=== PATIENT | male | born 1950 | race Caucasian/White ===

== ENCOUNTER → 2017-12-10 | Day surgery (SDC) | payer OTHER ==
[~2017-12-10] VITALS: Ht 172.7 cm; Wt 79.5 kg
[~2017-12-10] MED LIST: APIX1TAB3 PO; DILT-213 PO; DOXY1TAB6 PO; IBUP600T44 PO; METO25TA4 PO; MULT-506 PO; OXYC-57 PO; RANI150T85 PO
[2017-12-10 06:57] VITALS: BP 137/99; PULSE 73; TEMP 36.5; O2SAT 96; Ht 172.7 cm; Wt 79.5 kg
--- NOTE | 2017-12-10 07:16 | History & Physical Bridge Note ---
H&P Re-Evaluation Bridge Note: I have examined the patient, reviewed the History & Physical and in the interval since the performance of the History & Physical I have noted the following changes of clinical significance: No changes noted. Patient remains in atrial fibrillation on arrival today. He took his Eliquis this am and had not missed any doses recently. Informed consent obtained.
[2017-12-10 07:18] VITALS: BP 123/91; PULSE 80; O2SAT 98
[2017-12-10 07:20] VITALS: BP 123/91; PULSE 65; O2SAT 98
--- NOTE | 2017-12-10 07:31 | Cardioversion ---
Electricial Cardioversion Rpt Date of Service: 12/10/17 Electrical Cardioversion Rprt Procedure Date Dec 10, 2017. Pre-Procedure Diagnosis symptomatic atrial fibrillation Post-Procedure Diagnosis successful conversion to sinus rhythm Procedure(s) Performed [facility] Oleo Hasher And Renderer Ken Leyva DO Orthodontist(s) none Estimated Blood Loss none Preliminary Findings After informed consent was obtained and a time out was performed the patient was sedated with the assistance of Dr Peña of anesthesia receiving 60 mg of IV propofol. Patient then underwent synchronized direct current cardioversion, receiving 1 dose of 250 J of biphasic energy with successful conversion to sinus rhythm. Post procedure EKG reveals SR at 64 bpm, with LA enlargement pattern, otherwise normal. Recommendations Continue Eliquis. Will reassess need for ongoing metoprolol and diltiazem prior to discharge and update his medication list. 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
--- NOTE | 2017-12-10 08:18 | Discharge Instructions ---
Discharge Instructions Procedure Procedure Date: Dec 10, 2017. Reason for Visit: Atrial fibrillation, cardioversion Discharge Discharge Date: Dec 10, 2017. Discharge Diagnosis: Successful conversion to sinus rhythm Last Recorded Wt (Kilograms): 79.5 Anesthesia Post Anesthesia Instructions: If you have had General Anesthesia or IV Sedation: * Do not drive today. * Resume driving when surgeon permits. * Do not make important decisions or sign legal documents today. * Call surgeon for: 1. Temperature elevations greater than 101 degrees F. 2. Uncontrollable pain. 3. Excessive bleeding. 4. Persistent nausea and vomiting. 5. Medication intolerance (nausea, vomiting or rash). * For nausea and vomiting use only clear liquids such as: tea, soda, bouillon until nausea subsides, then gradually increase diet as tolerated. * If you have any concerns or questions, call your surgeon's office. If physician is unavailable and it is an emergency, call 911 or go to the nearest emergency room. Instructions Activity Recommendations: limitations as noted below Recommended Home Diet: resume previous diet Allergies: Coded Allergies: No Known Allergies (Unverified , 11/02/10) Provider Instructions ACTIVITY RECOMMENDATIONS: Resume activities as tolerated with no limitations unless specified. _x_ No lifting over _10_ pounds for 24 hours. _x_ Do not engage in vigorous exercise, sexual activity, or sports for 24 hours. _x_ Do not drive or operate any motorized equipment for 24 hours. _x_ You may return to work/school tomorrow. SPECIAL CARE: If you experience coughing up or vomiting of blood, contact _Dr Leyva __ Follow Up Follow-up with: Follow up with Dr Leyva as planned. [facility] Recommendations: Call your doctor if: * Temperature above 101 degrees * Pain not relieved by pain medicine ordered * There is increased drainage or redness from any incision * You have any unanswered questions or concerns. Your Doctors Instructions noted above were prepared by provider Ken Leyva. Patient Signature Section: Patient Instructions Signature Page Carlos Spears Patient (or Guardian) Signature/Date: I have read and understand the instructions given to me by my caregivers. Caregiver/RN/Doctor Signature/Date: The above-named patient and/or guardian has received patient instructions on this date. + Original Patient Signature Page (only) stays with chart. Please make copy for patient.
[2017-12-10 08:30] VITALS: BP 127/87; PULSE 67; O2SAT 98
--- NOTE | 2017-12-10 08:58 | Anesthesiology Progress Note ---
Anesthesia Post Op Note Date & Time Dec 10, 2017 at 08:58 Vital Signs Pain Intensity: 0 Vital Signs Past 12 Hours Date Time Temp Pulse Resp B/P (MAP) Pulse Ox O2 Delivery O2 Flow Rate FiO2 12/10/17 08:30 67 16 127/87 (100) 98 Room Air 12/10/17 08:15 66 16 118/80 (93) 98 Room Air 12/10/17 08:00 65 16 117/83 (94) 98 Room Air 12/10/17 07:45 65 16 125/93 (104) 98 Room Air 12/10/17 07:35 66 16 110/81 (91) 98 Room Air 12/10/17 07:25 69 16 110/71 (84) 97 Room Air 12/10/17 07:20 65 16 123/91 98 Nasal Cannula 4 12/10/17 07:18 80 16 123/91 98 Nasal Cannula 4 12/10/17 06:57 36.5 73 16 137/99 (112) 96 Room Air Notes Mental Status: alert / awake / arousable, participated in evaluation Pt Amnestic to Procedure: Yes Nausea / Vomiting: adequately controlled Pain: adequately controlled Airway Patency, RR, SpO2: stable & adequate BP & HR: stable & adequate Hydration State: stable & adequate Anesthetic Complications: no major complications apparent
== END ==
LOC: C.CATH 06:12
PROVIDERS: ATTEND Specialist
DX: I48.91 Unspecified atrial fibrillation (principal); Z87.891 Personal history of nicotine dependence; I48.1 Persistent atrial fibrillation; Z80.9 Family history of malignant neoplasm, unspecified; Z79.01 Long term (current) use of anticoagulants; Z79.82 Long term (current) use of aspirin

== ENCOUNTER 2017-12-19 15:16 | Inpatient (IN) | payer OTHER ==
[~2017-12-19] VITALS: Ht 175.3 cm; Wt 79.1 kg
[~2017-12-19 15:16] MED LIST changes: -IBUP600T44 PO; -METO25TA4 PO; -OXYC-57 PO; -RANI150T85 PO
[2017-12-19 16:38] VITALS: BP 139/89; PULSE 97; TEMP 36.6; O2SAT 95; Ht 175.3 cm; Wt 79.1 kg
[2017-12-19] MEDS ORDERED: MAGNESIUM HYDROXIDE SUSP 30 ML UDC PO PRN (17:00)
[2017-12-19] MEDS ORDERED: ALUMINUM/MAGNESIUM/SIMETH (MAALOX MAX) 30 ML UDC PO PRN (17:00)
[2017-12-19] MEDS ORDERED: POLYETHYLENE (MIRALAX) 17 GM PACK PO PRN (17:00)
[2017-12-19] MEDS ORDERED: NITROGLYCERIN 0.4 MG SL PER TAB CHARGE SL PRN (17:00)
[2017-12-19] MEDS ORDERED: ACETAMINOPHEN 325 MG TAB PO PRN (17:00)
[2017-12-19 17:20] LABS: HEMATOCRIT 42.3 % (42-52); HEMOGLOBIN 14.8 g/dL (14.0-18.0); MEAN CELL VOLUME 88.7 fL (80-100); MEAN PLATELET VOLUME 9.9 fL (7.4-10.4); PLATELET COUNT 209 K/uL (130-400); RED CELL DISTRIBUTION WIDTH CV 13.3 % (11.5-14.5); RED CELL DISTRIBUTION WIDTH SD 43.4 fL (36.4-46.3); WHITE BLOOD COUNT 8.38 K/uL (4.8-10.8)
[2017-12-19] MEDS ORDERED: METOPROLOL TARTRATE 1 MG/ML VIAL IV STA (17:31)
--- NOTE | 2017-12-19 17:31 | History and Physical ---
History & Physical Date & Time of Service: Dec 19, 2017 at 17:31 Chief Complaint: AFIB Primary Care Physician: Sage Lay M.D. History of Present Illness Source: patient This is a 67-year-old male with history of paroxysmal A. fib on Eliquis. underwent DC cardioversion on December 10, 2017 . Patient mentions he has been doing well, 2 days ago he felt flutter in his chest , as he was shoveling snow on his porch felt chest tightness/heaviness Symptom was resolved after taking rest Denies of any shortness of breath/dyspnea on exertion/orthopnea/dizzy spell or palpitation Patient was seen at Dr. Lay office on December 16, due to patient's symptoms of chest discomfort with exertion, [place] cardiac stress test was scheduled for today. At [facility]-cardiac stress test was canceled as patient was found to be in rapid A. fib RVR with heart rate of 120 Did not had any symptoms of chest pain shortness of breath or palpitation, dizziness spell given patient's recurrence of atrial fibrillation, failed cardioversion, patient is sent to [facility] as a direct admit-for sotalol loading dose Will need 3 days of admission for daily EKG monitoring, doing loading dose of sotalol Patient is continued with anticoagulation with close Past Medical/Surgical History Medical Problems: (1) Afib Social History Smoking Status: Never Smoker Housing status: lives alone Occupational Status: retired Immunizations History of Tetanus Vaccine?: Yes Tetanus Immunization Date: Nov 02, 2002 History of Pneumococcal: Yes History of Hepatitis B Vaccine: No Multi-Drug Resistant Organisms History of MDRO: No Allergies Coded Allergies: No Known Allergies (Unverified , 11/02/10) Home Medications Scheduled Apixaban (Eliquis), 5 MG PO BID Diltiazem Hcl Coated Beads (Diltiazem Hcl Er), 1 CAP PO DAILY Multivitamin (Multivitamin), 1 TAB PO DAILY Review of Systems Constitutional: No fever, No chills, No sweats, No weight loss, No weakness, No fatigue, No problem reported Eyes: No worsening of vision, No eye pain, No redness, No discharge, No diplopia, No problem reported ENT: No hearing loss, No unusual epistaxis, No nasal symptoms, No sore throat, No tinnitus, No dental problems, No trouble swallowing, No problem reported Cardiovascular: + palpitations, + problem reported (Episode of chest pain/ chest heaviness while shoveling snow) Abdomen: No pain, No nausea, No vomiting, No diarrhea, No constipation, No GI bleeding, No problem reported Musculoskeletal: No joint pain, No muscle pain, No swelling, No calf pain, No problem reported Genitourinary - Male: No hematuria, No dysuria, No urinary frequency, No urinary urgency, No urinary hesitancy, No urinary retention, No urinary incontinence, No penile discharge, No lesions, No impotence, No problem reported Neurologic: No memory loss, No paralysis, No weakness, No numbness/tingling, No vertigo, No balance problems, No problem reported Physical Exam Vital Signs Date Time Temp Pulse Resp B/P (MAP) Pulse Ox O2 Delivery O2 Flow Rate FiO2 12/19/17 16:38 36.6 97 19 139/89 95 Room Air General Appearance: no apparent distress Head: normocephalic, atraumatic Eyes: normal inspection, sclerae normal ENT: normal ENT inspection Neck: thyroid normal, no JVD, no carotid bruits, trachea midline Respiratory/Chest: lungs clear, normal breath sounds, no respiratory distress Cardiovascular: no edema, no JVD, + irregularly irregular Abdomen/GI: normal bowel sounds, non tender, soft Extremities/Musculoskelatal: normal inspection, normal capillary refill, no pedal edema Neurologic/Psych: no motor/sensory deficits, alert, normal mood/affect, oriented x 3 Skin: normal color, warm/dry, no rash Lymphatic: no adenopathy Diagnostics Laboratory Results Results Past 24 Hours Test 12/19/17 17:04 Range/Units White Blood Count 8.38 4.8-10.8 K/uL Red Blood Count 4.77 4.7-6.1 M/uL Hemoglobin 14.8 14.0-18.0 g/dL Hematocrit 42.3 42-52 % Mean Corpuscular Volume 88.7 80-100 fL Mean Corpuscular Hemoglobin 31.0 25-34 pg Mean Corpuscular Hemoglobin Concent 35.0 32-36 g/dl RDW Standard Deviation 43.4 36.4-46.3 fL RDW Coefficient of Variation 13.3 11.5-14.5 % Platelet Count 209 130-400 K/uL Mean Platelet Volume 9.9 7.4-10.4 fL Prothrombin Time 10.6 9.0-12.0 SECONDS Prothromb Time International Ratio 1.0 0.9-1.1 Impression Assessment and Plan Rafiq fischer RVR: Failed recent cardioversion on 12/10/17 developed rapid afib Remains asymptomatic On Eliquis for chronic anticoagulation Patient is admitted at telemetry, started on sotalol loading dose Cardizem D/linsey per Cardiology recommendation Daily EKG ordered to assess QTc prolongation Daily BMP, mg level will be checked Cardiology consulted Patient had fairly recent echocardiogram done, repeat echo not ordered CODE STATUS: Full code DVT prophylaxis: On Eliquis Disposition: Expected to be returning home when medically stable Medicine follow-up with Dr. Sage Lay Level of Care Telemetry Advanced Directives Existing Living Will: Yes Existing Power of Director Social Service: No Resuscitation Status FULL RESUSCITATION VTE Prophylaxis Risk Level: Moderate Given or contraindicated: Other Anticoagulation (Eliquis) Additional Copies To Sage Lay M.D. Bradbury, James J., D.O.
[2017-12-19] MEDS ORDERED: METOPROLOL TARTRATE 1 MG/ML VIAL ONE (17:38)
[2017-12-19 17:44] LABS: ALBUMIN 3.5 gm/dl (3.4-5.0); ALKALINE PHOSPHATASE 69 U/L (45-117); ALT/SGPT 20 U/L (12-78); AST/SGOT 28 U/L (15-37); BLOOD UREA NITROGEN 20 mg/dl (7-18); CALCIUM 8.4 mg/dl (8.5-10.1); CARBON DIOXIDE 27 mmol/L (21-32); CREATININE 1.05 mg/dl (0.60-1.40); GLUCOSE 111 mg/dl (70-99); SODIUM 141 mmol/L (136-145); TOTAL PROTEIN 6.8 gm/dl (6.4-8.2)
[2017-12-19] MEDS ORDERED: METOPROLOL TARTRATE 1 MG/ML VIAL IV PRN (17:45)
[2017-12-19] MEDS ORDERED: SOTALOL HCL 80 MG TAB PO ONE (18:50)
[2017-12-19 18:59] VITALS: BP 130/93; PULSE 91; TEMP 36.7; O2SAT 95
--- NOTE | 2017-12-19 19:04 | DIAGNOSTIC IMAGING REPORT ---
CHEST ONE VIEW PORTABLE CLINICAL HISTORY: RAPID AFIB /SOB cardiac arrhythmia COMPARISON STUDY: 11/05/2010 FINDINGS: Mild stable cardiomegaly. Slight parenchymal prominence left base considered chronic. No focal infiltrate. IMPRESSION: Mild stable cardiomegaly. Chronic change. No acute process. The above report was generated using voice recognition software. It may contain grammatical, syntax or spelling errors. Electronically signed by: Sage Vera M.D. 12/19/2017 7:03 PM Dictated Date/Time: 12/19/2017 7:02 PM
[2017-12-19] MEDS: APIXABAN 2.5 MG TAB PO SCH (21:39)
[2017-12-19 23:25] VITALS: BP 113/86; PULSE 64; TEMP 36.6; O2SAT 96
[2017-12-20 03:24] VITALS: BP 96/60; PULSE 60; TEMP 36.6; O2SAT 96
[2017-12-20 06:12] LABS: HEMATOCRIT 40.2 % (42-52); HEMOGLOBIN 13.9 g/dL (14.0-18.0); MEAN CELL VOLUME 89.1 fL (80-100); MEAN CORPUSCULAR HEMOGLOBIN 30.8 pg (25-34); MEAN CORPUSCULAR HGB CONC 34.6 g/dl (32-36); PLATELET COUNT 202 K/uL (130-400); RED CELL DISTRIBUTION WIDTH CV 13.6 % (11.5-14.5); RED CELL DISTRIBUTION WIDTH SD 44.4 fL (36.4-46.3); WHITE BLOOD COUNT 7.13 K/uL (4.8-10.8)
[2017-12-20 07:00] LABS: BLOOD UREA NITROGEN 17 mg/dl (7-18); CALCIUM 8.6 mg/dl (8.5-10.1); CARBON DIOXIDE 27 mmol/L (21-32); CREATININE 0.94 mg/dl (0.60-1.40); GLUCOSE 88 mg/dl (70-99); POTASSIUM 4.3 mmol/L (3.5-5.1); SODIUM 141 mmol/L (136-145)
[2017-12-20 07:05] LABS: CHOLESTEROL 136 mg/dl (0-200); LDL CHOLESTEROL CALCULATED 86 mg/dl
[2017-12-20 07:39] VITALS: BP 122/86; PULSE 72; TEMP 36.6; O2SAT 97
[2017-12-20] MEDS: SOTALOL HCL 80 MG TAB PO SCH ×2 (07:54→20:56)
[2017-12-20] MEDS: APIXABAN 2.5 MG TAB PO SCH ×2 (07:54→20:56)
[2017-12-20] MEDS: MULTIVITAMIN TAB PO SCH (09:00)
--- NOTE | 2017-12-20 12:03 | CARDIOLOGY CONSULTATION ---
DATE OF CONSULTATION: 12/20/2017 REFERRING PHYSICIAN: Dr. Crista Winters. HISTORY OF PRESENT ILLNESS: Mr. Spears is a 67-year-old gentleman with history of paroxysmal atrial fibrillation. He underwent elective external direct current cardioversion on 12/10/2017. He presented to my office at [facility] yesterday for a Lexiscan nuclear stress test. He was noted to be in atrial fibrillation during that study. The stress test was negative for inducible ischemia. Further treatment options of his atrial fibrillation were reviewed. Inpatient hospitalization for sotalol loading recommended. He has received 2 doses of sotalol since admission. His heart rate remains in the 70s, however, he is in atrial fibrillation. The patient is unaware of his dysrhythmia at this time. Denies chest pain or shortness of breath. No orthopnea, PND, or lower extremity edema. He is chronically anticoagulated with Eliquis. Offers no other complaints at this time. REVIEW OF SYSTEMS: The pertinent positive noted above, a comprehensive 10-system review is otherwise negative. PAST MEDICAL HISTORY: 1. Paroxysmal atrial fibrillation. 2. Osteoarthritis. PAST SURGICAL HISTORY: 1. Colonoscopy. 2. Elective external direct current cardioversion 12/10/2017. FAMILY HISTORY: Mother of cancer at age 88. No family history of premature CAD or sudden cardiac . Father of a motor vehicle accident in his 40s. SOCIAL HISTORY: Former tobacco abuse 86-[id number]-[id number] history, quitting in 1990. ALLERGIES: No known drug allergies. OUTPATIENT MEDICATIONS: 1. Eliquis 5 mg twice daily. 2. Aspirin 81 mg daily. 3. Cardizem-CD 120 mg daily. 4. Toprol-XL 25 mg daily. LABORATORY DATA: White blood cell count 7.13, hemoglobin 13.9, platelet count is 202. Sodium 141, potassium 4.3, chloride 107, CO2 27, BUN is 70, creatinine 0.94. Troponins are negative. LDL is 86. ECG today is atrial fibrillation, heart rate 72 beats per minute, QTC 457. PHYSICAL EXAMINATION: VITAL SIGNS: Temperature 36.3 degrees centigrade, pulse is 75 beats per minute and irregular, respiratory rate is 15 breaths per minute, SAO2 is 98% on room air, blood pressure 122/86. GENERAL: NAD, awake, alert and oriented x3. HEENT: Mucous membranes moist. No scleral icterus. Conjunctivae pink. NECK: Supple without JVD or HJR. No carotid bruit. HEART: Irregular with a normal S1, S2, no murmur, rub or gallop. LUNGS: Clear without rales, rhonchi or wheeze. ABDOMEN: Soft, nontender. No rebound or guarding. Normal bowel sounds. EXTREMITIES: Warm and dry. There is no clubbing, cyanosis or edema. NEUROLOGIC: Demonstrates no focal deficit. FINAL IMPRESSION: 1. Paroxysmal atrial fibrillation status post recent failed cardioversion 12/10/2017. 2. Recent nonischemic Lexiscan nuclear stress test. 3. Preserved left ventricular systolic function. 4. Mild to moderate mitral regurgitation. 5. Mild aortic root enlargement. 6. Former tobacco abuse. PLAN AND RECOMMENDATIONS: The patient will be monitored during sotalol loading. Recommend he receive at least 5 doses as an inpatient. Consider repeat cardioversion in the near future after sotalol loading. Eliquis will be continued for anticoagulation. Cardizem and Toprol-XL been placed on hold. The patient's heart rate remains controlled. Thank you for allowing me to participate in the care of your patient. I will continue to follow along during hospitalization.
[2017-12-20 12:31] VITALS: BP 134/96; PULSE 76; TEMP 36.4; O2SAT 97
[2017-12-20 14:58] VITALS: BP 115/84; PULSE 80; TEMP 36.6; O2SAT 90
--- NOTE | 2017-12-20 18:28 | Progress Note ---
Medicine Progress Note Date & Time of Visit: Dec 20, 2017 at 1200. Subjective 67-year-old male with history of atrial fibrillation status post DC cardioversion on 12/10/17 with recent reconversion back to atrial fibrillation. The patient presented as a direct admission in rapid atrial fibrillation. He is on Eliquis for anticoagulation. He was admitted from the cardiology clinic and started on a sotalol loading dose Cardizem was discontinued per cardiology recommendations. He is doing well overnight and is persistently in A. fib on telemetry review with rate in the 70s. He is asymptomatic denying chest pain or shortness of breath. He is tolerating p.o. and ambulating without issue. Objective Last 8 Hrs Date Time Temp Pulse Resp B/P (MAP) Pulse Ox O2 Delivery O2 Flow Rate FiO2 12/20/17 16:00 Room Air 12/20/17 14:58 36.6 80 18 115/84 (94) 90 Room Air 12/20/17 12:31 36.4 76 20 134/96 (109) 97 Room Air 12/20/17 12:00 Room Air Physical Exam: GEN: WNWD, in no acute distress, alert and appropriate HEENT: NC/AT,normal sclerae CARDIO: reg rate, S1/2 heard without m/g/r LUNGS: CTA bilaterally, no crackles, rales or wheezes, good diaphragmatic excursion ABD: soft, non-tender, non-distended, no rebound or guarding, +BS EXTREMITY: RP and DP palpable 2+ bilat, no LE swelling or edema, extremities are warm and well-perfused NEURO: CN 2-12 grossly intact, no gross focal deficits. MUSC: 5/5 strength throughout, no focal deficits SKIN: warm and dry Laboratory Results: 12/20/17 05:34 12/20/17 05:34 Test 12/19/17 17:04 12/20/17 05:34 12/20/17 16:53 Prothrombin Time 10.6 SECONDS (9.0-12.0) Prothromb Time International Ratio 1.0 (0.9-1.1) Total Bilirubin 0.3 mg/dl (0.2-1) Direct Bilirubin < 0.1 mg/dl (0-0.2) Aspartate Amino Transf (AST/SGOT) 28 U/L (15-37) Alanine Aminotransferase (ALT/SGPT) 20 U/L (12-78) Alkaline Phosphatase 69 U/L (45-117) Total Protein 6.8 gm/dl (6.4-8.2) Albumin 3.5 gm/dl (3.4-5.0) Globulin 3.3 gm/dl (2.5-4.0) Albumin/Globulin Ratio 1.1 (0.9-2) Red Blood Count 4.51 M/uL (4.7-6.1) Mean Corpuscular Volume 89.1 fL (80-100) Mean Corpuscular Hemoglobin 30.8 pg (25-34) Mean Corpuscular Hemoglobin Concent 34.6 g/dl (32-36) RDW Standard Deviation 44.4 fL (36.4-46.3) RDW Coefficient of Variation 13.6 % (11.5-14.5) Mean Platelet Volume 10.0 fL (7.4-10.4) Anion Gap 7.0 mmol/L (3-11) Est Creatinine Clear Calc Drug Dose 74.2 ml/min Estimated GFR () 95.5 Estimated GFR (Non- 82.4 BUN/Creatinine Ratio 18.5 (10-20) Calcium Level 8.6 mg/dl (8.5-10.1) Magnesium Level 2.0 mg/dl (1.8-2.4) Triglycerides Level 61 mg/dl (0-150) Cholesterol Level 136 mg/dl (0-200) HDL Cholesterol 38 mg/dl LDL Cholesterol, Calculated 86 mg/dl VLDL Cholesterol, Calculated 12 mg/dl Cholesterol/HDL Ratio 3.6 Troponin I < 0.015 ng/ml (0-0.045) Last 24 Hours Test 12/19/17 22:58 12/20/17 05:34 12/20/17 10:32 12/20/17 16:53 Troponin I < 0.015 ng/ml < 0.015 ng/ml < 0.015 ng/ml < 0.015 ng/ml White Blood Count 7.13 K/uL Red Blood Count 4.51 M/uL Hemoglobin 13.9 g/dL Hematocrit 40.2 % Mean Corpuscular Volume 89.1 fL Mean Corpuscular Hemoglobin 30.8 pg Mean Corpuscular Hemoglobin Concent 34.6 g/dl RDW Standard Deviation 44.4 fL RDW Coefficient of Variation 13.6 % Platelet Count 202 K/uL Mean Platelet Volume 10.0 fL Sodium Level 141 mmol/L Potassium Level 4.3 mmol/L Chloride Level 107 mmol/L Carbon Dioxide Level 27 mmol/L Anion Gap 7.0 mmol/L Blood Urea Nitrogen 17 mg/dl Creatinine 0.94 mg/dl Est Creatinine Clear Calc Drug Dose 74.2 ml/min Estimated GFR () 95.5 Estimated GFR (Non- 82.4 BUN/Creatinine Ratio 18.5 Random Glucose 88 mg/dl Calcium Level 8.6 mg/dl Magnesium Level 2.0 mg/dl Triglycerides Level 61 mg/dl Cholesterol Level 136 mg/dl HDL Cholesterol 38 mg/dl LDL Cholesterol, Calculated 86 mg/dl VLDL Cholesterol, Calculated 12 mg/dl Cholesterol/HDL Ratio 3.6 Assessment & Plan 67-year-old male with history of atrial fibrillation status post DC cardioversion on 12/10/17 with recent reconversion back to atrial fibrillation. The patient presented as a direct admission in rapid atrial fibrillation. He is on Eliquis for anticoagulation. He was admitted from the cardiology clinic and started on a sotalol loading dose Cardizem was discontinued per cardiology recommendations. He is doing well overnight and is persistently in A. fib on telemetry review with rate in the 70s. He is asymptomatic denying chest pain or shortness of breath. He is tolerating p.o. and ambulating without issue. 1. Atrial fibrillation-rate controlled on sotalol. Per cardiology needs minimal amount of doses continue telemetry until this is complete. Disposition per cardiology. Continue Eliquis. CODE STATUS: Full code DVT prophylaxis: On Eliquis Disposition: Expected to be returning home when sotalol load is complete, DO [facility] Consultants: CardiologyParveen Current Inpatient Medications: Current Inpatient Medications Medications (Trade) Dose Ordered Sig/Jes Route Start Time Stop Time Status Last Admin Dose Admin Acetaminophen (Tylenol Tab) 650 mg Q4H PRN PO 12/19/17 17:00 01/18/18 16:59 Al Hydrox/Mg Hydrox/Simethicone (Maalox Max Susp) 15 ml Q4H PRN PO 12/19/17 17:00 01/18/18 16:59 Magnesium Hydroxide (Milk Of Magnesia Susp) 30 ml Q12H PRN PO 12/19/17 17:00 01/18/18 16:59 Nitroglycerin (Nitrostat Tab) 0.4 mg UD PRN SL 12/19/17 17:00 01/18/18 16:59 Polyethylene (Miralax Powder Packet) 17 gm DAILY PRN PO 12/19/17 17:00 01/18/18 16:59 Multivitamins (Multivitamin Tab) 1 tab DAILY PO 12/20/17 09:00 01/19/18 08:59 Apixaban (Eliquis Tab) 5 mg BID PO 12/19/17 21:00 01/18/18 20:59 12/20/17 07:54 5 MG Metoprolol Tartrate (Lopressor Iv) 5 mg Q6 PRN IV 12/19/17 17:45 01/18/18 17:44 Sotalol HCl (Betapace Tab) 80 mg BID PO 12/20/17 09:00 01/19/18 08:59 12/20/17 07:54 80 MG
[2017-12-20 19:11] VITALS: BP 131/91; PULSE 87; TEMP 37; O2SAT 94
[2017-12-21] VITALS (7 sets, daily range): BP systolic 110–138; BP diastolic 68–94; PULSE 54–87; TEMP 36.4–36.9; O2SAT 94–98
[2017-12-21 06:06] LABS: HEMOGLOBIN 14.4 g/dL (14.0-18.0); MEAN CELL VOLUME 89.1 fL (80-100); MEAN CORPUSCULAR HEMOGLOBIN 31.3 pg (25-34); MEAN CORPUSCULAR HGB CONC 35.1 g/dl (32-36); MEAN PLATELET VOLUME 10.3 fL (7.4-10.4); PLATELET COUNT 206 K/uL (130-400); RED CELL DISTRIBUTION WIDTH CV 13.4 % (11.5-14.5); RED CELL DISTRIBUTION WIDTH SD 43.9 fL (36.4-46.3); WHITE BLOOD COUNT 6.98 K/uL (4.8-10.8)
[2017-12-21 06:44] LABS: CALCIUM 8.4 mg/dl (8.5-10.1); CREATININE 0.97 mg/dl (0.60-1.40)
[2017-12-21] MEDS: APIXABAN 2.5 MG TAB PO SCH ×2 (08:00→20:39)
[2017-12-21] MEDS: MULTIVITAMIN TAB PO SCH (08:00)
[2017-12-21] MEDS: SOTALOL HCL 80 MG TAB PO SCH ×2 (08:00→20:39)
--- NOTE | 2017-12-21 11:01 | PROGRESS NOTE ---
DATE: 12/21/2017 CARDIOLOGY CONSULTATION FOLLOWUP NOTE The patient seen and examined. Chart, medications, telemetry reviewed. SUBJECTIVE: The patient notes no complaints. He is ambulatory in the hallway. He remains in atrial fibrillation with variable ventricular response rates. Notes no dizziness or lightheadedness. Notes no syncope or near syncope. Did have transient slowing of heart rate as well as rapid heart rates over the night. Notes no sleep disturbances. Notes no bleeding difficulties. He is chronically anticoagulated now with apixaban. Tolerating sotalol dosing by EKG and hemodynamics. OBJECTIVE: VITAL SIGNS: Heart rate 71, blood pressure is 120/87. Telemetry reveals atrial fibrillation rhythm, variable degree of conduction. EKG reveals QT corrected to 434. NECK: Thin. There is no jugular venous distention. There is no carotid bruits. LUNGS: Clear to auscultation. CARDIOVASCULAR: Irregularly, irregular. There is no S3 gallop. ABDOMEN: Soft, nontender. There is no palpable splenomegaly. There is no hepatojugular reflux. EXTREMITIES: Without cyanosis or clubbing. There is no peripheral edema. LABORATORY DATA: As noted, atrial fibrillation with occasional ventricular ectopic beats, QT 434. White cell count is 6.9, hemoglobin is 14.4, hematocrit is 41.0. Sodium is 138, potassium is 4.0, chloride is 106, bicarbonate is 24, BUN is 19, creatinine is 0.97. Calcium is 8.4. IMPRESSION AND PLAN: A 67-year-old male with paroxysmal atrial fibrillation, now undergoing antiarrhythmic initiation with sotalol. We will plan on continuing sotalol throughout the day and maintain on telemetry until after a.m. dosing tomorrow. If he remains in atrial fibrillation, he will be discharged to home with anticipation of synchronized electrical cardioversion early next week. The patient is agreeable to plan. No adjustments made in therapies. MTDD
--- NOTE | 2017-12-21 15:53 | Progress Note ---
Internal Med Progress Note Date of Service: Dec 21, 2017. Provider Documentation: SUBJECTIVE: patient ambulating in room fine denies any chest pain or palpitations denies sob afebrile no nausea no cough OBJECTIVE: Vital Signs-as noted below Exam: General-alert and oriented. Not in distress ENT-Normal hearing Neck-no neck masses Lungs-cta b/l no wheezing or crackles Heart-S 1 and s2 heard irregular no murmurs Abdomen-soft bowel sounds present non tender no distension Extremities-no edema no erythema Neuro-alert and awake moves extremities Lab data as noted below. ASSESSMENT & PLAN: 67-year-old male with history of atrial fibrillation status post DC cardioversion on 12/10/17 with recent reconversion back to atrial fibrillation. The patient presented as a direct admission in rapid atrial fibrillation. He is on Eliquis for anticoagulation. He was admitted from the cardiology clinic and started on a sotalol loading dose Cardizem was discontinued per cardiology recommendations. He is doing well overnight and is persistently in A. fib on telemetry review with rate in the 70s. He is asymptomatic denying chest pain or shortness of breath. He is tolerating p.o. and ambulating without issue. 1. Atrial fibrillation-status post DC cardioversion on 12/10/17 with recent reconversion back to atrial fibrillation.Directly admitted from cardiology clinic for rapid afib.Cardizem stopped and initiated on sotalol by cardiology.Daily ekg on eliquis for anticoagulation still in afib. plan for cardioversion next week as per cardiology\ continue to monitor tele for until tomorrow as per cardiology. CODE STATUS: Full code DVT prophylaxis: On Eliquis Disposition: possible d/c in am if stable Vital Signs: Date Time Temp Pulse Resp B/P (MAP) Pulse Ox O2 Delivery O2 Flow Rate FiO2 12/21/17 12:00 Room Air 12/21/17 11:58 36.6 61 18 112/79 (90) 98 12/21/17 08:00 Room Air 12/21/17 07:49 36.5 72 19 120/87 (98) 95 Room Air 12/21/17 04:28 36.6 54 16 115/78 (90) 95 Room Air 12/21/17 04:00 Room Air 12/21/17 00:37 36.9 79 18 110/68 (82) 95 Room Air 12/21/17 00:00 Room Air 12/20/17 20:10 Room Air 12/20/17 19:11 37.0 87 20 131/91 (104) 94 Room Air 12/20/17 16:00 Room Air Lab Results: Results Past 24 Hours Test 12/20/17 16:53 12/21/17 05:23 Range/Units Troponin I < 0.015 0-0.045 ng/ml White Blood Count 6.98 4.8-10.8 K/uL Red Blood Count 4.60 4.7-6.1 M/uL Hemoglobin 14.4 14.0-18.0 g/dL Hematocrit 41.0 42-52 % Mean Corpuscular Volume 89.1 80-100 fL Mean Corpuscular Hemoglobin 31.3 25-34 pg Mean Corpuscular Hemoglobin Concent 35.1 32-36 g/dl RDW Standard Deviation 43.9 36.4-46.3 fL RDW Coefficient of Variation 13.4 11.5-14.5 % Platelet Count 206 130-400 K/uL Mean Platelet Volume 10.3 7.4-10.4 fL Sodium Level 138 136-145 mmol/L Potassium Level 4.0 3.5-5.1 mmol/L Chloride Level 106 98-107 mmol/L Carbon Dioxide Level 24 21-32 mmol/L Anion Gap 8.0 3-11 mmol/L Blood Urea Nitrogen 19 7-18 mg/dl Creatinine 0.97 0.60-1.40 mg/dl Est Creatinine Clear Calc Drug Dose 78.5 ml/min Estimated GFR () 91.9 Estimated GFR (Non- 79.3 BUN/Creatinine Ratio 19.8 10-20 Random Glucose 88 70-99 mg/dl Calcium Level 8.4 8.5-10.1 mg/dl Magnesium Level 2.1 1.8-2.4 mg/dl
[2017-12-22 03:24] VITALS: BP 105/77; PULSE 78; TEMP 36.8; O2SAT 95
[2017-12-22 06:31] LABS: HEMATOCRIT 46.9 % (42-52); HEMOGLOBIN 16.3 g/dL (14.0-18.0); MEAN CELL VOLUME 89.7 fL (80-100); MEAN CORPUSCULAR HEMOGLOBIN 31.2 pg (25-34); MEAN CORPUSCULAR HGB CONC 34.8 g/dl (32-36); MEAN PLATELET VOLUME 10.5 fL (7.4-10.4); PLATELET COUNT 208 K/uL (130-400); RED CELL DISTRIBUTION WIDTH CV 13.4 % (11.5-14.5); RED CELL DISTRIBUTION WIDTH SD 43.8 fL (36.4-46.3); WHITE BLOOD COUNT 8.09 K/uL (4.8-10.8)
[2017-12-22 07:01] LABS: CALCIUM 8.9 mg/dl (8.5-10.1); CREATININE 0.98 mg/dl (0.60-1.40)
[2017-12-22 07:11] VITALS: BP 126/82; PULSE 63; TEMP 36.4; O2SAT 98
[2017-12-22] MEDS: MULTIVITAMIN TAB PO SCH (08:06)
[2017-12-22] MEDS: SOTALOL HCL 80 MG TAB PO SCH (08:06)
[2017-12-22] MEDS: APIXABAN 2.5 MG TAB PO SCH (08:07)
--- NOTE | 2017-12-22 11:28 | PROGRESS NOTE ---
DATE: 12/22/2017 CARDIOLOGY CONSULTATION FOLLOWUP NOTE The patient seen and examined. Chart, medications, telemetry reviewed. SUBJECTIVE: The patient notes no complaints overnight. Has been ambulatory in room and hallway. Denies any chest pain or discomfort. Notes no dizziness or lightheadedness. OBJECTIVE: VITAL SIGNS: Telemetry reveals persistent atrial fibrillation but no profound bradyarrhythmias or ventricular arrhythmias. NECK: Thin. There is no jugular venous distention. LUNGS: Clear. CARDIOVASCULAR: Irreg Irreg There is no S3 gallop. EXTREMITIES: Free of edema. LABORATORY DATA: EKG reveals atrial fibrillation, rate of 88 with a QT corrected of 471. IMPRESSION: A 67-year-old male with paroxysmal atrial fibrillation, approaching persistent, now status post sotalol load with good tolerance. PLAN: Allow patient to be discharged to home with anticipation of synchronized electrical cardioversion, tentatively planned for 12/25/2017. Discussed in detail. Current medications will be continued as prescribed including apixaban 5 mg twice per day and sotalol 80 mg twice per day. MTDD
[2017-12-22] MEDS ORDERED: BTP80 PO (11:37)
--- NOTE | 2017-12-22 11:39 | Discharge Instructions ---
Discharge Instructions Date of Service Dec 22, 2017. Admission Reason for Admission: AFIB Discharge Discharge Diagnosis / Problem: rapid a fib Discharge Goals Goal(s): Decrease discomfort, Improve function Activity Recommendations Activity Limitations: resume your previous activity (as tolerated) . Instructions / Follow-Up Instructions / Follow-Up FOLLOWUP WITH CARDIOLOGY ON SATURDAY SCHEDULED FOR CARDIOVERSION FOLLOWUP WITH FAMILY DOCTOR ON November AT 11AM Current Hospital Diet Patient's current hospital diet: AHA Diet (Heart Healthy) Discharge Diet Recommended Diet: AHA Diet (Heart Healthy) Pending Studies Studies pending at discharge: no Laboratory Results Lipid Panel Test 12/20/17 05:34 Range/Units Triglycerides Level 61 0-150 mg/dl Cholesterol Level 136 0-200 mg/dl HDL Cholesterol 38 mg/dl Cholesterol/HDL Ratio 3.6 LDL Cholesterol, Calculated 86 mg/dl Medical Emergencies . Who to Call and When: Medical Emergencies: If at any time you feel your situation is an emergency, please call 911 immediately. . Non-Emergent Contact Non-Emergency issues call your: Primary Care Provider . . "Provider Documentation" section prepared by Ryan Yadav. .
[2017-12-22 11:42] VITALS: BP 126/82; PULSE 63; TEMP 36.4; O2SAT 98
--- NOTE | 2017-12-22 15:55 | Progress Note ---
Internal Med Progress Note Date of Service: Dec 22, 2017. Provider Documentation: SUBJECTIVE: patient ambulating in room ok no chest pain or palpitations eating ok afebrile ok for discharge OBJECTIVE: Vital Signs-as noted below Exam: General-alert and oriented. Not in distress ENT-Normal hearing Neck-no neck masses Lungs-cta b/l no wheezing or crackles Heart-S 1 and s2 heard irregular no murmurs Abdomen-soft bowel sounds present non tender no distension Extremities-no edema no erythema Neuro-alert and awake moves extremities Lab data as noted below. ASSESSMENT & PLAN: 67-year-old male with history of atrial fibrillation status post DC cardioversion on 12/10/17 with recent reconversion back to atrial fibrillation. The patient presented as a direct admission in rapid atrial fibrillation. He is on Eliquis for anticoagulation. He was admitted from the cardiology clinic and started on a sotalol loading dose Cardizem was discontinued per cardiology recommendations. He is doing well overnight and is persistently in A. fib on telemetry review with rate in the 70s. He is asymptomatic denying chest pain or shortness of breath. He is tolerating p.o. and ambulating without issue. 1. Atrial fibrillation-status post DC cardioversion on 12/10/17 with recent reconversion back to atrial fibrillation.Directly admitted from cardiology clinic for rapid afib.Cardizem stopped and initiated on sotalol by cardiology.Daily ekg-stable on eliquis for anticoagulation still in afib. plan for cardioversion next week possibly on Saturday as per cardiology discharging home today discharged home today Vital Signs: Date Time Temp Pulse Resp B/P (MAP) Pulse Ox O2 Delivery O2 Flow Rate FiO2 12/22/17 11:42 36.4 63 16 98 Room Air 12/22/17 08:00 Room Air 12/22/17 07:11 36.4 63 16 126/82 (97) 98 Room Air 12/22/17 04:00 Room Air 12/22/17 03:24 36.8 78 16 105/77 (86) 95 Room Air 12/22/17 00:00 Room Air 12/21/17 23:40 36.6 62 18 118/78 (91) 96 Room Air 12/21/17 20:00 Room Air 12/21/17 19:51 36.5 73 19 114/79 (91) 94 Room Air 12/21/17 16:00 Room Air Lab Results: Results Past 24 Hours Test 12/22/17 05:31 Range/Units White Blood Count 8.09 4.8-10.8 K/uL Red Blood Count 5.23 4.7-6.1 M/uL Hemoglobin 16.3 14.0-18.0 g/dL Hematocrit 46.9 42-52 % Mean Corpuscular Volume 89.7 80-100 fL Mean Corpuscular Hemoglobin 31.2 25-34 pg Mean Corpuscular Hemoglobin Concent 34.8 32-36 g/dl RDW Standard Deviation 43.8 36.4-46.3 fL RDW Coefficient of Variation 13.4 11.5-14.5 % Platelet Count 208 130-400 K/uL Mean Platelet Volume 10.5 7.4-10.4 fL Sodium Level 139 136-145 mmol/L Potassium Level 4.0 3.5-5.1 mmol/L Chloride Level 105 98-107 mmol/L Carbon Dioxide Level 27 21-32 mmol/L Anion Gap 7.0 3-11 mmol/L Blood Urea Nitrogen 19 7-18 mg/dl Creatinine 0.98 0.60-1.40 mg/dl Est Creatinine Clear Calc Drug Dose 71.2 ml/min Estimated GFR () 90.8 Estimated GFR (Non- 78.4 BUN/Creatinine Ratio 19.6 10-20 Random Glucose 82 70-99 mg/dl Calcium Level 8.9 8.5-10.1 mg/dl Magnesium Level 2.2 1.8-2.4 mg/dl
--- NOTE | 2017-12-22 15:56 | Discharge Summary ---
Discharge Summary Date of Service Dec 22, 2017. Discharge Summary Admission Date: Dec 19, 2017 at 16:05 Discharge Date: Dec 22, 2017 Discharge Disposition: Home Principal Diagnosis: RAPID AFIB Secondary Diagnoses/Problems: (1) Afib Procedures: CXR: Mild stable cardiomegaly. Chronic change. No acute process. Consultations: Cardiology-[facility] Medication Reconciliation New Medications: Sotalol HCl (Sotalol HCl) 80 Mg Tab 80 MG PO BID, #60 TAB 2 Refills Continued Medications: Apixaban (Eliquis) 5 Mg Tab 5 MG PO BID, TAB Multivitamin (Multivitamin) Tab 1 TAB PO DAILY, TAB Discontinued Medications: Diltiazem Hcl Coated Beads (Diltiazem Hcl Er) 120 Mg Cap 1 CAP PO DAILY for 90 Days, #90 CAP 1 Refill Admission Information HPI (per Admitting provider): This is a 67-year-old male with history of paroxysmal A. fib on Eliquis. underwent DC cardioversion on December 10, 2017 . Patient mentions he has been doing well, 2 days ago he felt flutter in his chest , as he was shoveling snow on his porch felt chest tightness/heaviness Symptom was resolved after taking rest Denies of any shortness of breath/dyspnea on exertion/orthopnea/dizzy spell or palpitation Patient was seen at Dr. Lay office on December 16, due to patient's symptoms of chest discomfort with exertion, [place] cardiac stress test was scheduled for today. At [facility]-cardiac stress test was canceled as patient was found to be in rapid A. fib RVR with heart rate of 120 Did not had any symptoms of chest pain shortness of breath or palpitation, dizziness spell given patient's recurrence of atrial fibrillation, failed cardioversion, patient is sent to [facility] as a direct admit-for sotalol loading dose Will need 3 days of admission for daily EKG monitoring, doing loading dose of sotalol Patient is continued with anticoagulation with close Physical Exam (per Admitting): General Appearance: no apparent distress Head: normocephalic, atraumatic Eyes: normal inspection, sclerae normal ENT: normal ENT inspection Neck: thyroid normal, no JVD, no carotid bruits, trachea midline Respiratory/Chest: lungs clear, normal breath sounds, no respiratory distress Cardiovascular: no edema, no JVD, + irregularly irregular Abdomen/GI: normal bowel sounds, non tender, soft Extremities/Musculoskelatal: normal inspection, normal capillary refill, no pedal edema Neurologic/Psych: no motor/sensory deficits, alert, normal mood/affect, oriented x 3 Skin: normal color, warm/dry, no rash Lymphatic: no adenopathy Hospital Course 67-year-old male with history of atrial fibrillation status post DC cardioversion on 12/10/17 with recent reconversion back to atrial fibrillation. The patient presented as a direct admission in rapid atrial fibrillation. He is on Eliquis for anticoagulation. He was admitted from the cardiology clinic and started on a sotalol loading dose Cardizem was discontinued per cardiology recommendations. He is doing well overnight and is persistently in A. fib on telemetry review with rate in the 70s. He is asymptomatic denying chest pain or shortness of breath. He is tolerating p.o. and ambulating without issue. 1. Atrial fibrillation-status post DC cardioversion on 12/10/17 with recent reconversion back to atrial fibrillation.Directly admitted from cardiology clinic for rapid afib.Cardizem stopped and initiated on sotalol by cardiology.Daily ekg-stable on eliquis for anticoagulation still in afib. plan for cardioversion next week possibly on Saturday as per cardiology discharging home today discharged home today Total time spent on discharge = 35MINUTES This includes examination of the patient, discharge planning, medication reconciliation, and communication with other providers. Discharge Instructions Discharge Instructions Date of Service Dec 22, 2017. Admission Reason for Admission: AFIB Discharge Discharge Diagnosis / Problem: rapid a fib Discharge Goals Goal(s): Decrease discomfort, Improve function Activity Recommendations Activity Limitations: resume your previous activity (as tolerated) . Instructions / Follow-Up Instructions / Follow-Up FOLLOWUP WITH CARDIOLOGY ON SATURDAY SCHEDULED FOR CARDIOVERSION FOLLOWUP WITH FAMILY DOCTOR ON November AT 11AM Current Hospital Diet Patient's current hospital diet: AHA Diet (Heart Healthy) Discharge Diet Recommended Diet: AHA Diet (Heart Healthy) Pending Studies Studies pending at discharge: no Laboratory Results Lipid Panel Test 12/20/17 05:34 Range/Units Triglycerides Level 61 0-150 mg/dl Cholesterol Level 136 0-200 mg/dl HDL Cholesterol 38 mg/dl Cholesterol/HDL Ratio 3.6 LDL Cholesterol, Calculated 86 mg/dl Medical Emergencies . Who to Call and When: Medical Emergencies: If at any time you feel your situation is an emergency, please call 911 immediately. . Non-Emergent Contact Non-Emergency issues call your: Primary Care Provider . .
== END 2017-12-22 12:47 | disposition home or self-care (01) | DRG 310 ==
LOC: C.2T 16:05
PROVIDERS: ADMIT Hospitalist; ATTEND Internal Medicine
DX: I48.0 Paroxysmal atrial fibrillation (principal); I34.0 Nonrheumatic mitral (valve) insufficiency; Z79.01 Long term (current) use of anticoagulants; Z79.82 Long term (current) use of aspirin; Z79.899 Other long term (current) drug therapy; Z87.891 Personal history of nicotine dependence

== ENCOUNTER 2025-01-25 07:41 | Inpatient (IN) ==
--- NOTE | 2025-01-25 07:50 | Emergency Department Note ---
History of Present Illness General Chief complaint: Abdominal Pain Stated complaint: UPSET STOMACH Time Seen by Provider: 01/25/25 07:49 History of Present Illness Maximum Pain Intensity: 6 This is a 74-year-old male who presents to the emergency department via private vehicle with complaints of "abdominal pain, nausea, vomiting". Patient here today accompanied by son. History obtained from both patient and son at bedside. Patient notes a last evening around midnight he noted some abdominal discomfort, epigastric region accompanied by episode of vomiting. Nausea has persisted as has the pain. Current pain 03/09. He does not history of hernia repair several years ago, nothing recent. Patient does not history of lung cancer, and just finished immunotherapy. He does note port to the right anterior chest region. No fevers. No hemoptysis or hematemesis. Home Medications Medication Instructions Recorded Confirmed Type atorvastatin 20 mg tablet 20 mg PO QPM 11/03/21 01/25/25 History lisinopril 10 mg tablet 10 mg PO DAILY 11/03/21 01/25/25 History multivitamin 1 tab PO QAM 01/04/22 01/25/25 History apixaban 5 mg tablet 5 mg PO BID 01/25/25 01/25/25 History folic acid 1 mg tablet 1 mg PO DAILY 01/25/25 01/25/25 History polyethylene glycol 3350 17 17 g PO DAILY 01/25/25 01/25/25 History gram/dose oral powder sotalol 80 mg tablet 80 mg PO BID 01/25/25 01/25/25 History Allergies Allergy/AdvReac Type Severity Reaction Status Date / Time No Known Allergies Verified 05/06/24 11:16 Past Med/Surg History Problem List (Updated 01/25/25 @ 21:24 by Yury Naranjo PA-C) Abdominal pain (Acute) Small bowel obstruction (Acute) Partial small bowel obstruction Port-A-Cath in place Dyslipidemia Essential hypertension Medical History COPD (chronic obstructive pulmonary disease) centrilobular emphysemia Gouty arthropathy Osteoarthritis Non-small cell carcinoma of lung Enlargement of aortic root mild per 06/2021 echo Tricuspid regurgitation mild per 06/2021 echo Mitral regurgitation mild per 06/2021 echo Pulmonary hypertension mild, estimated PASP 40 mmHg per 06/2021 echo report Rosacea Paroxysmal atrial fibrillation F/U DR PLUNKETT-ON OBIE Surgical History S/P inguinal hernia repair S/P lobectomy of lung robotic thoracoscopy with right lower lobectomy and lymphadenectomy Rotator cuff arthropathy of right shoulder History of colonoscopy 2014 History of cardioversion X 2-2018 H/O thumb surgery Family History Mother Heart disease Sister Heart disease Social History Smoking Status: Former smoker Second Hand Exposure: No (ON OCC); Do You Dip or Chew Tobacco: No; Hx Alcohol Use: Yes Alcohol type: beer Hx Substance Use: No Preferred Language: Kinyarwanda Communication Ability: Effective [employer] Advisor Required: No Beliefs That Will Affect Care: None Current Living Situation: Family current occupational status: retired Feels Safe at Home: Yes Assistive Devices: Denture - Upper, Denture - Lower and Glasses Review of Systems A total of 10 systems reviewed and were otherwise negative Physical Exam Vital Signs Vital Signs - 24 hr 01/25/25 07:45 01/25/25 08:44 01/25/25 08:45 Temperature 36.4 C L Temperature Source Oral Pulse Rate 81 77 Pulse Rate [Apical] Pulse Rhythm [Apical] Pulse Strength [Apical] Respiratory Rate 18 Respiratory Effort / Characteristics Respiratory Depth Respiratory Pattern Blood Pressure 115/81 Blood Pressure [Left Arm] Blood Pressure Mean 92 Blood Pressure Mean [Left Arm] Blood Pressure Position Sitting Pulse Oximetry 98 92 Oxygen Delivery Method Room Air Sepsis Recent Fever Within 48 Hours No Sepsis New/Unexplained Change in Mental Status No Sepsis Action Taken by Nursing No Action Required 01/25/25 08:48 01/25/25 09:35 Temperature Temperature Source Pulse Rate Pulse Rate [Apical] 75 70 Pulse Rhythm [Apical] Regular Pulse Strength [Apical] Normal Respiratory Rate 19 18 Respiratory Effort / Characteristics Non-Labored Spontaneous Non-Labored Spontaneous Respiratory Depth Normal Normal Respiratory Pattern Regular Regular Blood Pressure Blood Pressure [Left Arm] 115/86 129/92 Blood Pressure Mean Blood Pressure Mean [Left Arm] 95 104 Blood Pressure Position Pulse Oximetry 92 93 Oxygen Delivery Method Room Air Room Air Sepsis Recent Fever Within 48 Hours Sepsis New/Unexplained Change in Mental Status Sepsis Action Taken by Nursing VITAL SIGNS - Vital signs and nursing notes were reviewed. Stable and afebrile. GENERAL - 74-year-old male appearing his stated age who is in no acute distress. Communicates well with provider and answers questions appropriately. SKIN - Without rashes. No meningeal or petechial rash. HEAD - NC/AT. EYES - PERRL with EOMI bilaterally. Sclera anicteric. EARS - No deformities of external structures noted on gross examination bilaterally. NOSE - Midline and without cyanosis. No epistaxis or purulent drainage noted. Septum midline without deviation or septal hematoma noted. MOUTH/OROPHARYNX - Without perioral cyanosis. Buccal mucosa pink and moist and without leukoplakia. Tongue midline with equal elevation of palate bilaterally. No tonsillar hypertrophy, erythema, or exudates noted. Good dentition noted. NECK - Neck with FROM. No nuchal rigidity. LUNGS - CTA CARDIAC - RRR ABDOMEN - Abdominal contour normal without pulsations or visible masses. BS normoactive all four quadrants. Generalized epigastric abdominal tenderness to palpation. No guarding or rigidity. No palpable masses, hepatosplenomegaly, or ascites noted. EXTREMITIES - No clubbing or peripheral cyanosis. +5/5 strength noted in UE/LE bilaterally. NEUROLOGIC - Cranial nerves II through XII grossly intact. PSYCH -alert, oriented and pleasant on exam Course Administered Medications Sodium Chloride (Nss) 1,000 mls @ 65 mls/hr IV .[id number] BALBINA Stop: 01/26/25 12:59 Last Admin: 01/25/25 13:03 Dose: 65 mls/hr Documented By: PASQUALE Sotalol HCl (Sotalol Hcl 80 Mg Tab) 80 mg PO BID BALBINA Stop: 02/24/25 20:59 Last Admin: 01/25/25 20:30 Dose: 80 mg Documented By: KAMILLA Discontinued Medications Sodium Chloride (Nss) 1,000 mls @ 250 mls/hr IV .Q4H ONE Stop: 01/25/25 11:59 Last Infusion: 01/25/25 13:00 Dose: Infused Documented By: Admin: 01/25/25 08:38 Dose: 250 mls/hr Documented By: PASQUALE Magnesium Sulfate/Dextrose (Magnesium Sulfate / D5w) 1 gm in 100 mls @ 50 mls/hr IV Q2H BALBINA Stop: 01/25/25 15:29 Last Infusion: 01/25/25 15:07 Dose: Infused Documented By: Admin: 01/25/25 13:03 Dose: 50 mls/hr Documented By: Infusion: 01/25/25 12:44 Dose: Infused Documented By: Admin: 01/25/25 11:26 Dose: 50 mls/hr Documented By: PASQUALE Promethazine HCl (Phenergan) 6.25 mg in 50.25 mls @ 201 mls/hr IV NOW STA Stop: 01/25/25 12:41 Last Infusion: 01/25/25 13:00 Dose: Infused Documented By: Admin: 01/25/25 12:44 Dose: 201 mls/hr Documented By: PASQUALE Acetaminophen (Ofirmev) 1,000 mg in 100 mls @ 400 mls/hr IV NOW STA Stop: 01/25/25 14:16 Last Infusion: 01/25/25 14:55 Dose: Infused Documented By: Admin: 01/25/25 14:11 Dose: 400 mls/hr Documented By: PASQUALE Ondansetron HCl (Ondansetron Inj 2 Mg/Ml 2 Ml Vial) 4 mg IV NOW STA Stop: 01/25/25 08:01 Last Admin: 01/25/25 08:38 Dose: 4 mg Documented By: PASQUALE Sotalol HCl (Sotalol Hcl 80 Mg Tab) 80 mg PO NOW STA Stop: 01/25/25 12:36 Last Admin: 01/25/25 13:24 Dose: 80 mg Documented By: ANDRE Medical Decision Making Laboratory Data 01/25/25 08:20 01/25/25 08:20 Lab Results 01/25/25 01/25/25 01/25/25 Range/Units 08:20 08:32 11:00 WBC 10.20 (4.8-10.8) K/ul RBC 4.20 L (4.70-6.10) M/uL Hgb 12.6 L (14.0-18.0) g/dl POC Hgb 12.6 L (14.0-18.0) g/dl Hct 37.2 L (42.0-52.0) % POC Hct 37 L (42-52) % MCV 88.6 (80.0-100.0) fL MCH 30.0 (25.0-34.0) pg MCHC 33.9 (32.0-36.0) g/dL RDW Std Deviation 44.8 (36.4-46.3) fL RDW Coeff of Praveen 13.9 (11.5-14.5) % Plt Count 242 (130-400) K/uL MPV 9.5 (9.4-12.4) fL Immature Gran % (Auto) 0.2 % Neut % (Auto) 80.9 % Lymph % (Auto) 11.8 % Lewis % (Auto) 6.2 % Eos % (Auto) 0.5 % Baso % (Auto) 0.4 % Neut # (Auto) 8.26 H (1.40-6.50) K/uL Lymph # (Auto) 1.20 (1.20-3.40) K/uL Lewis # (Auto) 0.63 H (0.11-0.59) K/uL Eos # (Auto) 0.05 (0.00-0.50) K/uL Baso # (Auto) 0.04 (0.00-0.20) K/uL Immature Gran # (Auto) 0.02 (0.01-0.20) K/uL PT 11.1 (9.0-12.0) Seconds INR 1.0 (0.9-1.1) APTT 26 (21-31) Seconds PTT Ratio 1.0 POC Sodium 141 (135-144) mmol/L Sodium 139 (136-145) mmol/L POC Potassium 3.8 (3.3-5.0) mmol/L Potassium 3.9 (3.5-5.1) mmol/L POC Chloride 101 (101-112) mmol/L Chloride 103 (98-107) mmol/L Carbon Dioxide 28 (21-32) mmol/L POC Total CO2 25 (24-31) mmol/L Anion Gap 8 (3-11) POC Anion Gap 19.0 (16-25) mmol/L POC BUN 25 H (7-18) mg/dl BUN 26 H (6-23) mg/dl Creatinine 1.58 H (0.6-1.4) mg/dl POC Creatinine 1.7 H (0.6-1.3) mg/dl Est Cr Clr Drug Dosing Not Reportable eGFR 45.05 BUN/Creatinine Ratio 16.5 (10-20) Glucose 124 H (70-99(Fasting)) mg/dl POC Glucose (other) 127 H (70-99) mg/dl Lactate 0.7 (0.4-2.0) mmol/L Calcium 9.1 (8.6-10.3) mg/dl POC Ioniz Calcium Carter 1.16 (1.12-1.32) mmol/l Magnesium 1.5 L (1.7-2.4) mg/dl Total Bilirubin 0.7 (0.2-1.0) mg/dl AST 26 (13-39) U/L ALT 11 (7-52) U/L Alkaline Phosphatase 99 (34-104) U/L Troponin I High Sens 4.5 (0-20) pg/ml Total Protein 6.7 (6.0-8.3) gm/dl Albumin 3.8 (3.4-5.0) gm/dl Globulin 2.9 (2.5-4.0) gm/dl Albumin/Globulin Ratio 1.3 (0.9-2) Lipase 30 (11-82) U/L TSH 4.919 H (0.300-4.500) uIu/ml Free T4 0.87 (0.61-1.60) ng/dl Imaging Data Radiologist's Impression: Abdomen/Pelvis CT 01/25/25 08:34 CT OF THE ABDOMEN AND PELVIS WITHOUT CONTRAST CLINICAL HISTORY: Abdominal pain, nausea and vomiting. COMPARISON STUDY: CT of the abdomen and pelvis December 10, 2022. TECHNIQUE: Axial images of the abdomen and pelvis were obtained without IV contrast. Images were reviewed in the axial, sagittal, and coronal planes. Automated exposure control was utilized for the study. A dose lowering technique was utilized adhering to the principles of ALARA. FINDINGS: A hiatal hernia is present. Postoperative findings within the right lung are partially imaged. Small right and trace left pleural effusions are noted. Right-sided pleural thickening is present. This is a nonspecific finding. No pneumatosis, free air or portal venous gas is present. Evaluation of the abdomen and pelvis is suboptimal on this unenhanced exam. A 1.6 cm left hepatic lobe cyst is unchanged. Spleen, adrenal glands, kidneys and pancreas are unremarkable. There is no hydronephrosis. Colonic diverticulosis is present. There is no evidence for acute diverticulitis. A small amount of fluid within the pelvis is present. The proximal to mid small bowel is mildly dilated and fluid-filled. Transition point within the right mid abdomen on image 204 is noted. Distal small bowel is decompressed. An additional transition point may also be present. There is associated mesenteric stranding. The appendix is normal. There is no lymphadenopathy. There are no fluid collections within the abdomen or pelvis. IMPRESSION: 1. Findings consistent with a moderate grade partial small bowel obstruction, as described above. Small amount of associated ascites and mesenteric stranding. 2. Small right pleural effusion with nonspecific pleural thickening. Partially visualized postoperative findings within the right lung. 3. Trace left pleural effusion. ACT 112: Negative or not required by law. Electronically signed by: Lazaro Tafoya M.D. 01/25/2025 9:44 AM XR chest 1V portable CLINICAL HISTORY: Abdominal pain, nausea and vomiting. COMPARISON STUDY: Chest radiograph May 30, 2018. FINDINGS: Right internal jugular [id number] is in place. Right lung volume loss. There is cardiomegaly with pulmonary vascular congestion. Small right and trace left pleural effusions are present. Right apical pleural opacity is present. Hazy bibasilar opacities are noted. Several nodular densities within the right lung measure up to 8 mm. There is underlying emphysema. IMPRESSION: 1. Cardiomegaly with pulmonary vascular congestion. 2. Small right and trace left pleural effusions. Asymmetric right lung volume loss with right apical pleural thickening/fluid. Associated bibasilar opacities favor atelectasis although pneumonia could appear similar. 3. Several indeterminate nodular densities within the right lung which measure up to 8 mm. Radiographic follow-up to ensure resolution is recommended. ACT 112: Negative or not required by law. Electronically signed by: Lazaro Tafoya M.D. 01/25/2025 8:23 AM MDM Narrative Patient was seen and evaluated as above in room B12. Review was performed of triage nursing notes and vital signs. After obtaining a thorough history and physical examination the above work up was performed. Patient presents to us today for evaluation of epigastric abdominal pain with associated nausea. Vomiting earlier but not at the present time. He does have tenderness in the epigastric region, superior to the umbilicus. Options of care were discussed with the patient. EKG was performed. This reveals per my interpretation normal sinus rhythm at a rate of 74 bpm. QTc 459. QRS 80. No ST elevation on this rhythm tracing. This was complemented by negative troponin. Options of care were discussed with the patient. IV access with established. Labs were drawn. No leukocytosis. There is mild anemia noted with hemoglobin of 12.6. Coags normal. No emergent metabolic disturbance but will note creatinine 1.58 and elevated BUN at 26. Hyperglycemia 127. Mild hypomagnesemia 1.5. Lipase normal. TSH was euthyroid state. Urinalysis does not suggest infection. Chest x-ray as well as CT scan of the abdomen/pelvis was ordered. Chest x-ray does reveal cardiomegaly with pulmonary vascular congestion. Small right and trace left pleural effusion noted. CT scan of the abdomen/pelvis is as above. Moderate grade partial small bowel obstruction. Patient while here was hydrated with normal saline, and bolus was ordered a slower rate noting above findings. Patient was also medicated with IV Zofran for nausea. He respectfully declined analgesia. I do believe that further evaluation and management in the inpatient setting is warranted. NG tube considered, however in discussion with general surgery, JOSHUA Staples we will hold off at this time pending any further return of nausea/vomiting. Patient is feeling better at this time. I also discussed the case with the hospitalist service. Please refer to further documentation regarding his stay. GCS: 15 In the evaluation and treatment of this patient the following differential diagnoses were entertained: Bowel obstruction, pancreatitis, ischemic process, SC, pneumonia, among others. Impression & Plan Small bowel obstruction, Abdominal pain Discharge Plan Visit Data Chief Complaint: Abdominal Pain Stated Complaint: UPSET STOMACH ED Provider: Aamdo Yao ED Midlevel Provider: Yury Naranjo Discharge Problem: Small bowel obstruction, Abdominal pain Patient Disposition: Admitted As Inpatient Condition: Good Discharge Instructions Interventions: ED Discharge Assessment Last Done: 01/25/25 14:09 Discharge Problem: Abdominal pain Qualifiers: Abdominal location: epigastric Qualified Code(s): R10.13 - Epigastric pain
--- OUTSIDE RECORDS SUMMARY | 2025-01-25 07:53 | External Medical Summary | Summary of Care ---
Author Name Unknown Organization [facility] Address [address] [facility] [place] [address] Phone [phone] Care Team Providers Care Manager Air Name Role Phone Sage Lay MD Primary Care Provider [phone] Reason for Visit * Reason Onset Date Comments Precert Denied 01/15/2025 Encounter Details Date Type Department Care Team (Late st Contact Info) Description 01/15/2025 Telephone Hematology/Oncology Treatment, [place] [address] [place] [phone] Wilma Stern MD [address] [place] [address] Precert Denied Allergies No known active allergiesdocumented as of this encounter (statuses as of 01/15/2025) Medications apixaban (ELIQUIS) 5 MG TabletIndications:P ersistent atrial fibrillation (HCC) Take 1 Tab by mouth 2 times a day. 180 Tab 3 8 Active sotalol (BETAPACE) 80 MG TabletIndications:P ersistent atrial fibrillation (HCC) Take 1 Tab by mouth 2 times a day. 180 Tab 3 8 Active Polyethylene Glycol 3350 17 GM/SCOOP Oral Powder (MiraLax) Take by mouth 17 g in the morning. One cap full in juice, to effect 1 stool per day. .. 510 g 1 2 Active Lisinopril 10 MG Oral Tablet (Prinivil) TAKE ONE TABLET BY MOUTH EVERY MORNING 90 Tablet 3 12/07/2024 6:11 PM EDT 4 03/19/20 25 Active Atorvastatin Calcium 20 MG Oral Tablet (Lipitor)Indication s:Other hyperlipidemia TAKE ONE TABLET BY MOUTH EVERY MORNING 100 Tablet 1 10/30/2024 3:42 PM EST 5 10/30/19 26 Active Folic Acid 1 MG Oral TabletIndications:P rimary malignant neoplasm of right lower lobe of lung (HCC) Take 1 Tablet by mouth in the morning. 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 12/10/2022 Cancer Staging:Clinical stage from 11/07/2023:Stage IB(cT2a, cN0, cM0) - Signed by Gerry Subramanian MD on 11/07/2023 Pathologic stage from 01/13/2024:Stage IIB(pT2b, pN1, cM0) - Signed by Gerry Subramanian MD on 01/13/2024 Pulmonary hypertension, unspecified 07/30/2022 Essential hypertension with goal blood pressure less than 130/80 01/25/2021 Other hyperlipidemia 07/23/2018 Paroxysmal atrial fibrillation 07/23/2018 Gouty arthropathy 07/23/2018 Bradycardia, sinus 01/16/2018 Osteoarthritis of left shoulder 07/11/2016 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 documented as of this encounter (statuses as of 01/15/2025) Resolved Problems Problem Noted Date Diagnosed Date Resolved Date History of atrial fibrillation 12/16/2017 01/16/2019 Chest discomfort 12/16/2017 01/16/2019 Persistent atrial fibrillation 10/29/2017 07/23/2018 documented as of this encounter (statuses as of 01/15/2025) Immunizations Name Administration Dates Next Due COVID-19 mRNA, LNP-s, No Pre serve, 2-Dose Series (Moderna) 12/17/2020,11/14/2020 COVID-19, mRNA, LNP-s, PF, B ooster, 100mcg/0.5mg (Moderna) 03/02/2022,07/31/2021 Covid-19, Mrna, Lnp-s, Pf, B ivalent, 50 Mcg, IM, 12 yrs and above (Moderna) 08/08/2022 HepA Inact/HepB Recomb>=18yrs old 02/16/2019, Pneumococcal Conjugate Vacc, 13 Valent (Prevnar) 07/24/2019,07/11/2016 Pneumococcal Polysaccharide PPV23 (Pneumovax) 04/22/2014 Seasonal Influenza Vac., MDV , IM, 0.5 mL (Fluzone) 07/21/2019,07/19/2018,06/22/2017,06/27,06/25/2015,06/14/2014,05/31/2013 Seasonal Influenza Virus Vac cine, Unspecified Formulation 06/21/2023,06/22/2022,06/17/2021,07/09,07/22/2019,06/19/2017,06/27/2016 ,06/25/2015,06/14/2014,05/31/2013 Seasonal Influenza, High Dos e, Trivalent, PF, IM (Fluzone HD) 06/17/2024 Seasonal Influenza, PF, 6 M & above, IM , (FluLaval or Fluzone) 06/19/2017 Seasonal Influenza, Quadriva lent Hd (Fluzone Hd) 06/17/2021 TDAP (age 10 and older)(Boostrix) 11/28/2022,09/2011 Varicella Zoster Vaccine Rory lt (Zostavax) 08/07/2013,06/30/2013 Zoster Vaccine Recombinant (Shingrix) ,08/21/2019,07/29/2019,02/16 documented as of this encounter Social History Tobacco Use Types Packs/Day Years Used Date Smoking Tobacco: Former Cigarettes Smokeless Tobacco: Never Alcohol Use Standard Drinks/Week Comments No 0 (1 standard drink = 0.6 oz pur e alcohol) PHQ-2 Answer Date Recorded PHQ Adult Total Score 0 12/24/2023 Hunger Vital Sign Answer Date Recorded Within the past 12 months, y ou worried that your food would run out before you got the money to buy more. Never true 01/02/20 24 Within the past 12 months, t he food you bought just didn't last and you didn't have money to get more. Never true 01/02/2024 Childcare Answer Date Recorded Do you feel overwhelmed with taking care of a child, family member or friend? No 01/02/2024 Does your family need help f inding childcare? (Household - for ages 0-17 years) Not on file 01/02/2024 Clothing Answer Date Recorded Have you been unable to get clothing when it was really needed? No 01/02/2024 Is your family able to get c lothes or diapers when needed? (Household - for ages 0-17 years) Not on file 01/02/2024 Personal Safety Answer Date Recorded Do you feel unsafe or have concerns for your saf ety? No 01/02/2024 Do you have concerns for you r family's safety? (Household - for ages 0-17 years) Not on file 01/02/2024 Utilities Answer Date Recorded Do you have trouble paying y our heating, water, or electric bill? No 01/02/2024 Is your family able to pay t he heat, water, or electric bill? (Household - for ages 0-17 years) Not on file 01/02/2024 Does your family have access to good internet? (Household - for ages 0-17 years) Not on file 01/02/2024 Employment Status Answer Date Recorded Are you unemployed or without regular income? No 01/02/2024 Does the household have a re gular source of income? (Household - for ages 0-17 years) Not on file 01/02/2024 Social Connections Answer Date Recorded How often do you feel lonely or isolated from th ose around you? Never 01/02/2024 Financial Resource Strain Answer Date R ecorded Do you have any trouble payi ng for your medications, or do you think you might in the future? No 01/02/2024 Does your family have troubl e paying for medicine? (Household - for ages 0-17 years) Not on file 01/02/2024 Transportation Needs Answer Date Record ed READ ONLY Do you have troubl e getting a ride to medical visits or work? Never True 01/02/2024 Does your family have a hard time getting a ride to doctors visits? (Household - for ages 0-17 years) Not on file 01/02/2024 Has lack of transportation k ept you from medical appointments, meetings, work, or from getting things needed for daily living? Check all that apply. (Adult - for ages 18 years and over) Not on file 01/02/2024 Do you (or your family) have trouble finding or paying for a ride (transportation)? (Household - for ages 0-17 years) Not on file 01/02/2024 Housing Stability Answer Date Recorded Do you currently live in a s helter or have no steady place to sleep at night? No 01/02/2024 READ ONLY Do you think you a re at risk of becoming homeless? No 01/02/2024 Does your family worry about paying for your home or becoming homeless? (Household - for ages 0-17 years) Not on file 0 01/02/2024 Are you homeless or worried that you might be in the future? (Adult - for ages 18 years and over) Not on file Are you (or your family) zaki eless or worried that you might be in the future? (Household - for ages 0-17 years) Not on file Food Insecurity Answer Date Recorded Do you need food for this week? No 01/02/2024 Are you able to get enough f ood for your family? (Household - for ages 0-17 years) Not on file 01/02/2024 Does your family need food t his week? (Household - for ages 0-17 years) Not on file 01/02/2024 Do you always have enough fo od for your family? (Household - for ages 0-17 years) Not on file 01/02/2024 Food Insecurity Answer Date Recorded Within the past 12 months, y ou worried that your food would run out before you got the money to buy more. Never true 01/02/20 24 Within the past 12 months, t he food you bought just didn't last and you didn't have money to get more. Never true 01/02/2024 Do you need food for this week? 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 Answer Date of Assessment Author No 12/20/2023 2:55 PM Aldo Rhoades RN * Are you blind or do you have serious difficulty seeing, even when wearing glasses? Answer Date of Assessment Author No 12/20/2023 2:55 PM Aldo Rhoades RN * Do you have serious difficulty walking or climbing stairs? (5 years old or older) Answer Date of Assessment Author No 12/20/2023 2:55 PM Aldo Rhoades RN * Do you have difficulty dressing or bathing? (5 years old or older) Answer Date of Assessment Author No 12/20/2023 2:55 PM Aldo Rhoades RN * Because of a physical, mental, or emotional condition, do you have difficulty doing errands alone such as visiting a doctor’s office or shopping? (15 years old or older) Answer Date of Assessment Author No 12/20/2023 2:55 PM Aldo Rhoades RN documented as of this encounter Mental Status * Because of a physical, mental, or emotional condition, do you have serious difficulty concentrating, remembering, or making decisions? (5 years old or older) Answer Entry Date Author No 12/20/2023 2:55 PM Aldo Rhoades RN documented in this encounter Miscellaneous Notes * Telephone Encounter - Rocky Burgess OSA - 01/15/2025 2:59 PM EDT Cancelled as requested * Addendum Note - Chralotte Kemp RN - 01/15/2025 2:37 PM EDTAddended by: CHARLOTTE KEMP on: 01/15/2025 02:37 PM Modules accepted: Orders * Telephone Encounter - Charlotte Kemp RN - 01/15/2025 2:[address] Stern's routing comment: "Cancel" Called patient to review- he verbalized understanding. Scheduling: please cancel treatment appt 02/01 (leave port flush and follow up as scheduled still). Patient aware. Thanks! * Telephone Encounter - Charlotte Kemp RN - 01/15/2025 7:12 AM EDT Patient is scheduled for cycle 18 keytruda 02/01/25. This is to be last keytruda treatment. Received referral- this has been denied. See scanned denial letter for details. Dr Stern: please advise. Would you like to just cancel cycle 18? Or would you like this dose to be appealed? documented in this encounter Plan of Treatment Upcoming Encounters Date Type Department Care Team (Late st Contact Info) Description 02/01/2025 9:00 AM EDT Nurse Only Hematology/Oncology Treatment, [place] [address] [place] [phone] Demetrice, Chair 7 Hem Onc [address] [place] [address] 02/01/2025 9:30 AM EDT Office Visit Hematology/Oncology [facility] Demetrice [place] [address] [facility] [place] [phone] Wilma Stern MD [address] [facility] [place] [address] 06/23/2025 11:30 AM EDT Office Visit Cardiology, [facility], [place] [address] [place] [phone] Sully Licona, LEONOR [address] [place] [address] Scheduled Procedures Name Priority Associated Diagnoses Date/Ti me COLONOSCOPY FLEXIBLE PROXIMAL DIAGNOSTIC Recall History of colon polyps Health Maintenance Due Date Last Done Comments Alpha-1 Antitrypsin 1966 Adult Wellness Visit 2014 Hepatitis B Vaccine (3 of 3 - Hep B Twinrix 3-dose series) 07/19/2019 02/16/2019, 01/16/2019 COVID-19 Vaccine ( season) 2024 07/04/2024, 07/04/2024, 07/24/2023, Additional history exists Depression Screening 12/23/2024 12/24/2023 Albumin/Creatinine Ratio 05/31/2025 05/31/2022, 11/0 05/2020 GFR 01/11/2026 01/11/2025, 11/29, 12/21/2024, Additional history exists O2 ASSESSMENT COMPLETED IN PAST YEAR FOR COPD 01/11/2026 01/11/2025 Colonoscopy 02/19/2027 02/19/2022, 01/29, 01/13/2014 DTap/Tdap Vaccines (3 - Td or Tdap) 11/28/2032 11/28/2022, 04/30/2012 Pneumococcal Vaccine: 50+ Years Completed 07/24/2019, 07/11/2016, 04/22/2014 Zoster Vaccines Completed 12/29/2019, 08/01, 07/29/2019, Additional history exists RETIRED - COLONOSCOPY-EVERY 5 YRS AGES 18-100 Discontinued 02/19/2022, 02/19/2022, 01/13/2014 Influenza Vaccine (FLU shot) Completed 06/17/2024, 06/17/2024, 06/21/2023, Additional history exists HPV (Gardasil) Vaccine Aged Out No lo nger eligible based on patient's age to complete this topic MENINGOCOCCAL (MENACTRA/MENVEO) Aged Out No longer eligible based on patient's age to complete this topic Meningitis B Vaccine (Bexsero/Trumemba) Aged Out No longer eligible based on patient's age to complete this topic documented as of this encounter Medical Devices Implanted Type Area Supply Technician Device Identifier Shelf Expiration Date Model / Serial / Lot Port Implant W8f Poly Cath - [id number] Implanted:Qty: 1 on 02/07/2024 by Giovani Cervantes MD at OR [facility] : PERIPHERAL VASCULAR [id number] 02/27/2025 [id number] / / [id number] documented as of this encounter Advance Directives Documents on File Type Date Recorded Patient Nut Roaster Helper Expl anation Advance Directives and Living Will 12/20/2023 Everette Spears Durable Health Care POA & Living Will - signed on 12/01/2021 Power of Dog Warden 12/20/2023 Durable Po wer of Dog Warden - financial only ? - only 1 page - incomplete INVALID Advance Directives and Living Will 07/11/2006 LIVING WILL Declarat ion - signed on 07/11/2006 * Full Code (Latest Code Status on File) Date Activated Date Inactivated Comments 12/20/2023 12:17 PM 12/23/2023 2:23 PM This order reflects the patients wishes and were consensually agreed upon. Question Answer Comments Discussion of Advance Direct joseph occurred with: Not Discussed due to patient's condition Healthcare Agents on File Name Relationship Healthcare Agent Relationshi p Communication Everette Spears Adult Child Health Care Agen t (per Health Care Power of Dog Warden document) Care Teams Manager Air Relationship Specialty Start Date End Date Sage Lay MD PCP - General Family Medicine 06/19/13 documented as of this encounter
--- OUTSIDE RECORDS SUMMARY | 2025-01-25 07:53 | External Medical Summary | Summary of Care ---
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 Not [...] encounter Miscellaneous Notes * Telephone Encounter - Mariela Kemp RN - 01/15/2025 7:12 AM EDT [...] 9:00 AM EDT Nurse Only [facility] [place] [facility] [phone] Demetrice, Chair 7 Hem Onc [facility] [address] [facility] [place] [address] 02/01/2025 9:30 AM EDT Office Visit Hematology/Oncology [facility] [address] [facility] [place] [phone] Wilma Stern MD [address] [facility] [place] [address] 02/01/2025 10:00 AM EDT Hem/Onc Treatment [facility] [place] [address] [facility] [phone] Demetrice, Chair 10 Hem On[address] [place] [address] 06/23/2025 11:30 AM EDT Office Visit Cardiology, [facility] [address] [place] [phone] Sully Licona CRNP [address] [facility] [place] [address] Scheduled Procedures Name Priority Associated Diagnoses [...] this encounter Medical Devices Implanted Type Area Dielectric Embossing Machine Operator Device Identifier Shelf Expiration Date Model / Serial / Lot Port Implant W8f Poly Cath - [id number] Implanted:Qty: 1 on 02/07/2024 by Giovani Cervantes MD at OR [facility] : PERIPHERAL VASCULAR [id number] 02/27/2025 [id number] / / [id number] documented as of this encounter Advance Directives Documents on File Type Date Recorded Patient Events Specialist Expl anation Advance Directives and Living Will 12/20/2023 Everette Spears Durable Health Care POA & Living Will - signed on 12/01/2021 Power of [place] Gold Attendant 12/20/2023 Durable Po wer of [place] Gold Attendant - financial only ? - only 1 [...] Agents on File Name Relationship Healthcare Agent [facility] Communication Everette Spears Adult Child Health Care Agen t (per Health Care Power of [place] Gold Attendant document) Care Teams Water Quality Analyst Relationship Specialty Start Date End Date Sage Lay MD PCP - General Family Medicine 06/19/13 documented as of this encounter
--- OUTSIDE RECORDS SUMMARY | 2025-01-25 07:53 | External Medical Summary | Summary of Care ---
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 Not [...] Cancelled as requested * Addendum Note - Charlotte Kemp RN - 01/15/2025 2:37 PM EDTAddended [...] 9:00 AM EDT Nurse Only Hematology/Oncology Treatment, [place] [address] [place] [phone] Demetrice, Chair 7 Hem Onc [address] [place] [address] 02/01/2025 9:30 AM EDT Office Visit Hematology/Oncology [facility] Demetrice [place] [address] [facility] [place] [phone] Wilma Stern MD 200 [facility] [place] [address] 06/23/2025 11:30 AM EDT Office Visit Cardiology, [facility], [place] [address] [place] [phone] Sully Licona, LEONOR [address] [place] [address] Scheduled Procedures Name Priority [...] this encounter Medical Devices Implanted Type Area Social Contact Worker Device Identifier Shelf Expiration Date Model / Serial / Lot Port Implant W8f Poly Cath - [id number] Implanted:Qty: 1 on 02/07/2024 by Giovani Cervantes MD at OR [facility] : PERIPHERAL VASCULAR [id number] 02/27/2025 [id number] / / [id number] documented as of this encounter Advance Directives Documents on File Type Date Recorded Patient Regional Construction Manager Expl anation Advance Directives and Living Will 12/20/2023 Everette Spears Durable Health Care POA & Living Will - signed on 12/01/2021 Power of Biztalk Architect 12/20/2023 Durable Po wer of Biztalk Architect - financial only ? - only 1 [...] Agen t (per Health Care Power of Biztalk Architect document) Care Teams Lay Out Inspector Relationship Specialty Start Date End Date Sage Lay MD PCP - General Family Medicine 06/19/13 documented as of this encounter
--- OUTSIDE RECORDS SUMMARY | 2025-01-25 07:53 | External Medical Summary | Summary of Care ---
Author Name Unknown Organization [facility] [address] [place] [address] Phone [phone] Care Team Providers Care Animal Health Technician Name Role Phone Sage Lay MD Primary Care Provider [phone] Reason for Visit * Reason Onset Date Comments Clinical Support Manager Documentation 01/20/2025 My [facility]/Advance Care Planning Encounter Details Date Type Department Care Team (Late st Contact Info) Description 01/20/2025 Telephone [employer] [address] [place] [facility] [address] Patt Walsh, CORPORATE DIRECTOR TALENT ASSESSMENT [address] [place] [address] Clinical Support Manager Documentation ([employer]... Allergies No known active allergiesdocumented as of this encounter (statuses as of 01/20/2025) Medications apixaban (ELIQUIS) 5 MG TabletIndications:P ersistent [...] as of this encounter (statuses as of 01/20/2025) Active Problems Problem Noted Date Diagnosed Date [...] as of this encounter (statuses as of 01/20/2025) Resolved Problems Problem Noted Date Diagnosed Date Resolved Date History of atrial fibrillation 12/16/2017 01/16/2019 Chest discomfort 12/16/2017 01/16/2019 Persistent atrial fibrillation 10/29/2017 07/23/2018 documented as of this encounter (statuses as of 01/20/2025) Immunizations Name Administration Dates Next Due COVID-19 [...] 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 [address] [place] [phone] Wilma tSern MD [address] [place] [address] 06/23/2025 11:30 AM EDT Office Visit Cardiology, [facility] [address] [place] [phone] Sully Licona CRNP [address] [facility] [place] [address] Scheduled Procedures Name Priority Associated Diagnoses Date/Ti [...] this encounter Medical Devices Implanted Type Area Android Programmer Device Identifier Shelf Expiration Date Model / Serial / Lot Port Implant W8f Poly Cath - [id number] Implanted:Qty: 1 on 02/07/2024 by Giovani Cervantes MD at OR [facility] : PERIPHERAL VASCULAR [id number] 02/27/2025 [id number] / / [id number] documented as of this encounter Advance Directives Documents on File Type Date Recorded Patient Shirt Bander Expl anation Advance Directives and Living Will 12/20/2023 Everette Spears Durable Health Care POA & Living Will - signed on 12/01/2021 Power of Primary Mill Roller 12/20/2023 Durable Po wer of Primary Mill Roller - financial only ? - only 1 [...] Agen t (per Health Care Power of Primary Mill Roller document) Care Teams Animal Health Technician Relationship Specialty Start Date End Date Sage Lay MD PCP - General Family Medicine 06/19/13 documented as of this encounter
--- OUTSIDE RECORDS SUMMARY | 2025-01-25 07:54 | External Medical Summary ---
Author Name Unknown Address Unknown Organization K09:[facility] [place] [address] Laboratory Report Ordering Provider Test Date Status BHARATI VERDUGO 01/11/2025 07:59:47 Final Observation Date Value Abnormality Reference (Units ) Status SYNC LEUKOCYTES IN BLOOD BY AUTOMATED COUNT 01/11/2025 07:59:47 8.10 4.00-10.80 (K/uL) Final Segs 01/11/2025 07:59:47 70.7 40.0-75.0 (%) Final Lymphs % 01/11/2025 07:59:47 18.8 18.0-42.0 (%) Final Monos 01/11/2025 07:59:47 8.0 1.0-11.0 (%) Final Eosinophils 01/11/2025 07:59:47 2.1 0.0-6.0 (%) Final Basos 01/11/2025 07:59:47 0.4 0.0-2.0 (%) Final Absolute Segs 01/11/2025 07:59:47 5.73 1.80-7.70 (K/uL) Final Lymphs, absolute 01/11/2025 07:59:47 1.52 1.00-4.80 (K/ul) Final Monos, Abs 01/11/2025 07:59:47 0.65 0.00-1.10 (K/uL) Final Eos, Abs 01/11/2025 07:59:47 0.17 0.00-0.70 (K/uL) Final Basos, Abs 01/11/2025 07:59:47 0.03 0.00-0.20 (K/uL) Final Performing Location [facility] [place] [address]
--- OUTSIDE RECORDS SUMMARY | 2025-01-25 07:54 | External Medical Summary | Summary of Care ---
Author Name Unknown Organization [facility] [address] [place] [address] Phone [phone] Care Team Providers Care Corporate Counselor Name Role Phone Sage Lay MD Primary Care Provider Encounter Details Date Type Department Care Team (Late st Contact Info) Description 01/06/2025 Orders Only Hematology/Oncology Carlota Suresh [place] [address] [facility] [place] [phone] Wilma Stern MD [address] [facility] [place] [id number] Allergies No known active allergiesdocumented as of this encounter (statuses as of 01/07/2025) Medications apixaban (ELIQUIS) 5 MG TabletIndications:P ersistent [...] as of this encounter (statuses as of 01/07/2025) Active Problems Problem Noted Date Diagnosed Date [...] as of this encounter (statuses as of 01/07/2025) Resolved Problems Problem Noted Date Diagnosed Date Resolved Date History of atrial fibrillation 12/16/2017 01/16/2019 Chest discomfort 12/16/2017 01/16/2019 Persistent atrial fibrillation 10/29/2017 07/23/2018 documented as of this encounter (statuses as of 01/07/2025) Immunizations Name Administration Dates Next Due COVID-19 [...] 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 Answer Date of Assessment Author No 12/20/2023 2:55 PM Aldo Rhoades, FELIX * Are you blind or do you [...] Care Team (Late st Contact Info) Description 01/11/2025 8:00 AM EDT Nurse Only Hematology/Oncology Treatment, [place] [address] [place] [phone] [place], Chair 9 Hem Onc Scenery [address] [place] [address] 01/11/2025 9:15 AM EDT [facility] [address] [facility], [place] [phone] [place], Chair 8 Hem Onc Scenery [address] [facility] [place] [address] 02/01/2025 9:00 AM EDT [facility] [address] [facility], [place] [phone] [place], Chair 7 Hem Onc Scenery [address] [facility] [place] [address] 02/01/2025 9:30 AM EDT Office Visit Hematology/Oncology [facility] [address] [facility] [place], [place] [phone] Wilma Stern MD [address] [place] [address] 02/01/2025 10:00 AM EDT Hem/Onc Treatment Hematology/Oncology Treatment[address], [place] [phone] [place], Chair 10 Hem Onc Scenery [address] [facility] [place] [address] 06/23/2025 11:30 AM EDT Office Visit Cardiology, [facility] [address] [place] [phone] Sully Licona CRNP [address] [facility] [place] [address] Scheduled Procedures [...] 12/24/2023 Albumin/Creatinine Ratio 05/31/2025 05/31/2022, 11/0 05/2020 O2 ASSESSMENT COMPLETED IN PAST YEAR FOR COPD 12/21/2025 12/21/2024 GFR 12/22/2025 12/22/2024, 11/29, 11/30/2024, Additional history exists Colonoscopy 02/19/2027 02/19/2022, 01/29, 01/13/2014 DTap/Tdap Vaccines [...] this encounter Medical Devices Implanted Type Area Well Services Operator Device Identifier Shelf Expiration Date Model / Serial / Lot Port Implant [id number] Poly Cath - [id number] Implanted:Qty: 1 on 02/07/2024 by Giovani Cervantes MD at OR [facility] BARD : PERIPHERAL VASCULAR [id number] 02/27/2025 [id number] / / [id number] documented as of this encounter Advance Directives Documents on File Type Date Recorded Patient Supervisor Paper Testing Expl anation Advance Directives and Living Will 12/20/2023 Everette Spears Durable Health Care POA & Living Will - signed on 12/01/2021 Power of Char Filter Operator Helper 12/20/2023 Durable Po wer of Char Filter Operator Helper - financial only ? - only 1 [...] Agents on File Name Relationship Healthcare Agent [facility] p Communication Everette Spears Adult Child Health Care Agen t (per Health Care Power of Char Filter Operator Helper document) Care Teams Corporate Counselor Relationship Specialty Start Date End Date Sage Lay MD PCP - General Family Medicine 06/19/13 documented as of this encounter
--- OUTSIDE RECORDS SUMMARY | 2025-01-25 07:54 | External Medical Summary | Summary of Care ---
Author Name Unknown Organization [facility] Address [address] [facility] [place] [address] Phone [phone] Care Team Providers Care Site Promotion Agent Name Role Phone Sage Lay MD Primary Care Provider [phone] Reason for Visit * Reason Comments Re-Check Encounter Details Date Type Department Care Team (Late st Contact Info) Description 12/21/2024 11:00 AM EDT Office Visit Hematology/Oncology [facility] [address] [place] [phone] Concetta Rachel CRNP [address] [place], [place] [phone] 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)* Allergies No known active allergiesdocumented as of this encounter (statuses as of 12/23/2024) Medications apixaban (ELIQUIS) 5 MG TabletIndications:P ersistent [...] as of this encounter (statuses as of 12/23/2024) Active Problems Problem Noted Date Diagnosed Date [...] as of this encounter (statuses as of 12/23/2024) Resolved Problems Problem Noted Date Diagnosed Date Resolved Date History of atrial fibrillation 12/16/2017 01/16/2019 Chest discomfort 12/16/2017 01/16/2019 Persistent atrial fibrillation 10/29/2017 07/23/2018 documented as of this encounter (statuses as of 12/23/2024) Immunizations Name Administration Dates Next Due COVID-19 [...] 10 and older)(Boostrix) 11/28/2022,09/2011 Varicella Zoster Vaccine (Adult) 08/07/2013,09/2012 Zoster Vaccine Recombinant (Shingrix) ,08/21/2019,07/29/2019,02/16 documented as [...] 01/02/2024 Does the household have a re lar source of income? 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 Not on file Not on file documented as of this encounter Last Filed Vital Signs Vital Sign Reading Time Taken Comments Blood Pressure 122/81 12/21/2024 10:34 AM EDT Pulse 56 12/21/2024 10:34 AM EDT Temperature 36.1 °C (97 °F) 12/21/2024 10:34 AM EDT Respiratory Rate - - Oxygen Saturation 96% 12/21/2024 10:34 AM EDT Inhaled Oxygen Concentration - - Weight 67.1 kg (148 lb) 12/21/2024 10:34 AM EDT Height - - Body Mass Index 21.86 02/07/2024 8:53 AM EDT documented in this encounter Functional Status * Are you [...] Aldo Rhoades RN documented in this encounter Progress Notes * Wilson Concetta CarlosLEONOR peacock - 12/21/2024 10:03 AM EDT Hematology/Oncology Outpatient Clinic note [facility] [place] [address] [place] [address] Name: Carlos Spears Date: 12/21/2024 CHIEF COMPLAINT: Carlos Spears is a 74 year old male patient of Dr. Dillon Leena here today for f/u visit today. From Patient chart confirmed with patient. 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) Staging form: Lung, AJCC 8th Edition - Clinical stage from 11/07/2023: Stage IB (cT2a, cN0, cM0) - Signed by Gerry Subramanian MD on 11/07/2023 Staging comments: (+) KRAS - Pathologic stage from 01/13/2024: Stage IIB (pT2b, pN1, cM0) - Signed by Gerry Subramanian MD on01/13/2024 Staging comments: (+) KRAS mutation DATE OF DIAGNOSIS: 10/21/23 TREATMENT HISTORY: robotic right lower lobe lobectomy and lymphadenectomy on 12/18/2023 Cisplatin 75 mg/m² + Pemetrexed 500 mg/m² q21 Days x 4 Cycles (02/11/24 - 04/14/24) CURRENT TREATMENT: Keytruda 200 mg q 3 week x 1 year (02/11/24 - ) ONCOLOGY HISTORY: Patient with a past medical history significant for hypertension, COPD, AFib was referred with diagnosis of tkh-zvctr-wlfx lung cancer. Patient had initial CT scan of the abdomen done on 12/10/2022 which revealed 2.1 x 0.8 cm subpleural irregularly density. Subsequent CT scan was done on 07/03/2023which showed enlarging right lower lobe pulmonary nodule increased to 3 x 2.5 x 1.6 cm. He had a PET scan done on 08/06/2023 which shows FDG avid subpleural nodule in the posterior right lower lobe concerning for neoplastic process without any other metastatic disease. MRI brain was negative for metastatic disease. 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 NGS was positive for KRAS G12V mutation. Final Diagnosis A. Lung, Right, CT guided core needle biopsy: Category: Malignant. Interpretation: Adenocarcinoma with mucinous features (see comment). Comment: The touch preparations and histological sections of the biopsy specimen show clusters of malignant epithelial cells arranged in glands with hyperchromatic nuclei, prominent nucleoli, and ujxzcamm-dj-burbsqqt suqgkafazs-th-lyevtcanbvhw cytoplasm. Immunohistochemical studies with appropriatecontrols are performed (A1) demonstrating that the tumor cells are positive for CK7, focally positive for TTF-1 while negative for synaptophysin, CK20, CDX-2, and SATB2. SMAD4 shows some aberrant loss in portions of the tumor. Overall, the findings support the above interpretation but the immunoprofile is not entirely specific. Tumor Mutational [place] (TMB): TMB Unit [place] 7.58 m/MB Low Microsatellite Instability Status (MSI): MSI Status 0 Stable Result Detail Tier I: Strong Significance Variants Single Nucleotide Variants and Insertions/Deletions Gene Variant Tier Amino Acid Change Nucleotide Change Consequence Allele Frequency Sequencing Depth KRAS G12V Tier 1: Strong significance p.Jwv25Kgg NM_[id number]: c.35G>T Missense Variant 13% 1992 Tier II: Potential Significance Variants Single Nucleotide Variants and Insertions/Deletions Gene Variant Tier Amino Acid Change Nucleotide Change Consequence Allele Frequency Sequencing Depth ESTRADA R2486* Tier 2: Potential significance p.[id number] NM_000051.4: c.7456C>T Nonsense 66% 1996 SMARCA4 E1258* Tier 2: Potential significance p.[id number] [id number]: c.3772G>T Nonsense 11.4% 1938 STK11 E165* Tier 2: Potential significance p.Foc225Wnw NM_000455.5: c.493G>T Nonsense 12.1% 835 STK11 S216F Tier 2: Potential significance p.Dfy637Zdk NM_000455.5: c.647C>T Missense Variant 4.6% 1358 Copy Number Variants Gene Consequence Copy Number Tier Chromosomal Location CDKN2A Copy number loss 0 Tier 2: Potential significance 9p21.3 SMAD4 Copy number loss 0.37 Tier 2: Potential significance 18q21.2 He underwent robotic right lower lobe lobectomy and lymphadenectomy on 12/18/2023 and pathology wasconsistent with invasive adenocarcinoma with negative margin with involvement of the visceral pleura and positive for lymphovascular invasion. 1/5 lymph nodes were positive for metastasis. Patient has pT2 b, pN1 stage II disease. Final Diagnosis A. Lymph node, level 9R inferior pulmonary ligament, biopsy: Benign fibroadipose tissue B. Lymph node, level 8R Paraesophageal biopsy: Benign anthracotic lymph node (0/1) C. Lymph node, level 7 Subcarinal, biopsy: Benign anthracotic lymph node (0/1) D. Lymph node, level 7 subcarinal #2, biopsy: Benign anthracotic lymph node (0/1) E. Lymph node, level 11 R Hilar, biopsy: Benign anthracotic lymph node (0/1) F. Lymph node, level 12 R Hilar, biopsy: Benign anthracotic lymph node (0/1) G. Lymph node, level 10 R Hilar, biopsy: Benign anthracotic lymph node (0/1) H. Lymph node, level 10 R Hilar #2, biopsy: Benign anthracotic lymph node (0/1) I. Lymph node, level 4 R Right Lower Paratracheal, biopsy: Benign anthracotic lymph node (0/1) J. Lymph node, level 2R right upper paratracheal, biopsy: Benign anthracotic lymph node (0/1) K. lymph node, level 11 R Hilar #2, biopsy: Benign anthracotic lymph node (0/1) L. Lymph node, level 11 R Hilar #3, biopsy: Benign anthracotic lymph node (0/1) M. Lung, right lower lobe, lobectomy: Invasive mucinous adenocarcinoma Margins are negative Visceral pleural invasion present (PL1) Lymphovascular invasion identified One of five lymph nodes positive for metastatic carcinoma (1/5) The AJCC pathologic stage would be pT2b, pN1 SPECIMEN Procedure Lobectomy Specimen Laterality Right TUMOR Tumor Focality Single focus Tumor Site Lower lobe of lung Tumor Size Total Tumor Size (size of entire tumor) Greatest Dimension (Centimeters): 4.2 cm Additional Dimension (Centimeters) 3.5 cm 2.5 cm Histologic Type Invasive mucinous adenocarcinoma Histologic Patterns Present Acinar Papillary Histologic Grade G1, well differentiated Spread Through Air Spaces (YESSY) Not identified Visceral Pleura Invasion Present Direct Invasion of Adjacent Structures Not applicable (no adjacent structures present) Treatment Effect No known presurgical therapy Lymphovascular Invasion Present MARGINS Margin Status for Invasive Carcinoma All margins negative for invasive carcinoma Regional Lymph Node Status Tumor present in regional lymph node(s) Number of Lymph Nodes with Tumor 1 Danny Site(s) with Tumor 12R: Lobar Extranodal Extension Not identified Number of Lymph Nodes Examined 16 Danny Site(s) Examined 2R: Upper paratracheal 4R: Lower paratracheal 8R: Para-esophageal (below jason) 9R: Pulmonary ligament 10R: Hilar 11R: Interlobar 12R: Lobar 7: Subcarinal Overall clinically he is doing well without any new symptoms complain. He denies any headache, dizziness, blurred vision, chest pain shortness of breath palpitation abdominal pain or distention, nausea, vomiting, fever, night sweats, abdominal pain, change in the bowel habits, hematuria, hematochezia. He quit smoking in s. He used to smoke 1 pack per day for over 20-5 years. Drinks alcohol socially. Family history significant for mother may have diagnosis of some kind of cancer of unknown type. HISTORY OF PRESENT ILLNESS: Carlos Spears is a 74 year old male with a history as outlined above. Currently here for f/u visittoday and consideration for C16D1 of treatment. Patient feeling well today. No complaints or concerns verbalized. Denies SOB, CP or coughing. Denies diarrhea. Denies pain. Denies rashes or skin changes. Past Medical History: Diagnosis Date COPD (chronic obstructive pulmonary disease) (HCC) Lung cancer (HCC) 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) 12/10/2022 Past Surgical History: Procedure Laterality Date COLONOSCOPY 12/29/2013 hyperplastic polyp// repeat 2023 COLONOSCOPY, DIAGNOSTIC (RECTUM) 02/19/2022 inflammatory tissue on bx, diverticulosis, repeat 5 yrs / COLONOSCOPY FLEXIBLE PROXIMAL DIAGNOSTIC performed by Mel Crutis MD at ENDOSCOPY [facility] INFORMATION 11/02/2010 11/02/2010 rib fractures with left hemothorax [facility] - Dr. Marquez INSER TUNN ACC DEV;5 YRS/OLDER Right 02/07/2024 INSERT TUNNELED CENTRAL VENOUS ACCESS WITH SUBQ PORT performed by Giovani Cervantes MD at OR [facility] IR BIOPSY 10/21/2023 LYMPHADENECTOMY VIA THORACOSCOPY Right 12/20/2023 ROBOTIC THORACOSCOPY WITH LYMPHADENECTOMY performed by Gerry Subramanian MD at OR [facility] MISCELLANEOUS ORDER ([facility] ONLY) 09/30/1963 right thumb fracture requiring ORIF REPAIR INITIAL INGUINAL HERNIA REDUCIBLE AGE 5 OR MORE 01/08/[address] 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 Treadmill or elliptical Social Needs Financial Resource Strain: Low Risk (01/02/2024) Financial Resource Strain Do you have any trouble paying for your medications, or do you think you might in the future? (Adult - for ages 18 years and over): No Does your family have trouble paying for medicine? (Household - for ages 0-17 years): Not on file Food Insecurity: No Food Insecurity (01/02/2024) Food Insecurity Worried About Running Out of Food in the Last Year: Never true Ran Out of Food in the Last Year: Never true Do you need food for this week? (Adult - for ages 18 years and over): No Transportation Needs: No Transportation Needs (01/02/2024) Transportation Needs Do you have trouble getting a ride to medical visits or work? (Adult - for ages 18 years and over):Never True Does your family have a hard time getting a ride to doctors’ visits? (Household - for ages 0-17 years): Not on file Has lack of transportation kept you from medical appointments, meetings, work, or from getting things needed for daily living? Check all that apply. (Adult - for ages 18 years and over): Not on file Do you (or your family) have trouble finding or paying for a ride (transportation)? (Household - for ages 0-17 years): Not on file Social Connections: Socially Integrated (01/02/2024) Social Connections How often do you feel lonely or isolated from those around you? (Adult - for ages 18 years and over): Never Housing Stability: Low Risk (01/02/2024) Housing Stability Do you currently live in a residential or have no steady place to sleep at night? (Adult - for ages 18 years and over): No Do you think you are at risk of becoming homeless? (Adult - for ages 18 years and over): No Does your family worry about paying for your home or becoming homeless? (Household - for ages 0-17 years): Not on file Are you homeless or worried that you might be in the future? (Adult - for ages 18 years and over): Not on file Are you (or your family) homeless or worried that you might be in the future? (Household - for ages0-17 years): Not on file Review of patient's allergies indicates: No Known Allergies Current Outpatient Medications Medication Sig Dispense Refill apixaban (ELIQUIS) 5 MG Tablet Take 1 Tab by mouth 2 times a day. 180 Tab 3 sotalol (BETAPACE) 80 MG Tablet Take 1 Tab by mouth 2 times a day. 180 Tab 3 Polyethylene Glycol 3350 17 GM/SCOOP Oral Powder (MiraLax) Take by mouth 17 g in the morning. One cap full in juice, to effect 1 stool per day. .. 510 g 1 Lisinopril 10 MG Oral Tablet (Prinivil) TAKE ONE TABLET BY MOUTH EVERY MORNING 90 Tablet 3 Atorvastatin Calcium 20 MG Oral Tablet (Lipitor) TAKE ONE TABLET BY MOUTH EVERY MORNING 100 Tablet 1 Folic Acid 1 MG Oral Tablet Take 1 Tablet by mouth in the morning. 90 Tablet 1 No current facility-administered medications for this visit. Facility-Administered Medications Ordered in Other Visits Medication Dose Route Frequency Provider Last Rate Last Admin sodium chloride 0.9 % flush/inj 10 mL 10 mL IV Push PRN Wilma Stern MD sodium chloride 0.9 % flush/inj 20 mL 20 mL IV Push PRN Wilma Stern MD REVIEW OF SYSTEMS: See HPI - otherwise negative OBJECTIVE: Filed Vitals: 12/21/24 1034 BP: 122/81 Pulse: 56 Temp: 36.1 °C (97 °F) TempSrc: Tympanic SpO2: 96% Weight: 67.1 kg (148 lb) Wt Readings from Last 5 Encounters: 12/21/24 67.1 kg (148 lb) 12/21/24 67.5 kg (148 lb 12.8 oz) 11/30/24 68.9 kg (151 lb 12.8 oz) 11/09/24 68.3 kg (150 lb 9.6 oz) 11/03/24 67.8 kg (149 lb 6.4 oz) PHYSICAL EXAM: ECOG: Performance Status 1 = 80-90% Symptoms but nearly ambulatory General Appearance: No acute distress HEENT: Normal - No oral or pharyngeal masses, ulceration or thrush noted Lymph Nodes: Normal - No palpable lymph nodes in the neck or supraclavicular areas Lungs/Thorax: Normal - Clear to auscultation Heart: Normal - Regular rate and rhythm, normal S1, S2, no appreciable murmurs Pulses/Extremities: Normal - 2+ throughout and symmetrical, no edema Neurologic: Normal - Grossly intact LABS: Results for orders placed or performed in visit on 12/21/24 COMPREHENSIVE METABOLIC PANEL Result Value Ref Range BUN 31 (H) 6 - 20 mg/dL CREATININE 1.5 (H) 0.6 - 1.2 mg/dL EGFR 48 (L) >=60 mL/min SODIUM 142 135 - 146 mmol/L POTASSIUM 4.3 3.5 - 5.1 mmol/L CHLORIDE 107 98 - 107 mmol/L CO2 26 22 - 32 mmol/L ANION GAP 9 7 - 15 mmol/L GLUCOSE 107 70 - 120 mg/dL Albumin 3.7 (L) 3.8 - 5.0 g/dL AST 29 10 - 50 U/L Alkaline Phosphatase 138 (H) 35 - 130 U/L Bilirubin, Total 0.3 <=1.2 mg/dL CALCIUM 9.3 8.4 - 10.2 mg/dL Protein 6.8 6.0 - 8.3 g/dL ALT 13 10 - 50 U/L MAGNESIUM Result Value Ref Range Magnesium 1.9 1.5 - 2.6 mg/dL CBC Result Value Ref Range WBC 9.15 4.00 - 10.80 K/uL RBC 3.66 4.50 - 5.25 M/uL HGB 11.0 (L) 14.0 - 16.8 g/dL HCT 33.9 (L) 40.0 - 48.4 % MCV 92.6 82.0 - 99.5 fL MCH 30.1 27.0 - 34.0 pg MCHC 32.4 32.0 - 36.0 g/dL RDW 15.1 11.5 - 15.5 % PLT 232 140 - 400 K/uL MPV 10.0 6.6 - 11.1 fL DIFFERENTIAL, AUTOMATED Result Value Ref Range WBC 9.15 4.00 - 10.80 K/uL Neutrophils % 73.7 40.0 - 75.0 % Lymphocytes % 15.8 (L) 18.0 - 42.0 % Monocytes % 8.6 1.0 - 11.0 % Eosinophils % 1.7 0.0 - 6.0 % Basophils % 0.2 0.0 - 2.0 % Absolute Neutrophils 6.73 1.80 - 7.70 K/uL Absolute Lymphocytes 1.45 1.00 - 4.80 K/ul Absolute Monocytes 0.79 0.00 - 1.10 K/uL Absolute Eosinophils 0.16 0.00 - 0.70 K/uL Absolute Basophils 0.02 0.00 - 0.20 K/uL IMPRESSION/PLAN: Primary malignant neoplasm of right lower lobe of lung S/P robotic right lower lobe lobectomy and lymphadenectomy on 12/18/2023 Completed 4 cycles of adjuvant Cisplatin, Alimta and Keytruda 04/14/24. CT Chest 05/07/24 with no signs of disease Now continuing with single agent Keytruda. Tolerating well. Lab results reviewed: Creatinine slightly increased at 1.5, otherwise unremarkable Patient has been taking ibuprofen for the last few days d/t headaches. Asked patient to avoid any further ibuprofen. Ok to take Tylenol as needed for headaches. Increase oral hydration. Will continueto closely monitor renal function. Ok for treatment today as scheduled. RTC in six weeks with physician with CBCd and CMP LEONOR Turk documented in this encounter Nursing Notes * Rama Baez MED ASSIST - 12/21/2024 10:39 AM EDT Patient identifed by name and birthdate Do you have any concerns about pain management for today's visit? Yes. Patient instructed to discuss pain concerns with provider during the visit today Living Will or Advance Directive for Health Care as noted on the problem list. [facility] is a way you can talk to your provider on line through e-mail. Would you like to sign up? I can activate it for you? ALREADY ACTIVE Filed Vitals: 12/21/24 1034 BP: 122/81 Pulse: 56 Temp: 36.1 °C (97 °F) TempSrc: Tympanic SpO2: 96% Weight: 67.1 kg (148 lb) Patient was instructed to not get up on the exam table/exam chair until directed and assisted by their provider; patient is to remain seated in the chair/ wheelchair/ exam table/ exam chair for fall prevention and safety reasons. Patient is aware to have assistance to step down off exam table/exam chair with personnel. Patient voiced full comprehension of instructions. documented in this encounter Plan of Treatment Upcoming Encounters Date Type Department Care Team (Late st Contact Info) Description 01/11/2025 8:00 AM EDT Nurse Only Hematology/Oncology Treatment, [place] [address] [place] [phone] Demetrice, Chair [address] [place] [address] 01/11/2025 9:15 AM EDT Hem/Onc Treatment Hematology/Oncology Treatment, [place] [address] [facility] [place], [place] [phone] Demetrice, Chair 8 Hem Onc Scenery [address] [facility] [place] [address] 02/01/2025 9:00 AM EDT Nurse Only [facility] [place] [facility] [phone] Demetrice, Chair 7 Hem Onc Scenery [address] [facility] [place] [address] 02/01/2025 9:30 AM EDT Office Visit Hematology/Oncology [facility] [place] [address] [place] [phone] Wilma Stern MD [address] [place] [address] 02/01/2025 10:00 AM EDT Hem/Onc Treatment Hematology/Oncology Treatment, [place] [address] [facility] [place], [place] [phone] Demetrice, Chair [address] Hem On[address] Sc[address] [facility] [place] [address] 06/23/2025 11:30 AM EDT Office Visit Cardiology, [facility] [address] [place] [phone] Sully Licona CRNP [address] [facility] [place] [address] Scheduled Procedures Name Priority Associated Diagnoses Date/Ti [...] this encounter Medical Devices Implanted Type Area Laser Engineer Device Identifier Shelf Expiration Date Model / Serial / Lot Port Implant W8f Poly Cath - [id number] Implanted:Qty: 1 on 02/07/2024 by Giovani Cervantes MD at OR [facility] : PERIPHERAL VASCULAR [id number] 02/27/2025 [id number] / / [id number] documented as of this encounter Visit Diagnoses Diagnosis 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)- Primary Malignant neoplasm of lower lobe, bronchus, or lung documented in this encounter Advance Directives Documents on File Type Date Recorded 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 - only 1 [...] Agen t (per Health Care Power of Jet Operator document) Care Teams Site Promotion Agent Relationship Specialty Start Date End Date Sage Lay MD PCP - General Family Medicine 06/19/13 documented as of this encounter
--- OUTSIDE RECORDS SUMMARY | 2025-01-25 07:54 | External Medical Summary | Summary of Care ---
Author Name Unknown Organization [facility] [address] [facility] [address] Phone [phone] Care Team Providers Care Station Operator Name Role Phone Sage Lay MD Primary Care Provider [phone] Reason for Visit * Reason Comments Procedure Labs drawn from port * Episode Based Medications (Routine) - Authorized Specialty Diagnoses / Procedures Referred By Contkatharina t Referred To Contact Diagnoses 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) Encounter for antineoplastic chemotherapy Procedures ND INJ. PEMETREXED NOS 10MG ND CISPLATIN 10 MG INJECTION ND INJ PEMBROLIZUMAB ND FOSAPREPITANT INJECTION Wilma Stern MD [address] [place] [address] [place] [address] Phone: tel: fax: Hematology/Oncology Treatment, [address] [place] [address] Phone: tel: fax: Referral ID Status Reason Start Date Expiration Date V isits Requested Visits Authorized [id number] Authorized 01/21/2024 01/15/2025 [id number] Encounter Details Date Type Department Care Team (Late st Contact Info) Description 12/21/2024 10:30 AM EDT Nurse Only [address]ematology[address] [phone] Demetrice, Chair [address] Hem [address] [place] [phone] Procedure (Labs drawn from port) Allergies No known active allergiesdocumented as of this encounter (statuses as of 01/08/2025) Medications apixaban (ELIQUIS) 5 MG TabletIndications:P ersistent [...] as of this encounter (statuses as of 01/08/2025) Active Problems Problem Noted Date Diagnosed Date [...] as of this encounter (statuses as of 01/08/2025) Resolved Problems Problem Noted Date Diagnosed Date Resolved Date History of atrial fibrillation 12/16/2017 01/16/2019 Chest discomfort 12/16/2017 01/16/2019 Persistent atrial fibrillation 10/29/2017 07/23/2018 documented as of this encounter (statuses as of 01/08/2025) Immunizations Name Administration Dates Next Due COVID-19 [...] No 01/02/2024 Does the household have a [facility] source [facility] income? 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 Answer Date of Assessment Author No 12/20/2023 2:55 PM EDT Aldo Jensen RN * Are you blind or do you have serious difficulty seeing, even when wearing glasses? Answer Date of Assessment Author No 12/20/2023 2:55 PM EDT Aldo Jensen RN * Do you have serious difficulty walking or climbing stairs? (5 years old or older) Answer Date of Assessment Author No 12/20/2023 2:55 PM EDT Aldo Jensen RN * Do you have difficulty dressing or bathing? (5 years old or older) Answer Date of Assessment Author No 12/20/2023 2:55 PM EDT Aldo Jensen RN * Because of a physical, mental, or emotional condition, do you have difficulty doing errands alone such as visiting a doctor’s office or shopping? (15 years old or older) Answer Date of Assessment Author No 12/20/2023 2:55 PM EDT Aldo Jensen RN documented as of this encounter Mental Status * Because of a physical, mental, or emotional condition, do you have serious difficulty concentrating, remembering, or making decisions? (5 years old or older) Answer Entry Date Author No 12/20/2023 2:55 PM EDAldo Donald RN documented in this encounter Nursing Notes * Naomi Skinner RN - 12/21/2024 10:25 AM EDT Chair 4. Patient presents for lab draw from port. Port accessed with sterile technique. Port needle flushed with 10 ml NSS, blood return noted, 10ml blood wasted, labs drawn, flushed with 10 ml NSS and port locked with additional 10 ml NSS. Patient to waiting room to await provider visit. documented in this encounter Plan of Treatment Upcoming Encounters Date Type Department Care Team (Late st Contact Info) Description 01/11/2025 8:00 AM EDT Nurse Only [facility]ematology[facility]cology [facility], [place] [address] [facility] [phone] Demetrice, Chair 9 Hem Onc [place] [address] [place] [address] 01/11/2025 9:15 AM EDT Hem/Onc Treatment Hematology/Oncology Treatment, [address] [place] [phone] Demetrice, Chair 8 Hem Onc [address] [place], [place] [address] 02/01/2025 9:00 AM EDT Nurse Only Hematology/Oncology Treatment, [place] [address] [facility], [place] [phone] Demetrice, Chair 7 Hem Onc [facility] [address] [facility] [place] [address] 02/01/2025 9:30 AM EDT Office Visit Hematology/Oncology [facility] [place] [address] [facility] [place] [phone] Wilma Stern MD 200 [facility] [place] [address] 02/01/2025 10:00 AM EDT [facility] [address] [facility] [phone] Demetrice, Chair 10 Hem Onc [facility] 200 [facility] [place], [place] [address] 06/23/2025 11:30 AM EDT Office Visit Cardiology, [facility] [address] [place] [phone] Sully Licona CR[facility] [address] [facility] [address] Scheduled Procedures Name Priority Associated Diagnoses [...] this encounter Medical Devices Implanted Type Area Labor Contract Analyst Device Identifier Shelf Expiration Date Model / Serial / Lot Port Implant W8f Poly Cath - [id number] Implanted:Qty: 1 on 02/07/2024 by Giovani Cervantes MD at OR [facility] : PERIPHERAL VASCULAR [id number] 02/27/2025 [id number] / / [id number] documented as of this encounter Procedures Procedure Name Priority Date/Time Associated Diagnosis Comments DIFFERENTIAL, AUTOMATED STAT 12/21/2024 10:03 AM EDT 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) COMPREHENSIVE METABOLIC PANEL STAT 12/21/2024 10:03 AM EDT 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) CBC STAT 12/21/2024 10:03 AM EDT 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) CBC STAT 12/21/2024 10:03 AM EDT 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) MAGNESIUM STAT 12/21/2024 10:03 AM EDT 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) documented in this encounter Results * (ABNORMAL) DIFFERENTIAL, AUTOMATED (12/21/2024 10:03 AM EDT) WBC 9.15 4.00 - 10.80 K/uL 12/21/2024 10:38 AM EDT [facility] 56-02 Neutrophils % 73.7 40.0 - 75.0 % 12/21/2024 10:38 AM EDT [facility] 56-02 Lymphocytes % 15.8(L) 18.0 - 42.0 % 12/21/2024 10:38 AM EDT [facility] 56-02 Monocytes % 8.6 1.0 - 11.0 % 12/21/2024 10:38 AM EDT [facility] 56-02 Eosinophils % 1.7 0.0 - 6.0 % 12/21/2024 10:38 AM EDT LAB[facility]ATORY [facility] 56-02 Basophils % 0.2 0.0 - 2.0 % 12/21/2024 10:38 AM EDT [facility] 56-02 Absolute Neutrophils 6.73 1.80 - 7.70 K/uL 12/21/2024 10:38 AM EDT LABORATORY [facility] 56-02 Absolute Lymphocytes 1.45 1.00 - 4.80 K/ul 12/21/2024 10:38 AM EDT [facility] 56-02 Absolute Monocytes 0.79 0.00 - 1.10 K/uL 12/21/2024 10:38 AM EDT [facility] 56-02 Absolute Eosinophils 0.16 0.00 - 0.70 K/uL 12/21/2024 10:38 AM EDT [facility] 56-02 Absolute Basophils 0.02 0.00 - 0.20 K/uL 12/21/2024 10:38 AM EDT [facility] 56 Blood Venous blood specimen / Unknown Central Line / Unknown 12/21/2024 10:03 AM EDT 12/21/2024 10:27 AM EDT Wilma Stern MD LAB BLOOD ORDERABLES Fin al Result [address] [place] [phone] * (ABNORMAL) CBC (12/21/2024 10:03 AM EDT) WBC 9.15 4.00 - 10.80 K/uL 12/21/2024 10:38 AM EDT [address] RBC 3.66 4.50 - 5.25 M/uL 12/21/2024 10:38 AM EDT [address] HGB 11.0(L) 14.0 - 16.8 g/dL 12/21/2024 10:38 AM EDT [address] HCT 33.9(L) 40.0 - 48.4 % 12/21/2024 10:38 AM EDT [facility] 56 MCV 92.6 82.0 - 99.5 fL 12/21/2024 10:38 AM EDT [facility] 56 MCH 30.1 27.0 - 34.0 pg 12/21/2024 10:38 AM T [facility] 56 MCHC 32.4 32.0 - 36.0 g/dL 12/21/2024 10:38 AM EDT [facility] 56 RDW 15.1 11.5 - 15.5 % 12/21/2024 10:38 AM EDT [facility] 56 PLT 232 140 - 400 K/uL 12/21/2024 10:38 AM EDT [facility] 56 MPV 10.0 6.6 - 11.1 fL 12/21/2024 10:38 AM T [facility] 56 Blood Venous blood specimen / Unknown Central Line / Unknown 12/21/2024 10:03 AM EDT 12/21/2024 10:27 AM EDT Wilma Stern MD LAB BLOOD ORDERABLES Fin al Result [facility] 56 [address] [place] [address] * MAGNESIUM (12/21/2024 10:03 AM EDT) Magnesium 1.9 1.5 - 2.6 mg/dL 12/21/2024 11:04 AM EDT [facility] 56 Blood Venous blood specimen / Unknown Central Line / Unknown 12/21/2024 10:03 AM EDT 12/21/2024 10:27 AM EDT Wilma Stern MD LAB BLOOD ORDERABLES Fin al Result Performing Organization Address [facility] Co de Phone Number [address] [place] [address] * (ABNORMAL) COMPREHENSIVE METABOLIC PANEL (12/21/2024 10:03 AM EDT) BUN 31(H) 6 - 20 mg/dL 12/21/2024 11:04 AM EDT [facility] 56 CREATININE 1.5(H) 0.6 - 1.2 mg/dL 12/21/2024 11:04 AM EDT [facility] 56 EGFR 48(L) >=60 mL/min 12/21/2024 11:04 AM EDT [facility] 56- Comment:eGFR is calculated b ased on the CKD-EPI 2020 equation. SODIUM 142 135 - 146 mmol/L 12/21/2024 11:04 AM EDT [facility] 56- POTASSIUM 4.3 3.5 - 5.1 mmol/L 12/21/2024 11:04 AM EDT [facility] 56- CHLORIDE 107 98 - 107 mmol/L 12/21/2024 11:04 AM EDT [facility] 56- CO2 26 22 - 32 mmol/L 12/21/2024 11:04 AM EDT [facility] 56- ANION GAP 9 7 - 15 mmol/L 12/21/2024 11:04 AM EDT [address] GLUCOSE 107 70 - 120 mg/dL 12/21/2024 11:04 AM EDT [address] Albumin 3.7(L) 3.8 - 5.0 g/dL 12/21/2024 11:04 AM EDT [address] AST 29 10 - 50 U/L 12/21/2024 11:04 AM EDT [address] Alkaline Phosphatase 138(H) 35 - 130 U/L 12/21/2024 11:04 AM EDT [address] Bilirubin, Total 0.3 <=1.2 mg/dL 12/21/2024 11:04 AM EDT [address] CALCIUM 9.3 8.4 - 10.2 mg/dL 12/21/2024 11:04 AM T [address] Protein 6.8 6.0 - 8.3 g/dL 12/21/2024 11:04 AM EDT [address] ALT 13 10 - 50 U/L 12/21/2024 11:04 AM EDT [address] Blood Venous blood specimen / Unknown Central Line / Unknown 12/21/2024 10:03 AM EDT 12/21/2024 10:27 AM EDT us Wilma Stern MD LAB BLOOD ORDERABLES Fin al Result [address] [place] [address] documented in this encounter Visit Diagnoses Diagnosis 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)- Primary Malignant neoplasm of lower lobe, bronchus, or lung Encounter for adjustment and management of vascular access device Encounter for antineoplastic chemotherapy documented in this encounter Administered Medications Inactive Administered Medications - up to 3 most recent administrations Medication Order MAR Action Action Date Dose Rate Site NSS infusion Intravenous, at 50 mL/hr, PRN, Starting on Sat12/21/24 at 1230, Until Sat12/21/24 at 2027, Maintenance lineIndications: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),Encounter for antineoplastic chemotherapy Start Infusion 12/21/2024 11:21 AM EDT 50 mL/hr Pembrolizumab (Keytruda) 200 mg in NSS 100 mL infusion 200 mg, IV Piggyback, ONCE, 1 dose, On Sat12/21/24 at 1200, Administer over 30 Minutes, Infuse through 0.2 micron filter.Indications: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),Encounter for antineoplastic chemotherapy Start Infusion 12/21/2024 11:25 AM EDT 200 mg 226 mL/hr sodium chloride 0.9 % flush/inj 10 mL 10 mL, IV Push, PRN line flush, Starting on Sat12/21/24 at 0949, Until Sat12/21/24 at 2027, Do not flush if lock, PICC, or central line not in place; IV infusing or unable to flush. For midlines and central lines.Indications: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) Given 12/21/2024 10:18 AM EDT 10 mL sodium chloride 0.9 % flush/inj 20 mL 20 mL, IV Push, PRN IV Flush and Lock, Starting on Sat12/21/24 at 0949, Until Sat12/21/24 at 2027, Do not flush if lock, PICC, or central line not in place; IV infusing or unable to flush. For midlines and central lines. 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 - only 1 [...] Agents on File Name Relationship Healthcare Agent [facility] p Communication Everette Tory Adult Child Health Care Agen t (per Health Care Power of Crop Specialist document) Care Teams Station Operator Relationship Specialty Start Date End Date Sage Lay MD PCP - General Family Medicine 06/19/13 documented as of this encounter
--- OUTSIDE RECORDS SUMMARY | 2025-01-25 07:54 | External Medical Summary | Summary of Care ---
Author Name Unknown Organization [facility] Address [address] [facility] [address] Phone [phone] Care Team Providers Care Dietary Assistant Name Role Phone Sage Lay MD Primary Care Provider [phone] Encounter Details Date Type Department Care Team (Late st Contact Info) Description 01/05/2025 Orders Only Hematology/Oncology [facility] Suresh [place] 200 [facility] [place] [phone] Wilma Stern MD 200 [facility] [place] [address] Allergies No known active allergiesdocumented as of this encounter (statuses as of 01/06/2025) Medications apixaban (ELIQUIS) 5 MG TabletIndications:P ersistent [...] as of this encounter (statuses as of 01/06/2025) Active Problems Problem Noted Date Diagnosed Date [...] as of this encounter (statuses as of 01/06/2025) Resolved Problems Problem Noted Date Diagnosed Date Resolved Date History of atrial fibrillation 12/16/2017 01/16/2019 Chest discomfort 12/16/2017 01/16/2019 Persistent atrial fibrillation 10/29/2017 07/23/2018 documented as of this encounter (statuses as of 01/06/2025) Immunizations Name Administration Dates Next Due COVID-19 [...] 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 Not [...] 8:00 AM EDT Nurse Only Hematology/Oncology Treatment, [place] [address] [place] [phone] [place], Chair 9 Hem Onc [place] [address] [place] [address] 01/11/2025 9:15 AM EDT [facility], [place] [phone] Demetrice, Chair 8 Hem Onc [place] [address] [facility] [place] [address] 02/01/2025 9:00 AM EDT [facility] [address] [facility], [place] [phone] Demetrice, Chair 7 Hem Onc [place] [address] [facility] [place] [address] 02/01/2025 9:30 AM EDT Office Visit Hematology/Oncology [facility] [address] [facility] [place], [place] [phone] Wilma Stern MD [address] [place] [address] 02/01/2025 10:00 AM EDT Hem/Onc Treatment Hematology/Oncology Treatment[address], [place] [phone] Demetrice, Chair 10 Hem Onc [place] [address] [facility] [place] [address] 06/23/2025 11:30 AM EDT Office Visit Cardiology, [facility] [address] [place] [phone] Sully Licona CRNP [address] [facility] [place] [address] Scheduled Procedures Name Priority [...] this encounter Medical Devices Implanted Type Area Gas Meter Mechanic Device Identifier Shelf Expiration Date Model / Serial / Lot Port Implant W8f Poly Cath - [id number] Implanted:Qty: 1 on 02/07/2024 by Giovani Cervantes MD at OR [facility] : PERIPHERAL VASCULAR [id number] 02/27/2025 [id number] / / [id number] documented as of this encounter Advance Directives Documents on File Type Date Recorded 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 - only 1 [...] Agents on File Name Relationship Healthcare Agent [facility] p Communication Everette Spears Adult Child Health Care Agen t (per Health Care Power of Stucco Plasterer document) Care Teams Dietary Assistant Relationship Specialty Start Date End Date Sage Lay MD PCP - General Family Medicine 06/19/13 documented as of this encounter
--- OUTSIDE RECORDS SUMMARY | 2025-01-25 07:54 | External Medical Summary | Summary of Care ---
Author Name Unknown Organization [facility] Address [address] [place] [place] [address] Phone [phone] Care Team Providers Care Director Of Student Financial Aid Name Role Phone Sage Lay MD Primary Care Provider [phone] Reason for Visit * Reason Comments Procedure Lab draw from port a nd port flush Encounter Details Date Type Department Care Team (Late st Contact Info) Description 01/11/2025 8:00 AM EDT Nurse Only Hematology/Oncology Treatment, [address] [phone] [place], Chair 9 Hem Onc [facility] [address] [place] [address] Procedure (Lab draw from port and port flush) Allergies No known active allergiesdocumented as of this encounter (statuses as of 01/11/2025) Medications apixaban (ELIQUIS) 5 MG TabletIndications:P ersistent [...] as of this encounter (statuses as of 01/11/2025) Active Problems Problem Noted Date Diagnosed Date [...] as of this encounter (statuses as of 01/11/2025) Resolved Problems Problem Noted Date Diagnosed Date Resolved Date History of atrial fibrillation 12/16/2017 01/16/2019 Chest discomfort 12/16/2017 01/16/2019 Persistent atrial fibrillation 10/29/2017 07/23/2018 documented as of this encounter (statuses as of 01/11/2025) Immunizations Name Administration Dates Next Due COVID-19 [...] Industry Job Start Date Job End Date [employer]BE[employer] Not on file Not on file Not on file documented as of this encounter Last Filed Vital Signs Vital Sign Reading Time Taken Comments Blood Pressure 135/79 01/11/2025 8:00 AM EDT Pulse 47 01/11/2025 8:00 AM EDT Temperature 36.2 °C (97.2 °F) 01/11/2025 8:00 AM ED T Respiratory Rate 18 01/11/2025 8:00 AM EDT Oxygen Saturation 93% 01/11/2025 8:00 AM EDT Inhaled Oxygen Concentration - - Weight 67.3 kg (148 lb 6.4 oz) 01/11/2025 8:00 A M EDT Height - - Body Mass Index 21.91 02/07/2024 8:53 AM EDT documented in this encounter Functional Status * Are you deaf or do you have serious difficulty hearing? Answer Date of Assessment Author No 12/20/2023 2:55 PM Aldo Rhoades RN * Are you blind or do you have serious difficulty seeing, even when wearing glasses? Answer Date of Assessment Author No 12/20/2023 2:55 PM Adlo Rhoades RN * Do you have serious [...] Author No 12/20/2023 2:55 PM EDT Aldo Jensen, RN documented as of this encounter Mental Status * Because of a physical, mental, or emotional condition, do you have serious difficulty concentrating, remembering, or making decisions? (5 years old or older) Answer Entry Date Author No 12/20/2023 2:55 PM EDT Aldo Jensen RN documented in this encounter Nursing Notes * Alysa Martell RN - 01/11/2025 8:41 AM EDT Chair 11 Patient here for port lab draw and flush. Port needle flushed with 10 ml NSS, blood return noted, labs drawn and port locked with additional 10 ml NSS. Capped port with alcohol cap. Patient awaiting lab results for treatment. documented in this encounter Plan of Treatment Upcoming Encounters Date Type Department Care Team (Late st Contact Info) Description 02/01/2025 9:00 AM EDT Nurse Only [facility]ematology[address] [phone] [place], Chair 7 Hem On[address] [place] [address] 02/01/2025 9:30 AM EDT Office Visit Hematology/Oncology [facility] [place] [address] [facility] [place] [phone] Wilma Stern MD [address] [facility] [place] [address] 02/01/2025 10:00 AM EDT [facility] [phone] [place], Chair 10 Hem Onc [address] [place] [address] 06/23/2025 11:30 AM EDT Office Visit Cardiology, [facility] [address] [place] [address] Sully Licona CRNP [address] [place] [address] Pending Results Name Type Priority Associated Diagnoses Date /Time TSH WITH FREE T4 IF INDICATED Lab STAT Encounter for antineoplastic chemotherapy 01/11/2025 7:59 AM EDT Scheduled Procedures Name Priority Associated Diagnoses Date/Ti [...] this encounter Medical Devices Implanted Type Area Counselling Psychologist Device Identifier Shelf Expiration Date Model / Serial / Lot Port Implant [id number] Poly Cath - [id number] Implanted:Qty: 1 on 02/07/2024 by Giovani Cervantes MD at [facility] : [facility] [id number] 02/27/2025 [id number] / / [id number] documented as of this encounter Procedures Procedure Name Priority Date/Time Associated Diagnosis Comments DIFFERENTIAL, AUTOMATED STAT 01/11/2025 7:59 AM EDT Encounter for antineoplastic chemotherapy COMPREHENSIVE METABOLIC PANEL STAT 01/11/2025 7:59 AM EDT Encounter for antineoplastic chemotherapy CBC STAT 01/11/2025 7:59 AM EDT Encounter for antineoplastic chemotherapy CBC STAT 01/11/2025 7:59 AM EDT Encounter for antineoplastic chemotherapy documented in this encounter Results * DIFFERENTIAL, AUTOMATED (01/11/2025 7:59 AM EDT) WBC 8.10 4.00 - 10.80 K/uL 01/11/2025 8:29 AM EDT [facility] 56-02 Neutrophils % 70.7 40.0 - 75.0 % 01/11/2025 8:29 AM EDT [facility] 56-02 Lymphocytes % 18.8 18.0 - 42.0 % 01/11/2025 8:29 AM EDT [facility] 56-02 Monocytes % 8.0 1.0 - 11.0 % 01/11/2025 8:29 AM EDT [facility] 56-02 Eosinophils % 2.1 0.0 - 6.0 % 01/11/2025 8:29 AM EDT [facility] 56-02 Basophils % 0.4 0.0 - 2.0 % 01/11/2025 8:29 AM EDT [facility] 56 Absolute Neutrophils 5.73 1.80 - 7.70 K/uL 01/11/2025 8:29 AM EDT [facility] 56 Absolute Lymphocytes 1.52 1.00 - 4.80 K/ul 01/11/2025 8:29 AM EDT [facility] 56 Absolute Monocytes 0.65 0.00 - 1.10 K/uL 01/11/2025 8:29 AM EDT [facility] Absolute Eosinophils 0.17 0.00 - 0.70 K/uL 01/11/2025 8:29 AM EDT [facility] 56 Absolute Basophils 0.03 0.00 - 0.20 K/uL 01/11/2025 8:29 AM EDT [facility] Blood Venous blood specimen / Unknown Central Line / Unknown 01/11/2025 7:59 AM EDT 01/11/2025 8:26 AM EDT Wilma Stern MD LAB BLOOD ORDERABLES Fin al Result [facility] [address] [place] [address] * (ABNORMAL) CBC (01/11/2025 7:59 AM EDT) WBC 8.10 4.00 - 10.80 K/uL 01/11/2025 8:29 AM EDT [facility] RBC 3.63 4.50 - 5.25 M/uL 01/11/2025 8:29 AM EDT [facility] HGB 11.0(L) 14.0 - 16.8 g/dL 01/11/2025 8:29 AM EDT [facility] HCT 33.9(L) 40.0 - 48.4 % 01/11/2025 8:29 AM EDT [facility] 56 MCV 93.4 82.0 - 99.5 fL 01/11/2025 8:29 AM EDT [facility] MCH 30.3 27.0 - 34.0 pg 01/11/2025 8:29 AM EDT [facility] 56 MCHC 32.4 32.0 - 36.0 g/dL 01/11/2025 8:29 AM EDT [facility] 56 RDW 14.6 11.5 - 15.5 % 01/11/2025 8:29 AM EDT [facility] 56 PLT 225 140 - 400 K/uL 01/11/2025 8:29 AM EDT [facility] 56 MPV 9.8 6.6 - 11.1 fL 01/11/2025 8:29 AM EDT [facility] 56 Blood Venous blood specimen / Unknown Central Line / Unknown 01/11/2025 7:59 AM EDT 01/11/2025 8:26 AM EDT Wilma Stern MD LAB BLOOD ORDERABLES Fin al Result [place] [address] [place] [address] * (ABNORMAL) COMPREHENSIVE METABOLIC PANEL (01/11/2025 7:59 AM EDT) BUN 27(H) 6 - 20 mg/dL 01/11/2025 9:09 AM EDT [facility] 56 CREATININE 1.5(H) 0.6 - 1.2 mg/dL 01/11/2025 9:09 AM EDT [facility] 56 EGFR 50(L) >=60 mL/min 01/11/2025 9:09 AM T [facility] 56 Comment:eGFR is calculated b ased on the CKD-EPI 2020 equation. SODIUM 142 135 - 146 mmol/L 01/11/2025 9:09 AM EDT [facility] 56 POTASSIUM 4.2 3.5 - 5.1 mmol/L 01/11/2025 9:09 AM EDT [facility] 56 CHLORIDE 106 98 - 107 mmol/L 01/11/2025 9:09 AM EDT [facility] 56 CO2 24 22 - 32 mmol/L 01/11/2025 9:09 AM EDT [facility] 56 ANION GAP 12 7 - 15 mmol/L 01/11/2025 9:09 AM EDT [facility] 56- GLUCOSE 94 70 - 120 mg/dL 01/11/2025 9:09 AM EDT [facility] 56 Albumin 3.7(L) 3.8 - 5.0 g/dL 01/11/2025 9:09 AM EDT [facility] 56- AST 31 10 - 50 U/L 01/11/2025 9:09 AM EDT [facility] 56- Alkaline Phosphatase 129 35 - 130 U/L 01/11/2025 9:09 AM EDT [facility] 56- Bilirubin, Total 0.4 <=1.2 mg/dL 01/11/2025 9:09 AM EDT [facility] 56- CALCIUM 9.1 8.4 - 10.2 mg/dL 01/11/2025 9:09 AM EDT [facility] 56 Protein 6.7 6.0 - 8.3 g/dL 01/11/2025 9:09 AM EDT [facility] 56 ALT 14 10 - 50 U/L 01/11/2025 9:09 AM EDT [facility] 56 Blood Venous blood specimen / Unknown Central Line / Unknown 01/11/2025 7:59 AM EDT 01/11/2025 8:25 AM EDT Wilma Stern MD LAB BLOOD ORDERABLES Fin al Result [facility] [address] [place] [address] documented in this encounter Visit Diagnoses Diagnosis 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)- Primary Malignant neoplasm of lower lobe, bronchus, or lung Encounter for antineoplastic chemotherapy documented in this encounter Administered Medications Inactive Administered Medications - up to 3 most recent administrations Medication Order MAR Action Action Date Dose Rate Site sodium chloride 0.9 % flush/inj 20 mL 20 mL, IV Push, PRN IV Flush and Lock, Starting on Sat01/11/25 at 0821, Until Sat01/11/25 at 0922, Do not flush if lock, PICC, or [...] right lower lobe of lung (HCC) Given 01/11/2025 8:22 AM EDT 20 mL documented in this encounter Advance Directives Documents on File Type Date Recorded Patient Gypsum Calciner Expl anation Advance Directives and Living Will 12/20/2023 Everette Spears Durable Health Care POA & Living Will - signed on 12/01/2021 Power of Psychology Lecturer 12/20/2023 Durable Po wer of Psychology Lecturer - financial only ? - only 1 [...] Agen t (per Health Care Power of Psychology Lecturer document) Care Teams Director Of Student Financial Aid Relationship Specialty Start Date End Date Sage Lay MD PCP - General Family Medicine 06/19/13 documented as of this encounter
--- OUTSIDE RECORDS SUMMARY | 2025-01-25 07:54 | External Medical Summary | Summary of Care ---
Author Name Unknown Organization [facility] Address [address] [facility] [place] [address] Phone [phone] Care Team Providers Care [employer] Name Role Phone Sage Lay MD Primary Care Provider [phone] Reason for Visit * Reason Comments Procedure Labs from port Chemotherapy Keytruda * Episode Based Medications (Routine) - Authorized Specialty Diagnoses / Procedures Referred By Contkatharina t Referred To Contact Diagnoses 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) Encounter for antineoplastic chemotherapy Procedures AL INJ. PEMETREXED NOS 10MG AL CISPLATIN 10 MG INJECTION AL INJ PEMBROLIZUMAB AL FOSAPREPITANT INJECTION Wilma Stern MD [address] [place] [address] Dr [place] [address] Phone: tel: fax: Hematology/Oncology Treatment, [address] [place] [address] Phone: tel: fax: Referral ID Status Reason Start Date Expiration Date V isits Requested Visits Authorized [id number] Authorized 01/21/2024 01/15/2025 [id number] Encounter Details Date Type Department Care Team (Latest Contact Info) Description 11/30/2024 11:00 AM EST Hem/Onc Treatment Hematology/Oncolog [address], [address] [address] Demetrice, Chair 2 Hem Onc [address] [place] [id number] Encounter for antineoplastic chemotherapy*; 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) Allergies No known active allergiesdocumented as of this encounter (statuses as of 01/08/2025) Medications apixaban (ELIQUIS) 5 MG TabletIndications: Persistent atrial fibrillation (HCC) Take 1 Tab by mouth 2 times a day. 180 Tab 3 8 Active sotalol (BETAPACE) 80 MG TabletIndications: Persistent atrial fibrillation (HCC) Take 1 Tab by [...] Active Atorvastatin Calcium 20 MG Oral Tablet (Lipitor)Indicatio ns:Other hyperlipidemia TAKE ONE TABLET BY MOUTH EVERY MORNING 100 Tablet 1 10/30/2024 3:42 PM EST 5 10/30/19 26 Active Folic Acid 1 MG Oral TabletIndications: 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) Take 1 Tablet by mouth in the morning. 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 Not on file Not on file documented as of this encounter Last Filed Vital Signs Vital Sign Reading Time Taken Comments Blood Pressure 149/86 11/30/2024 11:07 AM EST Pulse 54 11/30/2024 11:07 AM EST Temperature 35.9 °C (96.6 °F) 11/30/2024 1 1:07 AM EST Respiratory Rate 18 11/30/2024 11:0 7 AM EST Oxygen Saturation 97% 11/30/2024 11: 07 AM EST Inhaled Oxygen Concentration - - Weight 68.9 kg (151 lb 12.8 oz) 025 11:07 AM EST Height - - Body Mass Index 22.42 02/07/2024 8:53 AM EDT documented in this [...] of Assessment Author No 12/20/2023 2:55 PM Alod Rhoades RN documented as of this encounter Mental Status * Because of a physical, mental, or emotional condition, do you have serious difficulty concentrating, remembering, or making decisions? (5 years old or older) Answer Entry Date Author No 12/20/2023 2:55 PM Aldo Rhoades RN documented in this encounter Nursing Notes * Hanny Zaragoza RN - 11/30/2024 12:54 PM EST Infusion complete. Patient tolerated well. No complaints. Port needle flushed with 10 ml NSS, blood return noted, and port locked with additional 10 ml NSS. Bernabe needle removed, intact, gauze dressing applied. Goals: Patient will remain free from injury. Possible barriers to meeting goals: ambulating with IV pole Stability of the patient: Moderately stable - low risk of patient condition declining or worsening Summary regarding today's goals: Met: Patient remained free from harm/injury during treatment. * Hanny Zaragoza RN - 11/30/2024 12:21 PM EST Chair 5, patient here for treatment. Patient with no complaints at this time. VAD accessed without difficulty, + blood return noted, flushed with 10 ml NSS, waste tube drawn andlabs drawn, flushed with 20 ML NSS and dressing applied. Chemotherapy/Immunotherapy agents: KEYTRUDA Consent for chemotherapy drug treatment complete, dated, and signed? yes, date - 01/21/24 Treatment lab parameters met? Yes Has treatment weight changed > than 10%? No Treatment preauthorized? Yes VITALS Filed Vitals: 11/30/24 1107 BP: 149/86 Pulse: 54 Resp: 18 Temp: 35.9 °C (96.6 °F) TempSrc: Tympanic SpO2: 97% Weight: 68.9 kg (151 lb 12.8 oz) BP Readings from Last 2 Encounters: 11/30/24 149/86 11/09/24 149/87 Pulse Readings from Last 2 Encounters: 11/30/24 54 11/09/24 57 Resp Readings from Last 2 Encounters: 11/30/24 18 11/03/24 26 SpO2 Readings from Last 2 Encounters: 11/30/24 97% 11/09/24 95% Temp Readings from Last 2 Encounters: 11/30/24 35.9 °C (96.6 °F) (Tympanic) 11/09/24 35.9 °C (96.7 °F) (Tympanic) Urine protein: N/A Patient education completed for treatment? Yes Blood transfusion consent signed and complete? NA Return appointment scheduled? Yes Patient had provider visit today? No - If no provider visit must complete Pretreatment Assessment Functional Status: Functional status at today's visit: Fully active, able to carry on all pre-disease performance without restriction The drug name, dose, infusion volume, rate and route of administration, expiration date and time, appearance and physical integrity of the drug and rate set on the pump and sequencing of drug administration (as applicable) were verified by me and second sign-in RN. Patient was assessed for symptoms or adverse side effects during treatment. Patient Education: Patient instructed on use of heat and massage functions where applicable. Patient shown how to operate the heat function of the chair and to alert nursing staff if the chair feels too warm. Patient instructed on the risk of potential gurrola while using the heat function. PRE-TREATMENT ASSESSMENT: NEURO: denies symptoms CV/RESP: denies symptoms GI/: denies symptoms OTHER: denies any additional symptoms PAIN: 0 Safety and Risk for Injury Patient will remain free from injury. Ensure appropriate safety devices are available. Provide and maintain safe environment. documented in this encounter Plan of Treatment Upcoming Encounters Date Type Department Care Team (Late st Contact Info) Description 01/11/2025 8:00 AM EDT Nurse Only Hematology/[address]cology [address], [address] [phone] Demetrice, Chair 9 Hem Onc Scenery [address] [facility] [place] [address] 01/11/2025 9:15 AM EDT Hem/Onc Treatment Hematology/Oncology [address], [address] [address] Park, Chair 8 Hem Onc Scenery [address] [facility] [place] [address] 02/01/2025 9:00 AM EDT Nurse Only Hematology/Oncology Treatment, [address], [place] [address] Demetrice, Chair 7 Hem Onc Scenery [address] [facility] [place] [address] 02/01/2025 9:30 AM EDT Office Visit Hematology/Oncology [facility] [place] [address] [facility] [place] [phone] Wilma Stern MD [address] [facility] [place] [address] 02/01/2025 10:00 AM EDT Hem/Onc Treatment Hematology/Oncology Treatment, [address], [place] [phone] Demetrice, Chair 10 Hem Onc Scenery [address] [facility] [place] [address] 06/23/2025 11:30 AM EDT Office Visit Cardiology, [facility] [address] [place] [address] Sully Licona CRNP [address] [place] [address] Scheduled Procedures Name Priority [...] Screening 12/23/2024 12/24/2023 Albumin/Creatinine Ratio 05/31/2025 05/31/2022, 11/05/2020 O2 ASSESSMENT COMPLETED IN PAST YEAR FOR [...] this encounter Medical Devices Implanted Type Area Design Verification Engineer Device Identifier Shelf Expiration Date Model / Serial / Lot Port Implant W8f Poly Cath - [id number] Implanted:Qty: 1 on 02/07/2024 by Giovani Cervantes MD at OR [facility] BARD : PERIPHERAL VASCULAR [id number] 02/27/2025 [id number] / / [id number] documented as of this encounter Procedures Procedure Name Priority Date/Time Associated Diagnosis Comments DIFFERENTIAL, AUTOMATED STAT 11/30/2024 11:18 AM EST 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) TSH WITH FREE T4 IF INDICATED STAT 11/30/2024 11:18 AM EST 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) COMPREHENSIVE METABOLIC PANEL STAT 11/30/2024 11:18 AM EST 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) CBC STAT 11/30/2024 11:18 AM EST 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) CBC STAT 11/30/2024 11:18 AM EST 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) T4, FREE STAT 11/30/2024 11:18 AM EST 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) MAGNESIUM STAT 11/30/2024 11:18 AM EST 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) documented in this encounter Results * T4, FREE (11/30/2024 11:18 AM EST) T4, Free 1.0 0.9 - 1.7 ng/dL 11/30/2024 10:08 PM EST [facility] Blood Venous blood specimen / Unknown Central Line / Unknown 11/30/2024 11:18 AM EST 11/30/2024 11:29 AM EST Wilma Stern MD LAB BLOOD ORDERABLES Fin al Result [facility]ATORY [facility] [address] [place] [address] * DIFFERENTIAL, AUTOMATED (11/30/2024 11:18 AM EST) WBC 7.75 4.00 - 10.80 K/uL 11/30/2024 11:33 AM EST [employer] [place] 56-02 Neutrophils % 70.4 40.0 - 75.0 % 11/30/2024 11:33 AM EST [facility] 56-02 Lymphocytes % 18.2 18.0 - 42.0 % 11/30/2024 11:33 AM EST [facility] 56-02 Monocytes % 9.3 1.0 - 11.0 % 11/30/2024 11:33 AM [facility] [employer] [place] 56-02 Eosinophils % 1.8 0.0 - 6.0 % 11/30/2024 11:33 AM EST [employer] [place] 56-02 Basophils % 0.3 0.0 - 2.0 % 11/30/2024 11:33 AM [facility] [employer] [place] 56-02 Absolute Neutrophils 5.46 1.80 - 7.70 K/uL 11/30/2024 11:33 AM EST [facility] 56-02 Absolute Lymphocytes 1.41 1.00 - 4.80 K/ul 11/30/2024 11:33 AM [facility] [employer] [place] 56-02 Absolute Monocytes 0.72 0.00 - 1.10 K/uL 11/30/2024 11:33 AM [facility] [employer] [place] 56-02 Absolute Eosinophils 0.14 0.00 - 0.70 K/uL 11/30/2024 11:33 AM [facility] [employer] [place] 56-02 Absolute Basophils 0.02 0.00 - 0.20 K/uL 11/30/2024 11:33 AM [facility] [employer] [place] 56-02 Blood Venous blood specimen / Unknown Central Line / Unknown 11/30/2024 11:18 AM EST 11/30/2024 11:30 AM EST Wilma Stern MD LAB BLOOD ORDERABLES Fin al Result [facility] [address] [place] [address] * (ABNORMAL) CBC (11/30/2024 11:18 AM EST) WBC 7.75 4.00 - 10.80 K/uL 11/30/2024 11:33 AM EST [address] RBC 3.48 4.50 - 5.25 M/uL 11/30/2024 11:33 AM [facility] 56 HGB 10.3(L) 14.0 - 16.8 g/dL 11/30/2024 11:33 AM [facility] 56 HCT 31.9(L) 40.0 - 48.4 % 11/30/2024 11:[address] MCV 91.7 82.0 - 99.5 fL 11/30/2024 11:[address] MCH 29.6 27.0 - 34.0 pg 11/30/2024 11:33 AM [facility] 56 MCHC 32.3 32.0 - 36.0 g/dL 11/30/2024 11:33 AM [facility] 56 RDW 15.9 11.5 - 15.5 % 11/30/2024 11:33 AM [facility] 56 PLT 221 140 - 400 K/uL 11/30/2024 11:33 AM [facility] 56 MPV 9.6 6.6 - 11.1 fL 11/30/2024 11:33 AM [facility] 56 Blood Venous blood specimen / Unknown Central Line / Unknown 11/30/2024 11:18 AM EST 11/30/2024 11:30 AM EST Wilma Stern MD LAB BLOOD ORDERABLES Fin al Result [facility] [address] [place] [address] * (ABNORMAL) TSH WITH FREE T4 IF INDICATED (11/30/2024 11:18 AM EST) TSH 5.59(H) 0.27 - 4.20 uIU/mL 11/30/2024 9:35 PM EST [facility] Blood Venous blood specimen / Unknown Central Line / Unknown 11/30/2024 11:18 AM EST 11/30/2024 11:29 AM EST Wilma Stern MD LAB BLOOD ORDERABLES Fin al Result [facility]ATORY [facility] [address] [place] [address] * MAGNESIUM (11/30/2024 11:18 AM EST) Magnesium 1.7 1.5 - 2.6 mg/dL 11/30/2024 11:53 AM EST [facility] 56-02 Blood Venous blood specimen / Unknown Central Line / Unknown 11/30/2024 11:18 AM EST 11/30/2024 11:29 AM EST Wilma Stern MD LAB BLOOD ORDERABLES Fin al Result [facility] 56- [address] [place] [address] * (ABNORMAL) COMPREHENSIVE METABOLIC PANEL (11/30/2024 11:18 AM EST) BUN 30(H) 6 - 20 mg/dL 11/30/2024 11:53 AM EST [facility] 56- CREATININE 1.3(H) 0.6 - 1.2 mg/dL 11/30/2024 11:53 AM EST [facility] 56- EGFR 56(L) >=60 mL/min 11/30/2024 11:53 AM EST [facility] 56- Comment:eGFR is calculated b ased on the CKD-EPI 2020 equation. SODIUM 136 135 - 146 mmol/L 11/30/2024 11:53 AM [facility] 56-02 POTASSIUM 4.5 3.5 - 5.1 mmol/L 11/30/2024 11:53 AM [facility] 56-02 CHLORIDE 102 98 - 107 mmol/L 11/30/2024 11:53 AM [facility] 56-02 CO2 25 22 - 32 mmol/L 11/30/2024 11:53 AM [facility] 56-02 ANION GAP 9 7 - 15 mmol/L 11/30/2024 11:53 AM [facility] 56-02 GLUCOSE 102 70 - 120 mg/dL 11/30/2024 11:53 AM [facility] 56-02 Albumin 3.6(L) 3.8 - 5.0 g/dL 11/30/2024 11:53 AM [facility] 56-02 AST 32 10 - 50 U/L 11/30/2024 11:53 AM [facility] 56-02 Alkaline Phosphatase 130 35 - 130 U/L 11/30/2024 11:53 AM [facility] 56-02 Bilirubin, Total 0.3 <=1.2 mg/dL 11/30/2024 11:53 AM [facility] 56-02 CALCIUM 8.9 8.4 - 10.2 mg/dL 11/30/2024 11:53 AM [facility] 56-02 Protein 6.6 6.0 - 8.3 g/dL 11/30/2024 11:53 AM [facility] 56-02 ALT 18 10 - 50 U/L 11/30/2024 11:53 AM [facility] 56-02 Blood Venous blood specimen / Unknown Central Line / Unknown 11/30/2024 11:18 AM EST 11/30/2024 11:29 AM EST us Wilma Stern MD LAB BLOOD ORDERABLES Fin al Result [facility] 56-[address] [place], [place] [id number] documented in this encounter Visit Diagnoses Diagnosis Encounter for antineoplastic chemotherapy- Primary 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) Malignant neoplasm of lower lobe, bronchus, or lung documented in this encounter Administered Medications Inactive Administered Medications - up to 3 most recent administrations Medication Order MAR Action Action Date Dose Rate Site NSS infusion Intravenous, at 50 mL/hr, PRN, Starting on Sat11/30/24 at 1315, Until Sat11/30/24 at 1656, Maintenance lineIndications: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),Encounter for antineoplastic chemotherapy Start Infusion 11/30/2024 12:09 PM EST 50 mL/hr Pembrolizumab (Keytruda) 200 mg in NSS 100 mL infusion 200 mg, IV Piggyback, ONCE, 1 dose, On Sat11/30/24 at 1245, Administer over 30 Minutes, Infuse through 0.2 micron filter.Indications: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),Encounter for antineoplastic chemotherapy Start Infusion 11/30/2024 12:11 PM EST 200 mg 226 mL/hr sodium chloride 0.9 % flush/inj 20 mL 20 mL, IV Push, PRN IV Flush and Lock, Starting on Sat11/30/24 at 1200, Until Sat11/30/24 at 1656, Do not flush if lock, PICC, or [...] lobe of lung (HCC),Encounter for antineoplastic chemotherapy Given 11/30/2024 12:48 PM EST 20 mL documented in this encounter Advance Directives Documents on File Type Date Recorded Patient Applied Psychology Chair Expl anation Advance Directives and Living Will 12/20/2023 Everette Spears [facility] POA & Living Will - signed on 12/01/2021 Power of Upstairs Maid 12/20/2023 Durable Po wer of Upstairs Maid - financial only ? - only 1 [...] Name Relationship Healthcare Agent Relationshi p Communication [facility]per Health Care Power of Upstairs Maid document) Care Teams [employer] Relationship Specialty Start Date End Date Sage Lay MD PCP - General Family Medicine 06/19/13 documented as of this encounter
--- OUTSIDE RECORDS SUMMARY | 2025-01-25 07:54 | External Medical Summary ---
Author Name Unknown Address Unknown Organization K09:[facility] [address] Laboratory Report Ordering Provider Test Date Status BHARATI VERDUGO 01/11/2025 07:59:47 Final Observation Date Value Abnormality Reference (Units ) Status WBC, Total 01/11/2025 07:59:47 8.10 4.00-10.8 0 (K/uL) Final RBC 01/11/2025 07:59:47 3.63 4.50-5.25 (M/uL) Final Hemoglobin 01/11/2025 07:59:47 11.0 Below low normal 14 .0-16.8 (g/dL) Final HCT 01/11/2025 07:59:47 33.9 Below low normal 40. 0-48.4 (%) Final MCV 01/11/2025 07:59:47 93.4 82.0-99.5 (fL) Final MCH 01/11/2025 07:59:47 30.3 27.0-34.0 (pg) Final MCHC 01/11/2025 07:59:47 32.4 32.0-36.0 (g/dL) Final RDW 01/11/2025 07:59:47 14.6 11.5-15.5 (%) Final Platelets 01/11/2025 07:59:47 225 140-400 (K /uL) Final MPV 01/11/2025 07:59:47 9.8 6.6-11.1 ( fL) Final Performing Location [place] [address]
--- OUTSIDE RECORDS SUMMARY | 2025-01-25 07:54 | External Medical Summary | Summary of Care ---
Author Name Unknown Organization [facility] Address [address] [place] [facility] [place] [address] Phone [phone] Care Team Providers Care Diamond Powder Technician Name Role Phone Sage Lay MD Primary Care Provider [phone] Reason for Visit * Reason Comments Chemotherapy C17/D1 - Keytruda * Episode Based Medications (Routine) - Pending Review Specialty Diagnoses / Procedures Referred By Payton daniels Referred To Contact Diagnoses 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) Encounter for antineoplastic chemotherapy Procedures AR INJ. PEMETREXED NOS 10MG AR CISPLATIN 10 MG INJECTION AR INJ PEMBROLIZUMAB AR FOSAPREPITANT INJECTION Wilma Stern MD [address] [place] [address] [place] [address] Phone: tel: fax: Hematology/Oncology Treatment, [address] [address] Phone: tel: fax: Referral ID Status Reason Start Date Expiration Date V isits Requested Visits Authorized [id number] Pending Review 01/21/2024 01/15/2025 [id number] Encounter Details Date Type Department Care Team (Latest Contact Info) Description 01/11/2025 9:15 AM EDT Hem/Onc Treatment Hematology/Oncolog y Treatment, [address] [address] Demetrice Chair 8 Hem On[address] [place] [phone] (work) 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)*; Encounter for antineoplastic chemotherapy; Encounter for antineoplastic immunotherapy Allergies No known active allergiesdocumented as of [...] money to buy more. 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 Possible barriers to meeting goals: ambulating with IV pole, age Stability of the patient: Moderately stable - low risk of patient condition declining or worsening Summary regarding today's goals: Met: pt remained free of harm today Patient tolerated treatment well without any acute issues or problems. Patient left facility in stable condition and denied any further needs. * Neyda Ferraro RN - 01/11/2025 10:04 AM EDT Chair 11. Patient had port accessed and labs drawn earlier in separate appt note. See previous RN note by FELIX EDMOND. Labs resulted - overall WNL, Cr still slightly elevated at 1.5. Had previously been 1.5 at most recently treatment appt and patient reported he had been taking Ibuprofen for headaches which he now states he has not really been taking any. RN encouraged water intake since patient feels he probably is not drinking enough water lately. Denies diarrhea, vomiting. Chemotherapy/Immunotherapy agents: KEYTRUDA Consent for chemotherapy drug treatment complete, dated, and signed? yes, date - 01/21/2024 Treatment lab parameters met? Yes Has treatment weight changed > than 10%? No Treatment preauthorized? Yes VITALS There were no vitals filed for this visit. BP Readings from Last 2 Encounters: 01/11/25 135/79 12/21/24 122/81 Pulse Readings from Last 2 Encounters: 01/11/25 47 12/21/24 56 Resp Readings from Last 2 Encounters: 01/11/25 18 11/30/24 18 SpO2 Readings from Last 2 Encounters: 01/11/25 93% 12/21/24 96% Temp Readings from Last 2 Encounters: 01/11/25 36.2 °C (97.2 °F) 12/21/24 36.1 °C (97 °F) (Tympanic) Urine protein: N/A Patient education [...] using the heat function. PRE-TREATMENT ASSESSMENT: NEURO: headaches: on occasion CV/RESP: denies symptoms GI/: denies symptoms OTHER: denies any additional symptoms PAIN: 0 Safety and Risk for Injury Patient will remain free from injury. Ensure appropriate safety devices are available. Provide and maintain safe environment. documented in this encounter Plan of Treatment Upcoming Encounters Date Type Department Care Team (Late st Contact Info) Description 02/01/2025 9:00 AM EDT Nurse Only Hematology/Oncology Treatment, [place] [address] [place] [phone] Park, Chair 7 Hem Onc Scenery [address] [place] [address] 02/01/2025 9:30 AM EDT Office Visit Hematology/Oncology [facility] [place] [address] [place] [phone] Wilma Stern MD 200 [facility] [place] [address] 02/01/2025 10:00 AM EDT Hem/Onc Treatment Hematology/Oncology Treatment, [place] [address] [facility] [address] [place] [phone] Demetrice, Chair 10 Hem Onc [facility] 200 [facility] [place] [address] 06/23/2025 11:30 AM EDT Office Visit Cardiology, [facility] [address] [place] [phone] Sully Licona CRNP [address] [facility] [place], [place] [phone] Scheduled Procedures Name Priority Associated Diagnoses Date/Ti [...] this encounter Medical Devices Implanted Type Area International Nurse Device Identifier Shelf Expiration Date Model / Serial / Lot Port Implant W8f Poly Cath - [id number] Implanted:Qty: 1 on 02/07/2024 by Giovani Cervantes MD at OR [facility] : PERIPHERAL VASCULAR [id number] 02/27/2025 [id number] / / [id number] documented as of this encounter Visit Diagnoses Diagnosis 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)- Primary Malignant neoplasm of lower lobe, bronchus, or lung Encounter for antineoplastic chemotherapy Encounter for antineoplastic immunotherapy documented in this encounter Administered Medications Active Administered Medications - up to 3 most recent administrations Medication Order MAR Action Action Date Dose Rate Site diphenhydrAMINE (Benadryl) inj 50 mg 50 mg, IV Push, ONCE PRN Other, Hypersensitivity Reaction, Starting on Sat01/11/25 at 0922, Until Sat01/12/25 at 0921, For 24 hoursIndications: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),Encounter for antineoplastic chemotherapy EPINEPHrine 1 MG/ML inj 0.3 mg 0.3 mg, Intramuscular, ONCE PRN Other, Hypersensitivity Reaction or Anaphylaxis, Starting on Sat01/11/25 at 0922, Until Sat01/12/25 at 0921, For 24 hoursIndications: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),Encounter for antineoplastic chemotherapy Hydrocortisone Sod Suc (PF) (Solu-Cortef) inj 100 mg 100 mg, IV Push, ONCE PRN Other, Hypersensitivity Reaction, Starting on Sat01/11/25 at 0922, Until Sat01/12/25 at 0921, For 24 hoursIndications: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),Encounter for antineoplastic chemotherapy NSS infusion Intravenous, at 50 mL/hr, PRN, Starting on Sat01/11/25 at 1030, Until Discontinued, Maintenance lineIndications: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),Encounter for antineoplastic chemotherapy Start Infusion 01/11/2025 9:34 AM EDT 50 mL/hr oxygen GAS Inhalation, OXYGEN, First dose on Sat01/11/25 at 1000, Until Discontinued, Device/Managed by: Low Flow Device, Goal SPO2 (%): 91-95, Starting Device: Nasal Cannula, Initial Flow Rate (LPM): 2, Lowest Support: Nasal Cannula: Flow 0-6 LPM. Titrate up/down by 1 LPM., Higher Support: Non-Rebreather (NRB) Mask: Minimum of 10 LPM. Titrate to maintain bag inflation., Titration Interval: Q2 minutes and as needed., Notify Provider: For sudden DECREASE in resting SPO2 to less than 85% and when escalating delivery device., Wean patient off Oxygen when the oxygen saturation is greater than or equal to 93%Indications: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),Encounter for antineoplastic chemotherapy sodium chloride 0.9 % flush/inj 10 mL 10 mL, IV Push, PRN line flush, Starting on Sat01/11/25 at 0922, Until Discontinued, Do not flush if lock, PICC, or central line not in place; IV infusing or unable to flush. For midlines and central lines.Indications: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),Encounter for antineoplastic chemotherapy sodium chloride 0.9 % flush/inj 20 mL 20 mL, IV Push, PRN IV Flush and Lock, Starting on Sat01/11/25 at 0922, Until Discontinued, Do not flush if lock, PICC, or [...] of lung (HCC),Encounter for antineoplastic chemotherapy Given 01/11/2025 10:14 AM EDT 20 mL Inactive Administered Medications - up to 3 most recent administrations Medication Order MAR Action Action Date Dose Rate Site Pembrolizumab (Keytruda) 200 mg in NSS 100 mL infusion 200 mg, IV Piggyback, ONCE, 1 dose, On Sat01/11/25 at 1000, Administer over 30 Minutes, Infuse through 0.2 micron filter.Indications: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),Encounter for antineoplastic chemotherapy Start Infusion 01/11/2025 9:36 AM EDT 200 mg 226 mL/hr documented in this encounter Advance Directives Documents on File Type Date Recorded 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 - only 1 [...] Agen t (per Health Care Power of Space Operations Officer document) Care Teams Diamond Powder Technician Relationship Specialty Start Date End Date Sage Lay MD PCP - General Family Medicine 06/19/13 documented as of this encounter
--- OUTSIDE RECORDS SUMMARY | 2025-01-25 07:54 | External Medical Summary | Summary of Care ---
Author Name Unknown Organization [facility] Address [address] [place] [facility] [address] Phone [phone] Care Team Providers Care Stave Log Ripsaw Operator Name Role Phone Sage Lay MD Primary Care Provider [phone] Reason for Visit * Reason Comments Procedure Lab draw from port a nd port flush Encounter Details Date Type Department Care Team (Late st Contact Info) Description 01/11/2025 8:00 AM EDT Nurse Only Hematology/Oncology Treatment, [address] [phone] Park, Chair [address] [facility] 200 [place] [address] Procedure (Lab draw from port and port [...] 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 Not [...] 02/01/2025 9:00 AM EDT Nurse Only Hematology/[address]cology [address] [phone] Demetrice, Chair 7 Hem Onc [address] [place] [address] 02/01/2025 9:30 AM EDT Office Visit Hematology/Oncology [facility] [place] [address] [facility] [place] [phone] Wilma Stern MD [address] [facility] [place] [address] 02/01/2025 10:00 AM EDT [facility] [phone] Demetrice, Chair 10 Hem Onc Scenery [address] [place] [address] 06/23/2025 11:30 AM EDT Office Visit Cardiology, [facility] [address] [place] [phone] Sully Licona CRNP [address] [address] Pending Results Name Type Priority Associated Diagnoses Date /Time T4, FREE Lab STAT Encounter for antineoplastic chemotherapy 01/11/2025 [...] this encounter Medical Devices Implanted Type Area Plumbing Mechanic Device Identifier Shelf Expiration Date Model / Serial / Lot Port Implant W8f Poly Cath - [id number] Implanted:Qty: 1 on 02/07/2024 by Giovani Cervantes MD at [facility] [place] : PERIPHERAL VASCULAR [id number] 02/27/2025 [id number] / / [id number] documented as of this encounter Procedures Procedure Name Priority Date/Time Associated Diagnosis Comments DIFFERENTIAL, AUTOMATED STAT 01/11/2025 7:59 AM EDT Encounter for antineoplastic chemotherapy TSH WITH FREE T4 IF INDICATED STAT 01/11/2025 7:59 AM EDT Encounter for [...] - 6.0 % 01/11/2025 8:29 AM EDT [facility] 56 Basophils % 0.4 0.0 - 2.0 % 01/11/2025 8:29 AM EDT [facility] 56 Absolute Neutrophils 5.73 1.80 - 7.70 K/uL 01/11/2025 8:29 AM EDT [facility] 56 Absolute Lymphocytes 1.52 1.00 - 4.80 K/ul 01/11/2025 8:29 AM EDT [facility] 56 Absolute Monocytes 0.65 0.00 - 1.10 K/uL 01/11/2025 8:29 AM EDT [facility] 56 Absolute Eosinophils 0.17 0.00 - 0.70 K/uL 01/11/2025 8:29 AM EDT [facility] 56 Absolute Basophils 0.03 0.00 - 0.20 K/uL 01/11/2025 8:29 AM EDT [facility] 56 Blood Venous blood specimen / Unknown Central Line / Unknown 01/11/2025 7:59 AM EDT 01/11/2025 8:26 AM EDT Wilma Stern MD LAB BLOOD ORDERABLES Fin al Result [facility] [address] [place] [phone] * (ABNORMAL) CBC (01/11/2025 7:59 AM EDT) WBC 8.10 4.00 - 10.80 K/uL 01/11/2025 8:29 AM EDT [facility] RBC 3.63 4.50 - 5.25 M/uL 01/11/2025 8:29 AM EDT [facility] HGB 11.0(L) 14.0 - 16.8 g/dL 01/11/2025 8:29 AM EDT [facility] 56 HCT 33.9(L) 40.0 - 48.4 % 01/11/2025 8:29 AM EDT [facility] 56 MCV 93.4 82.0 - 99.5 fL 01/11/2025 8:29 AM EDT [facility] 56 MCH 30.3 27.0 - 34.0 pg 01/11/2025 8:29 AM EDT [facility] 56 MCHC 32.4 32.0 - 36.0 g/dL 01/11/2025 8:29 AM EDT [facility] 56 RDW 14.6 11.5 - 15.5 % 01/11/2025 8:29 AM EDT [facility] 56 PLT 225 140 - 400 K/uL 01/11/2025 8:29 AM EDT [facility] 56 MPV 9.8 6.6 - 11.1 fL 01/11/2025 8:29 AM EDT [facility] 56 Blood Venous blood specimen / Unknown Central Line / Unknown 01/11/2025 7:59 AM EDT 01/11/2025 8:26 AM EDT Wilma Stern MD LAB BLOOD ORDERABLES Fin al Result [facility] [address] 200 [place] [address] * (ABNORMAL) TSH WITH FREE T4 IF INDICATED (01/11/2025 7:59 AM EDT) TSH 5.33(H) 0.27 - 4.20 uIU/mL 01/11/2025 6:04 PM EDT [facility]ORY [facility] Blood Venous blood specimen / Unknown Central Line / Unknown 01/11/2025 7:59 AM EDT 01/11/2025 8:25 AM EDT Wilma Stern MD LAB BLOOD ORDERABLES Fin al Result [facility] [address] [place] [address] * (ABNORMAL) COMPREHENSIVE METABOLIC PANEL (01/11/2025 7:59 AM EDT) BUN 27(H) 6 - 20 mg/dL 01/11/2025 9:09 AM [facility] 56 CREATININE 1.5(H) 0.6 - 1.2 mg/dL 01/11/2025 9:09 AM [facility] 56 EGFR 50(L) >=60 mL/min 01/11/2025 9:09 AM [facility] 56 Comment:eGFR is calculated b ased on the CKD-EPI 2020 equation. SODIUM 142 135 - 146 mmol/L 01/11/2025 9:09 AM [facility] 56 POTASSIUM 4.2 3.5 - 5.1 mmol/L 01/11/2025 9:09 AM [facility] 56 CHLORIDE 106 98 - 107 mmol/L 01/11/2025 9:[address] CO2 24 22 - 32 mmol/L 01/11/2025 9:[address] ANION GAP 12 7 - 15 mmol/L 01/11/2025 9:[address] GLUCOSE 94 70 - 120 mg/dL 01/11/2025 9:[address] Albumin 3.7(L) 3.8 - 5.0 g/dL 01/11/2025 9:[address] AST 31 10 - 50 U/L 01/11/2025 9:09 AM [facility] 56 Alkaline Phosphatase 129 35 - 130 U/L 01/11/2025 9:[address] Bilirubin, Total 0.4 <=1.2 mg/dL 01/11/2025 9:09 AM [facility] 56 CALCIUM 9.1 8.4 - 10.2 mg/dL 01/11/2025 9:09 AM [facility] 56 Protein 6.7 6.0 - 8.3 g/dL 01/11/2025 9:09 AM [facility] 56 ALT 14 10 - 50 U/L 01/11/2025 9:09 AM [facility] 56 Blood Venous blood specimen / Unknown Central Line / Unknown 01/11/2025 7:59 AM EDT 01/11/2025 8:25 AM EDT us Wilma Stern MD LAB BLOOD ORDERABLES Fin al Result [facility] [address] [place] [address] documented in this encounter Visit [...] Documents on File Type Date Recorded 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 - only 1 [...] Agen t (per Health Care Power of Stock Control Clerk document) Care Teams Stave Log Ripsaw Operator Relationship Specialty Start Date End Date Sage Lay MD PCP - General Family Medicine 06/19/13 documented as of this encounter
--- OUTSIDE RECORDS SUMMARY | 2025-01-25 07:54 | External Medical Summary ---
Author Name Unknown Address Unknown Organization [id number]:[facility] - [address] [place] [address] Laboratory Report Ordering Provider Test Date Status BHARATI VERDUGO 01/11/2025 07:59:47 Final Observation Date Value Abnormality Reference (Units ) Status T4, Free 01/11/2025 07:59:47 1.4 0.9-1.7 (n g/dL) Final Performing Location [facility] - [address] [place] [address]
--- OUTSIDE RECORDS SUMMARY | 2025-01-25 07:54 | External Medical Summary | Summary of Care ---
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 Not [...] 8:00 AM EDT Nurse Only Hematology/Oncology Treatment, [place] [address] [place] [phone] Park, Chair 9 Hem Onc Scenery [address] [place] [address] 01/11/2025 9:15 AM EDT Hem[facility] 200 [facility], [place] [phone] Demetrice, Chair 8 Hem Onc Scenery 200 [facility] [place] [address] 02/01/2025 9:00 AM EDT [facility] [address] [facility], [place] [phone] Demetrice, Chair 7 Hem Onc Scenery 200 [facility] [place] [address] 02/01/2025 9:30 AM EDT Office Visit Hematology/Oncology [facility] 200 [facility] [place], [place] [phone] Wilma Stern MD [address] [place] [address] 02/01/2025 10:00 AM EDT Hem/Onc Treatment Hematology/Oncology [address], [place] [phone] Demetrice, Chair 10 Hem Onc Scenery 200 [facility] [place] [address] 06/23/2025 11:30 AM EDT Office Visit Cardiology, [facility] [address] [place] [phone] Sully Licona CRNP 400 [facility] [place] [address] Scheduled Procedures [...] this encounter Medical Devices Implanted Type Area Adult Neurologist Device Identifier Shelf Expiration Date Model / Serial / Lot Port Implant W8f Poly Cath - [id number] Implanted:Qty: 1 on 02/07/2024 by Giovani Cervantes MD at OR [facility] : PERIPHERAL VASCULAR [id number] 02/27/2025 [id number] / / [id number] documented as of this encounter Advance Directives Documents on File Type Date Recorded Patient Analytics Director Expl anation Advance Directives and Living Will 12/20/2023 Everette Spears Durable Health Care POA & Living Will - signed on 12/01/2021 Power of Assistant Professor Of Biochemistry 12/20/2023 Durable Po wer of Assistant Professor Of Biochemistry - financial only ? - only 1 [...] on File Name Relationship Healthcare Agent [facility] Everette Spears Adult Child Health Care Agen t (per Health Care Power of Assistant Professor Of Biochemistry document) Care Teams Natural Resources Faculty Member Relationship Specialty Start Date End Date Sage Lay MD PCP - General Family Medicine 06/19/13 documented as of this encounter
--- OUTSIDE RECORDS SUMMARY | 2025-01-25 07:54 | External Medical Summary ---
Author Name Unknown Address Unknown Organization K09:[facility] [address] [place] [address] Laboratory Report Ordering Provider Test Date Status BHRAATI VERDUGO 01/11/2025 07:59:47 Final Observation Date Value Abnormality Reference (Units ) Status BUN 01/11/2025 07:59:47 27 Above high normal 6-20 (mg/dL) Final Creatinine 01/11/2025 07:59:47 1.5 Above high normal 0.6-1.2 (mg/dL) Final Glomerular filtration rate/1.73 sq M.predicted [Volume Rate/Area] in Serum, Plasma or Blood by Creatinine-based formula (CKD-EPI) 01/11/2025 07:59:47 50 Below low normal >=60 (mL/min) Final eGFR is calculated based on the CKD-EPI 2020 equation. Sodium 01/11/2025 07:59:47 142 135-146 (m mol/L) Final Potassium 01/11/2025 07:59:47 4.2 3.5-5.1 (m mol/L) Final Cl 01/11/2025 07:59:47 106 98-107 (mm ol/L) Final CO2 01/11/2025 07:59:47 24 22-32 (mmo l/L) Final Anion gap 01/11/2025 07:59:47 12 7-15 (mmol /L) Final Glucose 01/11/2025 07:59:47 94 70-120 (mg /dL) Final Albumin 01/11/2025 07:59:47 3.7 Below low normal 3.8 -5.0 (g/dL) Final AST (Aspartate aminotransferase) 01/11/2025 07:59:47 31 10-50 (U/L) Fin al Alk Phos 01/11/2025 07:59:47 129 35-130 (U/ L) Final Bilirubin, Total 01/11/2025 07:59:47 0.4 <=1 .2 (mg/dL) Final Calcium 01/11/2025 07:59:47 9.1 8.4-10.2 ( mg/dL) Final Protein 01/11/2025 07:59:47 6.7 6.0-8.3 (g /dL) Final ALT (Alanine aminotransferase) 01/11/2025 07:59:47 14 10-50 (U/L) Geo mir Performing Location [facility] [place] [address] [place] [address]
--- OUTSIDE RECORDS SUMMARY | 2025-01-25 07:54 | External Medical Summary ---
Author Name Unknown Address Unknown Organization K01:[facility] - [address] [facility] [address] [facility] [address] Laboratory Report Ordering Provider Test Date Status BHARATI VERDUGO 01/11/2025 07:59:47 Final Observation Date Value Abnormality Reference (Units ) Status TSH 01/11/2025 07:59:47 5.33 Above high normal 0. 27-4.20 (uIU/mL) Final Performing Location [facility] - [address] [facility] [address]
--- OUTSIDE RECORDS SUMMARY | 2025-01-25 07:55 | External Medical Summary | Summary of Care ---
Author Name Unknown Organization [facility] Address [address] [place] [facility] [place] [address] Phone [phone] Care Team Providers Care Data Communications Technician Name Role Phone Sage Lay MD Primary Care Provider [phone] Reason for Visit * Reason Comments Outpatient Testing Encounter Details Date Type Department Care Team (Late st Contact Info) Description 12/22/2024 12:00 PM EDT [facility] [address] [facility] [place] [phone] [place] [facility] [address] [facility] [place] [address] Other hyperlipidemia Allergies No known active allergiesdocumented as of this encounter (statuses as of 12/22/2024) Medications apixaban (ELIQUIS) 5 MG TabletIndications:P ersistent [...] as of this encounter (statuses as of 12/22/2024) Active Problems Problem Noted Date Diagnosed Date [...] as of this encounter (statuses as of 12/22/2024) Resolved Problems Problem Noted Date Diagnosed Date Resolved Date History of atrial fibrillation 12/16/2017 01/16/2019 Chest discomfort 12/16/2017 01/16/2019 Persistent atrial fibrillation 10/29/2017 07/23/2018 documented as of this encounter (statuses as of 12/22/2024) Immunizations Name Administration Dates Next Due COVID-19 [...] 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 Not [...] 8:00 AM EDT Nurse Only Hematology/Oncology Treatment, [place] [address] [place] [phone] Park, Chair 9 Hem Onc Scenery [address] [place] [address] 01/11/2025 9:15 AM EDT Hem[facility] [address] [facility], [place] [phone] Demetrice, Chair 8 Hem Onc Scenery [address] [place] [address] 02/01/2025 9:00 AM EDT [facility] [address] [facility], [place] [phone] Demetrice, Chair 7 Hem Onc Scenery 200 [facility] [place] [address] 02/01/2025 9:30 AM EDT Office Visit Hematology/Oncology [facility] [address] [place] [phone] Wilma Stern MD [address] [place], [place] [address] 02/01/2025 10:00 AM EDT Hem/Onc Treatment Hematology/Oncology Treatment [address], [place] [phone] Demetrice, Chair 10 Hem Onc Scenery 200 [facility] [place], [place] [address] 06/23/2025 11:30 AM EDT Office Visit Cardiology, [facility] [address] [place] [phone] Sully Licona CRNP [address] [place] [address] [place] [phone] Scheduled Procedures Name Priority Associated Diagnoses Date/Ti [...] Albumin/Creatinine Ratio 05/31/2025 05/31/2022, 11/0 05/2020 GFR 12/21/2025 12/21/2024, 03/0 11/2024, 11/09/2024, Additional history exists O2 ASSESSMENT COMPLETED IN PAST YEAR FOR COPD 12/21/2025 12/21/2024 Colonoscopy 02/19/2027 02/19/2022, 01/29, 01/13/2014 DTap/Tdap Vaccines [...] this encounter Medical Devices Implanted Type Area Hand Riveter Device Identifier Shelf Expiration Date Model / Serial / Lot Port Implant W8f Poly Cath - [id number] Implanted:Qty: 1 on 02/07/2024 by Giovani Cervantes MD at OR [facility] BARD : PERIPHERAL VASCULAR [id number] 02/27/2025 [id number] / / [id number] documented as of this encounter Visit Diagnoses Diagnosis Other hyperlipidemia documented in this encounter Advance Directives Documents on File Type Date Recorded Patient Windows Consultant Expl anation Advance Directives and Living Will 12/20/2023 Everette Spears Durable Health Care POA & Living Will - signed on 12/01/2021 Power of Cuff Knitter 12/20/2023 Durable Po wer of Cuff Knitter - financial only ? - only 1 [...] Agen t (per Health Care Power of Cuff Knitter document) Care Teams Data Communications Technician Relationship Specialty Start Date End Date Sage Lay MD PCP - General Family Medicine 06/19/13 documented as of this encounter
--- OUTSIDE RECORDS SUMMARY | 2025-01-25 07:55 | External Medical Summary ---
Author Name Unknown Address Unknown Organization [id number]:[facility] [place] [address] Laboratory Report Ordering Provider Test Date Status BHARATI VERDUGO 12/21/2024 10:03:33 Final Observation Date Value Abnormality Reference (Units ) Status SYNC LEUKOCYTES IN BLOOD BY AUTOMATED COUNT 12/21/2024 10:03:33 9.15 4.00-10.80 (K/uL) Final Segs 12/21/2024 10:03:33 73.7 40.0-75.0 (%) Final Lymphs % 12/21/2024 10:03:33 15.8 Below low normal 18.0-42.0 (%) Final Monos 12/21/2024 10:03:33 8.6 1.0-11.0 (%) Final Eosinophils 12/21/2024 10:03:33 1.7 0.0-6.0 (%) Final Basos 12/21/2024 10:03:33 0.2 0.0-2.0 (%) Final Absolute Segs 12/21/2024 10:03:33 6.73 1.80-7.70 (K/uL) Final Lymphs, absolute 12/21/2024 10:03:33 1.45 1.00-4.80 (K/ul) Final Monos, Abs 12/21/2024 10:03:33 0.79 0.00-1.10 (K/uL) Final Eos, Abs 12/21/2024 10:03:33 0.16 0.00-0.70 (K/uL) Final Basos, Abs 12/21/2024 10:03:33 0.02 0.00-0.20 (K/uL) Final Performing Location [facility] [place] [address]
--- OUTSIDE RECORDS SUMMARY | 2025-01-25 07:55 | External Medical Summary | Summary of Care ---
Author Name Unknown Organization [facility] Address [address] [facility] [place] [address] Phone [phone] Care Team Providers Care Ladies Suit Operator Name Role Phone Sage Lay MD Primary Care Provider [phone] Reason for Visit * Reason Comments Procedure Labs from port Chemotherapy Keytruda * Episode Based Medications (Routine) - Authorized Specialty Diagnoses / Procedures Referred By Contkatharina t Referred To Contact Diagnoses 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) Encounter for antineoplastic chemotherapy Procedures IN INJ. PEMETREXED NOS 10MG IN CISPLATIN 10 MG INJECTION IN INJ PEMBROLIZUMAB IN FOSAPREPITANT INJECTION Wilma Stern MD [address] [place] [address] Dr [place]rill[place] [address] Phone: tel: fax: Hematology/Oncology Treatment, [address] [place] [address] Phone: tel: fax: Referral ID Status Reason Start Date Expiration Date V isits Requested Visits Authorized [id number] Authorized 01/21/2024 01/15/[phone] Encounter Details Date Type Department Care Team (Latest Contact Info) Description 11/30/2024 11:00 AM EST Hem/Onc Treatment Hematology/Oncolog y Treatment, [address] [phone] Demetrice, Chair 2 Hem Onc [address] [place] [address] [id number] Encounter for antineoplastic chemotherapy*; 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) Allergies No known active allergiesdocumented as of this encounter (statuses as of 11/30/2024) Medications apixaban (ELIQUIS) 5 MG TabletIndications: Persistent [...] BY MOUTH EVERY MORNING 90 Tablet 3 09/09/2024 7:05 AM EST 4 03/19/20 25 Active Atorvastatin Calcium 20 [...] as of this encounter (statuses as of 11/30/2024) Active Problems Problem Noted Date Diagnosed Date [...] as of this encounter (statuses as of 11/30/2024) Resolved Problems Problem Noted Date Diagnosed Date Resolved Date History of atrial fibrillation 12/16/2017 01/16/2019 Chest discomfort 12/16/2017 01/16/2019 Persistent atrial fibrillation 10/29/2017 07/23/2018 documented as of this encounter (statuses as of 11/30/2024) Immunizations Name Administration Dates Next Due COVID-19 [...] 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 Not [...] 10:30 AM EDT Nurse Only Hematology/Oncology Treatment, [address] [phone] Demetrice, Chair 9 Hem On[address] [place] [address] 12/21/2024 11:00 AM EDT Office Visit Hematology/Oncology [address] [place] [phone] Concetta Rachel CRNP [address] [place] [address] 12/21/2024 11:30 AM EDT Hem/Onc Treatment [facility]emat[facility]cology [facility], [place] [facility] [phone] Demetrice, Chair 9 Hem On[address] [place] [address] 06/23/2025 11:30 AM EDT Office Visit Cardiology, [facility] [address] [facility] [place] [address] Sully Licona CRNP [address] [place] [address] Pending Results Name Type Priority Associated Diagnoses Date /Time TSH WITH FREE T4 IF INDICATED Lab STAT 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) 11/30/2024 11:18 AM EST Scheduled Procedures Name Priority Associated Diagnoses Date/Ti me COLONOSCOPY FLEXIBLE PROXIMAL DIAGNOSTIC Recall History of colon polyps Health Maintenance Due Date Last Done Comments Alpha-1 Antitrypsin 1968 Adult Wellness Visit 2014 Hepatitis B Vaccine (3 of 3 - Hep B Twinrix 3-dose series) 07/19/2019 02/16/2019, 01/16/2019 COVID-19 Vaccine (2023- season) 2024 07/04/2024, 07/04/2024, 07/24/2023, Additional history exists O2 ASSESSMENT COMPLETED IN PAST YEAR FOR COPD 12/19/2024 12/20/2023 Depression Screening 12/23/2024 12/24/2023 Albumin/Creatinine Ratio 05/31/2025 05/31/2022, 110 05/2020 GFR 11/30/2025 11/30/2024, 10/31, 10/20/2024, Additional history exists Colonoscopy 02/19/2027 02/19/2022, 01/29, [...] this encounter Medical Devices Implanted Type Area Dresser Tender Device Identifier Shelf Expiration Date Model / Serial / Lot Port Implant W8f Poly Cath - [id number] Implanted:Qty: 1 on 02/07/2024 by Giovani Cervantes MD at OR [facility] BARD : PERIPHERAL VASCULAR [id number] 02/27/2025 [id number] / / [id number] documented as of this encounter Procedures Procedure [...] (HCC) documented in this encounter Results * DIFFERENTIAL, AUTOMATED (11/30/2024 11:18 AM EST) WBC 7.75 4.00 - 10.80 K/uL 11/30/2024 11:33 AM EST [facility]-02 Neutrophils % 70.4 40.0 - 75.0 % 11/30/2024 11:33 AM EST [facility]02 Lymphocytes % 18.2 18.0 - 42.0 % 11/30/2024 11:33 AM EST [facility]-02 Monocytes % 9.3 1.0 - 11.0 % 11/30/2024 11:33 AM EST [facility]-02 Eosinophils % 1.8 0.0 - 6.0 % 11/30/2024 11:33 AM EST [facility] 56-02 Basophils % 0.3 0.0 - 2.0 % 11/30/2024 11:33 AM EST [facility]-02 Absolute Neutrophils 5.46 1.80 - 7.70 K/uL 11/30/2024 11:33 AM EST [facility]-02 Absolute Lymphocytes 1.41 1.00 - 4.80 K/ul 11/30/2024 11:33 AM EST [facility]-02 Absolute Monocytes 0.72 0.00 - 1.10 K/uL 11/30/2024 11:33 AM [facility] 56 Absolute Eosinophils 0.14 0.00 - 0.70 K/uL 11/30/2024 11:33 AM [facility] 56- Absolute Basophils 0.02 0.00 - 0.20 K/uL 11/30/2024 11:33 AM [facility] 56- Blood Venous blood specimen / Unknown Central Line / Unknown 11/30/2024 11:18 AM EST 11/30/2024 11:30 AM EST us Wilma Stern MD LAB BLOOD ORDERABLES Fin al Result [address] [place] [address] * (ABNORMAL) CBC (11/30/2024 11:18 AM EST) WBC 7.75 4.00 - 10.80 K/uL 11/30/2024 11:[address] RBC 3.48 4.50 - 5.25 M/uL 11/30/2024 11:[address] HGB 10.3(L) 14.0 - 16.8 g/dL 11/30/2024 11:33 AM [facility] 56 HCT 31.9(L) 40.0 - 48.4 % 11/30/2024 11:33 AM [facility] 56 MCV 91.7 82.0 - 99.5 fL 11/30/2024 11:33 AM [facility] 56 MCH 29.6 27.0 - 34.0 pg 11/30/2024 11:33 AM [facility] 56 MCHC 32.3 32.0 - 36.0 g/dL 11/30/2024 11:33 AM [facility] 56 RDW 15.9 11.5 - 15.5 % 11/30/2024 11:33 AM [facility] 56 PLT 221 140 - 400 K/uL 11/30/2024 11:33 AM [facility] 56 MPV 9.6 6.6 - 11.1 fL 11/30/2024 11:33 AM EST [facility] Blood Venous blood specimen / Unknown Central Line / Unknown 11/30/2024 11:18 AM EST 11/30/2024 11:30 AM EST Wilma Stern MD LAB BLOOD ORDERABLES Fin al Result [facility] 56[facility] [address] [place] [address] * MAGNESIUM (11/30/2024 11:18 AM EST) Magnesium 1.7 1.5 - 2.6 mg/dL 11/30/2024 11:53 AM [facility] Blood Venous blood specimen / Unknown Central Line / Unknown 11/30/2024 11:18 AM EST 11/30/2024 11:29 AM EST Wilma Stern MD LAB BLOOD ORDERABLES Fin al Result [facility] 56[facility] [address] [place] [address] * (ABNORMAL) COMPREHENSIVE METABOLIC PANEL (11/30/2024 11:18 AM EST) BUN 30(H) 6 - 20 mg/dL 11/30/2024 11:53 AM [facility] 56- CREATININE 1.3(H) 0.6 - 1.2 mg/dL 11/30/2024 11:53 AM [facility] 56- EGFR 56(L) >=60 mL/min 11/30/2024 11:53 AM [facility] 56- Comment:eGFR is calculated b ased on the CKD-EPI 2020 equation. SODIUM 136 135 - 146 mmol/L 11/30/2024 11:53 AM [facility] 56- POTASSIUM 4.5 3.5 - 5.1 mmol/L 11/30/2024 11:53 AM [facility] 56- CHLORIDE 102 98 - 107 mmol/L 11/30/2024 11:53 AM [facility] 56- CO2 25 22 - 32 mmol/L 11/30/2024 11:53 AM [facility] 56-02 ANION GAP 9 7 - 15 mmol/L 11/30/2024 11:53 AM [facility] 56- GLUCOSE 102 70 - 120 mg/dL 11/30/2024 11:53 AM [facility] 56- Albumin 3.6(L) 3.8 - 5.0 g/dL 11/30/2024 11:53 AM [facility] 56-02 AST 32 10 - 50 U/L 11/30/2024 11:53 AM [facility] 56- Alkaline Phosphatase 130 35 - 130 U/L 11/30/2024 11:53 AM [facility] 56- Bilirubin, Total 0.3 <=1.2 mg/dL 11/30/2024 11:53 AM [facility] 56- CALCIUM 8.9 8.4 - 10.2 mg/dL 11/30/2024 11:53 AM [facility] 56- Protein 6.6 6.0 - 8.3 g/dL 11/30/2024 11:53 AM [facility] 56- ALT 18 10 - 50 U/L 11/30/2024 11:53 AM [facility] 56-02 Blood Venous blood specimen / Unknown Central Line / Unknown 11/30/2024 11:18 AM EST 11/30/2024 11:29 AM EST Wilma Stern MD LAB BLOOD ORDERABLES Fin al Result [facility] 56-[address] [place] [address] documented in this encounter Visit Diagnoses Diagnosis [...] Documents on File Type Date Recorded Patient Tractor Trailer 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 - only 1 [...] Agents on File Name Relationship [facility] Everette Spears Adult Child Health Care Agen t (per Health Care Power of Engineer Booster And Exhauster document) Care Teams Ladies Suit Operator Relationship Specialty Start Date End Date Sage Lay MD PCP - General Family Medicine 06/19/13 documented as of this encounter
--- OUTSIDE RECORDS SUMMARY | 2025-01-25 07:55 | External Medical Summary ---
Author Name Unknown Address Unknown Organization [id number]:[facility] [place] [address] Laboratory Report Ordering Provider Test Date Status BHARATI VERDUGO 11/30/2024 11:18:09 Final Observation Date Value Abnormality Reference (Units ) Status WBC, Total 11/30/2024 11:18:09 7.75 4.00-10.8 0 (K/uL) Final RBC 11/30/2024 11:18:09 3.48 4.50-5.25 (M/uL) Final Hemoglobin 11/30/2024 11:18:09 10.3 Below low normal 14 .0-16.8 (g/dL) Final HCT 11/30/2024 11:18:09 31.9 Below low normal 40. 0-48.4 (%) Final MCV 11/30/2024 11:18:09 91.7 82.0-99.5 (fL) Final MCH 11/30/2024 11:18:09 29.6 27.0-34.0 (pg) Final MCHC 11/30/2024 11:18:09 32.3 32.0-36.0 (g/dL) Final RDW 11/30/2024 11:18:09 15.9 11.5-15.5 (%) Final Platelets 11/30/2024 11:18:09 221 140-400 (K /uL) Final MPV 11/30/2024 11:18:09 9.6 6.6-11.1 ( fL) Final Performing Location [facility] [place] [address]
--- OUTSIDE RECORDS SUMMARY | 2025-01-25 07:55 | External Medical Summary ---
Author Name Unknown Address Unknown Organization K01:[facility]ORY [place] [address] [facility] [address] Laboratory Report Ordering Provider Test Date Status BHARATI VERDUGO 12/22/2024 12:12:36 Final Observation Date Value Abnormality Reference (Units ) Status WBC, Total 12/22/2024 12:12:36 8.27 4.00-10.80 (K/uL) Final RBC 12/22/2024 12:12:36 3.79 4.50-5.25 (M/uL) Final Hemoglobin 12/22/2024 12:12:36 11.5 Below low normal 14.0-16.8 (g/dL) Final HCT 12/22/2024 12:12:36 37.2 Below low normal 40.0-48.4 (%) Final MCV 12/22/2024 12:12:36 98.2 82.0-99.5 (fL) Final MCH 12/22/2024 12:12:36 30.3 27.0-34.0 (pg) Final MCHC 12/22/2024 12:12:36 30.9 32.0-36.0 (g/dL) Final RDW 12/22/2024 12:12:36 14.6 11.5-15.5 (%) Final Platelets 12/22/2024 12:12:36 266 140-400 (K/uL) Final MPV 12/22/2024 12:12:36 10.5 6.6-11.1 (fL) Final Nucleated erythrocytes/100 leukocytes [Ratio] in Blood by Automated count 12/22/2024 12:12:36 0 <=0 (/100 WBCs) Final Performing Location [facility] [place] [facility] [place] [address] [facility] [address]
--- OUTSIDE RECORDS SUMMARY | 2025-01-25 07:55 | External Medical Summary ---
Author Name Unknown Address Unknown Organization [id number]:[facility]ORY [facility] [place] - [address] [facility] [address] Laboratory Report Ordering Provider Test Date Status BHARATI VERDUGO 11/30/2024 11:18:09 Final Observation Date Value Abnormality Reference (Units ) Status TSH 11/30/2024 11:18:09 5.59 Above high normal 0. 27-4.20 (uIU/mL) Final Performing Location [facility] [place] - [address] [facility] [address]
--- OUTSIDE RECORDS SUMMARY | 2025-01-25 07:55 | External Medical Summary ---
Author Name Unknown Address Unknown Organization K09:[facility] [place] [address] Laboratory Report Ordering Provider Test Date Status BHARATI VERDUGO 12/21/2024 10:03:33 Final Observation Date Value Abnormality Reference (Units ) Status Magnesium 12/21/2024 10:03:33 1.9 1.5-2.6 (m g/dL) Final Performing Location [facility] [place] [address]
--- OUTSIDE RECORDS SUMMARY | 2025-01-25 07:55 | External Medical Summary ---
Author Name Unknown Address Unknown Organization K01:[facility]ORY [facility] [place] - [address] [facility] [address] Laboratory Report Ordering Provider Test Date Status BHARATI VERDUGO 12/22/2024 12:12:36 Final Observation Date Value Abnormality Reference (Units ) Status TSH 12/22/2024 12:12:36 5.87 Above high normal 0. 27-4.20 (uIU/mL) Final Performing Location [facility]ORY [facility] [place] - [address] [facility] [address]
--- OUTSIDE RECORDS SUMMARY | 2025-01-25 07:55 | External Medical Summary ---
Author Name Unknown Address Unknown Organization K01:[facility] - [address] [place] [address] Laboratory Report Ordering Provider Test Date Status BHARATI VERDUGO 12/22/2024 12:12:36 Final Observation Date Value Abnormality Reference (Units ) Status Magnesium 12/22/2024 12:12:36 2.0 1.5-2.6 (m g/dL) Final Performing Location [facility] - [address] [place] [address]
--- OUTSIDE RECORDS SUMMARY | 2025-01-25 07:55 | External Medical Summary ---
Author Name Unknown Address Unknown Organization K09:[facility] [place] 56-02 - [address] [place] [address] Laboratory Report Ordering Provider Test Date Status BHARATI VERDUGO 11/30/2024 11:18:09 Final Observation Date Value Abnormality Reference (Units ) Status BUN 11/30/2024 11:18:09 30 Above high normal 6-20 (mg/dL) Final Creatinine 11/30/2024 11:18:09 1.3 Above high normal 0.6-1.2 (mg/dL) Final Glomerular filtration rate/1.73 sq M.predicted [Volume Rate/Area] in Serum, Plasma or Blood by Creatinine-based formula (CKD-EPI) 11/30/2024 11:18:09 56 Below low normal >=60 (mL/min) Final eGFR is calculated based on the CKD-EPI 2020 equation. Sodium 11/30/2024 11:18:09 136 135-146 (m mol/L) Final Potassium 11/30/2024 11:18:09 4.5 3.5-5.1 (m mol/L) Final Cl 11/30/2024 11:18:09 102 98-107 (mm ol/L) Final CO2 11/30/2024 11:18:09 25 22-32 (mmo l/L) Final Anion gap 11/30/2024 11:18:09 9 7-15 (mmol /L) Final Glucose 11/30/2024 11:18:09 102 70-120 (mg /dL) Final Albumin 11/30/2024 11:18:09 3.6 Below low normal 3.8 -5.0 (g/dL) Final AST (Aspartate aminotransferase) 11/30/2024 11:18:09 32 10-50 (U/L) Fin al Alk Phos 11/30/2024 11:18:09 130 35-130 (U/ L) Final Bilirubin, Total 11/30/2024 11:18:09 0.3 <=1 .2 (mg/dL) Final Calcium 11/30/2024 11:18:09 8.9 8.4-10.2 ( mg/dL) Final Protein 11/30/2024 11:18:09 6.6 6.0-8.3 (g /dL) Final ALT (Alanine aminotransferase) 11/30/2024 11:18:09 18 10-50 (U/L) Geo mir Performing Location [facility] [place] 57- [address] [place] [address]
--- OUTSIDE RECORDS SUMMARY | 2025-01-25 07:55 | External Medical Summary ---
Author Name Unknown Address Unknown Organization K01:[facility]ORY [facility] [place] - [address] [facility] [place] [address] Laboratory Report Ordering Provider Test Date Status FOREST PERAZA 12/22/2024 12:12:36 Final Observation Date Value Abnormality Reference (Units ) Status Triglyceride 12/22/2024 12:12:36 96 <=174 ( mg/dL) Final Triglyceride Reference Range s (mg/dL):
<150 Acceptable
150-174 Borderline high
175-499 High
>=500 Very high Cholesterol 12/22/2024 12:12:36 98 <200 (mg /dL) Final Total Cholesterol Reference Ranges (mg/dL):
<200 Desirable
200-239 Borderline high
>=240 High HDL 12/22/2024 12:12:36 28 Below low normal >39 (mg/dL) Final HDL Cholesterol Reference Ra nges (mg/dL):
>=60 High (Desirable)
<50 Low (Undesirable) For Females
<40 Low (Undesirable) For Males NON-HDL CHOLESTEROL 12/22/2024 12:12:36 70 <=159 (mg/dL) Final Non-HDL Cholesterol Referenc e Range (mg/dL):
<100 Target level for high risk ASCVD patient
<130 Optimal for general population
130-159 Near optimal for general population
160-189 Borderline High
190-219 High
>=220 Very High LDL, (calculated) 12/22/2024 12:12:36 51 <= 129 (mg/dL) Final LDL Cholesterol Reference Ra nges (mg/dL):
<70 Target level for high risk ASCVD patient
<100 Optimal for general population
100-129 Near optimal for general population
130-159 Borderline high
160-189 High
>=190 Very high
Patient has high LDL cholesterol. Consider screening for Familial Hypercholesterolemia. Performing Location [facility]ORY [facility] [place] - [address] [facility] [address]
--- OUTSIDE RECORDS SUMMARY | 2025-01-25 07:55 | External Medical Summary ---
Author Name Unknown Address Unknown Organization K01:[facility]ORY [facility] [place] - [address] [facility] [address] Laboratory Report Ordering Provider Test Date Status VERDUGOSHAWNBHARATI 12/22/2024 12:12:36 Final Observation Date Value Abnormality Reference (Units ) Status SYNC LEUKOCYTES IN BLOOD BY AUTOMATED COUNT 12/22/2024 12:12:36 8.27 4.00-10.80 (K/uL) Final Segs 12/22/2024 12:12:36 69.1 40.0-75.0 (%) Final Lymphs % 12/22/2024 12:12:36 20.1 18.0-42.0 (%) Final Monos 12/22/2024 12:12:36 7.5 1.0-11.0 (%) Final Eosinophils 12/22/2024 12:12:36 2.2 0.0-6.0 (%) Final Basos 12/22/2024 12:12:36 0.7 0.0-2.0 (%) Final Immature Granulocyte, Percent 12/22/2024 12:12:36 0.4 0.0-2.0 (%) Final Absolute Segs 12/22/2024 12:12:36 5.72 1.80-7.70 (K/uL) Final Lymphs, absolute 12/22/2024 12:12:36 1.66 1.00-4.80 (K/ul) Final Monos, Abs 12/22/2024 12:12:36 0.62 0.00-1.10 (K/uL) Final Eos, Abs 12/22/2024 12:12:36 0.18 0.00-0.70 (K/uL) Final Basos, Abs 12/22/2024 12:12:36 0.06 0.00-0.20 (K/uL) Final Immature Granulocytes, Number 12/22/2024 12:12:36 0.03 0.00-0.20 (K/uL) Final Performing Location [facility]ORY [facility] [place] - [address] [facility] [address]
--- OUTSIDE RECORDS SUMMARY | 2025-01-25 07:55 | External Medical Summary | Summary of Care ---
Author Name Unknown Organization [facility] Address [address] [address] Phone [phone] Care Team Providers Care Fumigator And Sterilizer Name Role Phone Sage Lay MD Primary Care Provider [phone] Encounter Details Date Type Department Care Team (Late st Contact Info) Description 12/15/2024 Orders Only Hematology/Oncology Carlota Suresh [place] [address] [facility] [place] [phone] Wilma Stern MD [address] [facility] [place] [address] Allergies No known active allergiesdocumented as of this encounter (statuses as of 12/15/2024) Medications apixaban (ELIQUIS) 5 MG TabletIndications:P ersistent [...] as of this encounter (statuses as of 12/15/2024) Active Problems Problem Noted Date Diagnosed Date [...] as of this encounter (statuses as of 12/15/2024) Resolved Problems Problem Noted Date Diagnosed Date Resolved Date History of atrial fibrillation 12/16/2017 01/16/2019 Chest discomfort 12/16/2017 01/16/2019 Persistent atrial fibrillation 10/29/2017 07/23/2018 documented as of this encounter (statuses as of 12/15/2024) Immunizations Name Administration Dates Next Due COVID-19 [...] 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 [address] [place], [place] [address] Concetta Rachel CRNP [address] [place] [address] 12/21/2024 12:00 PM EDT Hem/Onc Treatment Hematology/Oncology Treatment, [place] [address] [place] [phone] Demetrice, Chair 9 Hem Onc [facility] [address] [place] [address] 06/23/2025 11:30 AM EDT Office Visit Cardiology, [facility] [address] [facility] [place] [address] Sully Licona CRNP [address] [place] [phone] Scheduled Procedures Name Priority Associated Diagnoses Date/Ti [...] Albumin/Creatinine Ratio 05/31/2025 05/31/2022, 11/0 05/2020 GFR 11/30/2025 11/30/2024, 10/31, 10/20/2024, Additional [...] this encounter Medical Devices Implanted Type Area Site Engineer Device Identifier Shelf Expiration Date Model / Serial / Lot Port Implant W8f Poly Cath - [id number] Implanted:Qty: 1 on 02/07/2024 by Giovani Cervantes MD at OR [facility] BARD : PERIPHERAL VASCULAR [id number] 02/27/2025 [id number] / / [id number] documented as of this encounter Advance Directives Documents on File Type Date Recorded Patient Harpoon Engagement Planning Operator Expl anation Advance Directives and Living Will 12/20/2023 Everette Spears [facility] Health Care POA & Living Will - signed on 12/01/2021 Power of Cnc Service Technician 12/20/2023 Durable Po wer of Cnc Service Technician - financial only ? - only 1 [...] Name Relationship Healthcare Agent Relationshi p Communication [facility] Child Health Care Agen t (per Health Care Power of Cnc Service Technician document) Care Teams Fumigator And Sterilizer Relationship Specialty Start Date End Date Sage Lay MD PCP - General Family Medicine 06/19/13 documented as of this encounter
--- OUTSIDE RECORDS SUMMARY | 2025-01-25 07:55 | External Medical Summary | Summary of Care ---
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 PEMETREXED NOS 10MG NM CISPLATIN 10 MG INJECTION NM INJ PEMBROLIZUMAB NM FOSAPREPITANT INJECTION Wilma Stern MD [address] [place] [address] [place] [address] Phone: tel: fax: Hematology/Oncology Treatment, [address] [place] [address] Phone: tel: fax: Referral ID Status Reason Start Date Expiration Date V isits Requested Visits Authorized [id number] Authorized 01/21/2024 01/15/2025 [id number] Encounter Details Date Type Department Care Team (Late st Contact Info) Description 12/21/2024 10:30 AM EDT Nurse Only Hematology/Oncology Treatment, [address] [address] Demetrice, Chair 9 Hem On[address] [place] [phone] Procedure (Labs drawn from port) Allergies No [...] 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 Port accessed with sterile technique. Port needleflushed with 10 ml NSS, blood return noted, 10ml blood wasted, labs drawn, flushed with 10 ml NSS and port locked with additional 10 ml NSS. Patient to waiting room to await provider visit. documented in this encounter Plan of Treatment Upcoming Encounters Date Type Department Care Team (Late st Contact Info) Description 01/11/2025 8:00 AM EDT Nurse Only Hematology/Oncology [address], [address] [phone] Demetrice, Chair 9 Hem Onc [place] [address] [place] [address] 01/11/2025 9:15 AM EDT Hem/Onc Treatment Hematology/Oncology Treatment, [address] [place] [phone] Demetrice, Chair 8 Hem On[address] [place] [address] 02/01/2025 9:00 AM EDT Nurse Only Hematology/Oncology Treatment, [place] 200 [facility], [place] [phone] Demetrice, Chair 7 Hem Onc Scenery 200 [facility] [place] [address] 02/01/2025 9:30 AM EDT Office Visit Hematology/Oncology [facility] [place] [address] [place] [phone] Wilma Stern MD [address] [place] [address] 02/01/2025 10:00 AM EDT Hem/Onc Treatment Hematology/Oncology Treatment, [place] [facility] [phone] Demetrice, Chair 10 Hem Onc Scenery 200 [facility] [place] [address] 06/23/2025 11:30 AM EDT Office Visit Cardiology, [facility] [address] [place] [address] Sully Licona CRNP 400 [facility] [place] [phone] Scheduled Procedures Name Priority Associated Diagnoses Date/Ti [...] Screening 12/23/2024 12/24/2023 Albumin/Creatinine Ratio 05/31/2025 05/31/2022, 1105/2020 GFR 12/21/2025 12/21/2024, 11/2024, 11/09/2024, Additional history exists O2 ASSESSMENT [...] this encounter Medical Devices Implanted Type Area Torch Straightener And Heater Device Identifier Shelf Expiration Date Model / Serial / Lot Port Implant W8f Poly Cath - [id number] Implanted:Qty: 1 on 02/07/2024 by Giovani Cervantes MD at OR [facility] BARD : PERIPHERAL VASCULAR [id number] 02/27/2025 [id number] / / [id number] documented as of this encounter Procedures Procedure [...] 10.80 K/uL 12/21/2024 10:38 AM EDT LABORATORY [facility] 56-02 Neutrophils % 73.7 40.0 - 75.0 % 12/21/2024 10:38 AM EDT LABORATORY [facility] 56-02 Lymphocytes % 15.8(L) 18.0 - 42.0 % 12/21/2024 10:38 AM EDT [facility] [place] 56-02 Monocytes % 8.6 1.0 - 11.0 % 12/21/2024 10:38 AM EDT [facility] [place] 56-02 Eosinophils % 1.7 0.0 - 6.0 % 12/21/2024 10:38 AM EDT [facility] [place] 56-02 Basophils % 0.2 0.0 - 2.0 % 12/21/2024 10:38 AM EDT LABORATORY [facility] 56-02 Absolute Neutrophils 6.73 1.80 - 7.70 K/uL 12/21/2024 10:38 AM EDT [facility] [place] 56-02 Absolute Lymphocytes 1.45 1.00 - 4.80 K/ul 12/21/2024 10:38 AM EDT [facility] [place] 56-02 Absolute Monocytes 0.79 0.00 - 1.10 K/uL 12/21/2024 10:38 AM EDT [facility] 56-02 Absolute Eosinophils 0.16 0.00 - 0.70 K/uL 12/21/2024 10:38 AM EDT LABORATORY MI[facility] 56-02 Absolute Basophils 0.02 0.00 - 0.20 K/uL 12/21/2024 10:38 AM [facility] Blood Venous blood specimen / Unknown Central Line / Unknown 12/21/2024 10:03 AM EDT 12/21/2024 10:27 AM EDT Wilma Stern MD LAB BLOOD ORDERABLES Fin al Result [facility] [address] [place], [place] [phone] * (ABNORMAL) CBC (12/21/2024 10:03 AM EDT) WBC 9.15 4.00 - 10.80 K/uL 12/21/2024 10:38 AM EDT [facility] 56 RBC 3.66 4.50 - 5.25 M/uL 12/21/2024 10:[address]T [address] HGB 11.0(L) 14.0 - 16.8 g/dL 12/21/2024 10:38 AM EDT [facility] 56 HCT 33.9(L) 40.0 - 48.4 % 12/21/2024 10:38 AM EDT [facility] 56 MCV 92.6 82.0 - 99.5 fL 12/21/2024 10:38 AM EDT [facility] 56 MCH 30.1 27.0 - 34.0 pg 12/21/2024 10:38 AM EDT [facility] 56 MCHC 32.4 32.0 - 36.0 g/dL 12/21/2024 10:38 AM EDT [facility] 56 RDW 15.1 11.5 - 15.5 % 12/21/2024 10:38 AM EDT [facility] 56 PLT 232 140 - 400 K/uL 12/21/2024 10:38 AM EDT [facility] 56 MPV 10.0 6.6 - 11.1 fL 12/21/2024 10:38 AM EDT [facility] 56 Blood Venous blood specimen / Unknown Central Line / Unknown 12/21/2024 10:03 AM EDT 12/21/2024 10:27 AM EDT Wilma Stern MD LAB BLOOD ORDERABLES Fin al Result Performing Organization Address City/[facility]/ZIP Co de Phone Number [facility] 56 [address] [place] [address] * MAGNESIUM (12/21/2024 10:03 AM EDT) Magnesium 1.9 1.5 - 2.6 mg/dL 12/21/2024 11:04 AM EDT [facility] 56 Blood Venous blood specimen / Unknown Central Line / Unknown 12/21/2024 10:03 AM EDT 12/21/2024 10:27 AM EDT Wilma Stern MD LAB BLOOD ORDERABLES Fin al Result Performing Organization Address [facility] Co de Phone Number [facility] 56 [address] [place] [address] * (ABNORMAL) COMPREHENSIVE METABOLIC PANEL (12/21/2024 10:03 AM EDT) BUN 31(H) 6 - 20 mg/dL 12/21/2024 11:04 AM EDT [facility] 56 CREATININE 1.5(H) 0.6 - 1.2 mg/dL 12/21/2024 11:04 AM EDT [facility] 56 EGFR 48(L) >=60 mL/min 12/21/2024 11:04 AM EDT [facility] 56 Comment:eGFR is calculated b ased on the CKD-EPI 2020 equation. SODIUM 142 135 - 146 mmol/L 12/21/2024 11:04 AM EDT [facility] 56- POTASSIUM 4.3 3.5 - 5.1 mmol/L 12/21/2024 11:04 AM EDT [facility] 56- CHLORIDE 107 98 - 107 mmol/L 12/21/2024 11:04 AM EDT [facility] 56- CO2 26 22 - 32 mmol/L 12/21/2024 11:04 AM EDT [facility] 56- ANION GAP 9 7 - 15 mmol/L 12/21/2024 11:[address] EDT [address] GLUCOSE 107 70 - 120 mg/dL 12/21/2024 11:04 AM EDT [address] Albumin 3.7(L) 3.8 - 5.0 g/dL 12/21/2024 11:04 [address] EDT [address] AST 29 10 - 50 U/L 12/21/2024 11:04 AM EDT [address] Alkaline Phosphatase 138(H) 35 - 130 U/L 12/21/2024 11:04 AM EDT [address] Bilirubin, Total 0.3 <=1.2 mg/dL 12/21/2024 11:04 AM EDT [address] CALCIUM 9.3 8.4 - 10.2 mg/dL 12/21/2024 11:04 AM EDT [address] Protein 6.8 6.0 - 8.3 g/dL 12/21/2024 11:04 AM EDT [address] ALT 13 10 - 50 U/L 12/21/2024 11:04 AM T [address] Blood Venous blood specimen / Unknown Central Line / Unknown 12/21/2024 10:03 AM EDT 12/21/2024 10:27 AM EDT Wilma Stern MD LAB BLOOD ORDERABLES Fin al Result [address] 200 [place] [address] documented in this encounter Visit Diagnoses Diagnosis [...] Documents on File Type Date Recorded Patient Meter Calibrator Expl anation Advance Directives and Living Will 12/20/2023 Everette Spears Durable Health Care POA & Living Will - signed on 12/01/2021 Power of Shaker Plate Operator 12/20/2023 Durable Po wer of Shaker Plate Operator - financial only ? - only [...] Agents on File Name Relationship Healthcare Agent [facility] Communication Everette Spears Adult Child Health Care Agen t (per Health Care Power of Shaker Plate Operator document) Care Teams Technical Services Librarian Relationship Specialty Start Date End Date Sage Lay MD PCP - General Family Medicine 06/19/13 documented as of this encounter
--- OUTSIDE RECORDS SUMMARY | 2025-01-25 07:55 | External Medical Summary | Summary of Care ---
Author Name Unknown Organization [facility] Address [address] [facility] [place] [address] Phone [phone] Care Team Providers Care Medical Practice Manager Name Role Phone Sage Lay MD Primary Care Provider [phone] Reason for Visit * Reason Comments Chemotherapy Keytruda Encounter Details Date Type Department Care Team (Latest Contact Info) Description 12/21/2024 12:00 PM EDT Hem/Onc Treatment Hematology/Oncolog y Treatment, [address] [phone] Demetrice, Chair 9 Hem Onc [address] 200 [place] [address] Encounter for antineoplastic chemotherapy*; Malignant neoplasm of lower lobe of right lung (HCC) Allergies No known active allergiesdocumented [...] 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 Patient tolerated well. Port needle flushed with 10 ml NSS, blood return noted, and port locked with additional 10 ml NSS. Bernabe needle removed, intact, gauze dressing applied. Goals: Patient will remain free from injury Possible barriers to meeting goals: ambulating with IV pole Stability of the patient: Moderately stable - low risk of patient condition declining or worsening Summary regarding today's goals: Patient will remain free from injury Patient denies further needs at this time. Ambulatory from facility in stable condition. * Naomi Skinner, FELIX - 12/21/2024 11:50 AM EDT Chair 4. Patient presents for c16, D1 Keytruda infusion. Creatinine of 1.5 today. Pt reports he has been taking ibuprofen for several days r/t headache. He discussed this with Concetta Rachel, she encouraged him to take tylenol as needed instead of ibuprofen and to hydrate with water. Per karen Hylton to proceed with treatment today. See OV note for further details. Port accessed prior to this appointment. Blood return confirmed. Flushed with 10 ml NSS. Chemotherapy/Immunotherapy agents: KEYTRUDA Consent for chemotherapy drug treatment complete, dated, and signed? yes, date - 01/21/24 Treatment lab parameters met? No, creatinine 1.5, Concetta Rachel aware, ok to proceed with treatment Has treatment weight changed > than 10%? No Treatment preauthorized? Yes VITALS There were no vitals filed for this visit. BP Readings from Last 2 Encounters: 12/21/24 122/81 11/30/24 149/86 Pulse Readings from Last 2 Encounters: 12/21/24 56 11/30/24 54 Resp Readings from Last 2 Encounters: 11/30/24 18 11/03/24 26 SpO2 Readings from Last 2 Encounters: 12/21/24 96% 11/30/24 97% Temp Readings from Last 2 Encounters: 12/21/24 36.1 °C (97 °F) (Tympanic) 11/30/24 35.9 °C (96.6 °F) (Tympanic) Urine protein: N/A Patient education completed for treatment? Yes Blood transfusion consent signed and complete? NA Return appointment scheduled? Yes Patient had provider visit today? Yes - Ok to release order and treat per provider Functional Status: Functional status at today's visit: [...] potential gurrola while using the heat function. Safety and Risk for Injury Patient will remain free from injury. Ensure appropriate safety devices are available. Provide and maintain safe environment. documented in this encounter Plan of Treatment Upcoming Encounters Date Type Department Care Team (Late st Contact Info) Description 01/11/2025 8:00 AM EDT Nurse Only Hematology/[address] [phone] Demetrice, Chair 9 Hem Onc Scenery [address] [place] [address] [place] [address] 01/11/2025 9:15 AM EDT Hem/Onc Treatment Hematology/[address], [address] [address] Demetrice, Chair 8 Hem Onc Scenery 200 [facility] [place] [address] 02/01/2025 9:00 AM EDT Nurse Only Hematology/[address]cology [address], [address] [address] Demetrice, Chair 7 Hem Onc Scenery 200 [facility] [place] [address] 02/01/2025 9:30 AM EDT Office Visit Hematology/Oncology [facility] Demetrice [address] [place] [address] Wilma Stern MD 200 [facility] [place] [address] 02/01/2025 10:00 AM EDT Hem/Onc Treatment Hematology/Oncology Treatment, [place] [address] [place] [phone] Park, Chair 10 Hem Onc [address] [place] [address] 06/23/2025 11:30 AM EDT Office Visit Cardiology, [facility] [address] [place] [address] Sully Licona CRNP 400 [facility] [place] [phone] Scheduled Procedures Name Priority Associated Diagnoses Date/Ti [...] FOR COPD 12/21/2025 12/21/2024 Colonoscopy 02/19/2027 02/19/2022, 0511/2021, 01/13/2014 DTap/Tdap Vaccines (3 - Td or [...] this encounter Medical Devices Implanted Type Area Senior Care Provider Device Identifier Shelf Expiration Date Model / Serial / Lot Port Implant W8f Poly Cath - [id number] Implanted:Qty: 1 on 02/07/2024 by Giovani Cervantes MD at [facility] BARD : PERIPHERAL VASCULAR [id number] 02/27/2025 [id number] / / [id number] documented as of this encounter Visit Diagnoses Diagnosis Encounter for antineoplastic chemotherapy- Primary Malignant neoplasm of lower lobe of right lung (HCC) documented in this encounter Advance Directives Documents on File Type Date Recorded Patient Stave Inspector Expl anation Advance Directives and Living Will 12/20/2023 Everette Spears Durable Health Care POA & Living Will - signed on 12/01/2021 Power of Bedspread Inspector 12/20/2023 Durable Po wer of Bedspread Inspector - financial only ? - only 1 [...] Agen t (per Health Care Power of Bedspread Inspector document) Care Teams Medical Practice Manager Relationship Specialty Start Date End Date Sage Lay MD PCP - General Family Medicine 06/19/13 documented as of this encounter
--- OUTSIDE RECORDS SUMMARY | 2025-01-25 07:55 | External Medical Summary ---
Author Name Unknown Address Unknown Organization K01:LABORATORY [facility] - [address] [place] [address] Laboratory Report Ordering Provider Test Date Status BHARATI VERDUGO 12/22/2024 12:12:36 Final Observation Date Value Abnormality Reference (Units ) Status T4, Free 12/22/2024 12:12:36 1.0 0.9-1.7 (n g/dL) Final Performing Location [facility] - [address] [place] [address]
--- OUTSIDE RECORDS SUMMARY | 2025-01-25 07:55 | External Medical Summary ---
Author Name Unknown Address Unknown Organization K01:[facility] [place] [address] [place] [facility] [place] [address] Laboratory Report Ordering Provider Test Date Status BHARATI VERDUGO 12/22/2024 12:12:36 Final Observation Date Value Abnormality Reference (Units ) Status BUN 12/22/2024 12:12:36 27 Above high normal 6-20 (mg/dL) Final Creatinine 12/22/2024 12:12:36 1.4 Above high normal 0.6-1.2 (mg/dL) Final Glomerular filtration rate/1.73 sq M.predicted [Volume Rate/Area] in Serum, Plasma or Blood by Creatinine-based formula (CKD-EPI) 12/22/2024 12:12:36 51 Below low normal >=60 (mL/min) Final eGFR is calculated based on the CKD-EPI 2020 equation. Sodium 12/22/2024 12:12:36 142 135-146 (m mol/L) Final Potassium 12/22/2024 12:12:36 4.7 3.5-5.1 (m mol/L) Final Cl 12/22/2024 12:12:36 105 98-107 (mm ol/L) Final CO2 12/22/2024 12:12:36 26 22-32 (mmo l/L) Final Anion gap 12/22/2024 12:12:36 11 7-15 (mmol /L) Final Glucose 12/22/2024 12:12:36 79 70-120 (mg /dL) Final Albumin 12/22/2024 12:12:36 4.0 3.8-5.0 (g /dL) Final AST (Aspartate aminotransferase) 12/22/2024 12:12:36 35 10-50 (U/L) Fin al Alk Phos 12/22/2024 12:12:36 150 Above high normal 35 -130 (U/L) Final Bilirubin, Total 12/22/2024 12:12:36 0.2 <=1 .2 (mg/dL) Final Calcium 12/22/2024 12:12:36 9.4 8.4-10.2 ( mg/dL) Final Protein 12/22/2024 12:12:36 6.7 6.0-8.3 (g /dL) Final ALT (Alanine aminotransferase) 12/22/2024 12:12:36 18 10-50 (U/L) Geo mir Performing Location [facility] [place] [address] [facility] [address]
--- OUTSIDE RECORDS SUMMARY | 2025-01-25 07:55 | External Medical Summary ---
Author Name Unknown Address Unknown Organization K01:[facility] - [address] [place] [address] Laboratory Report Ordering Provider Test Date Status BHARATI VERDUGO 11/30/2024 11:18:09 Final Observation Date Value Abnormality Reference (Units ) Status T4, Free 11/30/2024 11:18:09 1.0 0.9-1.7 (n g/dL) Final Performing Location [facility] - [address] [place] [address]
--- OUTSIDE RECORDS SUMMARY | 2025-01-25 07:55 | External Medical Summary ---
Author Name Unknown Address Unknown Organization K09:[facility] 56-[address] [place] [address] Laboratory Report Ordering Provider Test Date Status BHARATI VERDUGO 12/21/2024 10:03:33 Final Observation Date Value Abnormality Reference (Units ) Status BUN 12/21/2024 10:03:33 31 Above high normal 6-20 (mg/dL) Final Creatinine 12/21/2024 10:03:33 1.5 Above high normal 0.6-1.2 (mg/dL) Final Glomerular filtration rate/1.73 sq M.predicted [Volume Rate/Area] in Serum, Plasma or Blood by Creatinine-based formula (CKD-EPI) 12/21/2024 10:03:33 48 Below low normal >=60 (mL/min) Final eGFR is calculated based on the CKD-EPI 2020 equation. Sodium 12/21/2024 10:03:33 142 135-146 (m mol/L) Final Potassium 12/21/2024 10:03:33 4.3 3.5-5.1 (m mol/L) Final Cl 12/21/2024 10:03:33 107 98-107 (mm ol/L) Final CO2 12/21/2024 10:03:33 26 22-32 (mmo l/L) Final Anion gap 12/21/2024 10:03:33 9 7-15 (mmol /L) Final Glucose 12/21/2024 10:03:33 107 70-120 (mg /dL) Final Albumin 12/21/2024 10:03:33 3.7 Below low normal 3.8 -5.0 (g/dL) Final AST (Aspartate aminotransferase) 12/21/2024 10:03:33 29 10-50 (U/L) Fin al Alk Phos 12/21/2024 10:03:33 138 Above high normal 35 -130 (U/L) Final Bilirubin, Total 12/21/2024 10:03:33 0.3 <=1 .2 (mg/dL) Final Calcium 12/21/2024 10:03:33 9.3 8.4-10.2 ( mg/dL) Final Protein 12/21/2024 10:03:33 6.8 6.0-8.3 (g /dL) Final ALT (Alanine aminotransferase) 12/21/2024 10:03:33 13 10-50 (U/L) Geo mir Performing Location [facility] [address] [place] [address]
--- OUTSIDE RECORDS SUMMARY | 2025-01-25 07:55 | External Medical Summary ---
Author Name Unknown Address Unknown Organization K09:[facility]ORY [place] [address] Laboratory Report Ordering Provider Test Date Status BHARATI VERDUGO 11/30/2024 11:18:09 Final Observation Date Value Abnormality Reference (Units ) Status Magnesium 11/30/2024 11:18:09 1.7 1.5-2.6 (m g/dL) Final Performing Location [facility] [place] [address]
--- OUTSIDE RECORDS SUMMARY | 2025-01-25 07:55 | External Medical Summary ---
Author Name Unknown Address Unknown Organization K09:[facility] [place] [address] Laboratory Report Ordering Provider Test Date Status BHARATI VERDUGO 12/21/2024 10:03:33 Final Observation Date Value Abnormality Reference (Units ) Status WBC, Total 12/21/2024 10:03:33 9.15 4.00-10.8 0 (K/uL) Final RBC 12/21/2024 10:03:33 3.66 4.50-5.25 (M/uL) Final Hemoglobin 12/21/2024 10:03:33 11.0 Below low normal 14 .0-16.8 (g/dL) Final HCT 12/21/2024 10:03:33 33.9 Below low normal 40. 0-48.4 (%) Final MCV 12/21/2024 10:03:33 92.6 82.0-99.5 (fL) Final MCH 12/21/2024 10:03:33 30.1 27.0-34.0 (pg) Final MCHC 12/21/2024 10:03:33 32.4 32.0-36.0 (g/dL) Final RDW 12/21/2024 10:03:33 15.1 11.5-15.5 (%) Final Platelets 12/21/2024 10:03:33 232 140-400 (K /uL) Final MPV 12/21/2024 10:03:33 10.0 6.6-11.1 ( fL) Final Performing Location [facility] [place] [address]
--- OUTSIDE RECORDS SUMMARY | 2025-01-25 07:55 | External Medical Summary | Summary of Care ---
Author Name Unknown Organization [facility] [address] [facility] [address] Phone [phone] Care Team Providers Care Presiding Steward Name Role Phone Sage Lay MD Primary Care Provider [phone] Reason for Visit * Reason Onset Date Comments Medication Refill 11/30/2024 Encounter Details Date Type Department Care Team (Late st Contact Info) Description 11/30/2024 Refill Hematology/Oncology [facility] [place] [address] [facility] [place] [phone] Wilma Stern MD [address] [place] [address] 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) Allergies No known active allergiesdocumented as of this encounter (statuses as of 12/01/2024) Medications apixaban (ELIQUIS) 5 MG TabletIndications: Persistent [...] the morning. 90 Tablet 1 5 Active Folic Acid 1 MG Oral TabletIndications: 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) Take 1 Tablet by mouth in the morning. 30 Tablet 5 5 12/01/19 25 Discontin ued(Refil l) documented as of this encounter (statuses as of 12/01/2024) Active Problems Problem Noted Date Diagnosed Date [...] as of this encounter (statuses as of 12/01/2024) Resolved Problems Problem Noted Date Diagnosed Date Resolved Date History of atrial fibrillation 12/16/2017 01/16/2019 Chest discomfort 12/16/2017 01/16/2019 Persistent atrial fibrillation 10/29/2017 07/23/2018 documented as of this encounter (statuses as of 12/01/2024) Immunizations Name Administration Dates Next Due COVID-19 [...] Industry Job Start Date Job End Date [employer] Not on file Not on file Not [...] encounter Miscellaneous Notes * Telephone Encounter - Radha Cazares LPN - 11/30/2024 1:42 PM EST Faxed received from [facility] in [place] requesting Folic Acid 1 mg prescription be changed to a 90-day supply. Last filled 11/04/2024 for a 30-day supply. Script pended below for approval. documented in this encounter Plan of Treatment Upcoming Encounters Date Type Department Care Team (Late st Contact Info) Description 12/21/2024 10:30 AM EDT Nurse Only Hematology/[address] [phone] Demetrice, Chair [address] [facility] [address] [place] [address] 12/21/2024 11:00 AM EDT Office Visit Hematology/Oncology [address] [place] [phone] Concetta Rachel CRNP [address] [address] 12/21/2024 11:30 AM EDT Hem/Onc Treatment [facility], [place] [facility] [phone] Demetrice, Chair [address] On[address] [place] [address] 06/23/2025 11:30 AM EDT Office Visit Cardiology, [facility] [address] [facility] [place] [address] Sully Licona CRNP [address] [address] [phone] Scheduled Procedures Name Priority Associated Diagnoses Date/Ti [...] Screening 12/23/2024 12/24/2023 Albumin/Creatinine Ratio 05/31/2025 05/31/2022, 05/2020 GFR 11/30/2025 11/30/2024, 10/31, 10/20/2024, Additional [...] this encounter Medical Devices Implanted Type Area Accelerator Technician Device Identifier Shelf Expiration Date Model / Serial / Lot Port Implant [id number] Poly Cath - [id number] Implanted:Qty: 1 on 02/07/2024 by Giovani Cervantes MD at OR [facility] BARD : PERIPHERAL VASCULAR [id number] 02/27/2025 [id number] / / [id number] documented as of this encounter Visit Diagnoses Diagnosis 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) Malignant neoplasm of lower lobe, bronchus, or lung documented in this encounter Advance Directives Documents on File Type Date Recorded Patient Home Health Clinical Supervisor Expl anation Advance Directives and Living Will 12/20/2023 Everette Spears Durable Health Care POA & Living Will - signed on 12/01/2021 Power of Crucible Packer 12/20/2023 Durable Po wer of Crucible Packer - financial only ? - only 1 [...] Agen t (per Health Care Power of Crucible Packer document) Care Teams Presiding Steward Relationship Specialty Start Date End Date Sage Lay MD PCP - General Family Medicine 06/19/13 documented as of this encounter
--- OUTSIDE RECORDS SUMMARY | 2025-01-25 07:55 | External Medical Summary ---
Author Name Unknown Address Unknown Organization [id number] [address] [address] Laboratory Report Ordering Provider Test Date Status BHARATI VERDUGO 11/30/2024 11:18:09 Final Observation Date Value Abnormality Reference (Units ) Status SYNC LEUKOCYTES IN BLOOD BY AUTOMATED COUNT 11/30/2024 11:18:09 7.75 4.00-10.80 (K/uL) Final Segs 11/30/2024 11:18:09 70.4 40.0-75.0 (%) Final Lymphs % 11/30/2024 11:18:09 18.2 18.0-42.0 (%) Final Monos 11/30/2024 11:18:09 9.3 1.0-11.0 (%) Final Eosinophils 11/30/2024 11:18:09 1.8 0.0-6.0 (%) Final Basos 11/30/2024 11:18:09 0.3 0.0-2.0 (%) Final Absolute Segs 11/30/2024 11:18:09 5.46 1.80-7.70 (K/uL) Final Lymphs, absolute 11/30/2024 11:18:09 1.41 1.00-4.80 (K/ul) Final Monos, Abs 11/30/2024 11:18:09 0.72 0.00-1.10 (K/uL) Final Eos, Abs 11/30/2024 11:18:09 0.14 0.00-0.70 (K/uL) Final Basos, Abs 11/30/2024 11:18:09 0.02 0.00-0.20 (K/uL) Final Performing Location [facility] [place] [address]
--- OUTSIDE RECORDS SUMMARY | 2025-01-25 07:56 | External Medical Summary | Summary of Care ---
Author Name Unknown Organization [facility] Address [address] [facility] [facility] [address] Phone [phone] Care Team Providers Care Spoilage Worker Name Role Phone Sage Lay MD Primary Care Provider [phone] Reason for Visit * Reason Comments Follow Up * Auth/Cert Specialty Diagnoses / Procedures Referred By Payton daniels Referred To Contact Cardiology, [facility] [address] [facility] [place] [address] Phone: tel: fax: Referral ID Status Reason Start Date Expiration Date Visits Re quested Visits Authorized [id number] Encounter Details Date Type Department Care Team (Late st Contact Info) Description 11/03/2024 12:00 PM EST Office Visit Cardiology[address] [place] [address] Sully Licona CRNP [address] [facility] [place] [address] Paroxysmal atrial fibrillation (HCC)*; Tachy-ricardo syndrome (HCC); Encounter for monitoring sotalol therapy; 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); Pulmonary hypertension, unspecified (HCC) Allergies No known active allergiesdocumented as of this encounter (statuses as of 11/05/2024) Medications apixaban (ELIQUIS) 5 MG TabletIndications: Persistent atrial fibrillation (HCC) Take 1 Tab by mouth 2 times a day. 180 Tab 3 05/01/20 18 Active sotalol (BETAPACE) 80 MG TabletIndications: Persistent atrial fibrillation (HCC) Take 1 Tab by mouth 2 times a day. 180 Tab 3 05/14/20 18 Active Polyethylene Glycol 3350 17 GM/SCOOP Oral Powder (MiraLax) Take by mouth 17 g in the morning. One cap full in juice, to effect 1 stool per day. .. 510 g 1 11/29/19 22 Active Lisinopril 10 MG Oral Tablet (Prinivil) TAKE ONE TABLET BY MOUTH EVERY MORNING 90 Tablet 3 4 7:05 AM EST 03/19/20 24 025 Active Atorvastatin Calcium 20 MG Oral Tablet (Lipitor)Indicatio ns:Other hyperlipidemia TAKE ONE TABLET BY MOUTH EVERY MORNING 100 Tablet 1 5 3:42 PM EST 10/30/19 25 026 Active Ondansetron HCl 8 MG Oral TabletIndications: 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) Take 1 Tablet by mouth every 8 hours as needed for Nausea. 30 Tablet 01/21/20 24 025 Discontin ued(End of Procedure ) Prochlorperazine Maleate 10 MG Oral Tablet (Compazine)Indicat ions: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) Take 1 Tablet by mouth every 6 hours as needed for Nausea. 30 Tablet 01/21/20 24 025 Discontin ued(End of Procedure ) Folic Acid 1 MG Oral TabletIndications: 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) Take 1 Tablet by mouth in the morning. 30 Tablet 5 01/21/20 24 025 Discontin ued(Refil l) dexAMETHasone 4 MG Oral Tablet (Decadron)Indicati ons: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) Take 1 tablet twice a day for 3 days starting the day prior to chemotherapy 24 Tablet 01/21/20 24 025 Discontin ued(End of Procedure ) Hospital, Clinic, or Other Facility Administered Medication Ordered Dose Route Frequency Start Date End Date Status sodium chloride 0.9 % flush/inj 10 mL 10 mL IV PUSH ONCE 11/03/2024 11/03/2024 Ended documented as of this encounter (statuses as of 11/05/2024) Active Problems Problem Noted Date Diagnosed Date [...] as of this encounter (statuses as of 11/05/2024) Resolved Problems Problem Noted Date Diagnosed Date Resolved Date History of atrial fibrillation 12/16/2017 01/16/2019 Chest discomfort 12/16/2017 01/16/2019 Persistent atrial fibrillation 10/29/2017 07/23/2018 documented as of this encounter (statuses as of 11/05/2024) Immunizations Name Administration Dates Next Due COVID-19 [...] Industry Job Start Date Job End Date 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 Answer Date of Assessment Author No 12/20/2023 2:55 PM EDAldo Donald RN * Are you blind or do [...] documented in this encounter Progress Notes * Keshia Orellana DO - 11/05/2024 11:28 AM EST I have reviewed the advanced practitioner's documentation on the date of service referenced in note, and I agree with, and take responsibility for the plan of care. Pt returns for annual EP f/u due to early signs of TBS and pAF He has completed chemo and has RLL lung cancer; he is doing better now off chemo and on keytruda Continue sotalol; kidney function and QTc is ok No change in cardiac medications No indication for ppm at this juncture EP f/u 8 months Keshia Orellana DO Department of Cardiology [facility] [place] [address] * Sully Licona CRNP - 11/03/2024 12:00 PM EST Subjective Carlos Spears is a 74 year old male. Chief Complaint Patient presents with Follow Up Routine EP Follow Up Referring Provider: Sully Diez and Dr. Leyva Cardiac Problems: Eary signs of TBS pAF diagnosed in 09/2017-started on BB and CCB added, had DCCV in 11/2017; but recurrent AF 2 weeks later hospitalized for sotalol (11/2017) then repeat DCCV to SR but then on f/u office visit back in AF; episode 05/29/2018 while on prednisone during gout attack required DCCV at [facility] 05/30/2018; remainson Jamila [id number] 2 (age, HTN) Sinus bradycardia HLD HTN Pulmonary HTN HPI: 74 year old male presents for routine EP follow up. Last seen in the clinic 1 year ago. Feeling well from a cardiac standpoint since their last visit with no acute concerns today. Since he was last seen in the clinic he underwent resection of his right lower lobe for primary lung cancer in November. Subsequently underwent 4 rounds of chemotherapy in his currently on Keytruda continuing to follow with hematology Oncology. Was feeling significantly bad when he was on chemo with acute weight loss however he is getting hisappetite back in stamina is improving. Denies chest pain, SOB, palpitations, dizziness, syncope, edema, orthopnea and PND. No change in activity tolerance. Reports compliance with medications without any untoward side effects, or difficulty with affordability. 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 .. 510 g 1 Folic Acid 1 MG Oral Tablet Take 1 Tablet by mouth in the morning. 30 Tablet 5 Lisinopril 10 MG Oral Tablet (Prinivil) TAKE ONE TABLET BY MOUTH EVERY MORNING 90 Tablet 3 Atorvastatin Calcium 20 MG Oral Tablet (Lipitor) TAKE ONE TABLET BY MOUTH EVERY MORNING 100 Tablet 1 Current Facility-Administered Medications Medication Dose Route Frequency Provider Last Rate Last Admin sodium chloride 0.9 % flush/inj 10 mL 10 mL IV Push Once Wilma Stern MD Past Surgical History: Procedure Laterality Date COLONOSCOPY 12/29/2013 hyperplastic polyp// repeat 2023 COLONOSCOPY, DIAGNOSTIC (RECTUM) 02/19/2022 inflammatory tissue on bx, diverticulosis, repeat 5 yrs / COLONOSCOPY FLEXIBLE PROXIMAL DIAGNOSTIC performed by Mel Curtis MD at [facility] INFORMATION 11/02/2010 11/02/2010 rib fractures with left hemothorax [facility] - Dr. Marquez INSER TUNN ACC DEV;5 YRS/OLDER Right 02/07/2024 INSERT TUNNELED CENTRAL VENOUS ACCESS WITH SUBQ PORT performed by Giovani Cervantes MD at OR [facility] IR BIOPSY 10/21/2023 LYMPHADENECTOMY VIA THORACOSCOPY Right 12/20/2023 ROBOTIC THORACOSCOPY WITH LYMPHADENECTOMY performed [place]erry Subramanian [place] [facility] [place] ONLY) 09/30/1963 right thumb fracture requiring ORIF REPAIR INITIAL INGUINAL HERNIA REDUCIBLE AGE 5 OR MORE 01/08/2022 done at [facility] by Dr Augustin Thoracoscopy w/ Lobectomy Right 12/20/2023 ROBOTIC THORACOSCOPY WITH LOBECTOMY performed by Gerry Subramanian [place] [facility] [place] Review of patient's allergies indicates: No Known Allergies Family History Problem Relation Name Age of Onset Heart disease Mother in her 80s Other (Industrial accident) Father Heart disease Sister Family Status Relation Status Fa work related accident Mo Alive Social History Socioeconomic History Marital status: Spouse name: Not on file Number of children: 2 Years of education: Not on file Highest education level: Not on file Occupational History 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 (Adult - for ages 18 years and over): No Are you able to get enough food for your family? (Household - for ages 0-17 years): Not on file Does your family need food this week? (Household - for ages 0-17 years): Not on file Do you always have enough food for your family? (Household - for ages 0-17 years): Not on file Transportation Needs: No Transportation Needs (01/02/2024) Transportation [...] Stability Do you currently live in a group home or have no steady place to sleep [...] ages0-17 years): Not on file Review of Systems Constitutional: Negative for activity change, chills, fatigue, fever and unexpected weight change. HENT: Negative for postnasal drip, rhinorrhea and sinus pressure. Eyes: Negative for visual disturbance. +glasses Respiratory: Negative for shortness of breath. Cardiovascular: Negative for chest pain, palpitations and leg swelling. Gastrointestinal: Negative for blood in stool, constipation, diarrhea, nausea and vomiting. Genitourinary: Negative for dysuria and hematuria. Musculoskeletal: Negative for gait problem. Skin: Negative for rash. Neurological: Negative for dizziness, syncope and light-headedness. Objective BP 150/86 (BP Site: Left Arm, BP Position: Sitting, BP Cuff Size: Regular) | Pulse 60 | Resp 26 | Wt 67.8 kg (149 lb 6.4 oz) | BMI 22.06 kg/m² | BSA 1.82 m² Physical Exam Vitals and nursing note reviewed. Constitutional: General: He is awake. Appearance: Normal appearance. He is well-developed. HENT: Head: Normocephalic and atraumatic. Eyes: General: No scleral icterus. Extraocular Movements: Extraocular movements intact. Neck: Vascular: Normal carotid pulses. No carotid bruit or JVD. Cardiovascular: Rate and Rhythm: Normal rate and regular rhythm. Pulses: Carotid pulses are 2+ on the right side and 2+ on the left side. Radial pulses are 2+ on the right side and 2+ on the left side. Posterior tibial pulses are 2+ on the right side and 2+ on the left side. Heart sounds: S1 normal and S2 normal. No murmur heard. Pulmonary: Effort: Pulmonary effort is normal. Breath sounds: Normal breath sounds. No decreased breath sounds, wheezing, rhonchi or rales. Abdominal: General: Abdomen is flat. Palpations: Abdomen is soft. Musculoskeletal: Cervical back: Neck supple. Right lower leg: No edema. Left lower leg: No edema. Skin: General: Skin is warm and dry. Neurological: General: No focal deficit present. Mental Status: He is alert and oriented to person, place, and time. Psychiatric: Attention and Perception: Attention normal. Mood and Affect: Mood normal. Speech: Speech normal. Behavior: Behavior normal. Behavior is cooperative. Thought Content: Thought content normal. Cognition and Memory: Cognition normal. Judgment: Judgment normal. Results ECGs: 10/25/23 SB, PVCs 49 bpm QTc 458 ms 03/18/23 SB 40 bpm QTc 418 ms 10/12/22 SB 50bpm QTC 421ms 08/28/2022: AF 121bpm 07/24/2022: AF 77bpm 01/18/2022: SB 56bpm APC QTc 478ms 07/14/2021: SB 46bpm 11/25/2020: SB 45bpm QTc 444ms 10/26/2019: SB 47bpm 06/03/2018: SR 60bpm 04/04/2018: SB 55bpm 01/02/2018: SB 46bpm 01/02/2018: AF 84bpm 12/16/2017: SR 77bpm APC 11/19/2017: AF 90bpm 10/15/2017: AF 100bpm 05/09/2016: SR 71bpm Zio Patch: 08/28/2022: CONCLUSIONS: Final Interpretation : Indication: Paroxysmal atrial fibrillation Duration: 7 days Patient had a min HR of 48 bpm, max HR of 196 bpm, and avg HR of 103 bpm. Predominant underlying rhythm was Atrial Fibrillation. 23 Supraventricular Tachycardia runs occurred, the run with the fastest interval lasting 8 beats with a max rate of 156bpm, the longest lasting 10.2 secs with an avg rate of 127 bpm. Atrial Fibrillation occurred (85% burden), ranging from 54-196 bpm (avg of 110 bpm), the longest lasting 5 days 20 hours with an avg rate of 110 bpm. Isolated SVEs were rare (<1.0%), SVE Couplets were rare (<1.0%), and SVE Triplets were rare (<1.0%). Isolated VEs were rare (<1.0%, 842), VE Couplets were rare (<1.0%, 18), and VE Triplets were rare (<1.0%, 1). No symptoms Echocardiogram: 11/15/23 The examination is adequate to evaluate the referral indication. The qualitative LV ejection fraction is 60-64% (normal). The LV wall thickness is normal. The left ventricular wall motion is normal. Moderate mitral regurgitation is present. The left atrium is severely enlarged (>48 ml/m^2,). Mild tricuspid regurgitation is present. The right atrium is moderately enlarged. The left ventricular diastolic function is mildly abnormal (grade I). There is trace aortic regurgitation. The proximal ascending thoracic aorta is mildly enlarged. (4.1 cm) 03/06/23 The examination is adequate to evaluate the referral indication. The patient was in atrial fibrillation during the study. The qualitative LV ejection fraction is 60-64% (normal). The left atrium is severely enlarged (>48 ml/m^2,). The right atrium is moderately enlarged. Moderate mitral regurgitation is present. Mild tricuspid regurgitation is present. The aortic root and proximal ascending aorta are mildly enlarged. Compared to previous echo 07/14/21, mitral regurgitation is now moderate. 07/14/2021: There was normal sinus rhythm during the examination. The LV wall thickness is normal. The left ventricular wall motion is normal. The qualitative LV ejection fraction is 55-59% (normal). The left atrium is severely enlarged. Mild aortic valve sclerosis is present. Aortic stenosis is absent. Mild mitral regurgitation is present. Mild tricuspid regurgitation is present. Mild pulmonary hypertension is present. The estimated pulmonary artery systolic pressure is 40mm Hg. The aortic root and proximal ascending aorta are mildly enlarged. 04/2018 @ [facility]: EF 70% Mild TR PAP 40mmHg 10/25/2017: The rhythm is atrial fibrillation. The qualitative LV ejection fraction is 50-54% (normal). There is borderline diffuse left ventricular hypokinesis. The left atrium is severely enlarged (>48 ml/m^2,). Mild to moderate mitral regurgitation. Mild tricuspid regurgitation is present. The aortic root is mildly enlarged. Nuclear Stress Test 11/2017: Gated SPECT imaging reveals normal myocardial thickening and wall motion. The left ventricular ejection fraction was calculated to be 65%. Lexiscan nuclear cardiac stress test negative for ischemia. Lab Work Reviewed: Latest Reference Range & Units 07/24/22 11:20 07/17/23 07:50 10/21/23 08:51 Triglycerides <=174 mg/dL 74 Cholesterol <200 mg/dL 118 Non-HDL Cholesterol <=159 mg/dL 79 HDL Cholesterol >39 mg/dL 39 (L) LDL Cholesterol <=129 mg/dL 64 Sodium 135 - 146 mmol/L 141 Potassium 3.5 - 5.1 mmol/L 4.4 Chloride 98 - 107 mmol/L 103 CO2 22 - 32 mmol/L 23 BUN 6 - 20 mg/dL 20 Creatinine 0.6 - 1.2 mg/dL 1.0 Estimated Glomerular Filtration Rate >=60 mL/min 84 Anion Gap 7 - 15 mmol/L 15 Glucose 70 - 120 mg/dL 71 Calcium 8.4 - 10.2 mg/dL 9.6 Magnesium 1.5 - 2.6 mg/dL 2.3 Protein 6.0 - 8.3 g/dL 7.0 INR 0.8 - 1.2 1.0 Prothrombin Time 11.6 - 15.2 seconds 12.8 CBC Rpt Rpt ! WBC 4.00 - 10.80 K/uL 8.60 9.34 HGB 14.0 - 16.8 g/dL 15.9 16.5 HCT 40.0 - 48.4 % 46.9 50.6 (H) MCV 82.0 - 99.5 fL 90.5 92.3 PLT 140 - 400 K/uL 209 172 Albumin 3.8 - 5.0 g/dL 4.6 AST 10 - 50 U/L 38 ALT 10 - 50 U/L 19 Alkaline Phosphatase 35 - 130 U/L 79 Bilirubin, Total <=1.2 mg/dL 0.6 Impression 1. Early signs of TBS 2. pAF diagnosed in 09/2017-started on BB and CCB added, had DCCV in 11/2017; but recurrent AF 2 weeks later hospitalized for sotalol (11/2017) then repeat DCCV to SR but then on f/u office visit back in AF; episode 05/29/2018 while on prednisone during gout attack required DCCV at [facility] 05/30/2018; remains on Eliquis [id number] 2 (age, HTN) 3. Sinus bradycardia 4. HLD 5. HTN 6. Pulmonary HTN 7. Osteoarthritis 8. Lung Cancer RLL, s/p RLL Lobectomy/lymphadenectomy 12/18/23; 4 cylces chemo and now on Keytruda Plan: -HR well controlled -blood pressure was mildly elevated at the beginning of the appointment was starting to come down which I rechecked at the end of the visit with reading of 146/78 -stable from a cardiac standpoint -Patient remains on sotalol for antiarrhythmic management -Continued monitoring in regard to avoiding toxicity or signs of toxicity including the following: - renal remains stable - QTC interval also monitored for evidence of toxicity remains stable -will need to discuss any new medications with cardiology or pharmacy to be sure there are no drug interactions prior to starting -echo indication normal EF with no signficant -continue sotalol, lisinopril, Lipitor, and apixaban -Educated patient on caution with change in positions to minimize symptomatic orthostatic hypotension -Discussed importance of diet & exercise with the patient. -Discussed with patient subtle changes in how they are feeling or completing daily activities to contact us sooner; don't wait days or weeks. Patient care discussed and coordinated with Dr. Orellana. Please refer to Dr. Orellana's notes for further recommendations. DISPOSITION: Follow up 8 months or if symptoms worsen/fail to improve. All questions were answered to the patients satisfaction. Patient advised to report to ED with any and all emergencies. The patient agrees to the above plan and will call with additional questions or concerns. LEONOR [facility], [address] [place] [id number] This chart was completed in part utilizing [employer] Speech Voice Recognition Software. Grammatical errors, random word insertions, pronoun errors, and incomplete sentences are an occasional consequence of this system due to software limitations, ambient noise, and hardware issues. Any formal questions or concerns about the content, text, or information contained within the body of this dictation should be directly addressed to the provider for clarification. Cosigned by Keshia Orellana DO at 11/05/2024 11:57 AM EST documented in this encounter Procedure Notes * Wilson Saba DO - 11/03/2024 12:04 PM ESTAssociated Order(s): EKG REASON FOR STUDY: on sotalol therapy;on sotalol therapy CONCLUSIONS: Sinus bradycardia Otherwise normal ECG When compared with ECG of 21-Dec-2023 23:13, Sinus rhythm has replaced Atrial fibrillation Vent. rate has decreased by [address] no longer depressed in Lateral leads Ventricular Rate: 50 Atrial Rate: 50 NH Interval: 172 QRS Duration: 86 QT/QTc: 496/452 ms P-R-T [place]inqu[place]: 42 : -22 : -1 degrees documented in this encounter Nursing Notes * Sera Morocho CMA - 11/03/2024 11:52 AM EST Examination Room: 14 Name: Carlos Spears Date of : (1950). Reason for Visit: 1 yr f/u Interim Hospitalization(s): none Problems/Concerns: denies Chest Pain/SOB: denies [facility] Discussed: No [facility] is a way you can talk to your provider online through e-mail. Would you like to sign up? I can activate it for you? ALREADY ACTIVE Patient was instructed to not get up on the exam table until directed and assisted by their provider; patient is to remain seated in the chair/ wheelchair/ exam table for fall prevention and safety reasons. Patient is aware to have assistance to step down off exam table with personnel. Patient voiced full comprehension of instructions. documented in this encounter Plan of Treatment Upcoming Encounters Date Type Department Care Team (Late st Contact Info) Description 11/09/2024 10:00 AM EST Nurse Only Hematology/Oncology Treatment, [place] [address] [place] [phone] Demetrice, Chair 4 Hem Onc Scenery [address] [place] [id number] 11/09/2024 10:30 AM EST Office Visit Hematology/Oncology [facility] [address] [place] [phone] Wilma Stern MD [address] [place] [address] 11/09/2024 11:00 AM EST Hem/Onc Treatment Hematology/Oncology Treatment, [place] [address] [facility], [place] [phone] Demetrice, Chair 3 Hem On[address] Sc[address] [place] [id number] 06/23/2025 11:30 AM EDT Office Visit Cardiology, [facility] [address] [facility] [place] [id number] Sully Licona CRNP [address] [place] [address] [place] [phone] Scheduled Procedures Name Priority Associated Diagnoses Date/Ti [...] Albumin/Creatinine Ratio 05/31/2025 05/31/2022, 11/0 05/2020 GFR 10/20/2025 10/20/2024, 09/01, 09/08/2024, Additional history exists Colonoscopy 02/19/2027 02/19/2022, 01/29, [...] this encounter Medical Devices Implanted Type Area Laundry Tub Maker Device Identifier Shelf Expiration Date Model / Serial / Lot Port Implant W8f Poly Cath - [id number] Implanted:Qty: 1 on 02/07/2024 by Giovani Cervantes MD at OR [facility] BARD : PERIPHERAL VASCULAR [id number] 02/27/2025 [id number] / / [id number] documented as of this encounter Procedures Procedure Name Priority Date/Time Associated Diagnosis Comments NH ECG ROUTINE ECG W/LEAST 12 LDS W/I&R Routine 11/03/2024 12:04 PM EST Paroxysmal atrial fibrillation (HCC) Tachy-ricardo syndrome (HCC) documented in this encounter Results * EKG (11/03/2024 12:04 PM EST) 11/03/2024 12:0 4 PM EST Narrative Procedure Note Wilson Saba DO - 11/03/2024 12:04 PM EST REASON FOR STUDY: on sotalol therapy;on sotalol therapy CONCLUSIONS: Sinus bradycardia Otherwise normal ECG When compared with ECG of 21-Dec-2023 23:13, Sinus rhythm has replaced Atrial fibrillation Vent. rate has decreased by [address] no longer depressed in Lateral leads Ventricular Rate: 50 Atrial Rate: 50 NH Interval: 172 QRS Duration: 86 QT/QTc: 496/452 ms P-R-T [place]: 42 : -22 : -1 degrees us Sully Licona MANAGER RN EKG F inal Result [facility] documented in this encounter Visit Diagnoses Diagnosis Paroxysmal atrial fibrillation (HCC)- Primary Atrial fibrillation Tachy-ricardo syndrome (HCC) Sinoatrial node dysfunction Encounter for monitoring sotalol therapy Encounter for therapeutic drug monitoring 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) Malignant neoplasm of lower lobe, bronchus, or lung Pulmonary hypertension, unspecified (HCC) documented in this encounter Advance Directives Documents on File Type Date Recorded Patient Marking Stitcher Expl anation Advance Directives and Living Will 12/20/2023 Everette Spears [facility] Health Care POA & Living Will - signed on 12/01/2021 Power of Crime Analyst 12/20/2023 Durable Po wer of Crime Analyst - financial only ? - only 1 [...] Name Relationship Healthcare Agent Relationshi p Communication [facility] (per Health Care Power of Crime Analyst document) Care Teams Spoilage Worker Relationship Specialty Start Date End Date Sage Lay MD PCP - General Family Medicine 06/19/13 documented as of this encounter"
--- OUTSIDE RECORDS SUMMARY | 2025-01-25 07:56 | External Medical Summary ---
Author Name Unknown Address Unknown Organization K09:[facility] [place] [address] Laboratory Report Ordering Provider Test Date Status BHARATI VERDUGO 11/09/2024 09:56:22 Final Observation Date Value Abnormality Reference (Units ) Status BUN 11/09/2024 09:56:22 33 Above high normal 6-20 (mg/dL) Final Creatinine 11/09/2024 09:56:22 1.2 0.6-1.2 (mg/dL) Final Glomerular filtration rate/1.73 sq M.predicted [Volume Rate/Area] in Serum, Plasma or Blood by Creatinine-based formula (CKD-EPI) 11/09/2024 09:56:22 61 >=60 (mL/min) Final eGFR is calculated based on the CKD-EPI 2020 equation. Sodium 11/09/2024 09:56:22 139 135-146 (m mol/L) Final Potassium 11/09/2024 09:56:22 4.3 3.5-5.1 (m mol/L) Final Cl 11/09/2024 09:56:22 104 98-107 (mm ol/L) Final CO2 11/09/2024 09:56:22 25 22-32 (mmo l/L) Final Anion gap 11/09/2024 09:56:22 10 7-15 (mmol /L) Final Glucose 11/09/2024 09:56:22 116 70-120 (mg /dL) Final Albumin 11/09/2024 09:56:22 3.7 Below low normal 3.8 -5.0 (g/dL) Final AST (Aspartate aminotransferase) 11/09/2024 09:56:22 34 10-50 (U/L) Fin al Alk Phos 11/09/2024 09:56:22 141 Above high normal 35 -130 (U/L) Final Bilirubin, Total 11/09/2024 09:56:22 0.2 <=1 .2 (mg/dL) Final Calcium 11/09/2024 09:56:22 9.2 8.4-10.2 ( mg/dL) Final Protein 11/09/2024 09:56:22 7.0 6.0-8.3 (g /dL) Final ALT (Alanine aminotransferase) 11/09/2024 09:56:22 19 10-50 (U/L) Geo mir Performing Location [facility] [address] [place] [address]
--- OUTSIDE RECORDS SUMMARY | 2025-01-25 07:56 | External Medical Summary ---
Author Name Unknown Address Unknown Organization K01:[facility] [address] [place] [address] Laboratory Report Ordering Provider Test Date Status BHARATI VERDUGO 11/09/2024 09:56:22 Final Observation Date Value Abnormality Reference (Units ) Status T4, Free 11/09/2024 09:56:22 0.9 0.9-1.7 (n g/dL) Final Performing Location [facility] [address] [place] [address]
--- OUTSIDE RECORDS SUMMARY | 2025-01-25 07:56 | External Medical Summary | Summary of Care ---
Author Name Unknown Organization [facility] Address [address] [place] [address] Phone [phone] Care Team Providers Care Youth Associate Name Role Phone Sage Lay MD Primary Care Provider [phone] Encounter Details Date Type Department Care Team (Late st Contact Info) Description 11/26/2024 Orders Only Hematology/Oncology, [facility] [address] [place], [place] [phone] Wilma Stern MD [address] [place] [address] Allergies No known active allergiesdocumented as of this encounter (statuses as of 11/26/2024) Medications apixaban (ELIQUIS) 5 MG TabletIndications:P ersistent [...] in the morning. 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 Not on file Not [...] Team (Late st Contact Info) Description 11/30/2024 11:00 AM EST Hem/Onc Treatment Hematology/Oncology Treatment, [place] [address] [place] [phone] Park, Chair 2 Hem Onc [place] [address] [place] [address] 12/21/2024 10:30 AM EDT Nurse Only Hematology/Oncology Treatment, [place] 200 [facility], [place] [phone] Demetrice, Chair 9 Hem Onc [facility] 200 [facility] [place] [address] 12/21/2024 11:00 AM EDT Office Visit Hematology/Oncology [facility] [address] [facility] [place] [phone] Concetta Rachel CRNP [address] [facility] [place] [phone] 12/21/2024 11:30 AM EDT Hem/Onc Treatment Hematology/Oncology [facility] 200 [facility], [place] [phone] Demetrice, Chair 9 Hem Onc [address] [place] [address] 06/23/2025 11:30 AM EDT Office Visit Cardiology, [facility] [address] [facility] [place] [address] Sully Licona CRNP [address] [place] [phone] Scheduled Procedures Name Priority Associated Diagnoses Date/Ti [...] Albumin/Creatinine Ratio 05/31/2025 05/31/2022, 11/0 05/2020 GFR 11/09/2025 11/09/2024, 10/01, 09/29/2024, Additional history exists Colonoscopy 02/19/2027 02/19/2022, 01/29, [...] this encounter Medical Devices Implanted Type Area Early Childhood Education Instructor Device Identifier Shelf Expiration Date Model / Serial / Lot Port Implant W8f Poly Cath - [id number] Implanted:Qty: 1 on 02/07/2024 by Giovani Cervantes MD at OR [facility] BARD : PERIPHERAL VASCULAR [id number] 02/27/2025 [id number] / / [id number] documented as of this encounter Advance Directives Documents on File Type Date Recorded Patient Tank Cleaning Supervisor Expl anation Advance Directives and Living Will 12/20/2023 Everette Spears Durable Health Care POA & Living Will - signed on 12/01/2021 Power of Manager Data 12/20/2023 Durable Po wer of Manager Data - financial only ? - only 1 [...] Agents on File Name Relationship Healthcare Agent [facility] Communication [facility] Adult Child Health Care Agen t (per Health Care Power of Manager Data document) Care Teams Youth Associate Relationship Specialty Start Date End Date Sage Lay MD PCP - General Family Medicine 06/19/13 documented as of this encounter
--- OUTSIDE RECORDS SUMMARY | 2025-01-25 07:56 | External Medical Summary | Summary of Care ---
Author Name Unknown Organization [facility] Address [address] [place] [address] Phone [phone] Care Team Providers Care Nurse Obgyn Name Role Phone Sage Lay MD Primary Care Provider Reason for Visit * Reason Comments Follow Up Return Encounter Details Date Type Department Care Team (Late st Contact Info) Description 11/09/2024 10:30 AM EST Office Visit Hematology/Oncology [facility] [place] 200 [facility] [place] [phone] Wilma Stern MD 200 [facility] [place] [address] 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)*; Encounter for antineoplastic chemotherapy Allergies No known active allergiesdocumented as of this encounter (statuses as of 11/09/2024) Medications apixaban (ELIQUIS) 5 MG TabletIndications:P ersistent [...] as of this encounter (statuses as of 11/09/2024) Active Problems Problem Noted Date Diagnosed Date [...] as of this encounter (statuses as of 11/09/2024) Resolved Problems Problem Noted Date Diagnosed Date Resolved Date History of atrial fibrillation 12/16/2017 01/16/2019 Chest discomfort 12/16/2017 01/16/2019 Persistent atrial fibrillation 10/29/2017 07/23/2018 documented as of this encounter (statuses as of 11/09/2024) Immunizations Name Administration Dates Next Due COVID-19 [...] 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 file Not on file documented as of this encounter Last Filed Vital Signs Vital Sign Reading Time Taken Comments Blood Pressure 149/87 11/09/2024 10:17 AM EST Pulse 57 11/09/2024 10:17 AM EST Temperature 35.9 °C (96.7 °F) 11/09/2024 10:[address] Respiratory Rate - - Oxygen Saturation 95% 11/09/2024 10:17 AM EST Inhaled Oxygen Concentration - - Weight 68.3 kg (150 lb 9.6 oz) 11/09/2024 10:17 AM EST Height - - Body Mass Index 22.24 02/07/2024 8:53 AM EDT documented in this [...] documented in this encounter Progress Notes * Wilma Stern MD - 11/09/2024 10:35 AM EST Outpatient Consult Note Data Source: Patient, Epic record. Data Source: Patient, Epic record. 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 Received 1stcycle on 02/11/2024. Completed 4 cycles and now receiving single agent Keytruda Previous Treatment: Status post Robotic right lower lobectomy and lymphadenectomy - 12/18/2023 Oncologic History : 74-year-old male with a past medical history significant for hypertension, COPD, AFib was referred with diagnosis of bxq-oiein-gqyi lung cancer. Patient had initial CT scan of the abdomen done on 12/10/2022 which revealed 2.1 x 0.8 cm subpleural irregularly density. Subsequent CT scan was done on 07/03/2023 which showed enlarging right lower lobe pulmonary nodule increased to 3 x 2.5 x 1.6 cm. Hehad a PET scan done on 08/06/2023 which [...] glands with hyperchromatic nuclei, prominent nucleoli, and zzsnkjwz-rf-mrfbzado fiaybnvjyb-mz-cjmianhhvhzx cytoplasm. Immunohistochemical studies with appropriatecontrols are performed (A1) demonstrating that the tumor cells are positive for CK7, focally positive for TTF-1 while negative for synaptophysin, CK20, CDX-2, and SATB2. SMAD4 shows some aberrant loss in portions of the tumor. Overall, the findings support the above interpretation but the immunoprofile is not entirely specific. Tumor Mutational [place] (TMB): TMB Unit [place] 7.58 m/MB Low Microsatellite Instability Status (MSI): MSI Status 0 Stable Result Detail Tier I: Strong Significance Variants Single Nucleotide Variants and Insertions/Deletions Gene Variant Tier Amino Acid Change Nucleotide Change Consequence Allele Frequency Sequencing Depth KRAS G12V Tier 1: Strong significance p.Oom87Iob NM_[id number]: c.35G>T Missense Variant 13% 1992 Tier II: Potential Significance Variants Single Nucleotide Variants and Insertions/Deletions Gene Variant Tier Amino Acid Change Nucleotide Change Consequence Allele Frequency Sequencing Depth ESTRADA R2486* Tier 2: Potential significance p.Sxg9984Sof NM_000051.4: c.7456C>T Nonsense 66% 1996 SMARCA4 E1258* Tier 2: Potential significance p.Beo7571Mqz [id number]: c.3772G>T Nonsense 11.4% 1938 STK11 E165* Tier 2: Potential significance p.Jfj526Rco NM_000455.5: c.493G>T Nonsense 12.1% 835 STK11 S216F Tier 2: Potential significance p.Lkb224Sbs NM_000455.5: c.647C>T Missense Variant 4.6% 1358 Copy [...] habits, hematuria, hematochezia. He quit smoking in 90s. He used to smoke 1 pack per day for over 20-5 years. Drinks alcohol socially. Family history significant for mother may have diagnosis of some kind of cancer of unknown type. Interval History: Currently he is continuing with Keytruda treatment with good tolerance and without any significant side effects toxicity. He is feeling better and stronger. Patient denies any headache, dizziness, blurred vision, chest pain, shortness breath palpitation abdominal pain or distention, bleeding, bruising, nausea, vomiting, fever, night sweats, weight loss, hematuria, hematochezia. LABS/IMAGING: Results for orders placed or performed in visit on 11/09/24 COMPREHENSIVE METABOLIC PANEL Result Value Ref Range BUN 33 (H) 6 - 20 mg/dL CREATININE 1.2 0.6 - 1.2 mg/dL EGFR 61 >=60 mL/min SODIUM 139 135 - 146 mmol/L POTASSIUM 4.3 3.5 - 5.1 mmol/L CHLORIDE 104 98 - 107 mmol/L CO2 25 22 - 32 mmol/L ANION GAP 10 7 - 15 mmol/L GLUCOSE 116 70 - 120 mg/dL Albumin 3.7 (L) 3.8 - 5.0 g/dL AST 34 10 - 50 U/L Alkaline Phosphatase 141 (H) 35 - 130 U/L Bilirubin, Total 0.2 <=1.2 mg/dL CALCIUM 9.2 8.4 - 10.2 mg/dL Protein 7.0 6.0 - 8.3 g/dL ALT 19 10 - 50 U/L MAGNESIUM Result Value Ref Range Magnesium 1.7 1.5 - 2.6 mg/dL CBC Result Value Ref Range WBC 8.88 4.00 - 10.80 K/uL RBC 3.56 4.50 - 5.25 M/uL HGB 10.3 (L) 14.0 - 16.8 g/dL HCT 32.3 (L) 40.0 - 48.4 % MCV 90.7 82.0 - 99.5 fL MCH 28.9 27.0 - 34.0 pg MCHC 31.9 32.0 - 36.0 g/dL RDW 17.3 11.5 - 15.5 % PLT 234 140 - 400 K/uL MPV 9.5 6.6 - 11.1 fL DIFFERENTIAL, AUTOMATED Result Value Ref Range WBC 8.88 4.00 - 10.80 K/uL Neutrophils % 69.8 40.0 - 75.0 % Lymphocytes % 19.3 18.0 - 42.0 % Monocytes % 8.7 1.0 - 11.0 % Eosinophils % 1.7 0.0 - 6.0 % Basophils % 0.5 0.0 - 2.0 % Absolute Neutrophils 6.21 1.80 - 7.70 K/uL Absolute Lymphocytes 1.71 1.00 - 4.80 K/ul Absolute Monocytes 0.77 0.00 - 1.10 K/uL Absolute Eosinophils 0.15 0.00 - 0.70 K/uL Absolute Basophils 0.04 0.00 - 0.20 K/uL Result of the today's blood tests including CBC and CMP all are in acceptable range with stable hemoglobin level. CT scan of chest was done on 11/03/2023 and the result shows no evidence of new disease or progression or recurrence, stable right hilar lymph node with stable postop changes. REVIEW OF SYSTEMS: General: No Fever, chills, night sweats, or weight loss. HEENT: No change in visual acuity, blurred or double vision. No epistaxis, facial pain, nasal discharge or change in hearing. Denies dysphagia, no muscosal ulceration, or sores noted. Cardiovascular: No chest pain, RIOS, or palpitations Respiratory: No shortness of breath, cough, hemoptysis, or pleuritic chest pain Gastrointestinal: No abdominal pain, nausea, vomiting, diarrhea, rectal pain or bleeding Genitourinary: Denies Hematuria or dysuria Musculoskeletal: No bone pain Psychiatric: No vegetative signs of depression Endocrine: No symptoms of hypothyroidism or hyperglycemia Hematologic: No bleeding or lymph nodes noted As mentioned above, all of the systems were reviewed in full and are unremarkable. Past Medical History: Diagnosis Date COPD (chronic obstructive pulmonary disease) (HCC) Lung cancer (HCC) 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) 12/10/2022 Current Outpatient Medications Medication Sig Dispense Refill [...] mouth in the morning. 30 Tablet 5 No current facility-administered medications for this visit. Facility-Administered Medications Ordered in Other Visits Medication Dose Route Frequency Provider Last Rate Last Admin sodium chloride 0.9 % flush/inj 10 mL 10 mL IV Push PRN Wilma Stern MD 10 mL at sodium chloride 0.9 % flush/inj 20 mL 20 mL IV Push PRN Wilma Stern MD 20 mL at Social History Tobacco Use Smoking status: Former Types: Cigarettes Smokeless tobacco: Never Vaping Use Vaping status: Never Used Substance Use Topics Alcohol use: No Drug use: No Review of patient's allergies indicates: No Known Allergies PHYSICAL EXAMINATION: General Appearance: Healthy appearing patient in no acute distress BP 149/87 (BP Site: Left Arm, BP Position: Sitting, BP Cuff Size: Regular) | Pulse 57 | Temp 35.9 °C (96.7 °F) (Tympanic) | Wt 68.3 kg (150 lb 9.6 oz) | SpO2 95% | BMI 22.24 kg/m² | BSA 1.82 m² Vitals reviewed. HEENT: No oral or pharyngeal masses, ulceration or thrush noted, no sinus tenderness. Neck is supple with no thyromegaly or JVD noted. Lymph Nodes: No lymphadenopathy noted in the occipital, pre and post auricular, cervical, supra andinfraclavicular, axillary, epitrochlear, inguinal, and popliteal region. Lungs/Thorax: Clear to auscultation, no accessory muscles of respiration being used. Heart: Regular rate and rhythm, normal S1, S2 Abdomen: Soft, nontender, bowel sounds present, no appreciable hepatosplenomegaly, no palpable masses Extremeties: Good pulses bilaterally, no peripheral edema. ASSESSMENT: 74-year-old male with a past medical history significant for hypertension, COPD, AFib was referred with the diagnosis of wzn-vnfci-moqo lung cancer. Patient had enlarging right lower lobe lung noduleand had a CT-guided biopsy done which was positive adenocarcinoma with mucinous features. He underwent robotic assisted right lower lobectomy on 12/20/2023 and histopathology was consistent with invas jojo mucinous adenocarcinoma with negative margin, versus oral pleural effusion and level 4 vascularinvasion was present with 1 out of 5 lymph node positive for metastasis. Patient has stage pT2b, pN1a disease. Clinically he is doing well and in excellent performance status without any new symptomscomplain. Patient has stage IIB disease Currently receiving adjuvant chemotherapy including combination of cisplatin plus pemetrexed and Keytruda. He completed 4 cycles of chemotherapy and now on single agent Keytruda. Adjuvant pembrolizumab is FDA approved for tumors >=4 cm or lymph node positive, irrespective ofPD-L1 expression. Currently patient is receiving single agent Keytruda with good tolerance without any significant side effects toxicity. Follow-up blood tests including CBC and CMP are all in acceptable range. Follow- up CT scan shows noevidence of new disease or progression. Discussed with the patient about diagnosis and prognosis and reviewed all the available blood testsand CT scan finding with him. PLAN: Continue current treatment. He will return clinic for follow-up in 6 weeks. The patient voiced understanding of all of the above. All questions and concerns were addressed in an apparently satisfactory manner. Wilma Stern MD (This note was completed using the dictation program Fluency Direct. As such, there may be misspellings, word substitutions, or other variations that should not change the essence of the clinical content of this encounter note. If there is need for further clarification, please direct questions to me.) documented in this encounter Nursing Notes * Anna Lakhani CMA - 11/09/2024 10:18 AM EST Patient identifed by name and birthdate Do you have any concerns about pain management for today's visit? No Living Will or Advance Directive for Health Care as noted on the problem list. [facility] is a way you can talk to your provider on line through e-mail. Would you like to sign up? I can activate it for you? ALREADY ACTIVE Filed Vitals: 11/09/24 1017 BP: 149/87 Pulse: 57 Temp: 35.9 °C (96.7 °F) TempSrc: Tympanic SpO2: 95% Weight: 68.3 kg (150 lb 9.6 oz) Patient was instructed to not get up [...] 11/30/2024 11:00 AM EST Hem/Onc Treatment Hematology/Oncology Treatment [address] [place] [phone] Demetrice, Chair 2 Hem Onc [address] [place] [address] 12/21/2024 10:30 AM EDT Nurse Only Hematology/Oncology Treatment, [place] 200 [facility] [place] [phone] Demetrice, Chair 9 Hem Onc [address] [place] [address] 12/21/2024 11:00 AM EDT Office Visit Hematology/Oncology [facility] [address] [place] [phone] Concetta Rachel CRNP [address] [place] [id number] 12/21/2024 11:30 AM EDT Hem/Onc Treatment Hematology/Oncology Treatment, [place] [address] [place] [address] Park, Chair 9 Hem Onc Scenery [address] [place] [address] 06/23/2025 11:30 AM EDT Office Visit Cardiology, [facility] [address] [facility] [place] [address] Sully Licona CRNP [address] [place] [phone] Scheduled Procedures Name Priority Associated Diagnoses Date/Ti [...] this encounter Medical Devices Implanted Type Area Flight Attendant Device Identifier Shelf Expiration Date Model / Serial / Lot Port Implant W8f Poly Cath - [id number] Implanted:Qty: 1 on 02/07/2024 by Giovani Cervantes MD at OR [facility] BARD : PERIPHERAL VASCULAR [id number] 02/27/2025 [id number] / / [id number] documented as of this encounter Visit Diagnoses Diagnosis 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)- Primary Malignant neoplasm of lower lobe, bronchus, or lung Encounter for antineoplastic chemotherapy documented in this encounter Advance Directives Documents on File Type Date Recorded 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 - only 1 [...] Agen t (per Health Care Power of Weight Guesser document) Care Teams Nurse Obgyn Relationship Specialty Start Date End Date Sage Lay MD PCP - General Family Medicine 06/19/13 documented as of this encounter"
--- OUTSIDE RECORDS SUMMARY | 2025-01-25 07:56 | External Medical Summary ---
Author Name Unknown Address Unknown Organization K09:[facility] [place] [address] Laboratory Report Ordering Provider Test Date Status BHARATI VERDUGO 11/09/2024 09:56:22 Final Observation Date Value Abnormality Reference (Units ) Status WBC, Total 11/09/2024 09:56:22 8.88 4.00-10.8 0 (K/uL) Final RBC 11/09/2024 09:56:22 3.56 4.50-5.25 (M/uL) Final Hemoglobin 11/09/2024 09:56:22 10.3 Below low normal 14 .0-16.8 (g/dL) Final HCT 11/09/2024 09:56:22 32.3 Below low normal 40. 0-48.4 (%) Final MCV 11/09/2024 09:56:22 90.7 82.0-99.5 (fL) Final MCH 11/09/2024 09:56:22 28.9 27.0-34.0 (pg) Final MCHC 11/09/2024 09:56:22 31.9 32.0-36.0 (g/dL) Final RDW 11/09/2024 09:56:22 17.3 11.5-15.5 (%) Final Platelets 11/09/2024 09:56:22 234 140-400 (K /uL) Final MPV 11/09/2024 09:56:22 9.5 6.6-11.1 ( fL) Final Performing Location [facility] [place] [address]
--- OUTSIDE RECORDS SUMMARY | 2025-01-25 07:56 | External Medical Summary | Summary of Care ---
Author Name Unknown Organization [facility] Address [address] [facility] [address] Phone [phone] Care Team Providers Care Chief Psychology Name Role Phone Sage Lay MD Primary Care Provider [phone] Reason for Visit * Reason Onset Date Comments Test Results Imaging Study 11/05/2024 Encounter Details Date Type Department Care Team (Late st Contact Info) Description 11/05/2024 Telephone Hematology/Oncology [facility] [place] 200 [facility] [place] [phone] Wilma Stern MD [facility] [address] Test Results Imaging Study Allergies No known active allergiesdocumented as of this encounter (statuses as of 11/05/2024) Medications apixaban (ELIQUIS) 5 MG TabletIndications:P ersistent [...] 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 No interval changes are seen from the previous. 2. A prominent right hilar lymph node is unchanged. 3. Postsurgical changes status post right lower lobectomy is unchanged. documented in this encounter Plan of Treatment Upcoming Encounters Date Type Department Care Team (Late st Contact Info) Description 11/09/2024 10:00 AM EST Nurse Only Hematology/Oncology Treatment, [address] [place] [phone] Demetrice, Chair 4 Hem Onc [address] [place] [address] 11/09/2024 10:30 AM EST Office Visit Hematology/Oncology [facility] 200 [facility] [place] [phone] Wilma Stern MD 200 [facility] [place] [address] 11/09/2024 11:00 AM EST Hem/Onc Treatment Hematology[facility]cology Treatment, [place] [facility] [phone] Demetrice, Chair 3 Hem Onc [facility] 200 [facility] [place] [address] 06/23/2025 11:30 AM EDT Office Visit Cardiology, [facility] 132 [facility] [place] [phone] Sully Licona CRNP 400 [facility] [place] [address] Scheduled Procedures Name [...] Albumin/Creatinine Ratio 05/31/2025 05/31/2022, 110 05/2020 GFR 10/20/2025 10/20/2024, 1209/2023, 09/08/2024, Additional history exists Colonoscopy 02/19/2027 02/19/2022, [...] this encounter Medical Devices Implanted Type Area Forging Die Sinker Device Identifier Shelf Expiration Date Model / Serial / Lot Port Implant W8f Poly Cath - [id number] Implanted:Qty: 1 on 02/07/2024 by Giovani Cervantes MD at OR [facility] BARD : PERIPHERAL VASCULAR [id number] 02/27/2025 [id number] / / [id number] documented as of this encounter Advance Directives Documents on File Type Date Recorded Patient Security Monitor Expl anation Advance Directives and Living Will 12/20/2023 Everette Spears Durable Health Care POA & Living Will - signed on 12/01/2021 Power of Housekeeper Caregiver 12/20/2023 Durable Po wer of Housekeeper Caregiver - financial only ? - only 1 [...] Agen t (per Health Care Power of Housekeeper Caregiver document) Care Teams Chief Psychology Relationship Specialty Start Date End Date Sage Lay MD PCP - General Family Medicine 06/19/13 documented as of this encounter
--- OUTSIDE RECORDS SUMMARY | 2025-01-25 07:56 | External Medical Summary ---
Author Name Unknown Address Unknown Organization [id number][place] [place] [address] [facility] [address] [facility] [address] Laboratory Report Ordering Provider Test Date Status BHARATI VERDUGO 11/09/2024 09:56:22 Final Observation Date Value Abnormality Reference (Units ) Status TSH 11/09/2024 09:56:22 10.50 Above high normal 0. 27-4.20 (uIU/mL) Final Performing Location [facility] [place] [address] [facility] [address]
--- OUTSIDE RECORDS SUMMARY | 2025-01-25 07:56 | External Medical Summary ---
Author Name Unknown Address Unknown Organization [id number]:[facility] [place] [address] Laboratory Report Ordering Provider Test Date Status BHARATI VERDUGO 11/09/2024 09:56:22 Final Observation Date Value Abnormality Reference (Units ) Status SYNC LEUKOCYTES IN BLOOD BY AUTOMATED COUNT 11/09/2024 09:56:22 8.88 4.00-10.80 (K/uL) Final Segs 11/09/2024 09:56:22 69.8 40.0-75.0 (%) Final Lymphs % 11/09/2024 09:56:22 19.3 18.0-42.0 (%) Final Monos 11/09/2024 09:56:22 8.7 1.0-11.0 (%) Final Eosinophils 11/09/2024 09:56:22 1.7 0.0-6.0 (%) Final Basos 11/09/2024 09:56:22 0.5 0.0-2.0 (%) Final Absolute Segs 11/09/2024 09:56:22 6.21 1.80-7.70 (K/uL) Final Lymphs, absolute 11/09/2024 09:56:22 1.71 1.00-4.80 (K/ul) Final Monos, Abs 11/09/2024 09:56:22 0.77 0.00-1.10 (K/uL) Final Eos, Abs 11/09/2024 09:56:22 0.15 0.00-0.70 (K/uL) Final Basos, Abs 11/09/2024 09:56:22 0.04 0.00-0.20 (K/uL) Final Performing Location [facility] [place] [address]
--- OUTSIDE RECORDS SUMMARY | 2025-01-25 07:56 | External Medical Summary | Summary of Care ---
Author Name Unknown Organization [facility] Address [address] [facility] [address] Phone [phone] Care Team Providers Care Transmission Design Engineer Name Role Phone Sage Lay MD Primary Care Provider [phone] Reason for Visit * Reason Comments Chemotherapy Keytruda * Episode Based Medications (Routine) - Authorized Specialty Diagnoses / Procedures Referred By Contkatharina t Referred To Contact Diagnoses 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) Encounter for antineoplastic chemotherapy Procedures ND INJ. PEMETREXED NOS 10MG ND CISPLATIN 10 MG INJECTION ND INJ PEMBROLIZUMAB ND FOSAPREPITANT INJECTION Wilma Stern MD [address] [place] [address] [place] [address] Phone: tel: fax: Hematology/Oncology Treatment, [address] [place] [address] Phone: tel: fax: Referral ID Status Reason Start Date Expiration Date V isits Requested Visits Authorized [id number] Authorized 01/21/2024 01/15/2025 [id number] Encounter Details Date Type Department Care Team (Latest Contact Info) Description 10/20/2024 11:15 AM EST Hem/Onc Treatment Hematology/Oncolog y Treatment, [address] [place] [phone] Demetrice, Chair 1 Hem Onc [address] [place] [phone] 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)*; Encounter for antineoplastic chemotherapy Allergies No known active allergiesdocumented as of this encounter (statuses as of 11/08/2024) Medications apixaban (ELIQUIS) 5 MG TabletIndications: Persistent [...] 7:05 AM EST 03/19/20 24 025 Active Ondansetron HCl 8 MG Oral TabletIndications: [...] 24 025 Discontin ued(End of Procedure ) Atorvastatin Calcium 20 MG Oral Tablet (Lipitor)Indicatio ns:Other hyperlipidemia TAKE ONE TABLET BY MOUTH EVERY MORNING 100 Tablet 12:04 PM EDT 07/28/20 025 Discontin ued(Refil l) documented as of this encounter (statuses as of 11/08/2024) Active Problems Problem Noted Date Diagnosed Date [...] as of this encounter (statuses as of 11/08/2024) Resolved Problems Problem Noted Date Diagnosed Date Resolved Date History of atrial fibrillation 12/16/2017 01/16/2019 Chest discomfort 12/16/2017 01/16/2019 Persistent atrial fibrillation 10/29/2017 07/23/2018 documented as of this encounter (statuses as of 11/08/2024) Immunizations Name Administration Dates Next Due COVID-19 [...] 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 VAD flushed with 10 ml NSS and Heparin 5 ml (100 units/ml). Bernabe needle removed intact. Goals: Pt will remain free from injury. Possible barriers to meeting goals: ambulation with IV pole, pt is a high fall risk Stability of the patient: Moderately stable - low risk of patient condition declining or worsening Summary regarding today's goals: Met: . Pt remained free from injury during treatment today. Discharged in stable condition. * Renee Ren RN - 10/20/2024 12:02 PM EST Chair 11 Pt presents for labs from port prior to treatment. VAD (Venous Access Device) accessed with #[email or web address]/" without difficulty. Specimen collected for ordered labs. VAD flushed with 20 ml NSS; clamped/capped pending lab results. Chemotherapy/Immunotherapy agents: KEYTRUDA Consent for chemotherapy drug treatment complete, dated, and signed? yes, date - 01/21/24 Treatment lab parameters met? Yes Has treatment weight changed > than 10%? No Treatment preauthorized? Yes VITALS Filed Vitals: 10/20/24 1157 BP: 153/86 Pulse: 52 Resp: 16 Temp: 35.8 °C (96.5 °F) SpO2: 99% BP Readings from Last 2 Encounters: 10/20/24 153/86 09/29/24 146/82 Pulse Readings from Last 2 Encounters: 10/20/24 52 09/29/24 57 Resp Readings from Last 2 Encounters: 10/20/24 16 09/08/24 16 SpO2 Readings from Last 2 Encounters: 10/20/24 99% 09/29/24 95% Temp Readings from Last 2 Encounters: 10/20/24 35.8 °C (96.5 °F) 09/29/24 36.2 °C (97.2 °F) (Tympanic) Urine protein: N/A Patient education completed for treatment? yes Blood transfusion consent signed and complete? NA Return appointment scheduled? Yes Patient had provider visit today? No - If no provider visit must complete Pretreatment Assessment PRE-TREATMENT ASSESSMENT: NEURO: denies symptoms CV/RESP: denies symptoms GI/: denies symptoms OTHER: denies any additional symptoms PAIN: 0 Labs returned; within normal limits for treatment. Keytruda infusing. Safety and Risk for Injury Patient will remain free from injury. Ensure appropriate safety devices are available. Provide and maintain safe environment. Functional Status: Functional status at today's visit: [...] potential gurrola while using the heat function. documented in this encounter Plan of Treatment Upcoming Encounters Date Type Department Care Team (Late st Contact Info) Description 11/09/2024 10:00 AM EST Nurse Only Hematology/Oncology Treatment, [place] [facility] [phone] Demetrice, Chair 4 Hem Onc Scenery 200 [place] [address] 11/09/2024 10:30 AM EST Office Visit Hematology/Oncology [facility] [place] 200 [place] [address] Wilma Stern MD 200 [place] [address] 11/09/2024 11:00 AM EST Hem/Onc Treatment Hematology/Oncology Treatment, [place] 200 [facility] [place] [phone] Demetrice, Chair 3 Hem Onc Scenery 200 [place] [address] 06/23/2025 11:30 AM EDT Office Visit Cardiology, [facility] 132 [place] [address] Sully Licona CRNP [address] [place] [address] Scheduled Procedures Name Priority [...] 05/31/2025 05/31/2022, 11/0 05/2020 GFR 10/20/2025 10/20/2024, 12/09/2023, 09/08/2024, Additional history exists Colonoscopy 02/19/2027 02/19/2022, [...] this encounter Medical Devices Implanted Type Area Buckle Stringer Device Identifier Shelf Expiration Date Model / Serial / Lot Port Implant W8f Poly Cath - [id number] Implanted:Qty: 1 on 02/07/2024 by Giovani Cervantes MD at [facility] BARD : PERIPHERAL VASCULAR [id number] 02/27/2025 [id number] / / [id number] documented as of this encounter Procedures Procedure Name Priority Date/Time Associated Diagnosis Comments DIFFERENTIAL, AUTOMATED STAT 10/20/2024 10:43 AM EST 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) TSH WITH FREE T4 IF INDICATED STAT 10/20/2024 10:43 AM EST 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) COMPREHENSIVE METABOLIC PANEL STAT 10/20/2024 10:43 AM EST 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) CBC STAT 10/20/2024 10:43 AM EST 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) CBC STAT 10/20/2024 10:43 AM EST 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) T4, FREE STAT 10/20/2024 10:43 AM EST 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) MAGNESIUM STAT 10/20/2024 10:43 AM EST 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) documented in this encounter Results * T4, FREE (10/20/2024 10:43 AM EST) T4, Free 1.0 0.9 - 1.7 ng/dL 10/20/2024 8:47 PM EST [facility] [place] Blood sample taken from central line / Unknown Central Line / Unknown 10/20/2024 10:43 AM EST 10/20/2024 10:47 AM EST Wilma Stern MD LAB BLOOD ORDERABLES Fin al Result [facility] [address] [place] [address] * (ABNORMAL) DIFFERENTIAL, AUTOMATED (10/20/2024 10:43 AM EST) WBC 8.45 4.00 - 10.80 K/uL 10/20/2024 10:51 AM EST [facility] 56-02 Neutrophils % 70.7 40.0 - 75.0 % 10/20/2024 10:51 AM EST [facility] 56-02 Lymphocytes % 17.9(L) 18.0 - 42.0 % 10/20/2024 10:51 AM EST [facility] 56-02 Monocytes % 8.6 1.0 - 11.0 % 10/20/2024 10:51 AM EST [facility] 56-02 Eosinophils % 2.4 0.0 - 6.0 % 10/20/2024 10:51 AM EST [facility] 56-02 Basophils % 0.4 0.0 - 2.0 % 10/20/2024 10:51 AM EST [facility] 56-02 Absolute Neutrophils 5.98 1.80 - 7.70 K/uL 10/20/2024 10:51 AM EST [facility] 56-02 Absolute Lymphocytes 1.51 1.00 - 4.80 K/ul 10/20/2024 10:51 AM EST [facility] 56-02 Absolute Monocytes 0.73 0.00 - 1.10 K/uL 10/20/2024 10:51 AM EST [facility] 56-02 Absolute Eosinophils 0.20 0.00 - 0.70 K/uL 10/20/2024 10:51 AM EST [facility] 56-02 Absolute Basophils 0.03 0.00 - 0.20 K/uL 10/20/2024 10:51 AM EST [facility] 56-02 Blood Blood sample taken from central line / Unknown Central Line / Unknown 10/20/2024 10:43 AM EST 10/20/2024 10:47 AM EST Wilma Stern MD LAB BLOOD ORDERABLES Fin al Result [facility] 56-02 200 [facility] [address] * (ABNORMAL) CBC (10/20/2024 10:43 AM EST) Pathologist [facility] WBC 8.45 4.00 - 10.80 K/uL 10/20/2024 10:51 AM EST [facility] 56- RBC 3.68 4.50 - 5.25 M/uL 10/20/2024 10:51 AM EST [facility] 56- HGB 10.5(L) 14.0 - 16.8 g/dL 10/20/2024 10:51 AM EST [facility] 56- HCT 33.0(L) 40.0 - 48.4 % 10/20/2024 10:51 AM EST [facility] 56- MCV 89.7 82.0 - 99.5 fL 10/20/2024 10:51 AM EST [facility] 56- MCH 28.5 27.0 - 34.0 pg 10/20/2024 10:51 AM EST [facility] 56- MCHC 31.8 32.0 - 36.0 g/dL 10/20/2024 10:51 AM [facility] 56- RDW 17.6 11.5 - 15.5 % 10/20/2024 10:51 AM EST [facility] 56-02 PLT 233 140 - 400 K/uL 10/20/2024 10:51 AM [facility] 56-02 MPV 9.2 6.6 - 11.1 fL 10/20/2024 10:51 AM [facility] 56-02 Blood Blood sample taken from central line / Unknown Central Line / Unknown 10/20/2024 10:43 AM EST 10/20/2024 10:47 AM EST us Wilma Stern MD LAB BLOOD ORDERABLES Fin al Result [facility] 56- 200 [place] [address] * (ABNORMAL) TSH WITH FREE T4 IF INDICATED (10/20/2024 10:43 AM EST) TSH 7.09(H) 0.27 - 4.20 uIU/mL 10/20/2024 8:17 PM EST [facility] [place] Blood sample taken from central line / Unknown Central Line / Unknown 10/20/2024 10:43 AM EST 10/20/2024 10:47 AM EST Wilma Stern MD LAB BLOOD ORDERABLES Fin al Result [facility] [address] [place] [address] * MAGNESIUM (10/20/2024 10:43 AM EST) Pathologist [facility] Magnesium 1.8 1.5 - 2.6 mg/dL 10/20/2024 11:08 AM EST [place] [address] Blood Blood sample taken from central line / Unknown Central Line / Unknown 10/20/2024 10:43 AM EST 10/20/2024 10:47 AM EST Wilma Stern MD LAB BLOOD ORDERABLES Fin al Result [facility] 56 [address] [place] [address] * (ABNORMAL) COMPREHENSIVE METABOLIC PANEL (10/20/2024 10:43 AM EST) BUN 32(H) 6 - 20 mg/dL 10/20/2024 11:08 AM EST [facility] 56- CREATININE 1.2 0.6 - 1.2 mg/dL 10/20/2024 11:08 AM [facility] 56- EGFR 64 >=60 mL/min 10/20/2024 11:08 AM [facility] 56- Comment:eGFR is calculated b ased on the CKD-EPI 2020 equation. SODIUM 140 135 - 146 mmol/L 10/20/2024 11:08 AM [facility] [employer] [place] 56- POTASSIUM 4.3 3.5 - 5.1 mmol/L 10/20/2024 11:08 AM EST [facility] 56- CHLORIDE 104 98 - 107 mmol/L 10/20/2024 11:08 AM [facility] 56- CO2 24 22 - 32 mmol/L 10/20/2024 11:08 AM [facility] 56 ANION GAP 12 7 - 15 mmol/L 10/20/2024 11:08 AM [facility] 56 GLUCOSE 90 70 - 120 mg/dL 10/20/2024 11:08 AM [facility] 56- Albumin 3.8 3.8 - 5.0 g/dL 10/20/2024 11:08 AM [facility] 56 AST 40 10 - 50 U/L 10/20/2024 11:[address] Alkaline Phosphatase 139(H) 35 - 130 U/L 10/20/2024 11:[address] Bilirubin, Total 0.3 <=1.2 mg/dL 10/20/2024 11:08 AM [facility] 56 CALCIUM 9.2 8.4 - 10.2 mg/dL 10/20/2024 11:08 AM [facility] 56 Protein 7.1 6.0 - 8.3 g/dL 10/20/2024 11:08 AM [facility] 56- ALT 20 10 - 50 U/L 10/20/2024 11:08 AM [facility] 56 Blood Blood sample taken from central line / Unknown Central Line / Unknown 10/20/2024 10:43 AM EST 10/20/2024 10:47 AM EST Wilma Stern MD LAB BLOOD ORDERABLES Fin al Result [facility] 56- [address] [place] [address] documented in this encounter Visit Diagnoses Diagnosis 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)- Primary Malignant neoplasm of lower lobe, bronchus, or lung Encounter for antineoplastic chemotherapy documented in this encounter Administered Medications Inactive Administered Medications - up to 3 most recent administrations Medication Order MAR Action Action Date Dose Rate Site hEParin 100 UNIT/ML Lock Flush inj 500 Units 500 Units (5 mL), IV Lock, PRN Other, IV Flush, Starting on Sat10/20/24 at 1117, Until Sat10/20/24 at 1933, For 24 hours, Do not flush if lock, PICC, or central line not in place; IV infusing or unable to flush.Indications: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),Encounter for antineoplastic chemotherapy Given 10/20/2024 12:21 PM EST 500 Units NSS infusion Intravenous, at 50 mL/hr, PRN, Starting on Sat10/20/24 at 1230, Until Sat10/20/24 at 1933, Maintenance lineIndications: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),Encounter for antineoplastic chemotherapy Start Infusion 10/20/2024 11:26 AM EST 50 mL/hr Pembrolizumab (Keytruda) 200 mg in NSS 100 mL infusion 200 mg, IV Piggyback, ONCE, 1 dose, On Sat10/20/24 at 1200, Administer over 30 Minutes, Infuse through 0.2 micron filter.Indications: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),Encounter for antineoplastic chemotherapy Start Infusion 10/20/2024 11:38 AM EST 200 mg 226 mL/hr sodium chloride 0.9 % flush central line 10 mL 10 mL, IV Push, PRN Other, IV Flush, Starting on Sat10/20/24 at 1042, Until Sat10/20/24 at 1933, For 24 hours, Do not flush if lock, PICC, or central line not in place; IV infusing or unable to flush.Indications: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) Given 10/20/2024 12:21 PM EST 10 mL documented in this encounter Advance Directives Documents on File Type Date Recorded Patient Seismograph Observer Expl anation Advance Directives and Living Will 12/20/2023 Everette Spears [facility] POA & Living Will - signed on 12/01/2021 Power of Sock Knitting Machine Operator 12/20/2023 Durable Po wer of Sock Knitting Machine Operator - financial only ? - only [...] Agents on File Name Relationship Healthcare Agent [facility] p Communication Everette Tory Adult Child Health Care Agen t (per Health Care Power of Sock Knitting Machine Operator document) Care Teams Transmission Design Engineer Relationship Specialty Start Date End Date Sage Lay MD PCP - General Family Medicine 06/19/13 documented as of this encounter
--- OUTSIDE RECORDS SUMMARY | 2025-01-25 07:56 | External Medical Summary | Summary of Care ---
Author Name Unknown Organization [facility] Address [address] [place] [facility] [address] Phone [phone] Care Team Providers Care Fitness Technician Name Role Phone Sage Lay MD Primary Care Provider [phone] Reason for Visit * Reason Comments Procedure Labs from port Encounter Details Date Type Department Care Team (Late st Contact Info) Description 11/09/2024 10:00 AM EST Nurse Only Hematology/Oncology Treatment, [place] [address] [place] [phone] Park, Chair 4 Hem Onc Scene [address] [place] [address] Procedure (Labs from [facility]) Allergies No known active allergiesdocumented as of [...] IB(cT2a, cN0, cM0) - Signed by Gerry Subrmaanian MD on 11/07/2023 Pathologic stage from 01/13/2024:Stage [...] 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 Port accessed by KEL, RN, no issues - labs drawn from port per protocol. Locked with NSS flush and capped with alcohol swab cap. Patient to see Dr. Stern then return to tx room for Keytruda. Patient denied further needs at this time. documented in this encounter Plan of Treatment Upcoming Encounters Date Type Department Care Team (Late st Contact Info) Description 11/30/2024 11:00 AM EST Hem/Onc Treatment Hematology/Oncology Treatment, [place] [address] [facility] [phone] Demetrice, Chair 2 Hem Onc Scen[address] [facility] [place] [address] 12/21/2024 10:30 AM EDT Nurse Only Hematology/[address], [address] [phone] Demetrice, Chair 9 Hem Onc [facility] [address] [place] [address] [place] [address] 12/21/2024 11:00 AM EDT Office Visit Hematology/Oncology [facility] [place] [address] [facility] [place] [phone] Concetta Rachel CRNP [address] [place] [phone] 12/21/2024 11:30 AM EDT Hem/Onc Treatment Hematology/[address], [address] [phone] Demetrice, Chair 9 Hem Onc Scenery [address] [place] [address] [place] [address] 06/23/2025 11:30 AM EDT Office Visit Cardiology, [facility] [address] [facility] [place] [address] Sully Licona CRNP [address] [place] [phone] Pending Results Name Type Priority Associated Diagnoses Date /Time T4, FREE Lab STAT 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) 11/09/2024 9:56 AM EST Scheduled Procedures Name Priority Associated [...] this encounter Medical Devices Implanted Type Area Bisque Finisher Device Identifier Shelf Expiration Date Model / Serial / Lot Port Implant W8f Poly Cath - [id number] Implanted:Qty: 1 on 02/07/2024 by Giovani Cervantes MD at OR [facility] BARD : PERIPHERAL VASCULAR [id number] 02/27/2025 [id number] / / [id number] documented as of this encounter Procedures Procedure Name Priority Date/Time Associated Diagnosis Comments DIFFERENTIAL, AUTOMATED STAT 11/09/2024 9:56 AM EST 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) TSH WITH FREE T4 IF INDICATED STAT 11/09/2024 9:56 AM EST 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) COMPREHENSIVE METABOLIC PANEL STAT 11/09/2024 9:56 AM EST 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) CBC STAT 11/09/2024 9:56 AM EST 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) CBC STAT 11/09/2024 9:56 AM EST 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) MAGNESIUM STAT 11/09/2024 9:56 AM EST 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) documented in this encounter Results * DIFFERENTIAL, AUTOMATED (11/09/2024 9:56 AM EST) WBC 8.88 4.00 - 10.80 K/uL 11/09/2024 10:07 AM EST [facility] 56-02 Neutrophils % 69.8 40.0 - 75.0 % 11/09/2024 10:07 AM EST [facility] 56-02 Lymphocytes % 19.3 18.0 - 42.0 % 11/09/2024 10:07 AM EST [facility] 56-02 Monocytes % 8.7 1.0 - 11.0 % 11/09/2024 10:07 AM EST [facility] 56-02 Eosinophils % 1.7 0.0 - 6.0 % 11/09/2024 10:07 AM EST [facility] 56-02 Basophils % 0.5 0.0 - 2.0 % 11/09/2024 10:07 AM EST [facility] 56-02 Absolute Neutrophils 6.21 1.80 - 7.70 K/uL 11/09/2024 10:07 AM [facility] 56-02 Absolute Lymphocytes 1.71 1.00 - 4.80 K/ul 11/09/2024 10:07 AM [facility] 56-02 Absolute Monocytes 0.77 0.00 - 1.10 K/uL 11/09/2024 10:07 AM [facility] 56-02 Absolute Eosinophils 0.15 0.00 - 0.70 K/uL 11/09/2024 10:07 AM [facility] 56-02 Absolute Basophils 0.04 0.00 - 0.20 K/uL 11/09/2024 10:07 AM [facility] 56-02 Blood Blood sample taken from central line / Unknown Central Line / Unknown 11/09/2024 9:56 AM EST 11/09/2024 10:01 AM EST Wilma Stern MD LAB BLOOD ORDERABLES Fin al Result [facility] 56- [address] [place] [address] * (ABNORMAL) CBC (11/09/2024 9:56 AM EST) WBC 8.88 4.00 - 10.80 K/uL 11/09/2024 10:07 AM [facility] 56-02 RBC 3.56 4.50 - 5.25 M/uL 11/09/2024 10:07 AM [facility] 56-02 HGB 10.3(L) 14.0 - 16.8 g/dL 11/09/2024 10:07 AM [facility] 56-02 HCT 32.3(L) 40.0 - 48.4 % 11/09/2024 10:07 AM [facility] 56-02 MCV 90.7 82.0 - 99.5 fL 11/09/2024 10:07 AM [facility] 56-02 MCH 28.9 27.0 - 34.0 pg 11/09/2024 10:07 AM [facility] 56-02 MCHC 31.9 32.0 - 36.0 g/dL 11/09/2024 10:07 AM EST [facility] 56-02 RDW 17.3 11.5 - 15.5 % 11/09/2024 10:07 AM EST [facility] 56-02 PLT 234 140 - 400 K/uL 11/09/2024 10:07 AM EST [facility] 56-02 MPV 9.5 6.6 - 11.1 fL 11/09/2024 10:07 AM EST [facility] 56-02 Blood Blood sample taken from central line / Unknown Central Line / Unknown 11/09/2024 9:56 AM EST 11/09/2024 10:01 AM EST Wilma Stern MD LAB BLOOD ORDERABLES Fin al Result [facility] 56-02 [address] [place] [address] * (ABNORMAL) TSH WITH FREE T4 IF INDICATED (11/09/2024 9:56 AM EST) TSH 10.50(H) 0.27 - 4.20 uIU/mL 11/09/2024 7:52 PM EST [facility] Blood Blood sample taken from central line / Unknown Central Line / Unknown 11/09/2024 9:56 AM EST 11/09/2024 10:00 AM EST Wilma Stern MD LAB BLOOD ORDERABLES Fin al Result [facility] [address] [place] [address] * MAGNESIUM (11/09/2024 9:56 AM EST) Magnesium 1.7 1.5 - 2.6 mg/dL 11/09/2024 10:27 AM EST [facility] 56-02 Blood Blood sample taken from central line / Unknown Central Line / Unknown 11/09/2024 9:56 AM EST 11/09/2024 10:00 AM EST Wilma Stern MD LAB BLOOD ORDERABLES Fin al Result [facility] [address] [place] [address] * (ABNORMAL) COMPREHENSIVE METABOLIC PANEL (11/09/2024 9:56 AM EST) BUN 33(H) 6 - 20 mg/dL 11/09/2024 10:27 AM [facility] 56- CREATININE 1.2 0.6 - 1.2 mg/dL 11/09/2024 10:27 AM [facility] 56- EGFR 61 >=60 mL/min 11/09/2024 10:27 AM [facility] Comment:eGFR is calculated b ased on the CKD-EPI 2020 equation. SODIUM 139 135 - 146 mmol/L 11/09/2024 10:27 AM [facility] 56- POTASSIUM 4.3 3.5 - 5.1 mmol/L 11/09/2024 10:27 AM [facility] 56- CHLORIDE 104 98 - 107 mmol/L 11/09/2024 10:27 AM [facility] 56- CO2 25 22 - 32 mmol/L 11/09/2024 10:27 AM [facility] 56- ANION GAP 10 7 - 15 mmol/L 11/09/2024 10:27 AM [facility] 56- GLUCOSE 116 70 - 120 mg/dL 11/09/2024 10:27 AM [facility] 56- Albumin 3.7(L) 3.8 - 5.0 g/dL 11/09/2024 10:27 AM [facility] 56- AST 34 10 - 50 U/L 11/09/2024 10:27 AM [facility] 56- Alkaline Phosphatase 141(H) 35 - 130 U/L 11/09/2024 10:27 AM [facility] 56- Bilirubin, Total 0.2 <=1.2 mg/dL 11/09/2024 10:27 AM [facility] 56- CALCIUM 9.2 8.4 - 10.2 mg/dL 11/09/2024 10:27 AM [facility] 56-02 Protein 7.0 6.0 - 8.3 g/dL 11/09/2024 10:27 AM EST [facility] 56-02 ALT 19 10 - 50 U/L 11/09/2024 10:27 AM EST [facility] 56-02 Blood Blood sample taken from central line / Unknown Central Line / Unknown 11/09/2024 9:56 AM EST 11/09/2024 10:00 AM EST Wilma Stern MD LAB BLOOD ORDERABLES Fin al Result [facility] 56-[address] [place] [address] documented in this encounter Visit Diagnoses Diagnosis 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)- Primary Malignant neoplasm of lower lobe, bronchus, or lung Encounter for central line care Fitting and adjustment of vascular catheter documented in this encounter Administered Medications Inactive Administered Medications - up to 3 most recent administrations Medication Order MAR Action Action Date Dose Rate Site sodium chloride 0.9 % flush/inj 10 mL 10 mL, IV Push, PRN line flush, Starting on Sat11/09/24 at 0937, Until Sat11/09/24 at 1724, Do not flush if lock, PICC, or central line not in place; IV infusing or unable to flush. For midlines and central lines.Indications: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) Given 11/09/2024 9:50 AM EST 10 mL sodium chloride 0.9 % flush/inj 20 mL 20 mL, IV Push, PRN IV Flush and Lock, Starting on Sat11/09/24 at 0937, Until Sat11/09/24 at 1724, Do not flush if lock, PICC, or [...] right lower lobe of lung (HCC) Given 11/09/2024 9:55 AM EST 20 mL documented in this encounter Advance Directives Documents on File Type Date Recorded Patient Seismology Teacher Expl anation Advance Directives and Living Will 12/20/2023 Everette Spears Durable Health Care POA & Living Will - signed on 12/01/2021 Power of Speech Language Pathologist Prn 12/20/2023 Durable Po wer of Speech Language Pathologist Prn - financial only ? - only 1 [...] Agen t (per Health Care Power of Speech Language Pathologist Prn document) Care Teams Fitness Technician Relationship Specialty Start Date End Date Sage Lay MD PCP - General Family Medicine 06/19/13 documented as of this encounter
--- OUTSIDE RECORDS SUMMARY | 2025-01-25 07:56 | External Medical Summary | Summary of Care ---
Author Name Unknown Organization [facility] Address [address] [facility] [address] Phone [phone] Care Team Providers Care Industrial Psychology Professor Name Role Phone Sage Lay MD Primary Care Provider [phone] Reason for Visit * Reason Comments Chemotherapy C14/D1 - Keytruda * Episode Based Medications (Routine) - Authorized Specialty Diagnoses / Procedures Referred By Contkatharina t Referred To Contact Diagnoses 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) Encounter for antineoplastic chemotherapy Procedures SC INJ. PEMETREXED NOS 10MG SC CISPLATIN 10 MG INJECTION SC INJ PEMBROLIZUMAB SC FOSAPREPITANT INJECTION Wilma Stern MD [address] [place] [address] [address] [address] Phone: tel: fax: Hematology/Oncology Treatment, [address] [place] [address] Phone: tel: fax: Referral ID Status Reason Start Date Expiration Date V isits Requested Visits Authorized [id number] Authorized 01/21/2024 01/15/2025 999 [id number] Encounter Details Date Type Department Care Team (Latest Contact Info) Description 11/09/2024 11:00 AM EST Hem/Onc Treatment Hematology/Oncolog [address], [address] [phone] Demetrice, Chair 3 Hem Onc [address] [place] [address] Primary malignant neoplasm of right lower lobe [...] 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 Possible barriers to meeting goals: ambulating with IV pole, age Stability of the patient: Moderately stable - low risk of patient condition declining or worsening Summary regarding today's goals: Met: pt remained free of harm tdoay Port needle flushed with 10 ml NSS, blood return noted, and port locked with additional 10 ml NSS. Bernabe needle removed, intact, gauze dressing applied. Patient tolerated treatment well without any acute issues or problems. Patient left facility in stable condition and denied any further needs. * Neyda Ferraro RN - 11/09/2024 1:46 PM EST Chair 6. Port needle in place from lab draw from port before provider visit. Patient is feeling well today, no acute concerns or problems. See OV note for details regarding deisy/geraldine Stern. Chemotherapy/Immunotherapy agents: KEYTRUDA Consent for chemotherapy drug treatment complete, dated, and signed? yes, date - 01/21/2024 Treatment lab parameters met? Yes Has treatment weight changed > than 10%? No Treatment preauthorized? Yes VITALS There were no vitals filed for this visit. BP Readings from Last 2 Encounters: 11/09/24 149/87 11/03/24 150/86 Pulse Readings from Last 2 Encounters: 11/09/24 57 11/03/24 60 Resp Readings from Last 2 Encounters: 11/03/24 26 10/20/24 16 SpO2 Readings from Last 2 Encounters: 11/09/24 95% 10/20/24 99% Temp Readings from Last 2 Encounters: 11/09/24 35.9 °C (96.7 °F) (Tympanic) 10/20/24 35.8 °C (96.5 °F) Urine protein: N/A Patient education completed for treatment? Yes Blood transfusion consent signed and complete? NA Return appointment scheduled? Yes Patient had provider visit today? Yes - Ok to release order and treat per provider Functional Status: Functional status at today's visit: Restricted in physically strenuous activity but ambulatory and able to carry out work on a light orsedentary nature, e.g. light house work, office work The drug name, dose, infusion volume, rate [...] 11:00 AM EST Hem/Onc Treatment Hematology/[address]cology [address], [address] [phone] Demetrice, Chair 2 Hem Onc [place] [address] [place] [address] 12/21/2024 10:30 AM EDT Nurse Only Hematology/Oncology Treatment, [address] [place] [phone] Demetrice, Chair 9 Hem Onc [address] [place] [address] 12/21/2024 11:00 AM EDT Office Visit Hematology/Oncology [facility] [place] [address] [place] [phone] Concetta Rachel CRNP [address] [place] [address] 12/21/2024 11:30 AM EDT Hem/Onc Treatment Hematology/Oncology Treatment, [place] [address] [place], [place] [phone] Demetrice, Chair 9 Hem Onc [facility] [address] [place] [address] 06/23/2025 11:30 AM EDT Office Visit Cardiology, [facility] [address] [facility] [place] [address] Sully Licona CRNP [address] [place] [address] Scheduled Procedures Name Priority Associated Diagnoses Date/Ti [...] this encounter Medical Devices Implanted Type Area Doctor Of Audiology Device Identifier Shelf Expiration Date Model / Serial / Lot Port Implant W8f Poly Cath - [id number] Implanted:Qty: 1 on 02/07/2024 by Giovani Cervantes MD at OR [facility] BARD : PERIPHERAL VASCULAR [id number] 02/27/2025 [id number] / / [id number] documented as of this encounter Visit Diagnoses [...] Intravenous, at 50 mL/hr, PRN, Starting on Sat11/09/24 at 1215, Until Sat11/09/24 at 1749, Maintenance lineIndications: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),Encounter for antineoplastic chemotherapy Start Infusion 11/09/2024 11:07 AM EST 50 mL/hr Pembrolizumab (Keytruda) 200 mg in NSS 100 mL infusion 200 mg, IV Piggyback, ONCE, 1 dose, On Sat11/09/24 at 1145, Administer over 30 Minutes, Infuse through 0.2 micron filter.Indications: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),Encounter for antineoplastic chemotherapy Start Infusion 11/09/2024 11:09 AM EST 200 mg 226 mL/hr sodium chloride 0.9 % flush/inj 20 mL 20 mL, IV Push, PRN IV Flush and Lock, Starting on Sat11/09/24 at 1100, Until Sat11/09/24 at 1749, Do not flush if lock, PICC, or [...] of lung (HCC),Encounter for antineoplastic chemotherapy Given 11/09/2024 11:52 AM EST 20 mL documented in this encounter Advance Directives Documents on File Type Date Recorded Patient Traveling Engineer Expl anation Advance Directives and Living Will 12/20/2023 Everette Spears [facility] Health Care POA & Living Will - signed on 12/01/2021 Power of Paste Up Copy Camera Operator 12/20/2023 Durable Po wer of Paste Up Copy Camera Operator - financial only ? - only [...] Relationship Healthcare Agent Relationshi p Communication Everette Tory Adult Child Health Care Agen t (per Health Care Power of Paste Up Copy Camera Operator document) Care Teams Industrial Psychology Professor Relationship Specialty Start Date End Date Sage Lay MD PCP - General Family Medicine 06/19/13 documented as of this encounter
--- OUTSIDE RECORDS SUMMARY | 2025-01-25 07:56 | External Medical Summary ---
Author Name Unknown Address Unknown Organization K09[facility] [place] [address] Laboratory Report Ordering Provider Test Date Status BHARATI VERDUGO 11/09/2024 09:56:22 Final Observation Date Value Abnormality Reference (Units ) Status Magnesium 11/09/2024 09:56:22 1.7 1.5-2.6 (m g/dL) Final Performing Location [facility] [place] [address]
--- OUTSIDE RECORDS SUMMARY | 2025-01-25 07:57 | External Medical Summary ---
Author Name Unknown Address Unknown Organization K01:[facility] [address] [place] [address] Laboratory Report Ordering Provider Test Date Status BHARATI VERDUGO 10/20/2024 10:43:15 Final Observation Date Value Abnormality Reference (Units ) Status T4, Free 10/20/2024 10:43:15 1.0 0.9-1.7 (n g/dL) Final Performing Location [facility] - [address] [place] [address]
--- OUTSIDE RECORDS SUMMARY | 2025-01-25 07:57 | External Medical Summary | Summary of Care ---
Author Name Unknown Organization [facility] Address [address] [facility] [place] [address] Phone [phone] Care Team Providers Care Cementer Name Role Phone Sage Lay MD Primary Care Provider [phone] Reason for Visit * Reason Comments Procedure Labs from port Chemotherapy Keytruda * Episode Based Medications (Routine) - Authorized Specialty Diagnoses / Procedures Referred By Contkatharina t Referred To Contact Diagnoses 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) Encounter for antineoplastic chemotherapy Procedures MT INJ. PEMETREXED NOS 10MG MT CISPLATIN 10 MG INJECTION MT INJ PEMBROLIZUMAB MT FOSAPREPITANT INJECTION Wilma Stern MD [address] [place] [address] [place] [address] Phone: tel: fax: Hematology/Oncology Treatment, [address] [place] [address] Phone: tel: fax: Referral ID Status Reason Start Date Expiration Date V isits Requested Visits Authorized [id number] Authorized 01/21/2024 01/15/2025 [id number] Encounter Details Date Type Department Care Team (Latest Contact Info) Description 09/08/2024 10:00 AM EST Hem/Onc Treatment Hematology[address]olog [address] [address] Demetrice, Chair 1 Hem Onc [place] [address] [place] [id number] Encounter for antineoplastic chemotherapy*; 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) Allergies No known active allergiesdocumented as of this encounter (statuses as of 10/09/2024) Medications apixaban (ELIQUIS) 5 MG TabletIndications: Persistent [...] .. 510 g 1 11/29/19 22 Active Ondansetron HCl 8 MG Oral TabletIndications: 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) Take 1 Tablet by mouth every 8 hours as needed for Nausea. 30 Tablet 01/21/20 24 Active Additional Information Patient not taking.Reported on 02/07/2024 Prochlorperazine Maleate 10 MG Oral Tablet (Compazine)Indicat ions: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) Take 1 Tablet by mouth every 6 hours as needed for Nausea. 30 Tablet 01/21/20 24 Active Additional Information Patient not taking.Reported on 02/07/2024 Folic Acid 1 MG Oral TabletIndications: 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) Take 1 Tablet by mouth in the morning. 30 Tablet 5 01/21/20 24 Active dexAMETHasone 4 MG Oral Tablet (Decadron)Indicati ons: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) Take 1 tablet twice a day for 3 days starting the day prior to chemotherapy 24 Tablet 01/21/20 24 Active Additional Information Patient not taking.Reported on 02/07/2024 Lisinopril 10 MG Oral Tablet (Prinivil) TAKE ONE TABLET BY MOUTH EVERY MORNING 90 Tablet 3 4 7:05 AM EST 03/19/20 24 025 Active Atorvastatin Calcium 20 MG Oral Tablet (Lipitor)Indicatio ns:Other hyperlipidemia TAKE ONE TABLET BY MOUTH EVERY MORNING 100 Tablet 12:04 PM EDT 07/28/20 025 Active documented as of this encounter (statuses as of 10/09/2024) Active Problems Problem Noted Date Diagnosed Date [...] as of this encounter (statuses as of 10/09/2024) Resolved Problems Problem Noted Date Diagnosed Date Resolved Date History of atrial fibrillation 12/16/2017 01/16/2019 Chest discomfort 12/16/2017 01/16/2019 Persistent atrial fibrillation 10/29/2017 07/23/2018 documented as of this encounter (statuses as of 10/09/2024) Immunizations Name Administration Dates Next Due COVID-19 [...] ages 0-17 years) Not on file 01/02/2024 Sex and Gender Information Value Date Recorded Sex Assigned at Male 07/27/2019 2:12 PM EDT Legal Sex Male 6:13 AM EST Gender Identity Male 07/27/2019 2:12 PM EDT Sexual Orientation Straight 07/27/2019 2: 12 PM EDT 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 Patient tolerated well. Patient with no complaints. VAD with + blood return, flushed with 10 ml NSS and Heparin 5 ml (100 units/ml). Bernabe needle removed intact. Dry dressing applied. Goals: Patient will remain free from injury. Possible barriers to meeting goals: ambulating with IV pole Stability of the patient: Moderately stable - low risk of patient condition declining or worsening Summary regarding today's goals: Met: Patient remained free from harm/injury during treatment. Patient left facility in stable condition. * Hanny Zaragoza RN - 09/08/2024 11:55 AM EST Chair 2, patient here for treatment. Patient with no complaints. VAD accessed without difficulty, + blood return noted and labs drawn, flushed with 10 ml NSS and dressing applied. Labs reviewed, ok for treatment. Chemotherapy/Immunotherapy agents: KEYTRUDA Consent for chemotherapy drug treatment complete, dated, and signed? yes, date - 01/21/24 Treatment lab parameters met? Yes Has treatment weight changed > than 10%? No Treatment preauthorized? Yes VITALS Filed Vitals: 09/08/24 0950 BP: 134/82 Pulse: 61 Resp: 16 Temp: 36.8 °C (98.2 °F) TempSrc: Tympanic SpO2: 95% Weight: 67.4 kg (148 lb 9.6 oz) BP Readings from Last 2 Encounters: 09/08/24 134/82 08/18/24 156/86 Pulse Readings from Last 2 Encounters: 09/08/24 61 08/18/24 63 Resp Readings from Last 2 Encounters: 09/08/24 16 07/28/24 16 SpO2 Readings from Last 2 Encounters: 09/08/24 95% 08/18/24 97% Temp Readings from Last 2 Encounters: 09/08/24 36.8 °C (98.2 °F) (Tympanic) 08/18/24 36.2 °C (97.2 °F) (Tympanic) Urine protein: [...] Care Team (Late st Contact Info) Description 10/20/2024 11:15 AM EST Nurse Only Hematology[address] [phone] Demetrice, Chair 8 Hem Onc [address] [place] [address] [place] [address] 10/20/2024 11:45 AM EST Hem/Onc Treatment Hematology/[address]cology [address], [address] [phone] Demetrice, Chair 7 [facility]c [facility] [address] [place] [address] [place] [address] 11/03/2024 10:30 AM EST Imaging Radiology [facility] [place] [address] [facility] [address] 11/10/2024 10:30 AM EST Nurse Only Hematology/Oncology Treatment, [address] [place] [phone] Demetrice, Chair 5 Hem Onc [address] [place] [address] 11/10/2024 11:00 AM EST Office Visit Hematology/Oncology [facility] [address] [place] [phone] Concetta Rachel CRNP [address] [place] [address] 11/10/2024 11:30 AM EST Hem/Onc Treatment Hematology/Oncology Treatment, [place] [address] [place] [address] Demetrice, Chair 10 Hem Onc [address] [place], [place] [phone] Scheduled Procedures Name Priority Associated Diagnoses Date/Ti [...] 12/24/2023 Albumin/Creatinine Ratio 05/31/2025 05/31/2022, 1105/2020 GFR 09/29/2025 09/29/2024, 08/30, 08/18/2024, Additional history exists Colonoscopy 02/19/2027 02/19/2022, 01/29, [...] this encounter Medical Devices Implanted Type Area Shirrer Device Identifier Shelf Expiration Date Model / Serial / Lot Port Implant W8f Poly Cath - [id number] Implanted:Qty: 1 on 02/07/2024 by Giovani Cervantes MD at OR [facility] BARD : PERIPHERAL VASCULAR [id number] 02/27/2025 [id number] / / [id number] documented as of this encounter Procedures Procedure Name Priority Date/Time Associated Diagnosis Comments DIFFERENTIAL, AUTOMATED STAT 09/08/2024 10:08 AM EST 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) TSH WITH FREE T4 IF INDICATED STAT 09/08/2024 10:08 AM EST 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) COMPREHENSIVE METABOLIC PANEL STAT 09/08/2024 10:08 AM EST 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) CBC STAT 09/08/2024 10:08 AM EST 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) CBC STAT 09/08/2024 10:08 AM EST 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) T4, FREE STAT 09/08/2024 10:08 AM EST 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) MAGNESIUM STAT 09/08/2024 10:08 AM EST 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) documented in this encounter Results * T4, FREE (09/08/2024 10:08 AM EST) T4, Free 1.1 0.9 - 1.7 ng/dL 09/08/2024 7:26 PM EST LAB[facility]ATORY [facility] Blood Venous blood specimen / Unknown Central Line / Unknown 09/08/2024 10:08 AM EST 09/08/2024 10:11 AM EST us Wilma Stern MD LAB BLOOD ORDERABLES Fin al Result LABORATORY [facility] [address] [place] [address] * (ABNORMAL) DIFFERENTIAL, AUTOMATED (09/08/2024 10:08 AM EST) WBC 8.71 4.00 - 10.80 K/uL 09/08/2024 10:14 AM EST [facility] [place] 56-02 Neutrophils % 72.7 40.0 - 75.0 % 09/08/2024 10:14 AM EST [facility] [place] [facility] 56-02 Lymphocytes % 14.6(L) 18.0 - 42.0 % 09/08/2024 10:14 AM EST [facility] [place] 56-02 Monocytes % 8.2 1.0 - 11.0 % 09/08/2024 10:14 AM [facility] [place] 56-02 Eosinophils % 4.0 0.0 - 6.0 % 09/08/2024 10:14 AM EST [employer] [facility] [place] 56-02 Basophils % 0.5 0.0 - 2.0 % 09/08/2024 10:14 AM EST [employer] [facility] [place] 56-02 Absolute Neutrophils 6.34 1.80 - 7.70 K/uL 09/08/2024 10:14 AM EST [employer] [facility] [place] 56-02 Absolute Lymphocytes 1.27 1.00 - 4.80 K/ul 09/08/2024 10:14 AM EST [employer] [facility] [place] 56-02 Absolute Monocytes 0.71 0.00 - 1.10 K/uL 09/08/2024 10:14 AM EST [employer] [facility] [place] 56-02 Absolute Eosinophils 0.35 0.00 - 0.70 K/uL 09/08/2024 10:14 AM EST [employer] [facility] [place] 56-02 Absolute Basophils 0.04 0.00 - 0.20 K/uL 09/08/2024 10:14 AM [facility] [employer] [facility] [place] 56-02 Blood Venous blood specimen / Unknown Central Line / Unknown 09/08/2024 10:08 AM EST 09/08/2024 10:11 AM EST Wilma Stern MD LAB BLOOD ORDERABLES Fin al Result [facility] 56 [address] [place], [place] [id number] * (ABNORMAL) CBC (09/08/2024 10:08 AM EST) WBC 8.71 4.00 - 10.80 K/uL 09/08/2024 10:14 AM EST [address] RBC 3.28 4.50 - 5.25 M/uL 09/08/2024 10:14 AM [place] [id number] HGB 9.2(L) 14.0 - 16.8 g/dL 09/08/2024 10:14 AM [facility] 56 HCT 29.3(L) 40.0 - 48.4 % 09/08/2024 10:[address] MCV 89.3 82.0 - 99.5 fL 09/08/2024 10:[address] MCH 28.0 27.0 - 34.0 pg 09/08/2024 10:14 AM [facility] MCHC 31.4 32.0 - 36.0 g/dL 09/08/2024 10:14 AM [facility] 56 RDW 16.5 11.5 - 15.5 % 09/08/2024 10:14 AM [facility] 56 PLT 251 140 - 400 K/uL 09/08/2024 10:14 AM [facility] 56 MPV 8.9 6.6 - 11.1 fL 09/08/2024 10:14 AM [facility] 5602 Blood Venous blood specimen / Unknown Central Line / Unknown 09/08/2024 10:08 AM EST 09/08/2024 10:11 AM EST Wilma Stern MD LAB BLOOD ORDERABLES Fin al Result [facility] [address] [place] [address] * (ABNORMAL) TSH WITH FREE T4 IF INDICATED (09/08/2024 10:08 AM EST) TSH 9.32(H) 0.27 - 4.20 uIU/mL 09/08/2024 6:58 PM EST LABORATORY [facility] Blood Venous blood specimen / Unknown Central Line / Unknown 09/08/2024 10:08 AM EST 09/08/2024 10:11 AM EST Wilma Stern MD LAB BLOOD ORDERABLES Fin al Result LABORATORY [facility] [address] [place] [address] * MAGNESIUM (09/08/2024 10:08 AM EST) Magnesium 1.6 1.5 - 2.6 mg/dL 09/08/2024 10:41 AM EST [facility] Blood Venous blood specimen / Unknown Central Line / Unknown 09/08/2024 10:08 AM EST 09/08/2024 10:11 AM EST Wilma Stern MD LAB BLOOD ORDERABLES Fin al Result [facility] [address] [place] [address] * (ABNORMAL) COMPREHENSIVE METABOLIC PANEL (09/08/2024 10:08 AM EST) BUN 24(H) 6 - 20 mg/dL 09/08/2024 10:41 AM EST [facility] 56- CREATININE 1.2 0.6 - 1.2 mg/dL 09/08/2024 10:41 AM EST [facility] 56- EGFR 62 >=60 mL/min 09/08/2024 10:41 AM EST [facility] 56- Comment:eGFR is calculated b ased on the CKD-EPI 2020 equation. SODIUM 137 135 - 146 mmol/L 09/08/2024 10:41 AM [facility] 56- POTASSIUM 4.0 3.5 - 5.1 mmol/L 09/08/2024 10:41 AM [facility] 56 CHLORIDE 102 98 - 107 mmol/L 09/08/2024 10:[address] CO2 25 22 - 32 mmol/L 09/08/2024 10:41 AM [facility] 56 ANION GAP 10 7 - 15 mmol/L 09/08/2024 10:[address] GLUCOSE 132(H) 70 - 120 mg/dL 09/08/2024 10:[address] Albumin 3.6(L) 3.8 - 5.0 g/dL 09/08/2024 10:[address] AST 29 10 - 50 U/L 09/08/2024 10:[address] Alkaline Phosphatase 128 35 - 130 U/L 09/08/2024 10:[address] Bilirubin, Total 0.3 <=1.2 mg/dL 09/08/2024 10:[address] CALCIUM 9.0 8.4 - 10.2 mg/dL 09/08/2024 10:[address] Protein 7.0 6.0 - 8.3 g/dL 09/08/2024 10:41 AM [facility] 56 ALT 15 10 - 50 U/L 09/08/2024 10:41 AM [facility] Blood Venous blood specimen / Unknown Central Line / Unknown 09/08/2024 10:08 AM EST 09/08/2024 10:11 AM EST Wilma Stern MD LAB BLOOD ORDERABLES Fin al Result [facility] 56- [address] [place] [address] documented in this encounter Visit [...] Lock, PRN Other, IV Flush, Starting on Sat09/08/24 at 1051, Until Sat09/08/24 at 1600, For 24 hours, Do not flush if lock, PICC, or central line not in place; IV infusing or unable to flush.Indications: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),Encounter for antineoplastic chemotherapy Given 09/08/2024 11:31 AM EST 500 Units NSS infusion Intravenous, at 50 mL/hr, PRN, Starting on Sat09/08/24 at 1200, Until Sat09/08/24 at 1600, Maintenance lineIndications: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),Encounter for antineoplastic chemotherapy Start Infusion 09/08/2024 10:54 AM EST 50 mL/hr Pembrolizumab (Keytruda) 200 mg in NSS 100 mL infusion 200 mg, IV Piggyback, ONCE, 1 dose, On Sat09/08/24 at 1130, Administer over 30 Minutes, Infuse through 0.2 micron filter.Indications: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),Encounter for antineoplastic chemotherapy Start Infusion 09/08/2024 10:56 AM EST 200 mg 226 mL/hr sodium chloride 0.9 % flush central line 10 mL 10 mL, IV Push, PRN Other, IV Flush, Starting on Sat09/08/24 at 1051, Until Sat09/08/24 at 1600, For 24 hours, Do not flush if lock, PICC, or central line not in place; IV infusing or unable to flush.Indications: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),Encounter for antineoplastic chemotherapy Given 09/08/2024 11:31 AM EST 10 mL documented in this encounter Advance Directives Documents on File Type Date Recorded 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 - only 1 [...] Agents on File Name Relationship Healthcare Agent [facility] Communication Everette Tory Adult Child First Alternate Health Care Agent (per Health Care Power of Boiler Plant Worker document) Care Teams Cementer Relationship Specialty Start Date End Date Sage Lay MD PCP - General Family Medicine 06/19/13 documented as of this encounter
--- OUTSIDE RECORDS SUMMARY | 2025-01-25 07:57 | External Medical Summary | Summary of Care ---
Author Name Unknown Organization [facility] Address [address] [facility] [address] Phone [phone] Care Team Providers Care Pompom Maker Name Role Phone Sage Lay MD Primary Care Provider [phone] Reason for Visit * Reason Comments Chemotherapy Keytruda * Episode Based Medications (Routine) - Authorized Specialty Diagnoses / Procedures Referred By Contkatharina t Referred To Contact Diagnoses 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) Encounter for antineoplastic chemotherapy Procedures NH INJ. PEMETREXED NOS 10MG NH CISPLATIN 10 MG INJECTION NH INJ PEMBROLIZUMAB NH FOSAPREPITANT INJECTION Wilma Stern MD [address] [place] [address] [place] [address] Phone: tel: fax: Hematology/Oncology Treatment, [address] [place] [address] Phone: tel: fax: Referral ID Status Reason Start Date Expiration Date V isits Requested Visits Authorized [id number] Authorized 01/21/2024 01/15/2025 [id number] Encounter Details Date Type Department Care Team (Latest Contact Info) Description 10/20/2024 11:15 AM EST Hem/Onc Treatment Hematology/Oncolog y Treatment, [address] [place] [address] Demetrice, Chair 1 Hem On[address] [place] [phone] 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)*; Encounter for antineoplastic chemotherapy Allergies No known active allergiesdocumented as of this encounter (statuses as of 10/20/2024) Medications apixaban (ELIQUIS) 5 MG TabletIndications: Persistent [...] as of this encounter (statuses as of 10/20/2024) Active Problems Problem Noted Date Diagnosed Date [...] as of this encounter (statuses as of 10/20/2024) Resolved Problems Problem Noted Date Diagnosed Date Resolved Date History of atrial fibrillation 12/16/2017 01/16/2019 Chest discomfort 12/16/2017 01/16/2019 Persistent atrial fibrillation 10/29/2017 07/23/2018 documented as of this encounter (statuses as of 10/20/2024) Immunizations Name Administration Dates Next Due COVID-19 [...] 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 Discharged in stable condition. * Renee Ren, RN - 10/20/2024 12:02 PM EST Chair 11 Pt presents for labs from port prior to treatment. VAD (Venous Access Device) accessed with #19G 3/4" without difficulty. Specimen collected for ordered labs. [...] Team (Late st Contact Info) Description 11/03/2024 10:00 AM EST Nurse Only Hematology/[address]cology [address], [address] [phone] Demetrice, Chair 11 Hem Onc [place] 200 [facility] [place] [address] 11/03/2024 10:30 AM EST Imaging Radiology [facility] 1st [facility], [place] [address] [facility] [place] [phone] 11/03/2024 11:30 AM EST Nurse Only Hematology/[address]cology [address], [address] [phone] Demetrice, Chair 11 Hem Onc [address] 200 [facility] [place] [address] 11/03/2024 12:00 PM EST Office Visit Cardiology, [facility] 132 [facility] [place] [address] Sully Licona CRNP [address] [facility] [place] [address] 11/09/2024 10:00 AM EST Nurse Only Hematology/[address]cology [address], [address] [phone] Demetrice, Chair 4 Hem Onc [address] 200 [facility] [place] [address] 11/09/2024 10:30 AM EST Office Visit Hematology/Oncology [place], [place] [address] [place], [place] [phone] Wilma Stern MD [address] [place], [place] [address] 11/09/2024 11:00 AM EST Hem/Onc Treatment Hematology/Oncology Treatment, [place] [address] [facility] [address] [place], [place] [phone] Demetrice, Chair 10 Hem Onc [facility] 200 [facility] [place], [place] [address] Pending Results Name Type Priority Associated Diagnoses Date /Time TSH WITH FREE T4 IF INDICATED Lab STAT 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) 10/20/2024 10:43 AM EST Scheduled Procedures Name Priority Associated [...] this encounter Medical Devices Implanted Type Area Cubing Machine Tender Device Identifier Shelf Expiration Date Model / Serial / Lot Port Implant W8f Poly Cath - [id number] Implanted:Qty: 1 on 02/07/2024 by Giovani Cervantes MD at OR [facility] BARD : PERIPHERAL VASCULAR [id number] 02/27/2025 [id number] / / [id number] documented as of this encounter Procedures Procedure [...] this encounter Results * (ABNORMAL) DIFFERENTIAL, AUTOMATED (10/20/2024 10:43 AM EST) WBC 8.45 4.00 - 10.80 K/uL 10/20/2024 10:51 AM EST [facility] 56-02 Neutrophils % 70.7 40.0 - 75.0 % 10/20/2024 10:51 AM [facility] 56-02 Lymphocytes % 17.9(L) 18.0 - 42.0 % 10/20/2024 10:51 AM [facility] 56-02 Monocytes % 8.6 1.0 - 11.0 % 10/20/2024 10:51 AM [facility] 56-02 Eosinophils % 2.4 0.0 - 6.0 % 10/20/2024 10:51 AM [facility] 56-02 Basophils % 0.4 0.0 - 2.0 % 10/20/2024 10:51 AM [facility] 56-02 Absolute Neutrophils 5.98 1.80 - 7.70 K/uL 10/20/2024 10:51 AM [facility] 56-02 Absolute Lymphocytes 1.51 1.00 - 4.80 K/ul 10/20/2024 10:51 AM [facility] 56-02 Absolute Monocytes 0.73 0.00 - 1.10 K/uL 10/20/2024 10:51 AM [facility] 56-02 Absolute Eosinophils 0.20 0.00 - 0.70 K/uL 10/20/2024 10:51 AM [facility] 56-02 Absolute Basophils 0.03 0.00 - 0.20 K/uL 10/20/2024 10:51 AM [facility] 56-02 Blood Blood sample taken from central line / Unknown Central Line / Unknown 10/20/2024 10:43 AM EST 10/20/2024 10:47 AM EST Wilma Stern MD LAB BLOOD ORDERABLES Fin al Result [facility] 56-[address] [place] [address] * (ABNORMAL) CBC (10/20/2024 10:43 AM EST) WBC 8.45 4.00 - 10.80 K/uL 10/20/2024 10:51 AM [facility] 56-02 RBC 3.68 4.50 - 5.25 M/uL 10/20/2024 10:51 AM [facility] 56-02 HGB 10.5(L) 14.0 - 16.8 g/dL 10/20/2024 10:51 AM EST [facility] 56- HCT 33.0(L) 40.0 - 48.4 % 10/20/2024 10:51 AM [facility] 56- MCV 89.7 82.0 - 99.5 fL 10/20/2024 10:51 AM EST [facility] 56- MCH 28.5 27.0 - 34.0 pg 10/20/2024 10:51 AM EST [facility] 56- MCHC 31.8 32.0 - 36.0 g/dL 10/20/2024 10:51 AM [facility] 56- RDW 17.6 11.5 - 15.5 % 10/20/2024 10:51 AM [facility] 56- PLT 233 140 - 400 K/uL 10/20/2024 10:51 AM [facility] 56 MPV 9.2 6.6 - 11.1 fL 10/20/2024 10:51 AM [facility] 56 Blood Blood sample taken from central line / Unknown Central Line / Unknown 10/20/2024 10:43 AM EST 10/20/2024 10:47 AM EST Wilma Stern MD LAB BLOOD ORDERABLES Fin al Result [facility] 56 [address] [place] [address] * MAGNESIUM (10/20/2024 10:43 AM EST) Pathologist [facility] Magnesium 1.8 1.5 - 2.6 mg/dL 10/20/2024 11:08 AM EST [facility] 56 Blood Blood sample taken from central line / Unknown Central Line / Unknown 10/20/2024 10:43 AM EST 10/20/2024 10:47 AM EST Wilma Stern MD LAB BLOOD ORDERABLES Fin al Result [facility] [address] [place], [place] [phone] * (ABNORMAL) COMPREHENSIVE METABOLIC PANEL (10/20/2024 10:43 AM EST) BUN 32(H) 6 - 20 mg/dL 10/20/2024 11:08 AM [facility] 56 CREATININE 1.2 0.6 - 1.2 mg/dL 10/20/2024 11:[address] EGFR 64 >=60 mL/min 10/20/2024 11:08 AM [facility] 56 Comment:eGFR is calculated b ased on the CKD-EPI 2020 equation. SODIUM 140 135 - 146 mmol/L 10/20/2024 11:08 AM [facility] 56 POTASSIUM 4.3 3.5 - 5.1 mmol/L 10/20/2024 11:08 AM [facility] 56 CHLORIDE 104 98 - 107 mmol/L 10/20/2024 11:[address] CO2 24 22 - 32 mmol/L 10/20/2024 11:08 AM [facility] 56 ANION GAP 12 7 - 15 mmol/L 10/20/2024 11:[address] GLUCOSE 90 70 - 120 mg/dL 10/20/2024 11:08 AM [facility] 56 Albumin 3.8 3.8 - 5.0 g/dL 10/20/2024 11:[address] AST 40 10 - 50 U/L 10/20/2024 11:[address] Alkaline Phosphatase 139(H) 35 - 130 U/L 10/20/2024 11:08 AM [facility] 56 Bilirubin, Total 0.3 <=1.2 mg/dL 10/20/2024 11:08 AM [facility] 56 CALCIUM 9.2 8.4 - 10.2 mg/dL 10/20/2024 11:08 AM [facility] 56 Protein 7.1 6.0 - 8.3 g/dL 10/20/2024 11:08 AM [facility] 56 ALT 20 10 - 50 U/L 10/20/2024 11:08 AM EST [facility] 56-02 Blood Blood sample taken from central line / Unknown Central Line / Unknown 10/20/2024 10:43 AM EST 10/20/2024 10:47 AM EST Wilma Stern MD LAB BLOOD ORDERABLES Fin al Result [facility] 56- [address] [place] [address] documented in this encounter Visit Diagnoses Diagnosis 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)- Primary Malignant neoplasm of lower lobe, bronchus, or lung Encounter for antineoplastic chemotherapy documented in this encounter Administered Medications Active Administered Medications - up to 3 most recent administrations Medication Order MAR Action Action Date Dose Rate Site diphenhydrAMINE (Benadryl) inj 50 mg 50 mg, IV Push, ONCE PRN Other, Hypersensitivity Reaction, Starting on Sat10/20/24 at 1117, Until Sat10/21/24 at 1116, For 24 hoursIndications: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),Encounter for antineoplastic chemotherapy EPINEPHrine 1 MG/ML inj 0.3 mg 0.3 mg, Intramuscular, ONCE PRN Other, Hypersensitivity Reaction or Anaphylaxis, Starting on Sat10/20/24 at 1117, Until Sat10/21/24 at 1116, For 24 hoursIndications: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),Encounter for antineoplastic chemotherapy hEParin 100 UNIT/ML Lock Flush inj 500 Units 500 Units (5 mL), IV Lock, PRN Other, IV Flush, Starting on Sat10/20/24 at 1042, Until Sat10/21/24 at 1041, For 24 hours, Do not flush if lock, PICC, or central line not in place; IV infusing or unable to flush.Indications: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) hEParin 100 UNIT/ML Lock Flush inj 500 Units 500 Units (5 mL), IV Lock, PRN Other, IV Flush, Starting on Sat10/20/24 at 1117, Until Sat10/21/24 at 1116, For 24 hours, Do not flush if lock, PICC, or central line not in place; IV infusing or unable to flush.Indications: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),Encounter for antineoplastic chemotherapy Given 10/20/2024 12:21 PM EST 500 Units Hydrocortisone Sod Suc (PF) (Solu-Cortef) inj 100 mg 100 mg, IV Push, ONCE PRN Other, Hypersensitivity Reaction, Starting on Sat10/20/24 at 1117, Until Sat10/21/24 at 1116, For 24 hoursIndications: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),Encounter for antineoplastic chemotherapy NSS infusion Intravenous, at 50 mL/hr, PRN, Starting on Sat10/20/24 at 1230, Until Discontinued, Maintenance lineIndications: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),Encounter for antineoplastic chemotherapy Start Infusion 10/20/2024 11:26 AM EST 50 mL/hr oxygen GAS Inhalation, OXYGEN, First dose on Sat10/20/24 at 1600, Until Discontinued, Device/Managed by: Low Flow Device, [...] for antineoplastic chemotherapy sodium chloride 0.9 % flush central line 10 mL 10 mL, IV Push, PRN Other, IV Flush, Starting on Sat10/20/24 at 1042, Until Sat10/21/24 at 1041, For 24 hours, Do not flush if lock, PICC, or central line not in place; IV infusing or unable to flush.Indications: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) Given 10/20/2024 12:21 PM EST 10 mL sodium chloride 0.9 % flush central line 10 mL 10 mL, IV Push, PRN Other, IV Flush, Starting on Sat10/20/24 at 1117, Until Sat10/21/24 at 1116, For 24 hours, Do not flush if lock, PICC, or central line not in place; IV infusing or unable to flush.Indications: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),Encounter for antineoplastic chemotherapy Inactive Administered Medications - up to 3 [...] 11:38 AM EST 200 mg 226 mL/hr documented in this encounter Advance Directives Documents on File Type Date Recorded Patient Hospital Unit Clerk Expl anation Advance Directives and Living Will 12/20/2023 Durable Health Care POA & Living Will - signed on 12/01/2021 Power of Tree Surgeon Helper 12/20/2023 Durable Po wer of Tree Surgeon Helper - financial only ? - only [...] Relationshi p Communication Everette Spears Adult Child First Alternate Health Care Agent (per Health Care Power of Tree Surgeon Helper document) Care Teams Pompom Maker Relationship Specialty Start Date End Date Sage Lay MD PCP - General Family Medicine 06/19/13 documented as of this encounter
--- OUTSIDE RECORDS SUMMARY | 2025-01-25 07:57 | External Medical Summary | Summary of Care ---
Author Name Unknown Organization [facility] Address [address] [facility] [address] Phone [phone] Care Team Providers Care Hog Room Supervisor Name Role Phone Sage Lay MD Primary Care Provider [phone] Reason for Visit * Reason Comments Procedure Port access for CT Encounter Details Date Type Department Care Team (Late st Contact Info) Description 11/03/2024 10:00 AM EST Nurse Only Hematology/Oncology Treatment, [address] [phone] Park, Chair 11 Hem Onc [address] 200 [place] [address] Procedure (Port access for CT) Allergies No known active allergiesdocumented as of this encounter (statuses as of 11/03/2024) Medications apixaban (ELIQUIS) 5 MG TabletIndications: Persistent [...] .. 510 g 1 11/29/19 22 Active Folic Acid 1 MG Oral TabletIndications: 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) Take 1 Tablet by mouth in the morning. 30 Tablet 5 01/21/20 24 Active Lisinopril 10 MG Oral Tablet (Prinivil) [...] 24 025 Discontin ued(End of Procedure ) dexAMETHasone 4 MG Oral Tablet (Decadron)Indicati ons: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) Take 1 tablet twice a day for 3 days starting the day prior to chemotherapy 24 Tablet 01/21/20 24 025 Discontin ued(End of Procedure ) documented as of this encounter (statuses as of 11/03/2024) Active Problems Problem Noted Date Diagnosed Date [...] as of this encounter (statuses as of 11/03/2024) Resolved Problems Problem Noted Date Diagnosed Date Resolved Date History of atrial fibrillation 12/16/2017 01/16/2019 Chest discomfort 12/16/2017 01/16/2019 Persistent atrial fibrillation 10/29/2017 07/23/2018 documented as of this encounter (statuses as of 11/03/2024) Immunizations Name Administration Dates Next Due COVID-19 [...] 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 Port accessed with #19G 3/4" Bernabe without difficulty. Port with positive blood return. Flushes easily. Flushed with 20 ml NSS and green cap applied. Pt rylee well.Instructed to return for removal if not taken out at CT scan. Discharged in stable condition. documented in this encounter Plan of Treatment Upcoming Encounters Date Type Department Care Team (Late st Contact Info) Description 11/09/2024 10:00 AM EST Nurse Only Hematology/Oncology [address] [place] [phone] Demetrice, Chair 4 Hem Onc [facility] [address] [place] [address] [place] [address] 11/09/2024 10:30 AM EST Office Visit Hematology/Oncology [facility] 200 [facility] [place] [phone] Wilma Stern MD 200 [facility] [place] [address] 11/09/2024 11:00 AM EST Hem/Onc Treatment Hematology/[facility]cology Treatment, [place] [facility] [phone] Demetrice, Chair 10 Hem Onc [facility] 200 [facility] [place] [address] 06/23/2025 11:30 AM EDT Office Visit Cardiology, [facility] 132 [facility] [place] [phone] Sully Licona CRNP [address] [place] [address] [place] [phone] Scheduled Procedures Name Priority Associated Diagnoses Date/Ti [...] encounter Medical Devices Implanted Type Area Laser Systems Engineer Device Identifier Shelf Expiration Date Model / Serial / Lot Port Implant W8f Poly Cath - [id number] Implanted:Qty: 1 on 02/07/2024 by Giovani Cervantes MD at OR [facility] BARD : PERIPHERAL VASCULAR [id number] 02/27/2025 [id number] / / [id number] documented as of this encounter Visit Diagnoses [...] PRN IV Flush and Lock, Starting on Sat11/03/24 at 1032, Until Sat11/03/24 at 1044, Do not flush if lock, PICC, or [...] right lower lobe of lung (HCC) Given 11/03/2024 10:15 AM EST 20 mL documented in this encounter Advance Directives Documents on File Type Date Recorded Patient Decorator Consultant Expl anation Advance Directives and Living Will 12/20/2023 Everette Spears Durable Health Care POA & Living Will - signed on 12/01/2021 Power of Fiscal Specialist 12/20/2023 Durable Po wer of Fiscal Specialist - financial only ? - only [...] Agen t (per Health Care Power of Fiscal Specialist document) Care Teams Hog Room Supervisor Relationship Specialty Start Date End Date Sage Lay MD PCP - General Family Medicine 06/19/13 documented as of this encounter
--- OUTSIDE RECORDS SUMMARY | 2025-01-25 07:57 | External Medical Summary | Summary of Care ---
Author Name Unknown Organization [facility] Address [address] [facility] [place] [address] Phone [phone] Care Team Providers Care Senior Cost Estimator Name Role Phone Sage Lay MD Primary Care Provider [phone] Reason for Visit * Reason Onset Date Comments FYI 10/20/2024 Leena Encounter Details Date Type Department Care Team (Late st Contact Info) Description 10/20/2024 Telephone Hematology/Oncology [facility] [place] [address] [place] [phone] Services, Scheduling [address] [place] [address] (Leena) Allergies No known active allergiesdocumented as of this encounter (statuses as of 10/21/2024) Medications apixaban (ELIQUIS) 5 MG TabletIndications: Persistent [...] TABLET BY MOUTH EVERY MORNING 100 Tablet 4 12:04 PM EDT 07/28/20 24 025 Active documented as of this encounter (statuses as of 10/21/2024) Active Problems Problem Noted Date Diagnosed Date [...] as of this encounter (statuses as of 10/21/2024) Resolved Problems Problem Noted Date Diagnosed Date Resolved Date History of atrial fibrillation 12/16/2017 01/16/2019 Chest discomfort 12/16/2017 01/16/2019 Persistent atrial fibrillation 10/29/2017 07/23/2018 documented as of this encounter (statuses as of 10/21/2024) Immunizations Name Administration Dates Next Due COVID-19 [...] 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 They are black leather and could possibly be in the waiting room or on the window sill behind the chair where he had his treatment. Iffound, please call him at [phone] documented in this encounter Plan of Treatment Upcoming Encounters Date Type Department Care Team (Late st Contact Info) Description 11/03/2024 10:00 AM EST Nurse Only Hematology/Oncology [address], [address] [phone] Demetrice Chair 11 Hem Onc [facility] [place] [address] 11/03/2024 10:30 AM EST Imaging Radiology [facility] 1st Floor, [place] [address] [place] [phone] 11/03/2024 11:30 AM EST Nurse Only Hematology/Oncology Treatment, [place] [facility] [phone] Demetrice Chair 11 Hem Onc [address] [place] [address] 11/03/2024 12:00 PM EST Office Visit Cardiology, [facility] [address] [place] [address] Sully Licona CRNP 400 [facility] [place] [phone] 11/09/2024 10:00 AM EST [facility] 200 [facility], [place] [phone] Demetrice, Chair 4 Hem Onc [facility] 200 [facility] [place] [place] [address] 11/09/2024 10:30 AM EST Office Visit Hematology/Oncology [facility] [address] [place] [phone] Wilma Stern MD [address] [place] [address] 11/09/2024 11:00 AM EST Hem[facility]Onc [facility] 200 [facility], [place] [phone] Demetrice, Chair 10 Hem Onc [facility] 200 [facility] [place] [address] Scheduled Procedures Name Priority Associated Diagnoses Date/Ti [...] this encounter Medical Devices Implanted Type Area Real Estate Operations Manager Device Identifier Shelf Expiration Date Model / Serial / Lot Port Implant W8f Poly Cath - [id number] Implanted:Qty: 1 on 02/07/2024 by Giovani Cervantes MD at OR [facility] BARD : PERIPHERAL VASCULAR [id number] 02/27/2025 [id number] / / [id number] documented as of this encounter Advance Directives Documents on File Type Date Recorded Patient Burrer Hand Expl anation Advance Directives and Living Will 12/20/2023 Durable Health Care POA & Living Will - signed on 12/01/2021 Power of Processing Lead 12/20/2023 Durable Po wer of Processing Lead - financial only ? - only 1 [...] Agents on File Name Relationship Healthcare Agent [facility] p Communication Everette Spears Adult Child First Alternate Health Care Agent (per Health Care Power of Processing Lead document) Care Teams Senior Cost Estimator Relationship Specialty Start Date End Date Sage Lay MD PCP - General Family Medicine 06/19/13 documented as of this encounter
--- OUTSIDE RECORDS SUMMARY | 2025-01-25 07:57 | External Medical Summary | Summary of Care ---
Author Name Unknown Organization [facility] Address [address] [facility] [place] [address] Phone [phone] Care Team Providers Care Software Support Representative Name Role Phone Sage Lay MD Primary Care Provider [phone] Encounter Details Date Type Department Care Team (Late st Contact Info) Description 10/19/2024 Population Health External Data Unspecified Department Allergies No known active allergiesdocumented as of this encounter (statuses as of 10/19/2024) Medications apixaban (ELIQUIS) 5 MG TabletIndications: Persistent [...] as of this encounter (statuses as of 10/19/2024) Active Problems Problem Noted Date Diagnosed Date [...] as of this encounter (statuses as of 10/19/2024) Resolved Problems Problem Noted Date Diagnosed Date Resolved Date History of atrial fibrillation 12/16/2017 01/16/2019 Chest discomfort 12/16/2017 01/16/2019 Persistent atrial fibrillation 10/29/2017 07/23/2018 documented as of this encounter (statuses as of 10/19/2024) Immunizations Name Administration Dates Next Due COVID-19 [...] 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 on 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 Not [...] 11:15 AM EST Nurse Only Hematology/Oncology Treatment, [place] [address] [place] [address] Demetrice, Chair 8 Hem Onc Scenery 200 [facility] [place], [place] [address] 10/20/2024 11:45 AM EST Hem/Onc Treatment Hematology/Oncology Treatment, [place] 200 [facility], [place] [phone] Demetrice, Chair 7 Hem Onc Scenery [address] [place], [place] [address] 11/03/2024 10:30 AM EST Imaging [facility] [address] [facility] [place] [phone] 11/03/2024 12:00 PM EST Office Visit Cardiology, [facility] 132 [facility] [place] [address] Sully Licona CRNP [address] [place] [address] 11/10/2024 10:30 AM EST Nurse Only Hematology/Oncology Treatment, [address], [place] [phone] Demetrice, Chair 5 Hem Onc Scenery 200 [facility] [place], [place] [address] 11/10/2024 11:00 AM EST Office Visit Hematology/Oncology [facility] [place] 200 [facility] [place], [place] [phone] Concetta Rachel CRNP [address] [place] [address] 11/10/2024 11:30 AM EST Hem/Onc Treatment Hematology/Oncology Treatment, [place] 200 [facility], [place] [phone] Demetrice, Chair 10 Hem Onc Scenery [address] [place], [place] [address] Scheduled Procedures Name Priority Associated Diagnoses Date/Ti [...] 12/24/2023 Albumin/Creatinine Ratio 05/31/2025 05/31/2022, 05/2020 GFR 09/29/2025 09/29/2024, 08/30, 08/18/2024, Additional history [...] this encounter Medical Devices Implanted Type Area Event Executive Device Identifier Shelf Expiration Date Model / Serial / Lot Port Implant W8f Poly Cath - [id number] Implanted:Qty: 1 on 02/07/2024 by Giovani Cervantes MD at OR [facility] BARD : PERIPHERAL VASCULAR [id number] 02/27/2025 [id number] / / [id number] documented as of this encounter Advance Directives Documents on File Type Date Recorded Patient Roadability Machine Operator Expl anation Advance Directives and Living Will 12/20/2023 Durable Health Care POA & Living Will - signed on 12/01/2021 Power of Wheel Buffer 12/20/2023 Durable Po wer of Wheel Buffer - financial only ? - only 1 [...] Care Agent (per Health Care Power of Wheel Buffer document) Care Teams Software Support Representative Relationship Specialty Start Date End Date Sage Lay MD PCP - General Family Medicine 06/19/13 documented as of this encounter
--- OUTSIDE RECORDS SUMMARY | 2025-01-25 07:57 | External Medical Summary ---
Author Name Unknown Address Unknown Organization [id number]:[facility] [place] [address] Laboratory Report Ordering Provider Test Date Status BHARATI VERDUGO 10/20/2024 10:43:15 Final Observation Date Value Abnormality Reference (Units ) Status SYNC LEUKOCYTES IN BLOOD BY AUTOMATED COUNT 10/20/2024 10:43:15 8.45 4.00-10.80 (K/uL) Final Segs 10/20/2024 10:43:15 70.7 40.0-75.0 (%) Final Lymphs % 10/20/2024 10:43:15 17.9 Below low normal 18.0-42.0 (%) Final Monos 10/20/2024 10:43:15 8.6 1.0-11.0 (%) Final Eosinophils 10/20/2024 10:43:15 2.4 0.0-6.0 (%) Final Basos 10/20/2024 10:43:15 0.4 0.0-2.0 (%) Final Absolute Segs 10/20/2024 10:43:15 5.98 1.80-7.70 (K/uL) Final Lymphs, absolute 10/20/2024 10:43:15 1.51 1.00-4.80 (K/ul) Final Monos, Abs 10/20/2024 10:43:15 0.73 0.00-1.10 (K/uL) Final Eos, Abs 10/20/2024 10:43:15 0.20 0.00-0.70 (K/uL) Final Basos, Abs 10/20/2024 10:43:15 0.03 0.00-0.20 (K/uL) Final Performing Location [facility] [place] [address]
--- OUTSIDE RECORDS SUMMARY | 2025-01-25 07:57 | External Medical Summary | Summary of Care ---
Author Name Unknown Organization [facility] Address [address] [place] [address] Phone [phone] Care Team Providers Care Director Money Name Role Phone Humera Lay MD Primary Care Provider [phone] Reason for Visit * Reason Comments Medication Refill Encounter Details Date Type Department Care Team (Late st Contact Info) Description 10/28/2024 Refill [facility] [address] [facility] [place] [phone] Humera Lay MD [address] [facility] [place] [address] Other hyperlipidemia Allergies No known active allergiesdocumented as of this encounter (statuses as of 10/30/2024) Medications apixaban (ELIQUIS) 5 MG TabletIndications: Persistent [...] 3:42 PM EST 10/30/19 25 026 Active Atorvastatin Calcium 20 MG Oral Tablet (Lipitor)Indicatio ns:Other hyperlipidemia TAKE ONE TABLET BY MOUTH EVERY MORNING 100 Tablet 4 12:04 PM EDT 07/28/20 24 025 Discontin ued(Refil l) documented as of this encounter (statuses as of 10/30/2024) Active Problems Problem Noted Date Diagnosed Date [...] as of this encounter (statuses as of 10/30/2024) Resolved Problems Problem Noted Date Diagnosed Date Resolved Date History of atrial fibrillation 12/16/2017 01/16/2019 Chest discomfort 12/16/2017 01/16/2019 Persistent atrial fibrillation 10/29/2017 07/23/2018 documented as of this encounter (statuses as of 10/30/2024) Immunizations Name Administration Dates Next Due COVID-19 [...] 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 on file Not [...] encounter Miscellaneous Notes * Telephone Encounter - Mary Cm [facility] - 10/30/2024 12:40 PM EST Signed Prescriptions: Disp Refills Atorvastatin Calcium 20 MG Oral Tablet (Li*100 Ta*1 Sig: TAKE ONE TABLET BY MOUTH EVERY MORNINGAuthorizing Provider: HUMERA LAY User: MARY CM * Telephone Encounter - Mary Cm [facility] - 10/30/2024 12:40 PM EST Signed Prescriptions: Disp Refills Atorvastatin Calcium 20 MG Oral Tablet (Li*100 Ta*1 Sig: TAKE ONE TABLET BY MOUTH EVERY MORNINGAuthorizing Provider: HUMERA LAY User: MARY CM * Telephone Encounter - Angie Dukes, card fixer - 10/30/2024 12:27 PM EST Pharmacy is requesting a 90-day supply, pre-edited RXs as such. Please review and approve if appropriate. Pending Prescriptions: Disp Refills Atorvastatin Calcium 20 MG Oral Tablet (L*100 Ta*0 Sig: TAKE ONE TABLET BY MOUTH EVERY MORNING Last Visit: Visit date not found (in office), Visit date not found (telemedicine) Visit date not found If no future appointments scheduled, and last appointment is greater than a year ago, please schedule patient for an appointment Last date the medication was ordered: 07/28/2024 Patient Phone Numbers Labs: Lab Results Component Value Date/Time CREAT 1.2 10/20/2024 10:43 AM CREAT 0.8 12/28/2020 12:00 AM CREAT 1.0 07/06/2020 10:29 AM POTASSIUM 4.3 10/20/2024 10:43 AM POTASSIUM 4.3 12/28/2020 12:00 AM POTASSIUM 4.4 07/06/2020 10:29 AM TSH 7.09 (H) 10/20/2024 10:43 AM TSH 1.64 12/28/2020 12:00 AM TSH 1.80 10/15/2017 02:09 PM LDL 64 07/17/2023 07:50 AM LDL 65 07/20/2019 08:59 AM LDL NOT APPLICABLE 07/20/2019 08:59 AM LDLCALC 77 12/28/2020 12:00 AM ALT 20 10/20/2024 10:43 AM ALT 30 07/20/2019 08:59 AM HGBA1C 5.8 12/28/2020 12:00 AM documented in this encounter Plan of Treatment Upcoming Encounters Date Type Department Care Team (Late st Contact Info) Description 11/03/2024 10:00 AM EST Nurse Only Hematology/Oncology Treatment, [place] [address] [place] [phone] [place], Chair 11 Hem Onc [place] [address] [place] [address] 11/03/2024 10:30 AM EST Imaging Radiology [facility] 1st [facility] [place] [address] [place] [phone] 11/03/2024 11:30 AM EST Nurse Only Hematology/Oncology Treatment, [place] 200 [place] [phone] Demetrice, Chair 11 Hem Onc Scenery [address] [place], [place] [address] 11/03/2024 12:00 PM EST Office Visit Cardiology, [facility] [address] [facility] [place] [address] Sully Licona CRNP 400 [facility] [place] [address] 11/09/2024 10:00 AM EST Nurse Only Hematology/Oncology Treatment, [place] 200 [facility], [place] [phone] Demetrice, Chair 4 Hem Onc [facility] 200 [facility] [place] [address] 11/09/2024 10:30 AM EST Office Visit Hematology/Oncology [facility] [address] [place], [place] [phone] Wilma Stern MD [address] [place], [place] [address] 11/09/2024 11:00 AM EST Hem[facility] 200 [facility], [place] [phone] Demetrice, Chair 10 Hem Onc [facility] 200 [facility] [place], [place] [address] Scheduled Orders Name Type Priority Associated Diagnoses Orde r Schedule LIPID PANEL WITH DIRECT LDL IF TG IS HIGH Lab Routine Other hyperlipidemia Expected: 12/25/2024 (Approximate), Expires: 10/30/2025 Scheduled Procedures Name Priority Associated Diagnoses Date/Ti [...] this encounter Medical Devices Implanted Type Area Planetarium Technician Device Identifier Shelf Expiration Date Model / Serial / Lot Port Implant W8f Poly Cath - [id number] Implanted:Qty: 1 on 02/07/2024 by Giovani Cervantes MD at OR [facility] BARD : PERIPHERAL VASCULAR [id number] 02/27/2025 [id number] / / [id number] documented as of this encounter Visit Diagnoses Diagnosis Other hyperlipidemia documented in this encounter Advance Directives Documents on File Type Date Recorded Patient Manager Of Software Development Expl anation Advance Directives and Living Will 12/20/2023 Everette Spears Durable Health Care POA & Living Will - signed on 12/01/2021 Power of Fitness Consultant 12/20/2023 Durable Po wer of Fitness Consultant - financial only ? - only 1 [...] Agen t (per Health Care Power of Fitness Consultant document) Care Teams Director Money Relationship Specialty Start Date End Date Humera Lay MD PCP - General Family Medicine 06/19/13 documented as of this encounter
--- OUTSIDE RECORDS SUMMARY | 2025-01-25 07:57 | External Medical Summary | Summary of Care ---
Author Name Unknown Organization [facility] Address [address] [facility] [place] [address] Phone [phone] Care Team Providers Care Assistant Reading Teacher Name Role Phone Sage Lay MD Primary Care Provider [phone] Reason for Visit * Reason Onset Date Comments FYI 10/20/2024 [place] Encounter Details Date Type Department Care Team (Late st Contact Info) Description 10/20/2024 Telephone Hematology/Oncology [facility] [place] [address] [facility] [phone] [facility], Scheduling [address] [place] [address] ([place]) Allergies No known active allergiesdocumented as [...] 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 Iffound, please call him at [phone] documented in this encounter Plan of Treatment Upcoming Encounters Date Type Department Care Team (Late st Contact Info) Description 11/03/2024 10:00 AM EST Nurse Only Hematology/Oncology Treatment, [address], [place] [phone] Demetrice, Chair 11 Hem On[address] [place] [address] 11/03/2024 10:30 AM EST Imaging Radiology [facility] 1st [facility] 132 [facility] [place] [phone] 11/03/2024 11:30 AM EST Nurse Only Hematology/Oncology Treatment, [place] 200 [place] [phone] Demetrice, Chair 11 Hem On[address] [place] [address] 11/03/2024 12:00 PM EST Office Visit Cardiology, [facility] 132 [facility] [place] [address] Sully Licona CRNP [address] [place] [address] [place] [phone] 11/09/2024 10:00 AM EST Nurse Only Hematology/Oncology Treatment, [place] [address] [place], [place] [phone] Demetrice, Chair 4 Hem Onc Scenery [address] [place] [address] 11/09/2024 10:30 AM EST Office Visit Hematology/Oncology [facility] [place] [address] [place] [phone] Wilma Stern MD [address] [place] [address] 11/09/2024 11:00 AM EST Hem/Onc Treatment Hematology/Oncology Treatment, [place] 200 [facility] [place], [place] [phone] Demetrice, Chair 10 Hem Onc [address] [place] [address] Scheduled Procedures Name Priority Associated Diagnoses Date/Ti [...] this encounter Medical Devices Implanted Type Area Savings Teller Device Identifier Shelf Expiration Date Model / Serial / Lot Port Implant W8f Poly Cath - [id number] Implanted:Qty: 1 on 02/07/2024 by Giovani Cervantes MD at [facility] BARD : PERIPHERAL VASCULAR [id number] 02/27/2025 [id number] / / [id number] documented as of this encounter Advance Directives Documents on File Type Date Recorded Patient Sawmill Supervisor Expl anation Advance Directives and Living Will 12/20/2023 Durable Health Care POA & Living Will - signed on 12/01/2021 Power of Data Power Consultant 12/20/2023 Durable Po wer of Data Power Consultant - financial only ? - only [...] Agents on File Name Relationship Healthcare Agent [facility] p Communication Everette Spears Adult Child First Alternate Health Care Agent (per Health Care Power of Data Power Consultant document) Care Teams Assistant Reading Teacher Relationship Specialty Start Date End Date Rozick, Sage S, MD PCP - General Family Medicine 06/19/13 documented as of this encounter
--- OUTSIDE RECORDS SUMMARY | 2025-01-25 07:57 | External Medical Summary ---
Author Name Unknown Address Unknown Organization K09:[facility] [place] [address] Laboratory Report Ordering Provider Test Date Status BHARATI VERDUGO 10/20/2024 10:43:15 Final Observation Date Value Abnormality Reference (Units ) Status WBC, Total 10/20/2024 10:43:15 8.45 4.00-10.8 0 (K/uL) Final RBC 10/20/2024 10:43:15 3.68 4.50-5.25 (M/uL) Final Hemoglobin 10/20/2024 10:43:15 10.5 Below low normal 14 .0-16.8 (g/dL) Final HCT 10/20/2024 10:43:15 33.0 Below low normal 40. 0-48.4 (%) Final MCV 10/20/2024 10:43:15 89.7 82.0-99.5 (fL) Final MCH 10/20/2024 10:43:15 28.5 27.0-34.0 (pg) Final MCHC 10/20/2024 10:43:15 31.8 32.0-36.0 (g/dL) Final RDW 10/20/2024 10:43:15 17.6 11.5-15.5 (%) Final Platelets 10/20/2024 10:43:15 233 140-400 (K /uL) Final MPV 10/20/2024 10:43:15 9.2 6.6-11.1 ( fL) Final Performing Location [facility] [place] [address]
--- OUTSIDE RECORDS SUMMARY | 2025-01-25 07:57 | External Medical Summary ---
Author Name Unknown Address Unknown Organization K09:[facility] [place] [address] [place] [address] Laboratory Report Ordering Provider Test Date Status BHARATI VERDUGO 10/20/2024 10:43:15 Final Observation Date Value Abnormality Reference (Units ) Status BUN 10/20/2024 10:43:15 32 Above high normal 6-20 (mg/dL) Final Creatinine 10/20/2024 10:43:15 1.2 0.6-1.2 (mg/dL) Final Glomerular filtration rate/1.73 sq M.predicted [Volume Rate/Area] in Serum, Plasma or Blood by Creatinine-based formula (CKD-EPI) 10/20/2024 10:43:15 64 >=60 (mL/min) Final eGFR is calculated based on the CKD-EPI 2020 equation. Sodium 10/20/2024 10:43:15 140 135-146 (m mol/L) Final Potassium 10/20/2024 10:43:15 4.3 3.5-5.1 (m mol/L) Final Cl 10/20/2024 10:43:15 104 98-107 (mm ol/L) Final CO2 10/20/2024 10:43:15 24 22-32 (mmo l/L) Final Anion gap 10/20/2024 10:43:15 12 7-15 (mmol /L) Final Glucose 10/20/2024 10:43:15 90 70-120 (mg /dL) Final Albumin 10/20/2024 10:43:15 3.8 3.8-5.0 (g /dL) Final AST (Aspartate aminotransferase) 10/20/2024 10:43:15 40 10-50 (U/L) Fin al Alk Phos 10/20/2024 10:43:15 139 Above high normal 35 -130 (U/L) Final Bilirubin, Total 10/20/2024 10:43:15 0.3 <=1 .2 (mg/dL) Final Calcium 10/20/2024 10:43:15 9.2 8.4-10.2 ( mg/dL) Final Protein 10/20/2024 10:43:15 7.1 6.0-8.3 (g /dL) Final ALT (Alanine aminotransferase) 10/20/2024 10:43:15 20 10-50 (U/L) Geo mir Performing Location [facility] [address] [place] [address]
--- OUTSIDE RECORDS SUMMARY | 2025-01-25 07:57 | External Medical Summary ---
Author Name Unknown Address Unknown Organization K09:[facility] [place] [address] Laboratory Report Ordering Provider Test Date Status BHARATI VERDUGO 10/20/2024 10:43:15 Final Observation Date Value Abnormality Reference (Units ) Status Magnesium 10/20/2024 10:43:15 1.8 1.5-2.6 (m g/dL) Final Performing Location [facility] [place] [address]
--- OUTSIDE RECORDS SUMMARY | 2025-01-25 07:57 | External Medical Summary ---
Author Name Unknown Address Unknown Organization K01:[facility]ATORY [facility] [place] [address] [facility] [address] Laboratory Report Ordering Provider Test Date Status BHARATI VERDUGO 10/20/2024 10:43:15 Final Observation Date Value Abnormality Reference (Units ) Status TSH 10/20/2024 10:43:15 7.09 Above high normal 0. 27-4.20 (uIU/mL) Final Performing Location [facility]ORY [facility] [place] [address] [facility] [address]
--- OUTSIDE RECORDS SUMMARY | 2025-01-25 07:57 | External Medical Summary | Summary of Care ---
Author Name Unknown Organization [facility] Address [address] [facility] [place] [address] Phone [phone] Care Team Providers Care Continuous Miner Operator Name Role Phone Sage Lay MD Primary Care Provider Reason for Visit * Reason Onset Date Comments Medication Refill 11/04/2024 Encounter Details Date Type Department Care Team (Late st Contact Info) Description 11/04/2024 Refill Hematology/Oncology Treatment, [place] 200 [place] [phone] Wilma Stern MD 200 [place] [address] Primary malignant neoplasm of right lower lobe [...] the morning. 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 * Telephone Encounter - Radha Cazares LPN - 11/04/2024 2:50 PM EST Refill request for Folic Acid 1 mg tab pended below: Last Refill: 01/21/2024 Last seen: 09/29/2024 Next Appt.: 11/09/2024 Requesting: Patient documented in this encounter Plan of Treatment Upcoming Encounters Date Type Department Care Team (Late st Contact Info) Description 11/09/2024 10:00 AM EST Nurse Only Hematology/Oncology Treatment, [address], [place] [phone] Demetrice, Chair [address] Hem [address] [place], [place] [address] 11/09/2024 10:30 AM EST Office Visit Hematology/Oncology [facility] [place] [address] [address] [place], [place] [phone] Wilma Stern MD 200 [facility] [place], [place] [address] 11/09/2024 11:00 AM EST Hem/Onc Treatment Hematology/Oncology Treatment, [place] 200 [facility], [place] [phone] Demetrice, Chair 3 Hem Onc [place] [address] [address] [place], [place] [address] 06/23/2025 11:30 AM EDT Office Visit Cardiology, [facility] [address] [place] [address] Sully Licona CRNP [address] [place] [address] [place] [address] Scheduled Procedures Name Priority [...] this encounter Medical Devices Implanted Type Area Chalk Molding Machine Operator Device Identifier Shelf Expiration Date Model / Serial / Lot Port Implant W8f Poly Cath - [id number] Implanted:Qty: 1 on 02/07/2024 by Giovani Cervantes MD at OR [facility] BARD : PERIPHERAL VASCULAR [id number] 02/27/2025 [id number] / / [id number] documented as of this encounter Visit Diagnoses Diagnosis 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 - only 1 [...] Agen t (per Health Care Power of Inspector Material Disposition document) Care Teams Continuous Miner Operator Relationship Specialty Start Date End Date Sage Lay MD PCP - General Family Medicine 06/19/13 documented as of this encounter
--- OUTSIDE RECORDS SUMMARY | 2025-01-25 07:58 | External Medical Summary ---
Author Name Unknown Address Unknown Organization K01:[facility] - [address] [place] [address] Laboratory Report Ordering Provider Test Date Status BHARATI VERDUGO 09/29/2024 11:15:41 Final Observation Date Value Abnormality Reference (Units ) Status T4, Free 09/29/2024 11:15:41 1.0 0.9-1.7 (n g/dL) Final Performing Location [facility] - [address] [place] [address]
--- OUTSIDE RECORDS SUMMARY | 2025-01-25 07:58 | External Medical Summary ---
Author Name Unknown Address Unknown Organization K09:[facility] [place] [address] Laboratory Report Ordering Provider Test Date Status BHARATI VERDUGO 09/29/2024 11:15:41 Final Observation Date Value Abnormality Reference (Units ) Status Magnesium 09/29/2024 11:15:41 1.6 1.5-2.6 (m g/dL) Final Performing Location [facility] [place] [address]
--- OUTSIDE RECORDS SUMMARY | 2025-01-25 07:58 | External Medical Summary ---
Author Name Unknown Address Unknown Organization K09:[facility] [place] [address] Laboratory Report Ordering Provider Test Date Status BHARATI VERDUGO 09/08/2024 10:08:59 Final Observation Date Value Abnormality Reference (Units ) Status Magnesium 09/08/2024 10:08:59 1.6 1.5-2.6 (m g/dL) Final Performing Location [facility] [place] [address]
--- OUTSIDE RECORDS SUMMARY | 2025-01-25 07:58 | External Medical Summary | Summary of Care ---
Author Name Unknown Organization [facility] Address [address] [facility] [place] [address] Phone [phone] Care Team Providers Care Parking Regulation Enforcement Officer Name Role Phone Sage Lay MD Primary Care Provider [phone] Reason for Visit * Reason Comments Procedure Labs from port Chemotherapy Keytruda * Episode Based Medications (Routine) - Authorized Specialty Diagnoses / Procedures Referred By Contkatharina t Referred To Contact Diagnoses 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) Encounter for antineoplastic chemotherapy Procedures VA INJ. PEMETREXED NOS 10MG VA CISPLATIN 10 MG INJECTION VA INJ PEMBROLIZUMAB VA FOSAPREPITANT INJECTION Wilma Stern MD [address] [place] [address] [place] [address] Phone: tel: fax: Hematology/Oncology Treatment, [address] [place] [address] Phone: tel: fax: Referral ID Status Reason Start Date Expiration Date V isits Requested Visits Authorized [id number] Authorized 01/21/2024 01/15/2025 [id number] Encounter Details Date Type Department Care Team (Latest Contact Info) Description 09/08/2024 10:00 AM EST Hem/Onc Treatment Hematology/Oncolog [address], [address] [address] Demetrice, Chair 1 Hem Onc [address] [place] [phone] Encounter for antineoplastic chemotherapy*; 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) Allergies No known active allergiesdocumented as of this encounter (statuses as of 09/08/2024) Medications apixaban (ELIQUIS) 5 MG TabletIndications: Persistent [...] MOUTH EVERY MORNING 90 Tablet 3 4 3:57 PM EDT 03/19/20 24 025 Active Atorvastatin Calcium 20 MG Oral Tablet (Lipitor)Indicatio ns:Other hyperlipidemia TAKE ONE TABLET BY MOUTH EVERY MORNING 100 Tablet 12:04 PM EDT 07/28/20 025 Active documented as of this encounter (statuses as of 09/08/2024) Active Problems Problem Noted Date Diagnosed Date [...] as of this encounter (statuses as of 09/08/2024) Resolved Problems Problem Noted Date Diagnosed Date Resolved Date History of atrial fibrillation 12/16/2017 01/16/2019 Chest discomfort 12/16/2017 01/16/2019 Persistent atrial fibrillation 10/29/2017 07/23/2018 documented as of this encounter (statuses as of 09/08/2024) Immunizations Name Administration Dates Next Due COVID-19 [...] 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 on file Not [...] in this encounter Nursing Notes * Hanny Zargaoza RN - 09/08/2024 11:59 AM EST Infusion [...] Care Team (Late st Contact Info) Description 09/29/2024 1:30 PM EST Nurse Only Hematology/Oncology Treatment, [address] [place] [phone] Park, Chair 1 Hem Onc [address] [place] [address] 09/29/2024 2:00 PM EST Office Visit Hematology/Oncology [address] [place] [phone] Wilma Stern MD [address] [facility] [place] [address] 09/29/2024 2:30 PM EST Hem/Onc Treatment Hematology/Oncology Treatment, [address] [place] [phone] Demetrice, Chair 10 Hem Onc [address] [place] [address] Pending Results Name Type Priority Associated Diagnoses Date /Time TSH WITH FREE T4 IF INDICATED Lab STAT 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) 09/08/2024 10:08 AM EST Scheduled Procedures Name Priority Associated [...] Albumin/Creatinine Ratio 05/31/2025 05/31/2022, 11/0 05/2020 GFR 09/08/2025 09/08/2024, 07/31, 07/28/2024, Additional history exists Colonoscopy 02/19/2027 02/19/2022, 01/29, 01/13/2014 DTap/Tdap Vaccines (3 - Td or Tdap) 11/28/2032 11/28/2022, 04/30/2012 Pneumococcal Vaccine: 65+ Years Completed 07/24/2019, 07/11/2016, 04/22/2014 Zoster Vaccines [...] this encounter Medical Devices Implanted Type Area Die Engraving Supervisor Device Identifier Shelf Expiration Date Model / Serial / Lot Port Implant W8f Poly Cath - [id number] Implanted:Qty: 1 on 02/07/2024 by Giovani Cervantes MD at OR [facility] BARD : PERIPHERAL VASCULAR [id number] 02/27/2025 [id number] / / [id number] documented as of this encounter Procedures Procedure [...] this encounter Results * (ABNORMAL) DIFFERENTIAL, AUTOMATED (09/08/2024 10:08 AM EST) WBC 8.71 4.00 - 10.80 K/uL 09/08/2024 10:14 AM EST [facility] 56-02 Neutrophils % 72.7 40.0 - 75.0 % 09/08/2024 10:14 AM EST [facility] 56-02 Lymphocytes % 14.6(L) 18.0 - 42.0 % 09/08/2024 10:14 AM EST [facility] 56-02 Monocytes % 8.2 1.0 - 11.0 % 09/08/2024 10:14 AM EST [facility] 56-02 Eosinophils % 4.0 0.0 - 6.0 % 09/08/2024 10:14 AM EST [facility] 56-02 Basophils % 0.5 0.0 - 2.0 % 09/08/2024 10:14 AM EST [facility] 56-02 Absolute Neutrophils 6.34 1.80 - 7.70 K/uL 09/08/2024 10:14 AM EST [facility] 56-02 Absolute Lymphocytes 1.27 1.00 - 4.80 K/ul 09/08/2024 10:14 AM EST [facility] [place] 56-02 Absolute Monocytes 0.71 0.00 - 1.10 K/uL 09/08/2024 10:14 AM EST [facility]-02 Absolute Eosinophils 0.35 0.00 - 0.70 K/uL 09/08/2024 10:14 AM [facility] 56 Absolute Basophils 0.04 0.00 - 0.20 K/uL 09/08/2024 10:14 AM [facility] 56 Blood Venous blood specimen / Unknown Central Line / Unknown 09/08/2024 10:08 AM EST 09/08/2024 10:11 AM EST Wilma Stern MD LAB BLOOD ORDERABLES Fin al Result [address] [place] [address] * (ABNORMAL) CBC (09/08/2024 10:08 AM EST) WBC 8.71 4.00 - 10.80 K/uL 09/08/2024 10:[address] RBC 3.28 4.50 - 5.25 M/uL 09/08/2024 10:[address] HGB 9.2(L) 14.0 - 16.8 g/dL 09/08/2024 10:[address] HCT 29.3(L) 40.0 - 48.4 % 09/08/2024 10:14 AM [facility] 56 MCV 89.3 82.0 - 99.5 fL 09/08/2024 10:[address] MCH 28.0 27.0 - 34.0 pg 09/08/2024 10:14 AM [facility] 56 MCHC 31.4 32.0 - 36.0 g/dL 09/08/2024 10:14 AM [facility] 56 RDW 16.5 11.5 - 15.5 % 09/08/2024 10:14 AM [facility] 56 PLT 251 140 - 400 K/uL 09/08/2024 10:14 AM [facility] 56 MPV 8.9 6.6 - 11.1 fL 09/08/2024 10:14 AM [facility] 56 Blood Venous blood specimen / Unknown Central Line / Unknown 09/08/2024 10:08 AM EST 09/08/2024 10:11 AM EST Wilma Stern MD LAB BLOOD ORDERABLES Fin al Result Performing Organization Address City/[facility]/ZIP Co de Phone Number [place] [address] [address] [place] [address] * MAGNESIUM (09/08/2024 10:08 AM EST) Magnesium 1.6 1.5 - 2.6 mg/dL 09/08/2024 10:41 AM EST [facility] Blood Venous blood specimen / Unknown Central Line / Unknown 09/08/2024 10:08 AM EST 09/08/2024 10:11 AM EST Wilma Stern MD LAB BLOOD ORDERABLES Fin al Result Performing Organization Address [facility] de Phone Number [place] [address] [address] [place] [address] * (ABNORMAL) COMPREHENSIVE METABOLIC PANEL (09/08/2024 10:08 AM EST) BUN 24(H) 6 - 20 mg/dL 09/08/2024 10:41 AM EST [address] CREATININE 1.2 0.6 - 1.2 mg/dL 09/08/2024 10:41 AM [facility] 56 EGFR 62 >=60 mL/min 09/08/2024 10:41 AM [facility] 56 Comment:eGFR is calculated b ased on the CKD-EPI 2020 equation. SODIUM 137 135 - 146 mmol/L 09/08/2024 10:41 AM EST [facility] 56- POTASSIUM 4.0 3.5 - 5.1 mmol/L 09/08/2024 10:41 AM EST [facility] 56- CHLORIDE 102 98 - 107 mmol/L 09/08/2024 10:41 AM EST [facility] 56 CO2 25 22 - 32 mmol/L 09/08/2024 10:41 AM [facility] 56 ANION GAP 10 7 - 15 mmol/L 09/08/2024 10:[address] GLUCOSE 132(H) 70 - 120 mg/dL 09/08/2024 10:[address] Albumin 3.6(L) 3.8 - 5.0 g/dL 09/08/2024 10:[address] AST 29 10 - 50 U/L 09/08/2024 10:[address] Alkaline Phosphatase 128 35 - 130 U/L 09/08/2024 10:[address] Bilirubin, Total 0.3 <=1.2 mg/dL 09/08/2024 10:[address] CALCIUM 9.0 8.4 - 10.2 mg/dL 09/08/2024 10:[address] Protein 7.0 6.0 - 8.3 g/dL 09/08/2024 10:[address] ALT 15 10 - 50 U/L 09/08/2024 10:[address] Blood Venous blood specimen / Unknown Central Line / Unknown 09/08/2024 10:08 AM EST 09/08/2024 10:11 AM EST Wilma Stern MD LAB BLOOD ORDERABLES Fin al Result [place] [address] [address] [place] [address] documented in this encounter Visit Diagnoses Diagnosis Encounter for antineoplastic chemotherapy- Primary 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) Malignant neoplasm of lower lobe, bronchus, or lung documented in this encounter Administered Medications Active Administered Medications - up to 3 most recent administrations Medication Order MAR Action Action Date Dose Rate Site diphenhydrAMINE (Benadryl) inj 50 mg 50 mg, IV Push, ONCE PRN Other, Hypersensitivity Reaction, Starting on Sat09/08/24 at 1051, Until Sat09/09/24 at 1050, For 24 hoursIndications: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),Encounter for antineoplastic chemotherapy EPINEPHrine 1 MG/ML inj 0.3 mg 0.3 mg, Intramuscular, ONCE PRN Other, Hypersensitivity Reaction or Anaphylaxis, Starting on Sat09/08/24 at 1051, Until Sat09/09/24 at 1050, For 24 hoursIndications: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),Encounter for antineoplastic chemotherapy hEParin 100 UNIT/ML Lock Flush inj 500 Units 500 Units (5 mL), IV Lock, PRN Other, IV Flush, Starting on Sat09/08/24 at 1051, Until Sat09/09/24 at 1050, For 24 hours, Do not flush if lock, PICC, or central line not in place; IV infusing or unable to flush.Indications: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),Encounter for antineoplastic chemotherapy Given 09/08/2024 11:31 AM EST 500 Units Hydrocortisone Sod Suc (PF) (Solu-Cortef) inj 100 mg 100 mg, IV Push, ONCE PRN Other, Hypersensitivity Reaction, Starting on Sat09/08/24 at 1051, Until Sat09/09/24 at 1050, For 24 hoursIndications: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),Encounter for antineoplastic chemotherapy NSS infusion Intravenous, at 50 mL/hr, PRN, Starting on Sat09/08/24 at 1200, Until Discontinued, Maintenance lineIndications: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),Encounter for antineoplastic chemotherapy Start Infusion 09/08/2024 10:54 AM EST 50 mL/hr oxygen GAS Inhalation, OXYGEN, First dose on Sat09/08/24 at 1130, Until Discontinued, Device/Managed by: Low Flow Device, [...] Flush, Starting on Sat09/08/24 at 1051, Until Sat09/09/24 at 1050, For 24 hours, Do not flush if lock, PICC, or central line not in place; IV infusing or unable to flush.Indications: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),Encounter for antineoplastic chemotherapy Given 09/08/2024 11:31 AM EST 10 mL Inactive Administered Medications - up to [...] 10:56 AM EST 200 mg 226 mL/hr documented in this encounter Advance Directives Documents on File Type Date Recorded Patient Superintendent Terminal Expl anation Advance Directives and Living Will 12/20/2023 Durable Health Care POA & Living Will - signed on 12/01/2021 Power of Counsel 12/20/2023 Durable Po wer of Counsel - financial only ? - only 1 [...] Agents on File Name Relationship Healthcare Agent [facility] Communication Everette Spears Adult Child First Alternate Health Care Agent (per Health Care Power of Counsel document) Care Teams Parking Regulation Enforcement Officer Relationship Specialty Start Date End Date Sage Lay MD [address] [facility] [place] [address] PCP - General Family Medicine 06/19/13 documented as of this encounter
--- OUTSIDE RECORDS SUMMARY | 2025-01-25 07:58 | External Medical Summary | Summary of Care ---
Author Name Unknown Organization [facility] Address [address] [facility] [address] Phone [phone] Care Team Providers Care Oven Baker Name Role Phone Sage Lay MD Primary Care Provider Reason for Visit * Reason Comments Procedure Labs from port Encounter Details Date Type Department Care Team (Late st Contact Info) Description 09/29/2024 11:15 AM EST Nurse Only Hematology/Oncology Treatment, [place] [address] [facility] [place] [phone] Park, Chair 8 Hem Onc [facility] [address] [place] [address] Procedure (Labs from port) Allergies No known active allergiesdocumented as of this encounter (statuses as of 09/29/2024) Medications apixaban (ELIQUIS) 5 MG TabletIndications: Persistent [...] as of this encounter (statuses as of 09/29/2024) Active Problems Problem Noted Date Diagnosed Date [...] as of this encounter (statuses as of 09/29/2024) Resolved Problems Problem Noted Date Diagnosed Date Resolved Date History of atrial fibrillation 12/16/2017 01/16/2019 Chest discomfort 12/16/2017 01/16/2019 Persistent atrial fibrillation 10/29/2017 07/23/2018 documented as of this encounter (statuses as of 09/29/2024) Immunizations Name Administration Dates Next Due COVID-19 [...] 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 Port accessed and labs drawn via port for tx today, drawn per protocol. Sent to labs. Patient to see Dr. Stern today, awaiting lab results. Port needle left in place for tx. Patient denies any further needs at this time. documented in this encounter Plan of Treatment Upcoming Encounters Date Type Department Care Team (Late st Contact Info) Description 09/29/2024 12:00 PM EST Office Visit Hematology/Oncology [facility] [address] [place] [phone] Wilma Stern MD [address] [facility] [place] [address] Arrived 09/29/2024 12:30 PM EST Hem/Onc Treatment Hematology/[address]cology [address], [address] [phone] Demetrice, Chair 7 Hem Onc [facility] [address] [place] [address] [place] [address] Arrived 10/20/2024 11:15 AM EST Nurse Only Hematology/Oncology Treatment, [address] [phone] Demetrice, Chair 8 Hem Onc [place] [address] [place] [address] [place] [address] 10/20/2024 11:45 AM EST Hem/Onc Treatment Hematology/Oncology [address], [address] [phone] Demetrice, Chair 7 Hem Onc [facility] [address] [place] [address] [place] [address] Pending Results Name Type Priority Associated Diagnoses Date /Time COMPREHENSIVE METABOLIC PANEL Lab STAT 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) 09/29/2024 11:15 AM EST MAGNESIUM Lab STAT 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) 09/29/2024 11:15 AM EST TSH WITH FREE T4 IF INDICATED Lab STAT 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) 09/29/2024 11:15 AM EST Scheduled Procedures Name Priority Associated [...] 05/31/2025 05/31/2022, 11/0 05/2020 GFR 09/08/2025 09/08/2024, 1105/2024, 07/28/2024, Additional history exists Colonoscopy 02/19/2027 02/19/2022, [...] this encounter Medical Devices Implanted Type Area Embedded Software Test Engineer Device Identifier Shelf Expiration Date Model / Serial / Lot Port Implant W8f Poly Cath - [id number] Implanted:Qty: 1 on 02/07/2024 by Giovani Cervantes MD at OR [facility] BARD : PERIPHERAL VASCULAR [id number] 02/27/2025 [id number] / / [id number] documented as of this encounter Procedures Procedure Name Priority Date/Time Associated Diagnosis Comments DIFFERENTIAL, AUTOMATED STAT 09/29/2024 11:15 AM EST 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) CBC STAT 09/29/2024 11:15 AM EST 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) CBC STAT 09/29/2024 11:15 AM EST 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) documented in this encounter Results * (ABNORMAL) DIFFERENTIAL, AUTOMATED (09/29/2024 11:15 AM EST) WBC 8.23 4.00 - 10.80 K/uL 09/29/2024 11:28 AM EST [facility] 56-02 Neutrophils % 72.5 40.0 - 75.0 % 09/29/2024 11:28 AM EST [facility] 56-02 Lymphocytes % 17.0(L) 18.0 - 42.0 % 09/29/2024 11:28 AM EST [facility] 56-02 Monocytes % 7.5 1.0 - 11.0 % 09/29/2024 11:28 AM EST [facility] 56-02 Eosinophils % 2.8 0.0 - 6.0 % 09/29/2024 11:28 AM EST [facility] 56-02 Basophils % 0.2 0.0 - 2.0 % 09/29/2024 11:28 AM EST [facility] 56-02 Absolute Neutrophils 5.96 1.80 - 7.70 K/uL 09/29/2024 11:28 AM EST [facility] 56-02 Absolute Lymphocytes 1.40 1.00 - 4.80 K/ul 09/29/2024 11:28 AM EST [facility] 56-02 Absolute Monocytes 0.62 0.00 - 1.10 K/uL 09/29/2024 11:[address] Absolute Eosinophils 0.23 0.00 - 0.70 K/uL 09/29/2024 11:28 AM [facility] 56 Absolute Basophils 0.02 0.00 - 0.20 K/uL 09/29/2024 11:28 AM [facility] 56 Blood Venous blood specimen / Unknown Central Line / Unknown 09/29/2024 11:15 AM EST 09/29/2024 11:25 AM EST Wilma Stern MD LAB BLOOD ORDERABLES Fin al Result [address] [place] [id number] * (ABNORMAL) CBC (09/29/2024 11:15 AM EST) WBC 8.23 4.00 - 10.80 K/uL 09/29/2024 11:[address] RBC 3.37 4.50 - 5.25 M/uL 09/29/2024 11:[address] HGB 9.7(L) 14.0 - 16.8 g/dL 09/29/2024 11:[address] HCT 30.2(L) 40.0 - 48.4 % 09/29/2024 11:[address] MCV 89.6 82.0 - 99.5 fL 09/29/2024 11:[address] MCH 28.8 27.0 - 34.0 pg 09/29/2024 11:[address] MCHC 32.1 32.0 - 36.0 g/dL 09/29/2024 11:[address] RDW 17.6 11.5 - 15.5 % 09/29/2024 11:[address] PLT 228 140 - 400 K/uL 09/29/2024 11:28 AM EST [facility] 56-02 MPV 8.6 6.6 - 11.1 fL 09/29/2024 11:28 AM EST [facility] 56-02 Blood Venous blood specimen / Unknown Central Line / Unknown 09/29/2024 11:15 AM EST 09/29/2024 11:25 AM EST Wilma Stern MD LAB BLOOD ORDERABLES Fin al Result [facility] 56- [address] [place] [address] documented in this encounter Visit Diagnoses Diagnosis 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)- Primary Malignant neoplasm of lower lobe, bronchus, or lung Encounter for central line care Fitting and adjustment of vascular catheter documented in this encounter Administered Medications Active Administered Medications - up to 3 most recent administrations Medication Order MAR Action Action Date Dose Rate Site hEParin 100 UNIT/ML Lock Flush inj 500 Units 500 Units (5 mL), IV Lock, PRN Other, IV Flush, Starting on Sat09/29/24 at 1058, Until Sat09/30/24 at 1057, For 24 hours, Do not flush if lock, PICC, or central line not in place; IV infusing or unable to flush.Indications: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) sodium chloride 0.9 % flush central line 10 mL 10 mL, IV Push, PRN Other, IV Flush, Starting on Sat09/29/24 at 1058, Until Sat09/30/24 at 1057, For 24 hours, Do not flush if lock, PICC, or central line not in place; IV infusing or unable to flush.Indications: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) Given 09/29/2024 11:22 AM EST 10 mL documented in this encounter Advance Directives Documents on File Type Date Recorded Patient Substance Abuse Rn Expl anation Advance Directives and Living Will 12/20/2023 Durable Health Care POA & Living Will - signed on 12/01/2021 Power of Residential Sales 12/20/2023 Durable Po wer of Residential Sales - financial only ? - only 1 [...] Agents on File Name Relationship Healthcare Agent [facility] Communication Everette Tory Adult Child First Alternate Health Care Agent (per Health Care Power of Residential Sales document) Care Teams Oven Baker Relationship Specialty Start Date End Date Sage Lay MD PCP - General Family Medicine 06/19/13 documented as of this encounter
--- OUTSIDE RECORDS SUMMARY | 2025-01-25 07:58 | External Medical Summary ---
Author Name Unknown Address Unknown Organization [id number]:[facility] [place] [address] [facility] [address] Laboratory Report Ordering Provider Test Date Status BHARATI VERDUGO 09/29/2024 11:15:41 Final Observation Date Value Abnormality Reference (Units ) Status TSH 09/29/2024 11:15:41 8.14 Above high normal 0. 27-4.20 (uIU/mL) Final Performing Location [facility] [address] [facility] [address]
--- OUTSIDE RECORDS SUMMARY | 2025-01-25 07:58 | External Medical Summary ---
Author Name Unknown Address Unknown Organization [id number]:[facility] [place] [address] Laboratory Report Ordering Provider Test Date Status BHARATI VERDUGO 09/08/2024 10:08:59 Final Observation Date Value Abnormality Reference (Units ) Status WBC, Total 09/08/2024 10:08:59 8.71 4.00-10.8 0 (K/uL) Final RBC 09/08/2024 10:08:59 3.28 4.50-5.25 (M/uL) Final Hemoglobin 09/08/2024 10:08:59 9.2 Below low normal 14 .0-16.8 (g/dL) Final HCT 09/08/2024 10:08:59 29.3 Below low normal 40. 0-48.4 (%) Final MCV 09/08/2024 10:08:59 89.3 82.0-99.5 (fL) Final MCH 09/08/2024 10:08:59 28.0 27.0-34.0 (pg) Final MCHC 09/08/2024 10:08:59 31.4 32.0-36.0 (g/dL) Final RDW 09/08/2024 10:08:59 16.5 11.5-15.5 (%) Final Platelets 09/08/2024 10:08:59 251 140-400 (K /uL) Final MPV 09/08/2024 10:08:59 8.9 6.6-11.1 ( fL) Final Performing Location [facility] [place] [address]
--- OUTSIDE RECORDS SUMMARY | 2025-01-25 07:58 | External Medical Summary ---
Author Name Unknown Address Unknown Organization [id number]:[facility]-02 - [address] [place] [address] Laboratory Report Ordering Provider Test Date Status BHARATI VERDUGO 09/29/2024 11:15:41 Final Observation Date Value Abnormality Reference (Units ) Status BUN 09/29/2024 11:15:41 26 Above high normal 6-20 (mg/dL) Final Creatinine 09/29/2024 11:15:41 1.2 0.6-1.2 (mg/dL) Final Glomerular filtration rate/1.73 sq M.predicted [Volume Rate/Area] in Serum, Plasma or Blood by Creatinine-based formula (CKD-EPI) 09/29/2024 11:15:41 63 >=60 (mL/min) Final eGFR is calculated based on the CKD-EPI 2020 equation. Sodium 09/29/2024 11:15:41 139 135-146 (m mol/L) Final Potassium 09/29/2024 11:15:41 4.3 3.5-5.1 (m mol/L) Final Cl 09/29/2024 11:15:41 103 98-107 (mm ol/L) Final CO2 09/29/2024 11:15:41 24 22-32 (mmo l/L) Final Anion gap 09/29/2024 11:15:41 12 7-15 (mmol /L) Final Glucose 09/29/2024 11:15:41 113 70-120 (mg /dL) Final Albumin 09/29/2024 11:15:41 3.6 Below low normal 3.8 -5.0 (g/dL) Final AST (Aspartate aminotransferase) 09/29/2024 11:15:41 32 10-50 (U/L) Fin al Alk Phos 09/29/2024 11:15:41 147 Above high normal 35 -130 (U/L) Final Bilirubin, Total 09/29/2024 11:15:41 0.3 <=1 .2 (mg/dL) Final Calcium 09/29/2024 11:15:41 9.1 8.4-10.2 ( mg/dL) Final Protein 09/29/2024 11:15:41 6.8 6.0-8.3 (g /dL) Final ALT (Alanine aminotransferase) 09/29/2024 11:15:41 17 10-50 (U/L) Geo mir Performing Location [facility] [address] [place] [address]
--- OUTSIDE RECORDS SUMMARY | 2025-01-25 07:58 | External Medical Summary ---
Author Name Unknown Address Unknown Organization [id number]:[facility] [place] [address] Laboratory Report Ordering Provider Test Date Status BHARATI VERDUGO 09/08/2024 10:08:59 Final Observation Date Value Abnormality Reference (Units ) Status SYNC LEUKOCYTES IN BLOOD BY AUTOMATED COUNT 09/08/2024 10:08:59 8.71 4.00-10.80 (K/uL) Final Segs 09/08/2024 10:08:59 72.7 40.0-75.0 (%) Final Lymphs % 09/08/2024 10:08:59 14.6 Below low normal 18.0-42.0 (%) Final Monos 09/08/2024 10:08:59 8.2 1.0-11.0 (%) Final Eosinophils 09/08/2024 10:08:59 4.0 0.0-6.0 (%) Final Basos 09/08/2024 10:08:59 0.5 0.0-2.0 (%) Final Absolute Segs 09/08/2024 10:08:59 6.34 1.80-7.70 (K/uL) Final Lymphs, absolute 09/08/2024 10:08:59 1.27 1.00-4.80 (K/ul) Final Monos, Abs 09/08/2024 10:08:59 0.71 0.00-1.10 (K/uL) Final Eos, Abs 09/08/2024 10:08:59 0.35 0.00-0.70 (K/uL) Final Basos, Abs 09/08/2024 10:08:59 0.04 0.00-0.20 (K/uL) Final Performing Location [facility] [place] [address]
--- OUTSIDE RECORDS SUMMARY | 2025-01-25 07:58 | External Medical Summary ---
Author Name Unknown Address Unknown Organization [id number]:[facility] [address] [place] [address] Laboratory Report Ordering Provider Test Date Status BHARATI VERDUGO 09/08/2024 10:08:59 Final Observation Date Value Abnormality Reference (Units ) Status BUN 09/08/2024 10:08:59 24 Above high normal 6-20 (mg/dL) Final Creatinine 09/08/2024 10:08:59 1.2 0.6-1.2 (mg/dL) Final Glomerular filtration rate/1.73 sq M.predicted [Volume Rate/Area] in Serum, Plasma or Blood by Creatinine-based formula (CKD-EPI) 09/08/2024 10:08:59 62 >=60 (mL/min) Final eGFR is calculated based on the CKD-EPI 2020 equation. Sodium 09/08/2024 10:08:59 137 135-146 (m mol/L) Final Potassium 09/08/2024 10:08:59 4.0 3.5-5.1 (m mol/L) Final Cl 09/08/2024 10:08:59 102 98-107 (mm ol/L) Final CO2 09/08/2024 10:08:59 25 22-32 (mmo l/L) Final Anion gap 09/08/2024 10:08:59 10 7-15 (mmol /L) Final Glucose 09/08/2024 10:08:59 132 Above high normal 70 -120 (mg/dL) Final Albumin 09/08/2024 10:08:59 3.6 Below low normal 3.8 -5.0 (g/dL) Final AST (Aspartate aminotransferase) 09/08/2024 10:08:59 29 10-50 (U/L) Fin al Alk Phos 09/08/2024 10:08:59 128 35-130 (U/ L) Final Bilirubin, Total 09/08/2024 10:08:59 0.3 <=1 .2 (mg/dL) Final Calcium 09/08/2024 10:08:59 9.0 8.4-10.2 ( mg/dL) Final Protein 09/08/2024 10:08:59 7.0 6.0-8.3 (g /dL) Final ALT (Alanine aminotransferase) 09/08/2024 10:08:59 15 10-50 (U/L) Geo mir Performing Location [facility] [address] [place] [address]
--- OUTSIDE RECORDS SUMMARY | 2025-01-25 07:58 | External Medical Summary ---
Author Name Unknown Address Unknown Organization K09:[facility] [place] [address] Laboratory Report Ordering Provider Test Date Status BHARATI VERDUGO 09/29/2024 11:15:41 Final Observation Date Value Abnormality Reference (Units ) Status WBC, Total 09/29/2024 11:15:41 8.23 4.00-10.8 0 (K/uL) Final RBC 09/29/2024 11:15:41 3.37 4.50-5.25 (M/uL) Final Hemoglobin 09/29/2024 11:15:41 9.7 Below low normal 14 .0-16.8 (g/dL) Final HCT 09/29/2024 11:15:41 30.2 Below low normal 40. 0-48.4 (%) Final MCV 09/29/2024 11:15:41 89.6 82.0-99.5 (fL) Final MCH 09/29/2024 11:15:41 28.8 27.0-34.0 (pg) Final MCHC 09/29/2024 11:15:41 32.1 32.0-36.0 (g/dL) Final RDW 09/29/2024 11:15:41 17.6 11.5-15.5 (%) Final Platelets 09/29/2024 11:15:41 228 140-400 (K /uL) Final MPV 09/29/2024 11:15:41 8.6 6.6-11.1 ( fL) Final Performing Location [facility] [place] [address]
--- OUTSIDE RECORDS SUMMARY | 2025-01-25 07:58 | External Medical Summary ---
Author Name Unknown Address Unknown Organization K01:[facility] - [address] [place] [address] Laboratory Report Ordering Provider Test Date Status BHARATI VERDUGO 09/08/2024 10:08:59 Final Observation Date Value Abnormality Reference (Units ) Status T4, Free 09/08/2024 10:08:59 1.1 0.9-1.7 (n g/dL) Final Performing Location [facility] - [address] [place] [address]
--- OUTSIDE RECORDS SUMMARY | 2025-01-25 07:58 | External Medical Summary | Summary of Care ---
Author Name Unknown Organization [facility] [address] [facility] [facility] [address] Phone [phone] Care Team Providers Care Ad Trafficker Name Role Phone Sage Lay MD Primary Care Provider [phone] Encounter Details Date Type Department Care Team (Late st Contact Info) Description 09/21/2024 Orders Only Hematology/Oncology [place] [address] [place] [address] [facility] [place] [phone] Wilma Stern MD [address] [facility] [place] [address] Allergies No known active allergiesdocumented as of this encounter (statuses as of 09/21/2024) Medications apixaban (ELIQUIS) 5 MG TabletIndications: Persistent [...] as of this encounter (statuses as of 09/21/2024) Active Problems Problem Noted Date Diagnosed Date [...] as of this encounter (statuses as of 09/21/2024) Resolved Problems Problem Noted Date Diagnosed Date Resolved Date History of atrial fibrillation 12/16/2017 01/16/2019 Chest discomfort 12/16/2017 01/16/2019 Persistent atrial fibrillation 10/29/2017 07/23/2018 documented as of this encounter (statuses as of 09/21/2024) Immunizations Name Administration Dates Next Due COVID-19 [...] 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 on file [...] ole M, RN documented in this encounter Plan of Treatment Upcoming Encounters Date Type Department Care Team (Late st Contact Info) Description 09/29/2024 11:15 AM EST Nurse Only Hematology/Oncology Treatment, [place] [address] [facility], [place] [phone] Demetrice, Chair 8 Hem Onc Scenery 200 [facility] [place] [address] 09/29/2024 12:00 PM EST Office Visit Hematology/Oncology [facility] [place] [address] [place] [phone] Wilma Stern MD [address] [place] [address] 09/29/2024 12:30 PM EST Hem/Onc Treatment Hematology/Oncology Treatment, [place] [address] [facility] [phone] Demetrice, Chair 7 Hem Onc Scenery 200 [facility] [place] [address] Scheduled Procedures Name Priority Associated Diagnoses Date/Ti [...] this encounter Medical Devices Implanted Type Area Specialty Department Supervisor Device Identifier Shelf Expiration Date Model / Serial / Lot Port Implant W8f Poly Cath - [id number] Implanted:Qty: 1 on 02/07/2024 by Giovani Cervantes MD at [facility] : PERIPHERAL VASCULAR [id number] 02/27/2025 [id number] / / [id number] documented as of this encounter Advance Directives Documents on File Type Date Recorded Patient Diamond Cutter Expl anation Advance Directives and Living Will 12/20/2023 Durable Health Care POA & Living Will - signed on 12/01/2021 Power of Cook [employer] 12/20/2023 Durable Po wer of Cook [employer] - financial only ? - only 1 [...] Agents on File Name Relationship Healthcare Agent [facility] p Communication Everette Spears Adult Child First Alternate Health Care Agent (per Health Care Power of Cook [employer] document) Care Teams Ad Trafficker Relationship Specialty Start Date End Date Sage Lay MD PCP - General Family Medicine 06/19/13 documented as of this encounter
--- OUTSIDE RECORDS SUMMARY | 2025-01-25 07:58 | External Medical Summary | Summary of Care ---
Author Name Unknown Organization [facility] Address [address] [place] [facility] [place] [place] [address] Phone [phone] Care Team Providers Care Product Finisher Name Role Phone Sage Lay MD Primary Care Provider [phone] Reason for Visit * Reason Comments Chemotherapy Keytruda * Episode Based Medications (Routine) - Authorized Specialty Diagnoses / Procedures Referred By Payton t Referred To Contact Diagnoses 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) Encounter for antineoplastic chemotherapy Procedures [place] INJ. PEMETREXED NOS 10MG WI CISPLATIN 10 MG INJECTION WI INJ PEMBROLIZUMAB WI FOSAPREPITANT INJECTION Wilma Stern MD [address] [facility] [place] [address] Phone: tel: fax: Hematology/Oncology Treatment, [address] [address] Phone: tel: fax: Referral ID Status Reason Start Date Expiration Date V isits Requested Visits Authorized [id number] Authorized 01/21/2024 01/15/2025 [id number] Encounter Details Date Type Department Care Team (Latest Contact Info) Description 09/29/2024 12:30 PM EST Hem/Onc Treatment Hematology[facility]On[facility]olog [facility] Treatment, [place] [facility] [phone] Demetrice, Chair 7 Hem Onc [address] [place] [address] Primary malignant neoplasm of right lower lobe [...] 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 VAD flushed with 10 ml NSS and Heparin 5 ml (100 units/ml). Bernabe needle removed intact. Goals: Pt will remain free from injury. Possible barriers to meeting goals: ambulation with IV pole Stability of the patient: Moderately stable - low risk of patient condition declining or worsening Summary regarding today's goals: Met: . Pt remained free from injury during treatment today. Discharged in stable condition. * Renee Ren RN - 09/29/2024 1:14 PM EST Chair 2 Chemotherapy/Immunotherapy agents: KEYTRUDA Consent for chemotherapy drug treatment complete, dated, and signed? yes, date - 01/21/24 Treatment lab parameters met? Yes Has treatment weight changed > than 10%? No Treatment preauthorized? Yes VITALS There were no vitals filed for this visit. BP Readings from Last 2 Encounters: 09/29/24 146/82 09/08/24 134/82 Pulse Readings from Last 2 Encounters: 09/29/24 57 09/08/24 61 Resp Readings from Last 2 Encounters: 09/08/24 16 07/28/24 16 SpO2 Readings from Last 2 Encounters: 09/29/24 95% 09/08/24 95% Temp Readings from Last 2 Encounters: 09/29/24 36.2 °C (97.2 °F) (Tympanic) 09/08/24 36.8 °C (98.2 °F) (Tympanic) Urine protein: N/A Patient education completed for treatment? Yes Blood transfusion consent signed and complete? NA Return appointment scheduled? Yes Patient had provider visit today? Yes - Ok to release order and treat per provider VAD accessed; NSS Infusing. Safety and Risk for Injury Patient will [...] 11:15 AM EST Nurse Only Hematology/Oncology Treatment, [place] [address] [place] [phone] [place], Chair 8 Hem Onc Scenery [address] [place] [address] 10/20/2024 11:45 AM EST Hem/Onc Treatment Hematology/Oncology Treatment, [place] 200 [facility] [place] [phone] Demetrice, Chair 7 Hem Onc Scenery 200 [place] [facility] [place], [place] [address] 11/10/2024 10:30 AM EST Nurse Only Hematology/Oncology Treatment, [place] 200 [facility], [place] [phone] Demetrice, Chair 5 Hem Onc Scenery 200 [place] [facility] [place] [address] 11/10/2024 11:00 AM EST Office Visit Hematology/Oncology [facility] [place] [address] [facility] [place], [place] [phone] Concetta Rachel CRNP [address] [facility] [address] 11/10/2024 11:30 AM EST Hem/Onc Treatment Hematology/Oncology Treatment, [place] 200 [facility], [place] [phone] Demetrice, Chair 10 [facility] [place] [facility] [place], [place] [address] Scheduled Procedures Name Priority Associated Diagnoses Date/Ti [...] Albumin/Creatinine Ratio 05/31/2025 05/31/2022, 11/0 05/2020 GFR 09/29/2025 09/29/2024, 08/30, 08/18/2024, Additional [...] this encounter Medical Devices Implanted Type Area Skin Care Technician Device Identifier Shelf Expiration Date Model / Serial / Lot Port Implant W8f Poly Cath - [id number] Implanted:Qty: 1 on 02/07/2024 by Giovani Cervantes MD at [facility] : PERIPHERAL VASCULAR [id number] 02/27/2025 [id number] / / [id number] documented as of this encounter Visit Diagnoses [...] ONCE PRN Other, Hypersensitivity Reaction, Starting on Sat09/29/24 at 1246, Until Sat09/30/24 at 1245, For 24 hoursIndications: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),Encounter for antineoplastic chemotherapy EPINEPHrine 1 MG/ML inj 0.3 mg 0.3 mg, Intramuscular, ONCE PRN Other, Hypersensitivity Reaction or Anaphylaxis, Starting on Sat09/29/24 at 1246, Until Sat09/30/24 at 1245, For 24 hoursIndications: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),Encounter for antineoplastic chemotherapy hEParin 100 UNIT/ML Lock Flush inj 500 Units 500 Units (5 mL), IV Lock, PRN Other, IV Flush, Starting on Sat09/29/24 at 1246, Until Sat09/30/24 at 1245, For 24 hours, Do not flush if lock, PICC, or central line not in place; IV infusing or unable to flush.Indications: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),Encounter for antineoplastic chemotherapy Given 09/29/2024 1:28 PM EST 500 Units Hydrocortisone Sod Suc (PF) (Solu-Cortef) inj 100 mg 100 mg, IV Push, ONCE PRN Other, Hypersensitivity Reaction, Starting on Sat09/29/24 at 1246, Until Sat09/30/24 at 1245, For 24 hoursIndications: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),Encounter for antineoplastic chemotherapy NSS infusion Intravenous, at 50 mL/hr, PRN, Starting on Sat09/29/24 at 1400, Until Discontinued, Maintenance lineIndications: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),Encounter for antineoplastic chemotherapy Start Infusion 09/29/2024 12:47 PM EST 50 mL/hr oxygen GAS Inhalation, OXYGEN, First dose on Sat09/29/24 at 1600, Until Discontinued, Device/Managed by: Low [...] Other, IV Flush, Starting on Sat09/29/24 at 1246, Until Sat09/30/24 at 1245, For 24 hours, Do not flush if lock, PICC, or central line not in place; IV infusing or unable to flush.Indications: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),Encounter for antineoplastic chemotherapy Given 09/29/2024 1:28 PM EST 10 mL Inactive Administered Medications - up to 3 most recent administrations Medication Order MAR Action Action Date Dose Rate Site Pembrolizumab (Keytruda) 200 mg in NSS 100 mL infusion 200 mg, IV Piggyback, ONCE, 1 dose, On Sat09/29/24 at 1330, Administer over 30 Minutes, Infuse through 0.2 micron filter.Indications: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),Encounter for antineoplastic chemotherapy Start Infusion 09/29/2024 12:51 PM EST 200 mg 226 mL/hr documented in this encounter Advance Directives Documents on File Type Date Recorded Patient Apron Worker Expl anation Advance Directives and Living Will 12/20/2023 Durable Health Care POA & Living Will - signed on 12/01/2021 Power of Olericulturist 12/20/2023 Durable Po wer of Olericulturist - financial only ? - only 1 [...] Name Relationship Healthcare Agent Relationshi p Communication [facility] First Alternate Health Care Agent (per Health Care Power of Olericulturist document) Care Teams Product Finisher Relationship Specialty Start Date End Date Sage Lay MD PCP - General Family Medicine 06/19/13 documented as of this encounter
--- OUTSIDE RECORDS SUMMARY | 2025-01-25 07:58 | External Medical Summary ---
Author Name Unknown Address Unknown Organization K01:[facility] [place] - [address] [facility] [address] Laboratory Report Ordering Provider Test Date Status BHARATI VERDUGO 09/08/2024 10:08:59 Final Observation Date Value Abnormality Reference (Units ) Status TSH 09/08/2024 10:08:59 9.32 Above high normal 0. 27-4.20 (uIU/mL) Final Performing Location [facility] [place] - [address] [facility] [address]
--- OUTSIDE RECORDS SUMMARY | 2025-01-25 07:58 | External Medical Summary | Summary of Care ---
Author Name Unknown Organization [facility] Address [address] [facility] [address] Phone [phone] Care Team Providers Care Paraplanner Name Role Phone Sage Lay MD Primary Care Provider [phone] Reason for Referral * Precert (Within 10 days (routine)) - Authorized Specialty Diagnoses / Procedures Referred By Contac t Referred To Contact Radiology Diagnoses 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) Procedures CT CHEST W CONTRAST Wilma Stern MD [address] [place] [address] Phone: tel: fax: Referral ID Status Reason Start Date Expiration Date V isits Requested Visits Authorized [id number] Authorized 11/03/2024 999 999 Reason for Visit * Reason Comments Re-Check Chemotherapy Encounter Details Date Type Department Care Team (Late st Contact Info) Description 09/29/2024 12:00 PM EST Office Visit Hematology/Oncology [place] [address] [place] [phone] Wilma Stern MD [address] [place] [phone] Primary malignant neoplasm of right lower lobe [...] No 01/02/2024 Does the household have a [facility] source of income? 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 on file Not on file documented as of this encounter Last Filed Vital Signs Vital Sign Reading Time Taken Comments Blood Pressure 146/82 09/29/2024 11:55 AM EST Pulse 57 09/29/2024 11:55 AM EST Temperature 36.2 °C (97.2 °F) 09/29/2024 11:[address] Respiratory Rate - - Oxygen Saturation 95% 09/29/2024 11:55 AM EST Inhaled Oxygen Concentration - - Weight 67 kg (147 lb 12.8 oz) 09/29/2024 11:55 A M EST Height - - Body Mass Index 21.83 02/07/2024 8:53 AM EDT documented in this [...] Progress Notes * Wilma Stern MD - 09/29/2024 12:24 PM EST Outpatient Consult Note Data Source: Patient, [facility] record. Data Source: Patient, Epic record. 09/29/2024 12:24 PM Carlos Álvarez Tory [id number] 74 year old Patient Encounter: HEMATOLOGY/ONCOLOGY [facility] Cancer Diagnosis: Primary malignant neoplasm of right [...] COPD, AFib was referred with diagnosis of xnp-zprdq-spid lung cancer. Patient had initial CT scan [...] glands with hyperchromatic nuclei, prominent nucleoli, and tinwdmtg-rl-diiqbdvw ccdarulssn-vb-nhjulermebkz cytoplasm. Immunohistochemical studies with appropriatecontrols are performed (A1) demonstrating that the tumor cells are positive for CK7, focally positive for TTF-1 while negative for synaptophysin, CK20, CDX-2, and SATB2. SMAD4 shows some aberrant loss in portions of the tumor. Overall, the findings support the above interpretation but the immunoprofile is not entirely specific. Tumor Mutational [employer] (TMB): TMB Unit [employer] 7.58 m/MB Low Microsatellite Instability Status (MSI): MSI Status 0 Stable Result Detail Tier I: Strong Significance Variants Single Nucleotide Variants and Insertions/Deletions Gene Variant Tier Amino Acid Change Nucleotide Change Consequence Allele Frequency Sequencing Depth KRAS G12V Tier 1: Strong significance p.Jwr56Nhs NM_[id number]: c.35G>T Missense Variant 13% 1993 Tier II: Potential Significance Variants Single Nucleotide Variants and Insertions/Deletions Gene Variant Tier Amino Acid Change Nucleotide Change Consequence Allele Frequency Sequencing Depth ESTRADA R2486* Tier 2: Potential significance p.[id number] NM_000051.4: c.7456C>T Nonsense 66% 1996 SMARCA4 E1258* Tier 2: Potential significance p.[id number] [id number]: c.3772G>T Nonsense 11.4% 1938 STK11 E165* Tier 2: Potential significance p.Eah265Wft NM_000455.5: c.493G>T Nonsense 12.1% 835 STK11 S216F Tier 2: Potential significance p.Tuh329Smh NM_000455.5: c.647C>T Missense Variant 4.6% 1358 Copy [...] of cancer of unknown type. Interval History: He is doing well without any new symptoms complain. Denies any headache, dizziness, blurred vision,chest pain shortness of breath palpitation pain or distention, bleeding, bruising, change in the bowel habits, hematuria, hematochezia. LABS/IMAGING: Results for orders placed or performed in visit on 09/29/24 COMPREHENSIVE METABOLIC PANEL Result Value Ref Range BUN 26 (H) 6 - 20 mg/dL CREATININE 1.2 0.6 - 1.2 mg/dL EGFR 63 >=60 mL/min SODIUM 139 135 - 146 mmol/L POTASSIUM 4.3 3.5 - 5.1 mmol/L CHLORIDE 103 98 - 107 mmol/L CO2 24 22 - 32 mmol/L ANION GAP 12 7 - 15 mmol/L GLUCOSE 113 70 - 120 mg/dL Albumin 3.6 (L) 3.8 - 5.0 g/dL AST 32 10 - 50 U/L Alkaline Phosphatase 147 (H) 35 - 130 U/L Bilirubin, Total 0.3 <=1.2 mg/dL CALCIUM 9.1 8.4 - 10.2 mg/dL Protein 6.8 6.0 - 8.3 g/dL ALT 17 10 - 50 U/L MAGNESIUM Result Value Ref Range Magnesium 1.6 1.5 - 2.6 mg/dL CBC Result Value Ref Range WBC 8.23 4.00 - 10.80 K/uL RBC 3.37 4.50 - 5.25 M/uL HGB 9.7 (L) 14.0 - 16.8 g/dL HCT 30.2 (L) 40.0 - 48.4 % MCV 89.6 82.0 - 99.5 fL MCH 28.8 27.0 - 34.0 pg MCHC 32.1 32.0 - 36.0 g/dL RDW 17.6 11.5 - 15.5 % PLT 228 140 - 400 K/uL MPV 8.6 6.6 - 11.1 fL DIFFERENTIAL, AUTOMATED Result Value Ref Range WBC 8.23 4.00 - 10.80 K/uL Neutrophils % 72.5 40.0 - 75.0 % Lymphocytes % 17.0 (L) 18.0 - 42.0 % Monocytes % 7.5 1.0 - 11.0 % Eosinophils % 2.8 0.0 - 6.0 % Basophils % 0.2 0.0 - 2.0 % Absolute Neutrophils 5.96 1.80 - 7.70 K/uL Absolute Lymphocytes 1.40 1.00 - 4.80 K/ul Absolute Monocytes 0.62 0.00 - 1.10 K/uL Absolute Eosinophils 0.23 0.00 - 0.70 K/uL Absolute Basophils 0.02 0.00 - 0.20 K/uL Result of today's blood tests including CBC and CMP are stable in acceptable range. REVIEW OF SYSTEMS: General: No Fever, chills, [...] stool per day. .. 510 g 1 Ondansetron HCl 8 MG Oral Tablet Take 1 Tablet by mouth every 8 hours as needed for Nausea. (Patient not taking: Reported on 02/07/2024) 30 Tablet 0 Prochlorperazine Maleate 10 MG Oral Tablet (Compazine) Take 1 Tablet by mouth every 6 hours as needed for Nausea. (Patient not taking: Reported on 02/07/2024) 30 Tablet 0 Folic Acid 1 MG Oral Tablet Take 1 Tablet by mouth in the morning. 30 Tablet 5 dexAMETHasone 4 MG Oral Tablet (Decadron) Take 1 tablet twice a day for 3 days starting the day prior to chemotherapy (Patient not taking: Reported on 02/07/2024) 24 Tablet 0 Lisinopril 10 MG Oral Tablet (Prinivil) TAKE ONE TABLET BY MOUTH EVERY MORNING 90 Tablet 3 Atorvastatin Calcium 20 MG Oral Tablet (Lipitor) TAKE ONE TABLET BY MOUTH EVERY MORNING 100 Tablet 0 No current facility-administered medications for this visit. Social History Tobacco Use Smoking status: Former Types: Cigarettes Smokeless tobacco: Never Vaping Use Vaping status: Never Used Substance Use Topics Alcohol use: No Drug use: No Review of patient's allergies indicates: No Known Allergies PHYSICAL EXAMINATION: General Appearance: Healthy appearing patient in no acute distress BP 146/82 (BP Site: Left Arm, BP Position: Sitting, BP Cuff Size: Regular) | Pulse 57 | Temp 36.2 °C (97.2 °F) (Tympanic) | Wt 67 kg (147 lb 12.8 oz) | SpO2 95% | BMI 21.83 kg/m² | BSA 1.81 m² Vitals reviewed. HEENT: No oral or [...] AFib was referred with the diagnosis of ofz-nzalv-xupp lung cancer. Patient had enlarging right lower [...] or lymph node positive, irrespective ofPD-L1 expression. Recent CT scan overall shows stable disease with question of 1 lymph node mildly increase in size. At this point I think the best option is to continue current treatment. Clinically he is stable without any new symptoms complain. Result of the recent blood tests are stable in acceptable range. Discussed with the patient son about diagnosis reviewed all the available blood test result with them. PLAN: Continue Keytruda. He will return clinic for follow-up in [address] scan of the chest. The patient voiced understanding of all of [...] Notes * Rama Baez MED ASSIST - 09/29/2024 11:57 AM EST Patient identifed by name and [...] it for you? ALREADY ACTIVE Filed Vitals: 09/29/24 1155 BP: 146/82 Pulse: 57 Temp: 36.2 °C (97.2 °F) TempSrc: Tympanic SpO2: 95% Weight: 67 kg (147 lb 12.8 oz) Patient was instructed to not get [...] 11:15 AM EST Nurse Only Hematology/Oncology Treatment, [place] [address] [facility] [place] [place] [phone] Demetrice, Chair 8 Hem Onc Scenery [address] [facility] [place] [address] 10/20/2024 11:45 AM EST Hem/Onc Treatment Hematology/Oncology Treatment, [place] [address] [facility] [place] [phone] Demetrice, Chair 7 Hem Onc Scenery [address] [facility] [place], [place] [address] Scheduled Orders Name Type Priority Associated Diagnoses Orde r Schedule CT CHEST W CONTRAST Medical Imaging Routine 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) Expected: 11/03/2024, Expires: 10/30/2025 Scheduled Procedures Name Priority Associated [...] this encounter Medical Devices Implanted Type Area Unified Communications Architect Device Identifier Shelf Expiration Date Model / Serial / Lot Port Implant W8f Poly Cath - [id number] Implanted:Qty: 1 on 02/07/2024 by Giovani Cervantes MD at OR 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 - only [...] Agents on File Name Relationship Healthcare Agent [facility] Communication Everette Spears Adult Child First Alternate Health Care Agent (per Health Care Power of Inspector And Clerk document) Care Teams Paraplanner Relationship Specialty Start Date End Date Sage Lay MD PCP - General Family Medicine 06/19/13 documented as of this encounter"
--- OUTSIDE RECORDS SUMMARY | 2025-01-25 07:58 | External Medical Summary ---
Author Name Unknown Address Unknown Organization K09[facility] [place] [place] [address] Laboratory Report Ordering Provider Test Date Status BHARATI VERDUGO 09/29/2024 11:15:41 Final Observation Date Value Abnormality Reference (Units ) Status SYNC LEUKOCYTES IN BLOOD BY AUTOMATED COUNT 09/29/2024 11:15:41 8.23 4.00-10.80 (K/uL) Final Segs 09/29/2024 11:15:41 72.5 40.0-75.0 (%) Final Lymphs % 09/29/2024 11:15:41 17.0 Below low normal 18.0-42.0 (%) Final Monos 09/29/2024 11:15:41 7.5 1.0-11.0 (%) Final Eosinophils 09/29/2024 11:15:41 2.8 0.0-6.0 (%) Final Basos 09/29/2024 11:15:41 0.2 0.0-2.0 (%) Final Absolute Segs 09/29/2024 11:15:41 5.96 1.80-7.70 (K/uL) Final Lymphs, absolute 09/29/2024 11:15:41 1.40 1.00-4.80 (K/ul) Final Monos, Abs 09/29/2024 11:15:41 0.62 0.00-1.10 (K/uL) Final Eos, Abs 09/29/2024 11:15:41 0.23 0.00-0.70 (K/uL) Final Basos, Abs 09/29/2024 11:15:41 0.02 0.00-0.20 (K/uL) Final Performing Location [facility] [place] [address]
--- OUTSIDE RECORDS SUMMARY | 2025-01-25 07:58 | External Medical Summary | Summary of Care ---
Author Name Unknown Organization [facility] Address [address] [facility] [address] Phone [phone] Care Team Providers Care Interpreter Name Role Phone Sage Lay MD Primary Care Provider [phone] Encounter Details Date Type Department Care Team (Late st Contact Info) Description 09/24/2024 Orders Only Hematology/Oncology [place] [facility] [address] [facility] [place] [phone] Wilma Stern MD [address] [facility] [place] [address] Allergies No known active allergiesdocumented as of this encounter (statuses as of 09/24/2024) Medications apixaban (ELIQUIS) 5 MG TabletIndications: Persistent [...] as of this encounter (statuses as of 09/24/2024) Active Problems Problem Noted Date Diagnosed Date [...] as of this encounter (statuses as of 09/24/2024) Resolved Problems Problem Noted Date Diagnosed Date Resolved Date History of atrial fibrillation 12/16/2017 01/16/2019 Chest discomfort 12/16/2017 01/16/2019 Persistent atrial fibrillation 10/29/2017 07/23/2018 documented as of this encounter (statuses as of 09/24/2024) Immunizations Name Administration Dates Next Due COVID-19 [...] 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 on file Not [...] 11:15 AM EST Nurse Only Hematology/Oncology Treatment, [place] [address] [facility], [place] [phone] Demetrice, Chair 8 Hem Onc Scenery 200 [place] [address] 09/29/2024 12:00 PM EST Office Visit Hematology/Oncology [facility] [place] [address] [place] [phone] Wilma Stern MD [address] [place] [address] 09/29/2024 12:30 PM EST Hem/Onc Treatment Hematology[facility]cology [facility], [place] [address] [facility] [phone] Demetrice, Chair 7 Hem Onc Scenery [address] [place] [address] Scheduled Procedures Name Priority Associated Diagnoses Date/Ti [...] this encounter Medical Devices Implanted Type Area Manager Utilization Review Device Identifier Shelf Expiration Date Model / Serial / Lot Port Implant W8f Poly Cath - [id number] Implanted:Qty: 1 on 02/07/2024 by Giovani Cervantes MD at OR [facility] BARD : PERIPHERAL VASCULAR [id number] 02/27/2025 [id number] / / [id number] documented as of this encounter Advance Directives Documents on File Type Date Recorded Patient Per Diem Physical Therapist Expl anation Advance Directives and Living Will 12/20/2023 Durable Health Care POA & Living Will - signed on 12/01/2021 Power of Manager Zone 12/20/2023 Durable Po wer of Manager Zone - financial only ? - only 1 page - incomplete INVALID Advance Directives and Living Will 07/11/2006 LIVING WILL Declara tion - signed on 07/11/2006 * Full Code (Latest Code Status on File) Date Activated Date Inactivated Comments 12/20/2023 12:17 PM 12/23/2023 2:23 PM This order reflects the patients wishes and were consensually agreed upon. Question Answer Comments Discussion of Advance Direct joseph occurred with: Not Discussed due to patient's condition Healthcare Agents on File Name Relationship Healthcare Agent [facility] p Communication Everette Spears Adult Child First Alternate Health Care Agent (per Health Care Power of Manager Zone document) Care Teams Interpreter Relationship Specialty Start Date End Date Sage Lay MD PCP - General Family Medicine 06/19/13 documented as of this encounter
--- OUTSIDE RECORDS SUMMARY | 2025-01-25 07:59 | External Medical Summary ---
Author Name Unknown Address Unknown Organization K09[facility] [place] [address] Laboratory Report Ordering Provider Test Date Status BHARATI VERDUGO 08/18/2024 08:30:03 Final Observation Date Value Abnormality Reference (Units ) Status Magnesium 08/18/2024 08:30:03 1.6 1.5-2.6 (m g/dL) Final Performing Location [facility] [place] [address]
--- OUTSIDE RECORDS SUMMARY | 2025-01-25 07:59 | External Medical Summary ---
Author Name Unknown Address Unknown Organization [facility] [address] [place] [address] Laboratory Report Ordering Provider Test Date Status BHARATI VERDUGO 08/18/2024 08:30:03 Final Observation Date Value Abnormality Reference (Units ) Status T4, Free 08/18/2024 08:30:03 0.9 0.9-1.7 (n g/dL) Final Performing Location [facility] - [address] [place] [address]
--- OUTSIDE RECORDS SUMMARY | 2025-01-25 07:59 | External Medical Summary | Summary of Care ---
Author Name Unknown Organization [facility] Address [address] [facility] [address] Phone [phone] Care Team Providers Care Hot Tamale Worker Name Role Phone Sage Lay MD Primary Care Provider Reason for Visit * Reason Comments Chemotherapy Day 1, cycle 10 guero talley * Episode Based Medications (Routine) - Authorized Specialty Diagnoses / Procedures Referred By Contkatharina t Referred To Contact Diagnoses 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) Encounter for antineoplastic chemotherapy Procedures MN INJ. PEMETREXED NOS 10MG MN CISPLATIN 10 MG INJECTION MN INJ PEMBROLIZUMAB MN FOSAPREPITANT INJECTION Wilma Stern MD [address] [place] [address] [place] [address] Phone: tel: fax: Hematology/Oncology Treatment, [address] [place] [address] Phone: tel: fax: Referral ID Status Reason Start Date Expiration Date V isits Requested Visits Authorized [id number] Authorized 01/21/2024 01/15/2025 999 99 Encounter Details Date Type Department Care Team (Latest Contact Info) Description 08/18/2024 9:30 AM EST Hem/Onc Treatment Hematology/On[place]olog [place] [address] [place] [address] Demetrice Chair [address] [place] [phone] 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)*; Encounter for antineoplastic chemotherapy Allergies No known active allergiesdocumented as of this encounter (statuses as of 09/06/2024) Medications apixaban (ELIQUIS) 5 MG TabletIndications: Persistent [...] as of this encounter (statuses as of 09/06/2024) Active Problems Problem Noted Date Diagnosed Date [...] as of this encounter (statuses as of 09/06/2024) Resolved Problems Problem Noted Date Diagnosed Date Resolved Date History of atrial fibrillation 12/16/2017 01/16/2019 Chest discomfort 12/16/2017 01/16/2019 Persistent atrial fibrillation 10/29/2017 07/23/2018 documented as of this encounter (statuses as of 09/06/2024) Immunizations Name Administration Dates Next Due COVID-19 [...] 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 Patient tolerated well. No complaints. VAD with + blood return, flushed with 10 ml NSS and Heparin 5 ml (100 units/ml). Ebrnabe needle removed intact. Dry dressing applied. Goals: Patient will remain free from injury. Possible barriers to meeting goals: ambulating with IV pole Stability of the patient: Moderately stable - low risk of patient condition declining or worsening Summary regarding today's goals: Met: Patient remained free from harm/injury during treatment. Patient left facility in stable condition. * Hanny Zaragoza RN - 08/18/2024 10:20 AM EST Chair 7, patient here for treatment following provider visit. Patient with no complaints at this time. Port remains accessed from this AM with lab draw, + blood return noted. Chemotherapy/Immunotherapy agents: KEYTRUDA Consent for chemotherapy drug treatment complete, dated, and signed? yes, date - 01/21/24 Treatment lab parameters met? Yes Has treatment weight changed > than 10%? No Treatment preauthorized? Yes VITALS Filed Vitals: 08/18/24 0922 BP: 156/86 Urine protein: N/A Patient education completed for [...] Care Team (Late st Contact Info) Description 09/08/2024 10:00 AM EST Hem/Onc Treatment [address]ematology[address] [phone] Demetrice, Chair 1 Hem Onc [address] [place] [address] 09/22/2024 8:00 AM EST Nurse Only Hematology/Oncology Treatment, [address] [place] [phone] Demetrice, Chair 1 Hem Onc [address] [place] [address] 09/22/2024 8:30 AM EST Office Visit Hematology/Oncology [facility] [place] [address] [place] [phone] Wilma Stern MD [address] [place] [address] 09/22/2024 9:00 AM EST Hem/Onc Treatment Hematology/Oncology Treatment, [place] [address] [place] [phone] Demetrice, Chair 6 Hem Onc [facility] [address] [facility] [place] [address] Scheduled Procedures Name Priority Associated Diagnoses Date/Ti [...] Albumin/Creatinine Ratio 05/31/2025 05/31/2022, 11/0 05/2020 GFR 08/18/2025 08/18/2024, 07/01, 07/07/2024, Additional history exists Colonoscopy 02/19/2027 02/19/2022, 01/29, [...] this encounter Medical Devices Implanted Type Area Environmental Engineering Manager Device Identifier Shelf Expiration Date Model / Serial / Lot Port Implant W8f Poly Cath - [id number] Implanted:Qty: 1 on 02/07/2024 by Giovani Cervantes MD at OR [facility] BARD : PERIPHERAL VASCULAR [id number] 02/27/2025 [id number] / / [id number] documented as of this encounter Visit Diagnoses [...] Lock, PRN Other, IV Flush, Starting on Sat08/18/24 at 0926, Until Sat08/18/24 at 1555, For 24 hours, Do not flush if lock, PICC, or central line not in place; IV infusing or unable to flush.Indications: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),Encounter for antineoplastic chemotherapy Given 08/18/2024 10:07 AM EST 500 Units NSS infusion Intravenous, at 50 mL/hr, PRN, Starting on Sat08/18/24 at 1030, Until Sat08/18/24 at 1555, Maintenance lineIndications: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),Encounter for antineoplastic chemotherapy Start Infusion 08/18/2024 9:28 AM EST 50 mL/hr Pembrolizumab (Keytruda) 200 mg in NSS 100 mL infusion 200 mg, IV Piggyback, ONCE, 1 dose, On 11/19/24 at 1000, Administer over 30 Minutes, Infuse through 0.2 micron filter.Indications: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),Encounter for antineoplastic chemotherapy Start Infusion 08/18/2024 9:31 AM EST 200 mg 226 mL/hr sodium chloride 0.9 % flush central line 10 mL 10 mL, IV Push, PRN Other, IV Flush, Starting on Sat08/18/24 at 0926, Until Sat08/18/24 at 1555, For 24 hours, Do not flush if lock, PICC, or central line not in place; IV infusing or unable to flush.Indications: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),Encounter for antineoplastic chemotherapy Given 08/18/2024 10:07 AM EST 10 mL documented in this encounter Advance Directives Documents on File Type Date Recorded Patient Career Placement Specialist Expl anation Advance Directives and Living Will 12/20/2023 Durable Health Care POA & Living Will - signed on 12/01/2021 Power of Director Product Development 12/20/2023 Durable Po wer of Director Product Development - financial only ? - only 1 [...] on File Name Relationship [facility] Everette Tory Adult Child First Alternate Health Care Agent (per Health Care Power of Director Product Development document) Care Teams Hot Tamale Worker Relationship Specialty Start Date End Date Sage Lay MD [address] [place] [address] PCP - General Family Medicine 06/19/13 documented as of this encounter
--- OUTSIDE RECORDS SUMMARY | 2025-01-25 07:59 | External Medical Summary | Summary of Care ---
Author Name Unknown Organization [facility] Address [address] [place] [facility] [place] [address] Phone [phone] Care Team Providers Care Tissue Technologist Name Role Phone Sage Lay MD Primary Care Provider [phone] Reason for Visit * Reason Comments Chemotherapy C8 D1 Keytruda * Episode Based Medications (Routine) - Authorized Specialty Diagnoses / Procedures Referred By Payton t Referred To Contact Diagnoses 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) Encounter for antineoplastic chemotherapy Procedures GA INJ. PEMETREXED NOS 10MG GA CISPLATIN 10 MG INJECTION GA INJ PEMBROLIZUMAB GA FOSAPREPITANT INJECTION Wilma Stern MD [address] [place] [address] Dr [place] [address] Phone: tel: fax: Hematology/Oncology Treatment, [address] [address] Phone: tel: fax: Referral ID Status Reason Start Date Expiration Date V isits Requested Visits Authorized [id number] Authorized 01/21/2024 01/15/2025 999 [id number] Encounter Details Date Type Department Care Team (Latest Contact Info) Description 07/07/2024 1:30 PM EDT Hem/Onc Treatment Hematology/Oncolog y Treatment, [address] [place] [address] Chair Demetrice 4 Hem Onc [address] [place] [phone] 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)*; Encounter for antineoplastic chemotherapy Allergies No known active allergiesdocumented as of this encounter (statuses as of 08/13/2024) Medications apixaban (ELIQUIS) 5 MG TabletIndications: Persistent [...] BY MOUTH EVERY MORNING 100 Tablet 1 4 2:26 PM EDT 12/26/19 024 Discontin ued(Refil l) documented as of this encounter (statuses as of 08/13/2024) Active Problems Problem Noted Date Diagnosed Date [...] as of this encounter (statuses as of 08/13/2024) Resolved Problems Problem Noted Date Diagnosed Date Resolved Date History of atrial fibrillation 12/16/2017 01/16/2019 Chest discomfort 12/16/2017 01/16/2019 Persistent atrial fibrillation 10/29/2017 07/23/2018 documented as of this encounter (statuses as of 08/13/2024) Immunizations Name Administration Dates Next Due COVID-19 [...] 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 Possible barriers to meeting goals: ambulation with IV pole. Stability of the patient: Moderately stable - low risk of patient condition declining or worsening Summary regarding today's goals: Met: Patient remained free from injury. Pt tolerated treatment well. Positive blood return observed post treatment with port flush/de-access. Discharged in stable condition. * Samia Zuniga RN - 07/07/2024 4:21 PM EDT Chair 2 Pt tolerating treatment well. Port accessed earlier for lab draw; flushed, positive blood return observed prior to starting treatment. Chemotherapy/Immunotherapy agents: KEYTRUDA Consent for chemotherapy drug treatment complete, dated, and signed? yes, date - 01/21/24 Treatment lab parameters met? Yes Has treatment weight changed > than 10%? No Treatment preauthorized? Yes VITALS Filed Vitals: Urine protein: N/A Patient education completed for [...] symptoms or adverse side effects during treatment. Safety and Risk for Injury Patient will remain free from injury. Ensure appropriate safety devices are available. Provide and maintain safe environment. Patient Education: Patient instructed on use of [...] Care Team (Late st Contact Info) Description 08/18/2024 8:30 AM EST Immunization/Injecti on Hematology/[address]cology [address], [address] [address] [address], Chair 7 Hem Onc [address] [place] [address] 08/18/2024 9:00 AM EST Office Visit Hematology/Oncology [facility] [place] [address] [facility] [place] [address] Wilma Stern MD [address] [facility] [place] [address] 08/18/2024 9:30 AM EST Hem/Onc Treatment Hematology/Oncology Treatment, [address] [place] [address] Park, Chair 10 Hem Onc Scenery [address] [place] [address] Scheduled Procedures Name Priority Associated Diagnoses Date/Ti [...] Albumin/Creatinine Ratio 05/31/2025 05/31/2022, 110 05/2020 GFR 07/28/2025 07/28/2024, 0 04/2024, 06/17/2024, Additional history exists Colonoscopy 02/19/2027 02/19/2022, 01/29, [...] this encounter Medical Devices Implanted Type Area Project Developer Device Identifier Shelf Expiration Date Model / Serial / Lot Port Implant W8f Poly Cath - [id number] Implanted:Qty: 1 on 02/07/2024 by Giovani Cervantes MD at OR [facility] CR BARD : PERIPHERAL VASCULAR [id number] 02/27/2025 [id number] / / [id number] documented as of this encounter Visit Diagnoses [...] Lock, PRN Other, IV Flush, Starting on Sat07/07/24 at 1358, Until Sat07/07/24 at 2051, For 24 hours, Do not flush if lock, PICC, or central line not in place; IV infusing or unable to flush.Indications: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),Encounter for antineoplastic chemotherapy Given 07/07/2024 2:54 PM EDT 500 Units NSS infusion Intravenous, at 50 mL/hr, PRN, Starting on Sat07/07/24 at 1500, Until Sat07/07/24 at 2051, Maintenance lineIndications: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),Encounter for antineoplastic chemotherapy Start Infusion 07/07/2024 2:07 PM EDT 50 mL/hr Pembrolizumab (Keytruda) 200 mg in NSS 100 mL infusion 200 mg, IV Piggyback, ONCE, 1 dose, On Sat07/07/24 at 1430, Administer over 30 Minutes, Infuse through 0.2 micron filter.Indications: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),Encounter for antineoplastic chemotherapy Start Infusion 07/07/2024 2:11 PM EDT 200 mg 226 mL/hr sodium chloride 0.9 % flush central line 10 mL 10 mL, IV Push, PRN Other, IV Flush, Starting on Sat07/07/24 at 1358, Until Sat07/07/24 at 205, For 24 hours, Do not flush if lock, PICC, or central line not in place; IV infusing or unable to flush.Indications: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),Encounter for antineoplastic chemotherapy Given 07/07/2024 2:54 PM EDT 10 mL documented in this encounter Advance Directives Documents on File Type Date Recorded Patient Network Relations Consultant Expl anation Advance Directives and Living Will 12/20/2023 ADVANCE DIRECTIVE / LIVING WILL Power of Cardiac Rehabilitation Program Director 12/20/2023 POWER OF A TTORNEY Advance Directives and Living Will 07/11/2006 ADVANCE DIRECTIVE * Full Code (Latest Code Status on File) Date Activated Date Inactivated Comments 12/20/2023 12:17 PM 12/23/2023 2:23 PM This order reflects the patients wishes and were consensually agreed upon. Question Answer Comments Discussion of Advance Direct joseph occurred with: Not Discussed due to patient's condition Healthcare Agents on File Name Relationship Healthcare Agent [facility] Everette Tory Adult Child First Alternate Health Care Agent (per Health Care Power of Cardiac Rehabilitation Program Director document) Care Teams Tissue Technologist Relationship Specialty Start Date End Date Sage Lay MD [address] [place] [address] PCP - General Family Medicine 06/19/13 documented as of this encounter
--- OUTSIDE RECORDS SUMMARY | 2025-01-25 07:59 | External Medical Summary ---
Author Name Unknown Address Unknown Organization K09:[facility] [place] [address] Laboratory Report Ordering Provider Test Date Status BHARATI VERDUGO 08/18/2024 08:30:03 Final Observation Date Value Abnormality Reference (Units ) Status WBC, Total 08/18/2024 08:30:03 9.38 4.00-10.8 0 (K/uL) Final RBC 08/18/2024 08:30:03 3.20 4.50-5.25 (M/uL) Final Hemoglobin 08/18/2024 08:30:03 8.9 Below low normal 14 .0-16.8 (g/dL) Final HCT 08/18/2024 08:30:03 28.9 Below low normal 40. 0-48.4 (%) Final MCV 08/18/2024 08:30:03 90.3 82.0-99.5 (fL) Final MCH 08/18/2024 08:30:03 27.8 27.0-34.0 (pg) Final MCHC 08/18/2024 08:30:03 30.8 32.0-36.0 (g/dL) Final RDW 08/18/2024 08:30:03 14.9 11.5-15.5 (%) Final Platelets 08/18/2024 08:30:03 332 140-400 (K /uL) Final MPV 08/18/2024 08:30:03 8.4 6.6-11.1 ( fL) Final Performing Location [facility] [place] [address]
--- OUTSIDE RECORDS SUMMARY | 2025-01-25 07:59 | External Medical Summary ---
Author Name Unknown Address Unknown Organization K09:[facility] [address] Laboratory Report Ordering Provider Test Date Status BHARATI VERDUGO 08/18/2024 08:30:03 Final Observation Date Value Abnormality Reference (Units ) Status SYNC LEUKOCYTES IN BLOOD BY AUTOMATED COUNT 08/18/2024 08:30:03 9.38 4.00-10.80 (K/uL) Final Segs 08/18/2024 08:30:03 71.0 40.0-75.0 (%) Final Lymphs % 08/18/2024 08:30:03 15.0 Below low normal 18.0-42.0 (%) Final Monos 08/18/2024 08:30:03 7.8 1.0-11.0 (%) Final Eosinophils 08/18/2024 08:30:03 5.8 0.0-6.0 (%) Final Basos 08/18/2024 08:30:03 0.4 0.0-2.0 (%) Final Absolute Segs 08/18/2024 08:30:03 6.66 1.80-7.70 (K/uL) Final Lymphs, absolute 08/18/2024 08:30:03 1.41 1.00-4.80 (K/ul) Final Monos, Abs 08/18/2024 08:30:03 0.73 0.00-1.10 (K/uL) Final Eos, Abs 08/18/2024 08:30:03 0.54 0.00-0.70 (K/uL) Final Basos, Abs 08/18/2024 08:30:03 0.04 0.00-0.20 (K/uL) Final Performing Location [facility] [place] [address]
--- OUTSIDE RECORDS SUMMARY | 2025-01-25 07:59 | External Medical Summary | Summary of Care ---
Author Name Unknown Organization [facility] Address [address] [facility] [address] Phone [phone] Care Team Providers Care Overhead Cleaner Name Role Phone Sage Lay MD Primary Care Provider [phone] Reason for Visit * Reason Comments Treatment Encounter Details Date Type Department Care Team (Late st Contact Info) Description 08/18/2024 9:00 AM EST Office Visit Hematology/Oncology [facility] [place] [address] [facility] [place] [address] Wilma Stern MD [address] [facility] [place] [address] 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)*; Encounter for antineoplastic chemotherapy; Anemia due to antineoplastic chemotherapy Allergies No known active allergiesdocumented as of this encounter (statuses as of 08/18/2024) Medications apixaban (ELIQUIS) 5 MG TabletIndications: Persistent [...] as of this encounter (statuses as of 08/18/2024) Active Problems Problem Noted Date Diagnosed Date [...] as of this encounter (statuses as of 08/18/2024) Resolved Problems Problem Noted Date Diagnosed Date Resolved Date History of atrial fibrillation 12/16/2017 01/16/2019 Chest discomfort 12/16/2017 01/16/2019 Persistent atrial fibrillation 10/29/2017 07/23/2018 documented as of this encounter (statuses as of 08/18/2024) Immunizations Name Administration Dates Next Due COVID-19 [...] No 01/02/2024 Does the household have a [facility] source of income? (Household - for ages [...] Industry Job Start Date Job End Date [employer] Not on file Not on file Not on file documented as of this encounter Last Filed Vital Signs Vital Sign Reading Time Taken Comments Blood Pressure 163/91 08/18/2024 8:49 AM EST Pulse 63 08/18/2024 8:49 AM EST Temperature 36.2 °C (97.2 °F) 08/18/2024 8:49 AM ES T Respiratory Rate - - Oxygen Saturation 97% 08/18/2024 8:49 AM EST Inhaled Oxygen Concentration - - Weight 65.8 kg (145 lb) 08/18/2024 8:49 AM EST Height - - Body Mass Index 21.41 02/07/2024 8:53 AM EDT documented in this [...] Progress Notes * Wilma Stern MD - 08/18/2024 8:51 AM EST Outpatient Consult Note Data Source: Patient, Epic record. Data Source: Patient, Epic record. 08/18/2024 8:51 AM Carlos Spears [id number] 74 year old Patient Encounter: HEMATOLOGY/ONCOLOGY [facility] Cancer Diagnosis: Primary malignant neoplasm of [...] COPD, AFib was referred with diagnosis of bcn-glbwq-eonq lung cancer. Patient had initial CT scan [...] glands with hyperchromatic nuclei, prominent nucleoli, and bjdlobcz-wg-ifibirgw jraqzboefh-dw-pxetskhzbeet cytoplasm. Immunohistochemical studies with appropriatecontrols are performed (A1) demonstrating that the tumor cells are positive for CK7, focally positive for TTF-1 while negative for synaptophysin, CK20, CDX-2, and SATB2. SMAD4 shows some aberrant loss in portions of the tumor. Overall, the findings support the above interpretation but the immunoprofile is not entirely specific. Tumor Mutational Crawford (TMB): TMB Unit Crawford 7.58 m/MB Low Microsatellite Instability Status (MSI): MSI Status 0 Stable Result Detail Tier I: Strong Significance Variants Single Nucleotide Variants and Insertions/Deletions Gene Variant Tier Amino Acid Change Nucleotide Change Consequence Allele Frequency Sequencing Depth KRAS G12V Tier 1: Strong significance p.Quz51Irh NM_[id number]: c.35G>T Missense Variant 13% 1992 Tier II: Potential Significance Variants Single Nucleotide Variants and Insertions/Deletions Gene Variant Tier Amino Acid Change Nucleotide Change Consequence Allele Frequency Sequencing Depth ESTRADA R2486* Tier 2: Potential significance p.Blg8582Yxr NM_000051.4: c.7456C>T Nonsense 66% 1996 SMARCA4 E1258* Tier 2: Potential significance p.Lzj3703Owj NM_[id number]: c.3772G>T Nonsense 11.4% 1938 STK11 E165* Tier 2: Potential significance p.Tap319Ngv NM_000455.5: c.493G>T Nonsense 12.1% 835 STK11 S216F Tier 2: Potential significance p.Nsy448Hpq NM_000455.5: c.647C>T Missense Variant 4.6% 1358 Copy [...] of unknown type. Interval History: He is overall doing well without any new symptoms complain. No side effects or toxicity from the Keytruda. Denies any headache, dizziness, blurred vision, chest pain palpitation abdominal pain or distention, change in the bowel habits, skin rash. His appetite is good and has good energy level. LABS/IMAGING: Results for orders placed or performed in visit on 08/18/24 CBC Result Value Ref Range WBC 9.38 4.00 - 10.80 K/uL RBC 3.20 4.50 - 5.25 M/uL HGB 8.9 (L) 14.0 - 16.8 g/dL HCT 28.9 (L) 40.0 - 48.4 % MCV 90.3 82.0 - 99.5 fL MCH 27.8 27.0 - 34.0 pg MCHC 30.8 32.0 - 36.0 g/dL RDW 14.9 11.5 - 15.5 % PLT 332 140 - 400 K/uL MPV 8.4 6.6 - 11.1 fL DIFFERENTIAL, AUTOMATED Result Value Ref Range WBC 9.38 4.00 - 10.80 K/uL Neutrophils % 71.0 40.0 - 75.0 % Lymphocytes % 15.0 (L) 18.0 - 42.0 % Monocytes % 7.8 1.0 - 11.0 % Eosinophils % 5.8 0.0 - 6.0 % Basophils % 0.4 0.0 - 2.0 % Absolute Neutrophils 6.66 1.80 - 7.70 K/uL Absolute Lymphocytes 1.41 1.00 - 4.80 K/ul Absolute Monocytes 0.73 0.00 - 1.10 K/uL Absolute Eosinophils 0.54 0.00 - 0.70 K/uL Absolute Basophils 0.04 0.00 - 0.20 K/uL Blood test done today are in stable range with a hemoglobin of 8.9. Result with CMP is pending. Follow-up CT scan was done on 08/11/2024 which basically showed stable changes with small to moderate size loculated right pleural effusion without significant change and there was 1 lymph node whichis 9.2 mm and it was 6.8 mm on the prior examination. REVIEW OF SYSTEMS: General: No Fever, chills, [...] Hematuria or dysuria Musculoskeletal: No bone pain Neurologic: No numbness, weakness, neuropathic pain or change in cognitive function Psychiatric: No vegetative signs of depression Endocrine: [...] appearing patient in no acute distress BP 163/91 (BP Site: Left Arm, BP Position: Sitting, BP Cuff Size: Regular) | Pulse 63 | Temp 36.2 °C (97.2 °F) (Tympanic) | Wt 65.8 kg (145 lb) | SpO2 97% | BMI 21.41 kg/m² | BSA 1.79 m² Vitals reviewed. HEENT: No oral or [...] AFib was referred with the diagnosis of ubv-gcpve-qxcy lung cancer. Patient had enlarging right lower [...] or lymph node positive, irrespective ofPD-L1 expression. Overall clinically he is stable without any new symptoms complain. Physical examination is unremarkable. Recent CT scan overall shows stable disease with question of 1 lymph node mildly increase in size. At this point I think the best option is to continue current treatment. We will repeat the CT scan in 2-3 months. Discuss in detail with the patient about diagnosis and reviewed all the available blood tests and CT scan finding with him. After detailed discussion we agreed to continue current treatment PLAN: Continue Keytruda. He will return clinic [...] in this encounter Nursing Notes * Rama Baez, MED ASSIST - 08/18/2024 8:50 AM EST Patient identifed by name and birthdate Do you have any concerns about pain management for today's visit? Yes. Patient instructed to discuss pain concerns with provider during the visit today Living Will or Advance Directive for Health Care as noted on the problem list. [facility] is a way you can talk to your provider on line through e-mail. Would you like to sign up? I can activate it for you? ALREADY ACTIVE Filed Vitals: 08/18/24 0849 BP: 163/91 Pulse: 63 Temp: 36.2 °C (97.2 °F) TempSrc: Tympanic SpO2: 97% Weight: 65.8 kg (145 lb) Patient was instructed to not get [...] Team (Late st Contact Info) Description 08/18/2024 9:30 AM EST Hem/Onc Treatment Hematology/Oncology Treatment, [address] [place] [phone] Demetrice, Chair 10 Hem Onc [facility] [address] [place] [address] Arrived Scheduled Procedures Name Priority Associated Diagnoses Date/Ti [...] 12/24/2023 Albumin/Creatinine Ratio 05/31/2025 05/31/2022, 1105/2020 GFR 08/18/2025 08/18/2024, 07/01, 07/07/2024, Additional history [...] this encounter Medical Devices Implanted Type Area Puttier Device Identifier Shelf Expiration Date Model / Serial / Lot Port Implant W8f Poly Cath - [id number] Implanted:Qty: 1 on 02/07/2024 by Giovani Cervantes MD at OR [facility] BARD : PERIPHERAL VASCULAR [id number] 02/27/2025 [id number] / / [id number] documented as of this encounter Visit Diagnoses Diagnosis 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)- Primary Malignant neoplasm of lower lobe, bronchus, or lung Encounter for antineoplastic chemotherapy Anemia due to antineoplastic chemotherapy Antineoplastic chemotherapy induced anemia documented in this encounter Advance Directives Documents on File Type Date Recorded Patient Nurse'S Companion Expl anation Advance Directives and Living Will 12/20/2023 ADVANCE DIRECTIVE / LIVING WILL Power of Resident Care Aide 12/20/2023 POWER OF A TTORNEY Advance Directives [...] Name Relationship Healthcare Agent Relationshi p Communication [facility] Adult Child First Alternate Health Care Agent (per Health Care Power of Resident Care Aide document) Care Teams Overhead Cleaner Relationship Specialty Start Date End Date Sage Lay MD [address], [place] [phone] PCP - General Family Medicine 06/19/13 documented as of this encounter"
--- OUTSIDE RECORDS SUMMARY | 2025-01-25 07:59 | External Medical Summary | Summary of Care ---
Author Name Unknown Organization [facility] Address [address] [facility] [place] [address] Phone [phone] Care Team Providers Care Well Service Pump Equipment Operator Name Role Phone Sage Lay MD Primary Care Provider [phone] Reason for Visit * Reason Comments Chemotherapy C8 D1 Keytruda * Episode Based Medications (Routine) - Authorized Specialty Diagnoses / Procedures Referred By Payton t Referred To Contact Diagnoses 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) Encounter for antineoplastic chemotherapy Procedures NM INJ. PEMETREXED NOS 10MG NM CISPLATIN 10 MG INJECTION NM INJ PEMBROLIZUMAB NM FOSAPREPITANT INJECTION Wilma Stern MD [address] [place] [address] Dr [place] [address] Phone: tel: fax: Hematology/Oncology Treatment, [address] [address] Phone: tel: fax: Referral ID Status Reason Start Date Expiration Date V isits Requested Visits Authorized [id number] Authorized 01/21/2024 01/15/2025 999 99 Encounter Details Date Type Department Care Team (Latest Contact Info) Description 07/07/2024 1:30 PM EDT Hem/Onc Treatment Hematology/Oncolog y Treatment, [address] [place] [address] Chair Demetrice 4 Hem Onc [address] [place] [phone] Primary malignant neoplasm of right lower lobe [...] 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 on file Not [...] 8:30 AM EST Immunization/Injecti on Hematology/Oncology [address], [address] [address] Park, Chair 7 Hem Onc [address] [place] [address] 08/18/2024 9:00 AM EST Office Visit Hematology/Oncology [facility] [place] [address] [facility] [place] [address] Wilma Stern MD [address] [facility] [place] [address] 08/18/2024 9:30 AM EST Hem/Onc Treatment Hematology/Oncology Treatment, [address] [place] [address] Park, Chair 10 Hem Onc [address] [place] [address] Scheduled Procedures Name Priority Associated Diagnoses Date/Ti [...] this encounter Medical Devices Implanted Type Area Material Preparation Worker Device Identifier Shelf Expiration Date Model / Serial / Lot Port Implant W8f Poly Cath - [id number] Implanted:Qty: 1 on 02/07/2024 by Giovani Cervantes MD at OR [facility] CR BARD : PERIPHERAL VASCULAR [id number] 02/27/2025 [id number] / / [id number] documented as of this encounter Visit Diagnoses [...] Documents on File Type Date Recorded Patient Proced Tech Expl anation Advance Directives and Living Will 12/20/2023 ADVANCE DIRECTIVE / LIVING WILL Power of Corrosion Prevention Metal Sprayer 12/20/2023 POWER OF A TTORNEY Advance Directives [...] Agents on File Name Relationship [facility] Everette Tory Adult Child First Alternate Health Care Agent (per Health Care Power of Corrosion Prevention Metal Sprayer document) Care Teams Well Service Pump Equipment Operator Relationship Specialty Start Date End Date Sage Lay MD [address] [place] [address] PCP - General Family Medicine 06/19/13 documented as of this encounter
--- OUTSIDE RECORDS SUMMARY | 2025-01-25 07:59 | External Medical Summary ---
Author Name Unknown Address Unknown Organization K09:[facility] [address] [place] [address] Laboratory Report Ordering Provider Test Date Status BHARATI VERDUGO 08/18/2024 08:30:03 Final Observation Date Value Abnormality Reference (Units ) Status BUN 08/18/2024 08:30:03 23 Above high normal 6-20 (mg/dL) Final Creatinine 08/18/2024 08:30:03 1.1 0.6-1.2 (mg/dL) Final Glomerular filtration rate/1.73 sq M.predicted [Volume Rate/Area] in Serum, Plasma or Blood by Creatinine-based formula (CKD-EPI) 08/18/2024 08:30:03 67 >=60 (mL/min) Final eGFR is calculated based on the CKD-EPI 2020 equation. Sodium 08/18/2024 08:30:03 139 135-146 (m mol/L) Final Potassium 08/18/2024 08:30:03 4.0 3.5-5.1 (m mol/L) Final Cl 08/18/2024 08:30:03 103 98-107 (mm ol/L) Final CO2 08/18/2024 08:30:03 25 22-32 (mmo l/L) Final Anion gap 08/18/2024 08:30:03 11 7-15 (mmol /L) Final Glucose 08/18/2024 08:30:03 140 Above high normal 70 -120 (mg/dL) Final Albumin 08/18/2024 08:30:03 3.2 Below low normal 3.8 -5.0 (g/dL) Final AST (Aspartate aminotransferase) 08/18/2024 08:30:03 27 10-50 (U/L) Fin al Alk Phos 08/18/2024 08:30:03 122 35-130 (U/ L) Final Bilirubin, Total 08/18/2024 08:30:03 0.2 <=1 .2 (mg/dL) Final Calcium 08/18/2024 08:30:03 9.0 8.4-10.2 ( mg/dL) Final Protein 08/18/2024 08:30:03 6.9 6.0-8.3 (g /dL) Final ALT (Alanine aminotransferase) 08/18/2024 08:30:03 10 10-50 (U/L) Geo mir Performing Location [facility] [address] [place] [address]
--- OUTSIDE RECORDS SUMMARY | 2025-01-25 07:59 | External Medical Summary | Summary of Care ---
Author Name Unknown Organization [facility] Address [address] [facility] [address] Phone [phone] Care Team Providers Care Side Puller Name Role Phone Sage Lay MD Primary Care Provider [phone] Reason for Visit * Reason Comments Procedure Port flush and lab d raw Encounter Details Date Type Department Care Team (Late st Contact Info) Description 08/18/2024 8:30 AM EST Immunization/I njection Hematology/Oncology Treatment, [address] [address] Demetrice, Chair 7 Hem Onc [facility] [address] [place] [address] Primary malignant neoplasm of right lower lobe [...] 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 VAD (Venous Access Device) accessed with #20G 3/4" without difficulty. Labs drawn and VAD flushed with 10 ml NSS and Heparin 5 ml (100 units/ml). Bernabe needle removed intact. Port left accessed and patient discharged to waiting room for appt with Dr. Stern. He will return for treatment after appt. Pt discharged in stable condition. documented in this encounter Plan of Treatment Upcoming Encounters Date Type Department Care Team (Late st Contact Info) Description 09/08/2024 10:00 AM EST Hem/Onc Treatment [address]ematology[address] [address] Demetrice, Chair 1 Hem Onc [facility] [address] [place] [address] [place] [address] 09/22/2024 8:00 AM EST Nurse Only Hematology/[address], [address] [address] Demetrice, Chair 1 Hem Onc [facility] [address] [place] [address] [place] [address] 09/22/2024 8:30 AM EST Office Visit Hematology/Oncology [facility] 200 [facility] [place] [address] Wilma Stern MD 200 [facility] [place] [address] 09/22/2024 9:00 AM EST Hem/Onc Treatment Hematology/Oncology Treatment, [address] [place] [address] Demetrice, Chair 6 Hem Onc [place] 200 [facility] [place] [address] Pending Results Name Type Priority Associated Diagnoses Date /Time TSH WITH FREE T4 IF INDICATED Lab STAT 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) 08/18/2024 8:30 AM EST Scheduled Procedures Name Priority Associated [...] Albumin/Creatinine Ratio 05/31/2025 05/31/2022, 110 05/2020 GFR 08/18/2025 08/18/2024, 07/01, 07/07/2024, Additional [...] this encounter Medical Devices Implanted Type Area Photoflash Powder Mixer Device Identifier Shelf Expiration Date Model / Serial / Lot Port Implant W8f Poly Cath - [id number] Implanted:Qty: 1 on 02/07/2024 by Giovani Cervantes MD at OR [facility] B[facility] : PERIPHERAL VASCULAR [id number] 02/27/2025 [id number] / / [id number] documented as of this encounter Procedures Procedure Name Priority Date/Time Associated Diagnosis Comments DIFFERENTIAL, AUTOMATED STAT 08/18/2024 8:30 AM EST 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) COMPREHENSIVE METABOLIC PANEL STAT 08/18/2024 8:30 AM EST 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) CBC STAT 08/18/2024 8:30 AM EST 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) CBC STAT 08/18/2024 8:30 AM EST 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) MAGNESIUM STAT 08/18/2024 8:30 AM EST 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) documented in this encounter Results * (ABNORMAL) DIFFERENTIAL, AUTOMATED (08/18/2024 8:30 AM EST) WBC 9.38 4.00 - 10.80 K/uL 08/18/2024 8:46 AM EST [facility]-02 Neutrophils % 71.0 40.0 - 75.0 % 08/18/2024 8:46 AM EST [facility] 56-02 Lymphocytes % 15.0(L) 18.0 - 42.0 % 08/18/2024 8:46 AM EST [facility] 56-02 Monocytes % 7.8 1.0 - 11.0 % 08/18/2024 8:46 AM EST [facility] 56-02 Eosinophils % 5.8 0.0 - 6.0 % 08/18/2024 8:46 AM EST [facility] 56-02 Basophils % 0.4 0.0 - 2.0 % 08/18/2024 8:46 AM EST [facility] 56 Absolute Neutrophils 6.66 1.80 - 7.70 K/uL 08/18/2024 8:46 AM EST [facility] 56 Absolute Lymphocytes 1.41 1.00 - 4.80 K/ul 08/18/2024 8:46 AM EST [facility] 56 Absolute Monocytes 0.73 0.00 - 1.10 K/uL 08/18/2024 8:46 AM EST [facility] 56 Absolute Eosinophils 0.54 0.00 - 0.70 K/uL 08/18/2024 8:46 AM [facility] 56 Absolute Basophils 0.04 0.00 - 0.20 K/uL 08/18/2024 8:46 AM [facility] 56 Blood Blood sample taken from central line / Unknown Central Line / Unknown 08/18/2024 8:30 AM EST 08/18/2024 8:42 AM EST Wilma Stern MD LAB BLOOD ORDERABLES Fin al Result [facility] [address] [place] [address] * (ABNORMAL) CBC (08/18/2024 8:30 AM EST) WBC 9.38 4.00 - 10.80 K/uL 08/18/2024 8:46 AM [facility] RBC 3.20 4.50 - 5.25 M/uL 08/18/2024 8:46 AM [facility] HGB 8.9(L) 14.0 - 16.8 g/dL 08/18/2024 8:46 AM [facility] HCT 28.9(L) 40.0 - 48.4 % 08/18/2024 8:46 AM [facility] MCV 90.3 82.0 - 99.5 fL 08/18/2024 8:46 AM [facility] 56 MCH 27.8 27.0 - 34.0 pg 08/18/2024 8:46 AM [facility] MCHC 30.8 32.0 - 36.0 g/dL 08/18/2024 8:46 AM [facility] 56 RDW 14.9 11.5 - 15.5 % 08/18/2024 8:46 AM [facility] 56 PLT 332 140 - 400 K/uL 08/18/2024 8:46 AM [facility] 56 MPV 8.4 6.6 - 11.1 fL 08/18/2024 8:46 AM [facility] 56 Blood Blood sample taken from central line / Unknown Central Line / Unknown 08/18/2024 8:30 AM EST 08/18/2024 8:42 AM EST Wilma Stern MD LAB BLOOD ORDERABLES Fin al Result Performing Organization Address City/[facility]/ZIP Co de Phone Number [place] [phone] [place] [address] * MAGNESIUM (08/18/2024 8:30 AM EST) Magnesium 1.6 1.5 - 2.6 mg/dL 08/18/2024 9:05 AM [place] [id number] Blood Blood sample taken from central line / Unknown Central Line / Unknown 08/18/2024 8:30 AM EST 08/18/2024 8:43 AM EST Wilma Stern MD LAB BLOOD ORDERABLES Fin al Result [facility] 56[facility] [address] [place] [address] * (ABNORMAL) COMPREHENSIVE METABOLIC PANEL (08/18/2024 8:30 AM EST) BUN 23(H) 6 - 20 mg/dL 08/18/2024 9:05 AM [facility] 56 CREATININE 1.1 0.6 - 1.2 mg/dL 08/18/2024 9:05 AM [facility] 56 EGFR 67 >=60 mL/min 08/18/2024 9:05 AM [facility] 56 Comment:eGFR is calculated b ased on the CKD-EPI 2020 equation. SODIUM 139 135 - 146 mmol/L 08/18/2024 9:05 AM [facility] 56- POTASSIUM 4.0 3.5 - 5.1 mmol/L 08/18/2024 9:05 AM [facility] 56- CHLORIDE 103 98 - 107 mmol/L 08/18/2024 9:05 AM [facility] 56 CO2 25 22 - 32 mmol/L 08/18/2024 9:05 AM [facility] 56 ANION GAP 11 7 - 15 mmol/L 08/18/2024 9:05 AM [facility] 56 GLUCOSE 140(H) 70 - 120 mg/dL 08/18/2024 9:05 AM [facility] 56 Albumin 3.2(L) 3.8 - 5.0 g/dL 08/18/2024 9:05 AM [facility] 56 AST 27 10 - 50 U/L 08/18/2024 9:05 AM [facility] 56 Alkaline Phosphatase 122 35 - 130 U/L 08/18/2024 9:05 AM [facility] 56 Bilirubin, Total 0.2 <=1.2 mg/dL 08/18/2024 9:05 AM [facility] 56- CALCIUM 9.0 8.4 - 10.2 mg/dL 08/18/2024 9:05 AM [facility] 56- Protein 6.9 6.0 - 8.3 g/dL 08/18/2024 9:05 AM [facility] 56 ALT 10 10 - 50 U/L 08/18/2024 9:05 AM [facility] 56- Blood Blood sample taken from central line / Unknown Central Line / Unknown 08/18/2024 8:30 AM EST 08/18/2024 8:43 AM EST us Wilma Stern MD LAB BLOOD ORDERABLES Fin al Result [facility] [address] [place] [address] documented in this encounter Visit Diagnoses Diagnosis [...] Other, IV Flush, Starting on Sat08/18/24 at 1032, Until Sat08/19/24 at 1031, For 24 hours, Do not flush if lock, PICC, or central line not in place; IV infusing or unable to flush.Indications: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) sodium chloride 0.9 % flush central line 10 mL 10 mL, IV Push, PRN Other, IV Flush, Starting on Sat08/18/24 at 1032, Until Sat08/19/24 at 1031, For 24 hours, Do not flush if lock, PICC, or central line not in place; IV infusing or unable to flush.Indications: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) documented in this encounter Advance Directives Documents on File Type Date Recorded Patient Shale Processing Technician Expl anation Advance Directives and Living Will 12/20/2023 ADVANCE DIRECTIVE / LIVING WILL Power of Animal Husbandry Manager 12/20/2023 POWER OF A TTORNEY Advance Directives [...] Agents on File Name Relationship Healthcare Agent [facility] p Communication [facility] Adult Child First Alternate Health Care Agent (per Health Care Power of Animal Husbandry Manager document) Care Teams Side Puller Relationship Specialty Start Date End Date Sage Lay MD [address] [place] [address] PCP - General Family Medicine 06/19/13 documented as of this encounter
--- OUTSIDE RECORDS SUMMARY | 2025-01-25 07:59 | External Medical Summary | Summary of Care ---
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 Not on file [...] 8:30 AM EST Immunization/Injecti on Hematology/Oncology Treatment, [place] 200 [place] [phone] Demetrice, Chair 7 Hem Onc [facility] 200 [facility] [place] [address] 08/18/2024 9:00 AM EST Office Visit Hematology/Oncology [facility] 200 [facility] [place] [phone] Wilma Stern MD 200 [facility] [place] [address] 08/18/2024 9:30 AM EST Hem/Onc Treatment [facility]ematology[facility]cology [facility], [place] [address] [facility] [phone] Demetrice, Chair 10 Hem Onc [facility] 200 [facility] [place], [place] [address] Scheduled Procedures Name Priority Associated Diagnoses Date/Ti [...] 12/24/2023 Albumin/Creatinine Ratio 05/31/2025 05/31/2022, 05/2020 GFR 07/28/2025 07/28/2024, 04/2024, 06/17/2024, Additional history exists Colonoscopy 02/19/2027 [...] this encounter Medical Devices Implanted Type Area Live Truck Technician Device Identifier Shelf Expiration Date Model / Serial / Lot Port Implant W8f Poly Cath - [id number] Implanted:Qty: 1 on 02/07/2024 by Giovani Cervantes MD at OR [facility] BARD : PERIPHERAL VASCULAR [id number] 02/27/2025 [id number] / / [id number] documented as of this encounter Advance Directives Documents on File Type Date Recorded Patient Gamma Operator Expl anation Advance Directives and Living Will 12/20/2023 ADVANCE DIRECTIVE / LIVING WILL Power of Contracts Manager 12/20/2023 POWER OF A TTORNEY Advance [...] Agents on File Name Relationship Healthcare Agent [facility] Communication Everette Spears Adult Child First Alternate Health Care Agent (per Health Care Power of Contracts Manager document) Care Teams Foreman Shipping Department Relationship Specialty Start Date End Date Sage Lay MD [address] [place] [address] PCP - General Family Medicine 06/19/13 documented as of this encounter
--- OUTSIDE RECORDS SUMMARY | 2025-01-25 07:59 | External Medical Summary | Summary of Care ---
Author Name Unknown Organization [facility] Address [address] [place] [address] Phone [phone] Care Team Providers Care Railroad Engineer Name Role Phone Sage Lay MD Primary Care Provider [phone] Encounter Details Date Type Department Care Team (Late st Contact Info) Description 08/13/2024 Orders Only Hematology/Oncology, [facility] 400 [facility] [place] [phone] Wilma Stern MD [address] [place] [address] Allergies No known active allergiesdocumented as of [...] 01/13/2024:Stage IIB(pT2b, pN1, cM0) - Signed by Grery Subramanian MD on 01/13/2024 Pulmonary hypertension, unspecified [...] 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 file Not [...] 8:30 AM EST Immunization/Injecti on Hematology/Oncology Treatment, [place] 200 [place] [phone] Demetrice, Chair 7 Hem Onc [facility] 200 [facility] [place] [address] 08/18/2024 9:00 AM EST Office Visit Hematology/Oncology [facility] 200 [facility] [place] [phone] Wilma Stern MD 200 [facility] [place] [address] 08/18/2024 9:30 AM EST Hem/Onc Treatment [facility]ematology[facility]cology Treatment, [place] [address] [facility] [phone] Demetrice, Chair 10 Hem Onc [facility] 200 [facility] [place], [place] [address] Scheduled Procedures Name Priority Associated Diagnoses Date/Ti [...] this encounter Medical Devices Implanted Type Area Enamel Dipper Device Identifier Shelf Expiration Date Model / Serial / Lot Port Implant W8f Poly Cath - [id number] Implanted:Qty: 1 on 02/07/2024 by Giovani Cervantes MD at OR [facility] BARD : PERIPHERAL VASCULAR [id number] 02/27/2025 [id number] / / [id number] documented as of this encounter Advance Directives Documents on File Type Date Recorded Patient Fish Fryer Expl anation Advance Directives and Living Will 12/20/2023 ADVANCE DIRECTIVE / LIVING WILL Power of Biological Aide 12/20/2023 POWER OF A TTORNEY Advance [...] Agents on File Name Relationship Healthcare Agent [facility] Communication Everette Spears Adult Child First Alternate Health Care Agent (per Health Care Power of Biological Aide document) Care Teams Railroad Engineer Relationship Specialty Start Date End Date Sage Lay MD [address] [place] [facility] [place] [address] PCP - General Family Medicine 06/19/13 documented as of this encounter
--- OUTSIDE RECORDS SUMMARY | 2025-01-25 07:59 | External Medical Summary | Summary of Care ---
Author Name Unknown Organization [facility] Address [address] [facility] [address] Phone [phone] Care Team Providers Care Pension Administrator Name Role Phone Sage Lay MD Primary Care Provider [phone] Reason for Visit * Reason Comments Chemotherapy Day 1, cycle 10 guero talley * Episode Based Medications (Routine) - Authorized Specialty Diagnoses / Procedures Referred By Contkatharina t Referred To Contact Diagnoses 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) Encounter for antineoplastic chemotherapy Procedures CO INJ. PEMETREXED NOS 10MG CO CISPLATIN 10 MG INJECTION CO INJ PEMBROLIZUMAB CO FOSAPREPITANT INJECTION Wilma Stern MD [address] [place] [address] [place] [address] Phone: tel: fax: Hematology/Oncology Treatment, [address] [place] [address] Phone: tel: fax: Referral ID Status Reason Start Date Expiration Date V isits Requested Visits Authorized [id number] Authorized 01/21/2024 01/15/2025 999 [id number] Encounter Details Date Type Department Care Team (Latest Contact Info) Description 08/18/2024 9:30 AM EST Hem/Onc Treatment Hematology/Oncolog y Treatment, [address] [place] [address] Demetrice Chair 10 Hem Onc [address] [place] [phone] Primary malignant neoplasm of right lower lobe [...] 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 on file Not [...] 10:00 AM EST Hem/Onc Treatment Hematology/[address]cology [address], [address] [address] Demetrice, Chair 1 Hem Onc [address] [place] [address] 09/22/2024 8:00 AM EST Nurse Only Hematology/Oncology Treatment, [address] [place] [address] Demetrice, Chair 1 Hem Onc [address] [place] [address] 09/22/2024 8:30 AM EST Office Visit Hematology/Oncology [facility] Demetr[place] [address] [place] [phone] Wilma Stern MD [address] [place] [address] 09/22/2024 9:00 AM EST Hem/Onc Treatment Hematology/Oncology Treatment, [place] [address] [place] [phone] Demetrice, Chair 6 Hem Onc [facility] 200 [facility] [place] [address] Scheduled Procedures Name Priority Associated Diagnoses Date/Ti [...] encounter Medical Devices Implanted Type Area Social Work Faculty Member Device Identifier Shelf Expiration Date Model / Serial / Lot Port Implant W8f Poly Cath - [id number] Implanted:Qty: 1 on 02/07/2024 by Giovani Cervantes MD at [facility] BARD : PERIPHERAL VASCULAR [id number] 02/27/2025 [id number] / / [id number] documented as of this encounter Visit Diagnoses [...] ONCE PRN Other, Hypersensitivity Reaction, Starting on Sat08/18/24 at 0926, Until Sat08/19/24 at 0925, For 24 hoursIndications: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),Encounter for antineoplastic chemotherapy EPINEPHrine 1 MG/ML inj 0.3 mg 0.3 mg, Intramuscular, ONCE PRN Other, Hypersensitivity Reaction or Anaphylaxis, Starting on Sat08/18/24 at 0926, Until Sat08/19/24 at 0925, For 24 hoursIndications: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),Encounter for antineoplastic chemotherapy hEParin 100 UNIT/ML Lock Flush inj 500 Units 500 Units (5 mL), IV Lock, PRN Other, IV Flush, Starting on Sat08/18/24 at 0926, Until Sat08/19/24 at 0925, For 24 hours, Do not flush if lock, PICC, or central line not in place; IV infusing or unable to flush.Indications: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),Encounter for antineoplastic chemotherapy Given 08/18/2024 10:07 AM EST 500 Units Hydrocortisone Sod Suc (PF) (Solu-Cortef) inj 100 mg 100 mg, IV Push, ONCE PRN Other, Hypersensitivity Reaction, Starting on Sat08/18/24 at 0926, Until Sat08/19/24 at 0925, For 24 hoursIndications: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),Encounter for antineoplastic chemotherapy NSS infusion Intravenous, at 50 mL/hr, PRN, Starting on Sat08/18/24 at 1030, Until Discontinued, Maintenance lineIndications: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),Encounter for antineoplastic chemotherapy Start Infusion 08/18/2024 9:28 AM EST 50 mL/hr oxygen GAS Inhalation, OXYGEN, First dose on Sat08/18/24 at 1000, Until Discontinued, Device/Managed by: Low [...] Flush, Starting on Sat08/18/24 at 0926, Until Sat08/19/24 at 0925, For 24 hours, Do not flush if lock, PICC, or central line not in place; IV infusing or unable to flush.Indications: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),Encounter for antineoplastic chemotherapy Given 08/18/2024 10:07 AM EST 10 mL Inactive Administered Medications - up to 3 most recent administrations Medication Order MAR Action Action Date Dose Rate Site Pembrolizumab (Keytruda) 200 mg in NSS 100 mL infusion 200 mg, IV Piggyback, ONCE, 1 dose, On Sat08/18/24 at 1000, Administer over 30 Minutes, Infuse through 0.2 micron filter.Indications: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),Encounter for antineoplastic chemotherapy Start Infusion 08/18/2024 9:31 AM EST 200 mg 226 mL/hr documented in this encounter Advance Directives Documents on File Type Date Recorded Patient Cattle Driver Expl anation Advance Directives and Living Will 12/20/2023 ADVANCE DIRECTIVE / LIVING WILL Power of Freight [place] 12/20/2023 POWER OF A TTORNEY Advance Directives [...] Agents on File Name Relationship Healthcare Agent [facility] p Communication Everette Spears Adult Child First Alternate Health Care Agent (per Health Care Power of Freight [place] document) Care Teams Pension Administrator Relationship Specialty Start Date End Date Sage Lay MD [address] [place] [address] PCP - General Family Medicine 06/19/13 documented as of this encounter
--- OUTSIDE RECORDS SUMMARY | 2025-01-25 07:59 | External Medical Summary | Summary of Care ---
Author Name Unknown Organization [facility] Address [address] [facility] [place] [address] Phone [phone] Care Team Providers Care Agency Appointments Supervisor Name Role Phone Sage Lay MD Primary Care Provider [phone] Encounter Details Date Type Department Care Team (Late st Contact Info) Description 09/03/2024 Orders Only Hematology/Oncology, [facility] [address] [facility] [place] [id number] Wilma Stern MD [address] [place] [address] Allergies No known active allergiesdocumented as of this encounter (statuses as of 09/03/2024) Medications apixaban (ELIQUIS) 5 MG TabletIndications: Persistent [...] as of this encounter (statuses as of 09/03/2024) Active Problems Problem Noted Date Diagnosed Date [...] 01/13/2024:Stage IIB(pT2b, pN1, cM0) - Signed by eGrry Subramanian MD on 01/13/2024 Pulmonary hypertension, unspecified 07/30/2022 Essential hypertension with goal blood pressure less than 130/80 01/25/2021 Other hyperlipidemia 07/23/2018 Paroxysmal atrial fibrillation 07/23/2018 Gouty arthropathy 07/23/2018 Bradycardia, sinus 01/16/2018 Osteoarthritis of left shoulder 07/11/2016 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 documented as of this encounter (statuses as of 09/03/2024) Resolved Problems Problem Noted Date Diagnosed Date Resolved Date History of atrial fibrillation 12/16/2017 01/16/2019 Chest discomfort 12/16/2017 01/16/2019 Persistent atrial fibrillation 10/29/2017 07/23/2018 documented as of this encounter (statuses as of 09/03/2024) Immunizations Name Administration Dates Next Due COVID-19 [...] 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 [...] 10:00 AM EST Hem/Onc Treatment Hematology/Oncology Treatment, [place] [address] [facility], [place] [phone] Demetrice, Chair 1 Hem Onc Scenery 200 [facility] [place] [address] 09/22/2024 8:00 AM EST [facility] 200 [facility], [place] [phone] Demetrice, Chair 1 Hem Onc Scenery 200 [facility] [place] [address] 09/22/2024 8:30 AM EST Office Visit Hematology/Oncology [facility] 200 [facility] [place] [phone] Wilma Stern MD [address] [place] [address] 09/22/2024 9:00 AM EST Hem/Onc Treatment Hematology/Oncology [address], [place] [phone] Demetrice, Chair 6 Hem Onc Scenery 200 [facility] [place] [address] Scheduled Procedures Name Priority Associated Diagnoses Date/Ti [...] this encounter Medical Devices Implanted Type Area Orthopedic Dentist Device Identifier Shelf Expiration Date Model / Serial / Lot Port Implant W8f Poly Cath - [id number] Implanted:Qty: 1 on 02/07/2024 by Giovani Cervantes MD at OR [facility] BARD : PERIPHERAL VASCULAR [id number] 02/27/2025 [id number] / / [id number] documented as of this encounter Advance Directives Documents on File Type Date Recorded Patient Continuous Process Coffee Roaster Expl anation Advance Directives and Living Will 12/20/2023 Durable Health Care POA & Living Will - signed on 12/01/2021 Power of Cutter Finisher 12/20/2023 Durable Po wer of Cutter Finisher - financial only ? - only 1 [...] Agents on File Name Relationship Healthcare Agent [facility] p Communication Everette Spears Adult Child First Alternate Health Care Agent (per Health Care Power of Cutter Finisher document) Care Teams Agency Appointments Supervisor Relationship Specialty Start Date End Date Sage Lay MD [address] [facility] [address] PCP - General Family Medicine 06/19/13 documented as of this encounter
--- OUTSIDE RECORDS SUMMARY | 2025-01-25 07:59 | External Medical Summary ---
Author Name Unknown Address Unknown Organization K01:LAB[facility]ATORY [facility] - [address] [facility] [address] [facility] [address] Laboratory Report Ordering Provider Test Date Status BHARATI VERDUGO 08/18/2024 08:30:03 Final Observation Date Value Abnormality Reference (Units ) Status TSH 08/18/2024 08:30:03 13.90 Above high normal 0. 27-4.20 (uIU/mL) Final Performing Location [facility] - [address] [facility] [address]
--- OUTSIDE RECORDS SUMMARY | 2025-01-25 08:00 | External Medical Summary | Summary of Care ---
Author Name Unknown Organization [facility] Address [address] [place] [place] [place] [address] Phone [phone] Care Team Providers Care Rehanger Name Role Phone Sage Lay MD Primary Care Provider Reason for Visit * Reason Comments Procedure Labs from port Chemotherapy Keytruda * Episode Based Medications (Routine) - Authorized Specialty Diagnoses / Procedures Referred By Contkatharina t Referred To Contact Diagnoses 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) Encounter for antineoplastic chemotherapy Procedures IA INJ. PEMETREXED NOS 10MG IA CISPLATIN 10 MG INJECTION IA INJ PEMBROLIZUMAB IA FOSAPREPITANT INJECTION Wilma Stern MD [address] [place] [address] [place] [address] Anc Hem/Onc [address] [address] Referral ID Status Reason Start Date Expiration Date V isits Requested Visits Authorized [id number] Authorized 01/21/2024 01/15/2025 [id number] Encounter Details Date Type Department Care Team (Latest Contact Info) Description 07/28/2024 10:00 AM EDT Hem/Onc Treatment Hematology/Oncolog y Treatment, [address] [phone] Demetrice, Chair 4 Hem On[address] [place] [address] Encounter for antineoplastic chemotherapy*; 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); Encounter for antineoplastic immunotherapy Allergies No known active allergiesdocumented as of this encounter (statuses as of 08/05/2024) Medications Medication Sig Dispensed Refills Start Date End Date Status apixaban (ELIQUIS) 5 MG TabletIndications:P ersistent atrial fibrillation (HCC) Take 1 Tab by mouth 2 times a day. 180 Tab 3 05/01/2018 Active sotalol (BETAPACE) 80 MG TabletIndications:P ersistent atrial fibrillation (HCC) Take 1 Tab by mouth 2 times a day. 180 Tab 3 05/14/2018 Active Polyethylene Glycol 3350 17 GM/SCOOP Oral Powder (MiraLax) Take by mouth 17 g in the morning. One cap full in juice, to effect 1 stool per day. .. 510 g 1 11/28/2021 Active Ondansetron HCl 8 MG Oral TabletIndications:P rimary malignant neoplasm of right lower lobe of lung (HCC) Take 1 Tablet by mouth every 8 hours as needed for Nausea. 30 Tablet 01/21/2024 Active Additional Information Patient not taking.Reported on 02/07/2024 Prochlorperazine Maleate 10 MG Oral Tablet (Compazine)Indicati ons: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) Take 1 Tablet by mouth every 6 hours as needed for Nausea. 30 Tablet 01/21/2024 Active Additional Information Patient not taking.Reported on 02/07/2024 Folic Acid 1 MG Oral TabletIndications:P rimary malignant neoplasm of right lower lobe of lung (HCC) Take 1 Tablet by mouth in the morning. 30 Tablet 5 01/21/2024 Active dexAMETHasone 4 MG Oral Tablet (Decadron)Indicatio ns: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) Take 1 tablet twice a day for 3 days starting the day prior to chemotherapy 24 Tablet 01/21/2024 Active Additional Information Patient not taking.Reported on 02/07/2024 Lisinopril 10 MG Oral Tablet (Prinivil) TAKE ONE TABLET BY MOUTH EVERY MORNING 90 Tablet 3 03/19/2024 03/19/20 25 Active Atorvastatin Calcium 20 MG Oral Tablet (Lipitor)Indication s:Other hyperlipidemia TAKE ONE TABLET BY MOUTH EVERY MORNING 100 Tablet 1 12/26/2023 07/27/20 Discontinu ed(Refill) documented as of this encounter (statuses as of 08/05/2024) Active Problems Problem Noted Date Diagnosed Date [...] as of this encounter (statuses as of 08/05/2024) Resolved Problems Problem Noted Date Diagnosed Date Resolved Date History of atrial fibrillation 12/16/2017 01/16/2019 Chest discomfort 12/16/2017 01/16/2019 Persistent atrial fibrillation 10/29/2017 07/23/2018 documented as of this encounter (statuses as of 08/05/2024) Immunizations Name Administration Dates Next Due COVID-19 [...] Assigned at Male 07/27/2019 2:12 PM EDT Gender Identity Male 07/27/2019 2:12 PM EDT Sexual Orientation Straight 07/27/2019 2: 12 PM EDT Job Start Date Occupation Industry Not on file Not on file Not on file documented as of this encounter Last Filed Vital Signs Vital Sign Reading Time Taken Comments Blood Pressure 159/84 07/28/2024 10:30 AM EDT Pulse 60 07/28/2024 10:30 AM EDT Temperature 36 °C (96.8 °F) 07/28/2024 10:30 AM EDT Respiratory Rate 16 07/28/2024 10:30 AM EDT Oxygen Saturation 95% 07/28/2024 10:30 AM EDT Inhaled Oxygen Concentration - - Weight 66.5 kg (146 lb 9.6 oz) 07/28/2024 10:30 AM EDT Height - - Body Mass Index 21.65 02/07/2024 8:53 AM EDT documented in this encounter Functional Status Functional Status Response Date of Assess ment Are you deaf or do you have serious difficulty h earing? No 12/20/2023 Are you blind or do you have serious difficulty seeing, even when wearing glasses? No 12/20/2023 Do you have serious difficul ty walking or climbing stairs? (5 years old or older) No 12/20/2023 Do you have difficulty dress ing or bathing? (5 years old or older) No 12/20/2023 Because of a physical, menta l, or emotional condition, do you have difficulty doing errands alone such as visiting a doctor s office or shopping? (15 years old or older) No 12/20/19 24 Cognitive Status Response Date of Assessm ent Because of a physical, menta l, or emotional condition, do you have serious difficulty concentrating, remembering, or making decisions? (5 years old or older) No 12/20/2023 documented as of this encounter Nursing Notes * Renee Ren, FELIX - 07/28/2024 2:43 PM EDT Pt completed treatment without issues. VAD flushed with 10 ml NSS and Heparin 5 ml (100 units/ml). Bernabe needle removed intact. Goals: Pt will remain free from injury. Possible barriers to meeting goals: pt is a high fall risk Stability of the patient: Moderately stable - low risk of patient condition declining or worsening Summary regarding today's goals: Met: . Pt remained free from injury during treatment today. Discharged in stable condition. * Renee Ren RN - 07/28/2024 10:31 AM EDT Chair 2, labs from [facility]. Pt has no acute concerns to report today. VAD accessed without issues; flushes easily. Specimen collected for ordered labs. Treatment pending lab results. [facility]otherapy[facility] Consent for chemotherapy drug treatment complete, dated, and signed? yes, date - 01/21/24 Treatment lab parameters met? Yes Has treatment weight changed > than 10%? No Treatment preauthorized? Yes VITALS Filed Vitals: 07/28/24 1030 BP: 159/84 Pulse: 60 Resp: 16 Temp: 36 °C (96.8 °F) SpO2: 95% Weight: 66.5 kg (146 lb 9.6 oz) Urine protein: N/A Patient education completed for treatment? Yes Blood transfusion consent signed and complete? NA Return appointment scheduled? Yes Patient had provider visit today? No - If no provider visit must complete Pretreatment Assessment Labs WNL; Keytruda infusing. Safety and Risk for Injury [...] Care Team (Late st Contact Info) Description 08/11/2024 9:30 AM EST Imaging Radiology [facility] 1st Floor, [place] [address] [facility] [place] [address] 08/18/2024 8:30 AM EST Immunization/Injecti on Hematology/Oncology Treatment, [place] [address] [place] [phone] Park, Chair 7 Hem Onc Scenery [address] [place] [address] 08/18/2024 9:00 AM EST Office Visit Hematology/Oncology [facility] Demetrice [place] [address] [facility] [place] [phone] Wilma Stern MD 200 [facility] [place] [address] 08/18/2024 9:30 AM EST Hem/Onc Treatment Hematology/Oncology Treatment, [place] [address] [facility] [address] [place] [phone] Demetrice, Chair 10 Hem Onc [facility] 200 [facility] [place] [address] Scheduled Procedures Name Priority Associated Diagnoses Date/Ti me COLONOSCOPY FLEXIBLE PROXIMAL DIAGNOSTIC Recall History of colon polyps Health Maintenance Due Date Last Done Comments Alpha-1 Antitrypsin 1968 Adult Wellness Visit 2014 Hepatitis B Vaccine (3 of 3 - Hep B Twinrix 3-dose series) 07/19/2019 02/16/2019, 01/16/2019 COVID-19 Vaccine ( season) 2024 07/04/2024, 08/08/2022, 03/02/2022, Additional history exists O2 ASSESSMENT COMPLETED IN PAST YEAR FOR COPD 12/19/2024 12/20/2023 Depression Screening 12/23/2024 12/24/2023 Albumin/Creatinine Ratio 05/31/2025 05/31/2022, 11/0 05/2020 GFR 07/28/2025 07/28/2024, 0 04/2024, 06/17/2024, [...] this encounter Medical Devices Implanted Type Area Wet End Helper Device Identifier Shelf Expiration Date Model / Serial / Lot Port Implant W8f Poly Cath - [id number] Implanted:Qty: 1 on 02/07/2024 by Giovani Cervantes MD at OR [facility] BARD : PERIPHERAL VASCULAR [id number] 02/27/2025 [id number] / / [id number] documented as of this encounter Procedures Procedure Name Priority Date/Time Associated Diagnosis Comments DIFFERENTIAL, AUTOMATED STAT 07/28/2024 10:18 AM EDT 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) TSH WITH FREE T4 IF INDICATED STAT 07/28/2024 10:18 AM EDT 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) COMPREHENSIVE METABOLIC PANEL STAT 07/28/2024 10:18 AM EDT 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) CBC STAT 07/28/2024 10:18 AM EDT 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) CBC STAT 07/28/2024 10:18 AM EDT 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) T4, FREE STAT 07/28/2024 10:18 AM EDT 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) MAGNESIUM STAT 07/28/2024 10:18 AM EDT 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) documented in this encounter Results * T4, FREE (07/28/2024 10:18 AM EDT) T4, Free 1.0 0.9 - 1.7 ng/dL 07/29/2024 4:54 AM EDT LABORATORY [facility] Blood Venous blood specimen / Unknown Venipuncture / Unknown 07/28/2024 10:18 AM EDT 07/28/2024 10:21 AM EDT Wilma Stern MD LAB BLOOD ORDERA BLES LABORATORY [facility] [address] [place] [address] * (ABNORMAL) DIFFERENTIAL, AUTOMATED (07/28/2024 10:18 AM EDT) [facility] WBC 9.72 4.00 - 10.80 K/uL 07/28/2024 10:30 AM EDT [facility] 56-02 Neutrophils % 72.1 40.0 - 75.0 % 07/28/2024 10:30 AM EDT [facility] 56-02 Lymphocytes % 15.4(L) 18.0 - 42.0 % 07/28/2024 10:30 AM EDT LABORATORY [place] 56-02 Monocytes % 9.3 1.0 - 11.0 % 07/28/2024 10:30 AM EDT [facility] 56-02 Eosinophils % 2.9 0.0 - 6.0 % 07/28/2024 10:30 AM EDT [facility] 56-02 Basophils % 0.3 0.0 - 2.0 % 07/28/2024 10:30 AM EDT LAB[facility]ATORY [place] 56-02 Absolute Neutrophils 7.01 1.80 - 7.70 K/uL 07/28/2024 10:30 AM EDT LAB[facility]ATORY [place] 56-02 Absolute Lymphocytes 1.50 1.00 - 4.80 K/ul 07/28/2024 10:30 AM EDT [facility] 56-02 Absolute Monocytes 0.90 0.00 - 1.10 K/uL 07/28/2024 10:30 AM EDT [facility] 56-02 Absolute Eosinophils 0.28 0.00 - 0.70 K/uL 07/28/2024 10:30 AM EDT [facility] 56-02 Absolute Basophils 0.03 0.00 - 0.20 K/uL 07/28/2024 10:30 AM EDT [facility] 56 Blood Venous blood specimen / Unknown Venipuncture / Unknown 07/28/2024 10:18 AM EDT 07/28/2024 10:21 AM EDT Wilma Stern MD LAB BLOOD ORDERA BLES [address] [place] [address] * (ABNORMAL) CBC (07/28/2024 10:18 AM EDT) WBC 9.72 4.00 - 10.80 K/uL 07/28/2024 10:30 AM EDT [address] RBC 2.99 4.50 - 5.25 M/uL 07/28/2024 10:30 AM EDT [address] HGB 8.6(L) 14.0 - 16.8 g/dL 07/28/2024 10:30 AM EDT [address] HCT 27.8(L) 40.0 - 48.4 % 07/28/2024 10:30 AM EDT [address] MCV 93.0 82.0 - 99.5 fL 07/28/2024 10:30 AM EDT [address] MCH 28.8 27.0 - 34.0 pg 07/28/2024 10:30 AM EDT [address] MCHC 30.9 32.0 - 36.0 g/dL 07/28/2024 10:30 AM EDT [address] RDW 14.6 11.5 - 15.5 % 07/28/2024 10:30 AM EDT [facility] 56 PLT 330 140 - 400 K/uL 07/28/2024 10:30 AM EDT [facility] 56 MPV 8.5 6.6 - 11.1 fL 07/28/2024 10:30 AM EDT [facility] 56 Blood Venous blood specimen / Unknown Venipuncture / Unknown 07/28/2024 10:18 AM EDT 07/28/2024 10:21 AM EDT Wilma Stern MD LAB BLOOD ORDERA BLES [facility] [address] [place] [address] * (ABNORMAL) TSH WITH FREE T4 IF INDICATED (07/28/2024 10:18 AM EDT) TSH 7.79(H) 0.27 - 4.20 uIU/mL 07/28/2024 9:14 PM EDT LABORATORY [facility] Blood Venous blood specimen / Unknown Venipuncture / Unknown 07/28/2024 10:18 AM EDT 07/28/2024 10:21 AM EDT Wilma Stern MD LAB BLOOD ORDERA BLES Performing Organization Address City/[facility]/ZIP Co de Phone Number LABORATORY [facility] [address] [place] [address] * MAGNESIUM (07/28/2024 10:18 AM EDT) Magnesium 1.7 1.5 - 2.6 mg/dL 07/28/2024 10:57 AM EDT [facility] 56- Blood Venous blood specimen / Unknown Venipuncture / Unknown 07/28/2024 10:18 AM EDT 07/28/2024 10:21 AM EDT Wilma Stern MD LAB BLOOD ORDERA BLES [facility] 56-[address] [place] [address] * (ABNORMAL) COMPREHENSIVE METABOLIC PANEL (07/28/2024 10:18 AM EDT) BUN 20 6 - 20 mg/dL 07/28/2024 10:57 AM EDT [facility] 56- CREATININE 1.1 0.6 - 1.2 mg/dL 07/28/2024 10:57 AM T [facility] 56- EGFR 70 >=60 mL/min 07/28/2024 10:57 AM [facility] 56- Comment:eGFR is calculated b ased on the CKD-EPI 2020 equation. SODIUM 138 135 - 146 mmol/L 07/28/2024 10:57 AM [facility] 56- POTASSIUM 4.1 3.5 - 5.1 mmol/L 07/28/2024 10:57 AM [facility] 56- CHLORIDE 102 98 - 107 mmol/L 07/28/2024 10:57 AM [facility] 56 CO2 25 22 - 32 mmol/L 07/28/2024 10:57 AM [facility] 56- ANION GAP 11 7 - 15 mmol/L 07/28/2024 10:57 AM [facility] 56 GLUCOSE 106 70 - 120 mg/dL 07/28/2024 10:57 AM [facility] 56- Albumin 3.2(L) 3.8 - 5.0 g/dL 07/28/2024 10:57 AM [facility] 56- AST 31 10 - 50 U/L 07/28/2024 10:57 AM [facility] 56- Alkaline Phosphatase 123 35 - 130 U/L 07/28/2024 10:57 AM [facility] 56- Bilirubin, Total 0.2 <=1.2 mg/dL 07/28/2024 10:57 AM [facility] 56- CALCIUM 8.8 8.4 - 10.2 mg/dL 07/28/2024 10:57 AM [facility] 56- Protein 7.0 6.0 - 8.3 g/dL 07/28/2024 10:57 AM [facility] 56- ALT 13 10 - 50 U/L 07/28/2024 10:57 AM [facility] 56- Blood Venous blood specimen / Unknown Venipuncture / Unknown 07/28/2024 10:18 AM EDT 07/28/2024 10:21 AM EDT Wilma Stern MD LAB BLOOD ORDERA BLES LAB[facility]AT[facility] [place] [address] [place] [address] documented in this encounter Visit Diagnoses Diagnosis Encounter for antineoplastic chemotherapy- Primary 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) Malignant neoplasm of lower lobe, bronchus, or lung Encounter for antineoplastic immunotherapy documented in this encounter Administered Medications Inactive Administered Medications - up to 3 most recent administrations Medication Order MAR Action Action Date Dose Rate Site hEParin 100 UNIT/ML Lock Flush inj 500 Units 500 Units (5 mL), IV Lock, PRN Other, IV Flush, Starting on Sat07/28/24 at 1058, Until Sat07/28/24 at 1849, For 24 hours, Do not flush if lock, PICC, or central line not in place; IV infusing or unable to flush. Given 07/28/2024 11:46 AM EDT 500 Units NSS infusion Intravenous, at 50 mL/hr, PRN, Starting on Sat07/28/24 at 1200, Until Sat07/28/24 at 1849, Maintenance line Start Infusion 07/28/2024 11:03 AM EDT 50 mL/hr Pembrolizumab (Keytruda) 200 mg in NSS 100 mL infusion 200 mg, IV Piggyback, ONCE, 1 dose, On Sat07/28/24 at 1130, Administer over 30 Minutes, Infuse through 0.2 micron filter. Start Infusion 07/28/2024 11:05 AM EDT 200 mg 226 mL/hr sodium chloride 0.9 % flush central line 10 mL 10 mL, IV Push, PRN Other, IV Flush, Starting on Sat07/28/24 at 1058, Until Sat07/28/24 at 1849, For 24 hours, Do not flush if lock, PICC, or central line not in place; IV infusing or unable to flush. 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
--- OUTSIDE RECORDS SUMMARY | 2025-01-25 08:00 | External Medical Summary | Summary of Care ---
Author Name Unknown Organization [facility] Address [address] [place] [facility] [place] [address] Phone [phone] Care Team Providers Care Center Sales And Service Associate Name Role Phone Sage Lay MD Primary Care Provider Reason for Visit * Reason Comments Procedure Labs from port Chemotherapy Keytruda * Episode Based Medications (Routine) - Authorized Specialty Diagnoses / Procedures Referred By Contkatharina t Referred To Contact Diagnoses 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) Encounter for antineoplastic chemotherapy Procedures OK INJ. PEMETREXED NOS 10MG OK CISPLATIN 10 MG INJECTION OK INJ PEMBROLIZUMAB OK FOSAPREPITANT INJECTION Wilma Stern MD [address] [place] [address] [place] [address] Anc Hem/Onc [address] [address] Referral ID Status Reason Start Date Expiration Date V isits Requested Visits Authorized [id number] Authorized 01/21/2024 01/15/2025 999 [id number] Encounter Details Date Type Department Care Team (Latest Contact Info) Description 07/28/2024 10:00 AM EDT Hem/Onc Treatment Hematology/Oncolog y Treatment, [address] [address] Demetrice, Chair 4 Hem Onc [address] [place] [address] Encounter for antineoplastic chemotherapy*; 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); Encounter for antineoplastic immunotherapy Allergies No known active allergiesdocumented as of this encounter (statuses as of 08/06/2024) Medications Medication Sig Dispensed Refills Start Date [...] as of this encounter (statuses as of 08/06/2024) Active Problems Problem Noted Date Diagnosed Date [...] as of this encounter (statuses as of 08/06/2024) Resolved Problems Problem Noted Date Diagnosed Date Resolved Date History of atrial fibrillation 12/16/2017 01/16/2019 Chest discomfort 12/16/2017 01/16/2019 Persistent atrial fibrillation 10/29/2017 07/23/2018 documented as of this encounter (statuses as of 08/06/2024) Immunizations Name Administration Dates Next Due COVID-19 [...] 10:31 AM EDT Chair 2, labs from [facility]. Pt has no acute concerns to report today. VAD accessed without issues; flushes easily. Specimen collected for ordered labs. Treatment pending lab results. Chemotherapy[facility] Consent for chemotherapy drug treatment complete, dated, [...] Description 08/11/2024 9:30 AM EST Imaging Radiology [facility] 1st Floor, [place] [address] [facility] [place] [id number] 08/18/2024 8:30 AM EST Immunization/Injecti on Hematology/Oncology Treatment, [place] [address] [place] [phone] Park, Chair 7 Hem Onc Scenery [address] [place] [address] 08/18/2024 9:00 AM EST Office Visit Hematology/Oncology [facility] Demetrice [place] [address] [facility] [place] [address] Wilma Stern MD [address] [facility] [place] [address] 08/18/2024 9:30 AM EST Hem/Onc Treatment Hematology/Oncology Treatment, [place] [address] [facility] [address] [place] [phone] Demetrice, Chair 10 Hem Onc [facility] [address] [facility] [place] [address] Scheduled Procedures Name Priority Associated Diagnoses Date/Ti [...] this encounter Medical Devices Implanted Type Area Soil Sampler Device Identifier Shelf Expiration Date Model / Serial / Lot Port Implant [id number] Poly Cath - [id number] Implanted:Qty: 1 on 02/07/2024 by Giovani Cervantes MD at OR [facility] BARD : PERIPHERAL VASCULAR [id number] 02/27/2025 [id number] / / [id number] documented as of this encounter Procedures Procedure [...] 1.7 ng/dL 07/29/2024 4:54 AM EDT [facility] Blood Venous blood specimen / Unknown Venipuncture / Unknown 07/28/2024 10:18 AM EDT 07/28/2024 10:21 AM EDT Wilma Stern MD LAB BLOOD ORDERA BLES [facility] [address] [place] [address] * (ABNORMAL) DIFFERENTIAL, AUTOMATED (07/28/2024 10:18 AM EDT) [facility] WBC 9.72 4.00 - 10.80 K/uL 07/28/2024 10:30 AM EDT [facility] 56-02 Neutrophils % 72.1 40.0 - 75.0 % 07/28/2024 10:30 AM EDT [facility] 56-02 Lymphocytes % 15.4(L) 18.0 - 42.0 % 07/28/2024 10:30 AM EDT [facility] [place] 56-02 Monocytes % 9.3 1.0 - 11.0 % 07/28/2024 10:30 AM EDT [facility] 56-02 Eosinophils % 2.9 0.0 - 6.0 % 07/28/2024 10:30 AM EDT [facility] 56-02 Basophils % 0.3 0.0 - 2.0 % 07/28/2024 10:30 AM EDT [facility] [place] 56-02 Absolute Neutrophils 7.01 1.80 - 7.70 K/uL 07/28/2024 10:30 AM EDT [facility] [place] 56-02 Absolute Lymphocytes 1.50 1.00 - 4.80 K/ul 07/28/2024 10:30 AM EDT [facility] 56-02 Absolute Monocytes 0.90 0.00 - 1.10 K/uL 07/28/2024 10:30 AM EDT [facility] 56-02 Absolute Eosinophils 0.28 0.00 - 0.70 K/uL 07/28/2024 10:30 AM EDT [facility] 56-02 Absolute Basophils 0.03 0.00 - 0.20 K/uL 07/28/2024 10:30 AM EDT [facility] 56 Blood Venous blood specimen / Unknown Venipuncture / Unknown 07/28/2024 10:18 AM EDT 07/28/2024 10:21 AM EDT Wilma Stern MD LAB BLOOD ORDERA BLES [address] [place] [address] * (ABNORMAL) CBC (07/28/2024 10:18 AM EDT) WBC 9.72 4.00 - 10.80 K/uL 07/28/2024 10:30 AM EDT [address] RBC 2.99 4.50 - 5.25 M/uL 07/28/2024 10:30 AM EDT [address] HGB 8.6(L) 14.0 - 16.8 g/dL 07/28/2024 10:30 AM EDT [address] HCT 27.8(L) 40.0 - 48.4 % 07/28/2024 10:30 AM EDT [address] MCV 93.0 82.0 - 99.5 fL 07/28/2024 10:30 AM EDT [address] MCH 28.8 27.0 - 34.0 pg 07/28/2024 10:30 AM EDT [address] MCHC 30.9 32.0 - 36.0 g/dL 07/28/2024 10:30 AM EDT [address] RDW 14.6 11.5 - 15.5 % 07/28/2024 10:30 AM EDT [facility] 56 PLT 330 140 - 400 K/uL 07/28/2024 10:30 AM EDT [facility] 56 MPV 8.5 6.6 - 11.1 fL 07/28/2024 10:30 AM EDT [facility] 56 Blood Venous blood specimen / Unknown Venipuncture / Unknown 07/28/2024 10:18 AM EDT 07/28/2024 10:21 AM EDT Wilma Stern MD LAB BLOOD ORDERA BLES [facility] [address] [place] [address] * (ABNORMAL) TSH WITH FREE T4 IF INDICATED (07/28/2024 10:18 AM EDT) TSH 7.79(H) 0.27 - 4.20 uIU/mL 07/28/2024 9:14 PM EDT [facility] Blood Venous blood specimen / Unknown Venipuncture / Unknown 07/28/2024 10:18 AM EDT 07/28/2024 10:21 AM EDT Wilma Stern MD LAB BLOOD ORDERA BLES Performing Organization Address City/[facility]/ZIP Co de Phone Number [facility]ATORY [facility] [address] [place] [address] * MAGNESIUM (07/28/2024 10:18 AM EDT) Magnesium 1.7 1.5 - 2.6 mg/dL 07/28/2024 10:57 AM EDT [facility] 56- Blood Venous blood specimen / Unknown Venipuncture / Unknown 07/28/2024 10:18 AM EDT 07/28/2024 10:21 AM EDT Wilma Stern MD LAB BLOOD ORDERA BLES [facility] 56-[address] [place] [address] * (ABNORMAL) COMPREHENSIVE METABOLIC PANEL (07/28/2024 10:18 AM EDT) BUN 20 6 - 20 mg/dL 07/28/2024 10:57 AM EDT [facility] 56- CREATININE 1.1 0.6 - 1.2 mg/dL 07/28/2024 10:57 AM T [facility] 56- EGFR 70 >=60 mL/min 07/28/2024 10:57 AM [facility] 56- Comment:eGFR is calculated b ased on the CKD-EPI 2020 equation. SODIUM 138 135 - 146 mmol/L 07/28/2024 10:57 AM [facility] 56- POTASSIUM 4.1 3.5 - 5.1 mmol/L 07/28/2024 10:57 AM [facility] 56- CHLORIDE 102 98 - 107 mmol/L 07/28/2024 10:57 AM [facility] 56 CO2 25 22 - 32 mmol/L 07/28/2024 10:57 AM [facility] 56- ANION GAP 11 7 - 15 mmol/L 07/28/2024 10:57 AM [facility] 56 GLUCOSE 106 70 - 120 mg/dL 07/28/2024 10:57 AM [facility] 56- Albumin 3.2(L) 3.8 - 5.0 g/dL 07/28/2024 10:57 AM [facility] 56- AST 31 10 - 50 U/L 07/28/2024 10:57 AM [facility] 56- Alkaline Phosphatase 123 35 - 130 U/L 07/28/2024 10:57 AM [facility] 56- Bilirubin, Total 0.2 <=1.2 mg/dL 07/28/2024 10:57 AM [facility] 56- CALCIUM 8.8 8.4 - 10.2 mg/dL 07/28/2024 10:57 AM [facility] 56- Protein 7.0 6.0 - 8.3 g/dL 07/28/2024 10:57 AM [facility] 56- ALT 13 10 - 50 U/L 07/28/2024 10:57 AM [facility] 56- Blood Venous blood specimen / Unknown Venipuncture / Unknown 07/28/2024 10:18 AM EDT 07/28/2024 10:21 AM EDT Wilma Stern MD LAB BLOOD ORDERA BLES [facility] [place] [address] [place] [address] documented in this encounter Visit Diagnoses Diagnosis [...] Documents on File Type Date Recorded 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 p Communication [facility] Adult Child First Alternate Health Care Agent (per Health Care Power of Coal Tower Operator document) Care Teams Center Sales And Service Associate Relationship Specialty Start Date End Date Sage Lay MD [address] [place] [address] PCP - General Family Medicine 06/19/13 documented as of this encounter
--- NOTE | 2025-01-25 08:25 | XRay Report ---
XR chest 1V portable CLINICAL HISTORY: Abdominal pain, nausea and vomiting. COMPARISON STUDY: Chest radiograph May 30, 2018. FINDINGS: Right internal jugular [id number] is in place. Right lung volume loss. There is cardiome danni with pulmonary vascular congestion. Small right and trace left pleural effusions are present. Ri ght apical pleural opacity is present. Hazy bibasilar opacities are noted. Several nodular densities within the right lung measure up to 8 mm. There is underlying emphysema. IMPRESSION: 1. Cardiomegaly with pulmonary vascular congestion. 2. Small right and trace left pleural effusions. Asymmetric right lung volume loss with right apical pleural thickening/fluid. Associated bibasilar opacities favor atelectasis although pneumonia could a ppear similar. 3. Several indeterminate nodular densities within the right lung which measure up to 8 mm. Radiograph ic follow-up to ensure resolution is recommended. ACT 112: Negative or not required by law. Electronically signed by: Lazaro Tafoya M.D. 01/25/2025 8:23 AM
[2025-01-25] MEDS: SODIUM CHLORIDE 0.9% 1,000 ML IV ONE (08:38)
[2025-01-25] MEDS: ONDANSETRON INJ 2 MG/ML 2 ML VIAL IV STA (08:38)
[2025-01-25 08:40] LABS: Basophils # (auto) 0.04 K/uL (0.00-0.20); Basophils % (auto) 0.4 %; Eosinophils # (auto) 0.05 K/uL (0.00-0.50); Eosinophils % (auto) 0.5 %; Hematocrit (blood only) 37.2 % (42.0-52.0); Hemoglobin 12.6 g/dl (14.0-18.0); Immature Granulocytes # (auto) 0.02 K/uL (0.01-0.20); Immature Granulocytes % (auto) 0.2 %; Lymphocytes % (auto) 11.8 %; Mean Corpuscular Hgb Conc 33.9 g/dL (32.0-36.0); Mean Corpuscular Volume 88.6 fL (80.0-100.0); Mean Platelet Volume 9.5 fL (9.4-12.4); Monocytes # (auto) 0.63 K/uL (0.11-0.59); Monocytes % (auto) 6.2 %; Neutrophils # (auto) 8.26 K/uL (1.40-6.50); Neutrophils % (auto) 80.9 %; Platelet Count 242 K/uL (130-400); RDW Coefficient of Variation 13.9 % (11.5-14.5); RDW Standard Deviation 44.8 fL (36.4-46.3)
[2025-01-25 08:44] LABS: iSTAT Creatinine 1.7 mg/dl (0.6-1.3); iSTAT Hemoglobin 12.6 g/dl (14.0-18.0); iSTAT Ionized Calcium 1.16 mmol/l (1.12-1.32); iSTAT Potassium 3.8 mmol/L (3.3-5.0)
--- NOTE | 2025-01-25 08:44 | Emergency Department Note ---
ED Visit Note ED Physician Supervisory Note & Attestation: I was consulted by the Advanced Practice Provider, Yury SORIA. I personally made/approved the management plan and take responsibility for the patient management. I performed a substantive portion of the visit. This includes the aspects of: MDM: Patient arrives after developing epigastric and periumbilical pain overnight. Nausea and given symptoms a CT of the abdomen pelvis had been ordered. Patient stable otherwise. CT did reveal a small bowel obstruction. Hospitalist will bring in patient for further management and evaluation. Imaging: CT of the abdomen pelvis without contrast as per my informal interpretation reveals small bowel obstruction no evidence of free air or pe rforation at this time. Confirmed by radiologist. Amado Yao MD
[2025-01-25 09:04] LABS: Alanine Aminotransferase 11 U/L (7-52); Albumin Globulin Ratio 1.3 (0.9-2); Albumin Level 3.8 gm/dl (3.4-5.0); Alkaline Phosphatase 99 U/L (34-104); Anion Gap 8 (3-11); Aspartate Aminotransferase 26 U/L (13-39); BUN Creatinine Ratio 16.5 (10-20); Bilirubin,Total 0.7 mg/dl (0.2-1.0); Blood Urea Nitrogen 26 mg/dl (6-23); Calcium 9.1 mg/dl (8.6-10.3); Carbon Dioxide 28 mmol/L (21-32); Chloride 103 mmol/L (98-107); Globulin 2.9 gm/dl (2.5-4.0); Glucose 124 mg/dl (70-99(Fasting)); Lipase 30 U/L (11-82); Magnesium 1.5 mg/dl (1.7-2.4); Partial Thromboplastin Time 26 Seconds (21-31); Potassium 3.9 mmol/L (3.5-5.1); Prothrombin Time 11.1 Seconds (9.0-12.0); Sodium 139 mmol/L (136-145); Total Protein 6.7 gm/dl (6.0-8.3)
[2025-01-25 09:09] LABS: Troponin I High Sensitivity 4.5 pg/ml (0-20)
[2025-01-25 09:18] LABS: Thyroid Stimulating Hormone 4.919 uIu/ml (0.300-4.500)
--- NOTE | 2025-01-25 09:47 | CT Scan Report ---
CT OF THE ABDOMEN AND PELVIS WITHOUT CONTRAST CLINICAL HISTORY: Abdominal pain, nausea and vomiting. COMPARISON STUDY: CT of the abdomen and pelvis December 10, 2022. TECHNIQUE: Axial images of the abdomen and pelvis were obtained without IV contrast. Images were revi ewed in the axial, sagittal, and coronal planes. Automated exposure control was utilized for the erica dy. A dose lowering technique was utilized adhering to the principles of ALARA. FINDINGS: A hiatal hernia is present. Postoperative findings within the right lung are partially imag ed. Small right and trace left pleural effusions are noted. Right-sided pleural thickening is present . This is a nonspecific finding. No pneumatosis, free air or portal venous gas is present. Evaluation of the abdomen and pelvis is suboptimal on this unenhanced exam. A 1.6 cm left hepatic lobe cyst is unchanged. Spleen, adrenal glands, kidneys and pancreas are unremarkable. There is no hydronephrosis. Colonic diverticulosis is present. There is no evidence for acute diverticulitis. A small amount of fluid within the pelvis is present. The proximal to mid small bowel is mildly dilated and fluid-fille d. Transition point within the right mid abdomen on image 204 is noted. Distal small bowel is decompr essed. An additional transition point may also be present. There is associated mesenteric stranding. The appendix is normal. There is no lymphadenopathy. There are no fluid collections within the abdome n or pelvis. IMPRESSION: 1. Findings consistent with a moderate grade partial small bowel obstruction, as described above. Sma ll amount of associated ascites and mesenteric stranding. 2. Small right pleural effusion with nonspecific pleural thickening. Partially visualized postoperati ve findings within the right lung. 3. Trace left pleural effusion. ACT 112: Negative or not required by law. Electronically signed by: Lazaro Tafoya M.D. 01/25/2025 9:44 AM
[2025-01-25 10:07] LABS: T4 Free Thyroxine 0.87 ng/dl (0.61-1.60)
[2025-01-25 10:26] LABS: Appearance Urine Clear (Clear); Bacteria Urine Automated None Seen (None Seen); Bilirubin Urine Negative (Negative); Blood Urine Negative (Negative); Color Urine Dark Yellow; Epithelial Cell Urine Auto 0-2 /hpf (0-2); Glucose Urine UA Negative (Negative); Ketones Urine 1+ (Negative); Leukocyte Esterase Urine Negative (Negative); Nitrite Urine Negative (Negative); Protein Urine 1+ (Negative); RBC Urine Automated 0-2 /hpf (0-2); Specific Gravity Urine 1.029 (1.000-1.030); Urobilinogen Urine Negative (Negative); WBC Urine Automated 0-5 /hpf (0-5)
--- NOTE | 2025-01-25 10:47 | History & Physical Report ---
Date of Service January 25, 2025 Assessment & Plan (1) Partial small bowel obstruction: (2) Paroxysmal atrial fibrillation: (3) Essential hypertension: (4) Dyslipidemia: Plan This is a 74 y/o male with hx of lung cancer (s/p lobectomy, chemo, and finishing one year of Keytruda), HTN, dyslipidemia, and other history as outlined below who presented to the ED today with abdominal pain, nausea, and vomiting that started overnight. Work-up in the ED revealed normal WBCs at 10.20 , normal lactate at 0.7. Creatinine noted to be mildly abnormal at 1.58 but review of outpatient labs from earlier this month reveals creatinine of 1.5 so appears to be around pt's baseline. CT abd/pel revealed a moderate grade partial SBO. ED provider spoke with on-call surgery who advised observation with conservative management so we were called. #Partial SBO - Observe in med surg overnight - NPO for now until evaluated by surgery - Consult surgery for recommendations - Holding on NGT since no further vomiting since around midnight and symptoms overall improved - Continue prn anti-emetics - Continue IVF hydration while NPO #Hypomagnesemia - Replete with IV mag sulfate - Recheck Mag in the AM #Paroxysmal atrial fibrillation - Continue sotalol - Holding Eliquis for now until evaluated by surgery - if no planned intervention, will consider resuming later today #Hypertension - Chronic, stable - holding lisinopril while NPO, will continue to monitor #Dyslipidemia - Chronic, stable - holding statin while NPO but will resume once tolerating po Pt seen and reviewed with collaborating physician, Dr. Yusuf. Plan of care discussed and as outlined above. Code status: Full code DVT prophylaxis: SCDs for now, resume Eliquis as discussed above (if not able to resume, consider subQ heparin) Son updated at the bedside, all questions answered. I spent a total of 96 minutes coordinating, documenting, and providing care for this patient excluding time spent in the performance of separately billed services or time spent by another provider/QHP. Mcihael Cruz PA-C History of Present Illness Chief Complaint: abdominal pain Primary Care Provider: Sage Lay MD This is a 74 y/o male with hx of lung cancer (s/p lobectomy, chemo, and finishing one year of Keytruda), HTN, dyslipidemia, and other history as outlined below who presented to the ED today with abdominal pain, nausea, and vomiting that started overnight. Pt reports that he was in his usual state of health yesterday. Ate dinner last evening of leftover roast beef and macaroni and cheese; shortly after eating, he developed upper abdominal discomfort, bloating, and nausea. He describes a sensation of feeling like "everything backed up" and the pressure caused significant discomfort in his chest and abdomen. Around midnight, he had a large episode of emesis which relieved some of the bloating and discomfort. However, this morning he had persistent discomfort and nausea so came to the ED for evaluation. His bowel pattern the last few days has been normal for him - he does take Miralax daily (last dose yesterday). He tried taking a laxative pill last evening after the symptoms started but no relief, no defecation since symptoms developed. Urine output is decreased - urine this AM is dark, denies dysuria or hematuria. Denies fevers, chills, sweats. In the ED, he received Zofran which has helped the nausea. Notes generalized malaise and fatigue. Abdominal discomfort is tolerable at present. No similar symptoms prior. Denies chest pain, palpitation, dyspnea, dizziness, syncope. Has not taken any of his medications today. Allergies Allergy/AdvReac Type Severity Reaction Status Date / Time No Known Allergies Verified 05/06/24 11:16 Home Medications Medication Instructions Recorded Confirmed Type atorvastatin 20 mg tablet 20 mg PO QPM 11/03/21 01/25/25 History lisinopril 10 mg tablet 10 mg PO DAILY 11/03/21 01/25/25 History multivitamin 1 tab PO QAM 01/04/22 01/25/25 History apixaban 5 mg tablet 5 mg PO BID 01/25/25 01/25/25 History folic acid 1 mg tablet 1 mg PO DAILY 01/25/25 01/25/25 History polyethylene glycol 3350 17 17 g PO DAILY 01/25/25 01/25/25 History gram/dose oral powder sotalol 80 mg tablet 80 mg PO BID 01/25/25 01/25/25 History Past Med/Surg History Problem List Partial small bowel obstruction Port-A-Cath in place Dyslipidemia Essential hypertension Medical History COPD (chronic obstructive pulmonary disease) centrilobular emphysemia Gouty arthropathy Osteoarthritis Non-small cell carcinoma of lung Enlargement of aortic root mild per 06/2021 echo Tricuspid regurgitation mild per 06/2021 echo Mitral regurgitation mild per 06/2021 echo Pulmonary hypertension mild, estimated PASP 40 mmHg per 06/2021 echo report Rosacea Paroxysmal atrial fibrillation F/U DR PLUNKETT-ON ELIQUIS Surgical History S/P inguinal hernia repair S/P lobectomy of lung robotic thoracoscopy with right lower lobectomy and lymphadenectomy Rotator cuff arthropathy of right shoulder History of colonoscopy 2014 History of cardioversion X 2-2017 H/O thumb surgery Family History Mother Heart disease Sister Heart disease Social History Smoking Status: Former smoker Second Hand Exposure: No (ON OCC); Do You Dip or Chew Tobacco: No; Hx Alcohol Use: Yes Alcohol type: beer Hx Substance Use: No Preferred Language: Korean Communication Ability: Effective 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: No Beliefs That Will Affect Care: None Current Living Situation: Family current occupational status: retired Feels Safe at Home: Yes Assistive Devices: Denture - Upper, Denture - Lower and Glasses Review of Systems Review of Systems: All systems reviewed & are unremarkable except as noted in Subjective Physical Exam Physical Exam: General: awake, alert, NAD HEENT: no scleral icterus, slightly dry oral mucosa Neck: supple, trachea midline Heart: RRR, +port site right chest Lungs: CTA bilaterally on the anterior Abdomen: soft, +BS, mild diffuse upper abdominal tenderness but no guarding or rebound Skin: warm, dry, no jaundice or rash Extremities: no pedal edema; distal pulses intact and equal Neurologic: Ox3, moving all extremities, no focal deficits, no confusion or dysarthria Results & Data Results & Data Vital Signs (Past 12 Hours) Vital Signs Temp Pulse Pulse Resp BP BP Pulse Ox 01/25/25 09:35 70 18 129/92 93 01/25/25 08:48 75 19 115/86 92 01/25/25 08:45 92 01/25/25 08:44 77 01/25/25 07:45 36.4 C L 81 18 115/81 98 O2 Del Method 01/25/25 09:35 Room Air 01/25/25 08:48 Room Air 01/25/25 08:45 Room Air 01/25/25 08:44 01/25/25 07:45 Laboratory Results Lab Results 01/25/25 01/25/25 01/25/25 Range/Units 08:20 08:32 Unknown WBC 10.20 (4.8-10.8) K/ul RBC 4.20 L (4.70-6.10) M/uL Hgb 12.6 L (14.0-18.0) g/dl POC Hgb 12.6 L (14.0-18.0) g/dl Hct 37.2 L (42.0-52.0) % POC Hct 37 L (42-52) % MCV 88.6 (80.0-100.0) fL MCH 30.0 (25.0-34.0) pg MCHC 33.9 (32.0-36.0) g/dL RDW Std Deviation 44.8 (36.4-46.3) fL RDW Coeff of Praveen 13.9 (11.5-14.5) % Plt Count 242 (130-400) K/uL MPV 9.5 (9.4-12.4) fL Immature Gran % (Auto) 0.2 % Neut % (Auto) 80.9 % Lymph % (Auto) 11.8 % [place] % (Auto) 6.2 % Eos % (Auto) 0.5 % Baso % (Auto) 0.4 % Neut # (Auto) 8.26 H (1.40-6.50) K/uL Lymph # (Auto) 1.20 (1.20-3.40) K/uL [place] # (Auto) 0.63 H (0.11-0.59) K/uL Eos # (Auto) 0.05 (0.00-0.50) K/uL Baso # (Auto) 0.04 (0.00-0.20) K/uL Immature Gran # (Auto) 0.02 (0.01-0.20) K/uL PT 11.1 (9.0-12.0) Seconds INR 1.0 (0.9-1.1) APTT 26 (21-31) Seconds PTT Ratio 1.0 POC Sodium 141 (135-144) mmol/L Sodium 139 (136-145) mmol/L POC Potassium 3.8 (3.3-5.0) mmol/L Potassium 3.9 (3.5-5.1) mmol/L POC Chloride 101 (101-112) mmol/L Chloride 103 (98-107) mmol/L Carbon Dioxide 28 (21-32) mmol/L POC Total CO2 25 (24-31) mmol/L Anion Gap 8 (3-11) POC Anion Gap 19.0 (16-25) mmol/L POC BUN 25 H (7-18) mg/dl BUN 26 H (6-23) mg/dl Creatinine 1.58 H (0.6-1.4) mg/dl POC Creatinine 1.7 H (0.6-1.3) mg/dl Est Cr Clr Drug Dosing Not Reportable eGFR 45.05 BUN/Creatinine Ratio 16.5 (10-20) Glucose 124 H (70-99(Fasting)) mg/dl POC Glucose (other) 127 H (70-99) mg/dl Calcium 9.1 (8.6-10.3) mg/dl POC Ioniz Calcium Carter 1.16 (1.12-1.32) mmol/l Magnesium 1.5 L (1.7-2.4) mg/dl Total Bilirubin 0.7 (0.2-1.0) mg/dl AST 26 (13-39) U/L ALT 11 (7-52) U/L Alkaline Phosphatase 99 (34-104) U/L Troponin I High Sens 4.5 (0-20) pg/ml Total Protein 6.7 (6.0-8.3) gm/dl Albumin 3.8 (3.4-5.0) gm/dl Globulin 2.9 (2.5-4.0) gm/dl Albumin/Globulin Ratio 1.3 (0.9-2) Lipase 30 (11-82) U/L TSH 4.919 H (0.300-4.500) uIu/ml Free T4 0.87 (0.61-1.60) ng/dl Urine Color Dark Yellow Urine Appearance Clear (Clear) Urine pH 5.0 (4.5-7.5) Ur Specific [place] 1.029 (1.000-1.030) Urine Protein 1+ H (Negative) Urine Glucose (UA) Negative (Negative) Urine Ketones 1+ H (Negative) Urine Blood Negative (Negative) Urine Nitrite Negative (Negative) Urine Bilirubin Negative (Negative) Urine Urobilinogen Negative (Negative) Ur Leukocyte Esterase Negative (Negative) Urine WBC (Auto) 0-5 (0-5) /hpf Urine RBC (Auto) 0-2 (0-2) /hpf U Hyaline Cast (Auto) 3-5 H (0-2) /lpf U Epithel Cells (Auto) 0-2 (0-2) /hpf Urine Bacteria (Auto) None Seen (None Seen) Diagnostic Findings Chest X-Ray 01/25/25 08:00 XR chest 1V portable CLINICAL HISTORY: Abdominal pain, nausea and vomiting. COMPARISON STUDY: Chest radiograph May 30, 2018. FINDINGS: Right internal jugular Oymwfr-[id number]-Iegu is in place. Right lung volume loss. There is cardiomegaly with pulmonary vascular congestion. Small right and trace left pleural effusions are present. Right apical pleural opacity is present. Hazy bibasilar opacities are noted. Several nodular densities within the right lung measure up to 8 mm. There is underlying emphysema. IMPRESSION: 1. Cardiomegaly with pulmonary vascular congestion. 2. Small right and trace left pleural effusions. Asymmetric right lung volume loss with right apical pleural thickening/fluid. Associated bibasilar opacities favor atelectasis although pneumonia could appear similar. 3. Several indeterminate nodular densities within the right lung which measure up to 8 mm. Radiographic follow-up to ensure resolution is recommended. ACT 112: Negative or not required by law. Electronically signed by: Lazaro Tafoya M.D. 01/25/2025 8:23 AM Abdomen/Pelvis CT 01/25/25 08:34 CT OF THE ABDOMEN AND PELVIS WITHOUT CONTRAST CLINICAL HISTORY: Abdominal pain, nausea and vomiting. COMPARISON STUDY: CT of the abdomen and pelvis December 10, 2022. TECHNIQUE: Axial images of the abdomen and pelvis were obtained without IV contrast. Images were reviewed in the axial, sagittal, and coronal planes. Automated exposure control was utilized for the study. A dose lowering technique was utilized adhering to the principles of ALARA. FINDINGS: A hiatal hernia is present. Postoperative findings within the right lung are partially imaged. Small right and trace left pleural effusions are noted. Right-sided pleural thickening is present. This is a nonspecific finding. No pneumatosis, free air or portal venous gas is present. Evaluation of the abdomen and pelvis is suboptimal on this unenhanced exam. A 1.6 cm left hepatic lobe cyst is unchanged. Spleen, adrenal glands, kidneys and pancreas are unremarkable. There is no hydronephrosis. Colonic diverticulosis is present. There is no evidence for acute diverticulitis. A small amount of fluid within the pelvis is present. The proximal to mid small bowel is mildly dilated and fluid-filled. Transition point within the right mid abdomen on image 204 is noted. Distal small bowel is decompressed. An additional transition point may also be present. There is associated mesenteric stranding. The appendix is normal. There is no lymphadenopathy. There are no fluid collections within the abdomen or pelvis. IMPRESSION: 1. Findings consistent with a moderate grade partial small bowel obstruction, as described above. Small amount of associated ascites and mesenteric stranding. 2. Small right pleural effusion with nonspecific pleural thickening. Partially visualized postoperative findings within the right lung. 3. Trace left pleural effusion. ACT 112: Negative or not required by law. Electronically signed by: Lazaro Tafoya M.D. 01/25/2025 9:44 AM Medications Administered Sodium Chloride (Nss) 1,000 mls @ 250 mls/hr IV .Q4H ONE Stop: 01/25/25 11:59 Last Admin: 01/25/25 08:38 Dose: 250 mls/hr Documented By: PASQUALE Discontinued Medications Ondansetron HCl (Ondansetron Inj 2 Mg/Ml 2 Ml Vial) 4 mg IV NOW STA Stop: 01/25/25 08:01 Last Admin: 01/25/25 08:38 Dose: 4 mg Documented By: PASQUALE Supervising Physician Co-Signing Physician Notes Patient presents to the hospital with abdominal pain, nausea and vomiting. CT abdomen pelvis concerning for partial small bowel obstruction. Plan to start bowel rest, IV fluids, pain control. Chest x-ray shows mild volume congestion; will obtain BNP. Will follow clinically and give Lasix as needed, last echocardiogram was in October 2023 which shows EF of 60%. I have reviewed the advanced practitioner's documentation, and I agree with, and take responsibility for the plan of care I spent a total of 25 minutes coordinating, documenting, and providing care for this patient excluding time spent in the performance of separately billed services. All of the aforementioned completed while collaborating with the assigned advanced practitioner for a full treatment plan
[2025-01-25] MEDS: MAGNESIUM SULFATE / D5W 1 GM/100 ML BAG IV SCH (11:26)
--- NOTE | 2025-01-25 12:13 | Surgery Consultation ---
Date of Consultation January 25, 2025 Assessment & Plan (1) Partial small bowel obstruction: 74-year-old gentleman with prior history of a right inguinal hernia repair, lung cancer, on Eliquis, presents with a partial small bowel obstruction. He will be admitted to the hospital kept NPO. NG tube if he continues to vomit. IV fluid hydration. Stop his Eliquis for now. No surgical intervention is required at this time, however we will monitor closely. Will await return of flatus. Encourage early ambulation. History of Present Illness Reason for Consultation: Small bowel obstruction Requesting Physician: Amado Yao MD Attending Physician: Amado Yao MD History of Present Illness 74-year-old with prior history of a right inguinal hernia repair presents with 1 day history of nausea and vomiting with abdominal pain. He threw up a few times last night. He denies any nausea currently. He had a bowel movement yesterday. He does not know whether he passed flatus today. He denies current fevers or chills. Allergies Allergy/AdvReac Type Severity Reaction Status Date / Time No Known Allergies Verified 05/06/24 11:16 Home Medications Medication Instructions Recorded Confirmed Type atorvastatin 20 mg tablet 20 mg PO QPM 11/03/21 01/25/25 History lisinopril 10 mg tablet 10 mg PO DAILY 11/03/21 01/25/25 History multivitamin 1 tab PO QAM 01/04/22 01/25/25 History apixaban 5 mg tablet 5 mg PO BID 01/25/25 01/25/25 History folic acid 1 mg tablet 1 mg PO DAILY 01/25/25 01/25/25 History polyethylene glycol 3350 17 17 g PO DAILY 01/25/25 01/25/25 History gram/dose oral powder sotalol 80 mg tablet 80 mg PO BID 01/25/25 01/25/25 History Patient History Medical History COPD (chronic obstructive pulmonary disease) centrilobular emphysemia Gouty arthropathy Osteoarthritis Non-small cell carcinoma of lung Enlargement of aortic root mild per 06/2021 echo Tricuspid regurgitation mild per 06/2021 echo Mitral regurgitation mild per 06/2021 echo Pulmonary hypertension mild, estimated PASP 40 mmHg per 06/2021 echo report Rosacea Paroxysmal atrial fibrillation F/U DR PLUNKETT-ON OBIE Surgical History S/P inguinal hernia repair S/P lobectomy of lung robotic thoracoscopy with right lower lobectomy and lymphadenectomy Rotator cuff arthropathy of right shoulder History of colonoscopy 2014 History of cardioversion X 2-2018 H/O thumb surgery Family History Mother Heart disease Sister Heart disease Social History Smoking Status: Former smoker Second Hand Exposure: No (ON OCC); Do You Dip or Chew Tobacco: No; Hx Alcohol Use: Yes Alcohol type: beer Hx Substance Use: No Preferred Language: Syriac Communication Ability: Effective 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 Required: No Beliefs That Will Affect Care: None Current Living Situation: Family current occupational status: retired Feels Safe at Home: Yes Assistive Devices: Denture - Upper, Denture - Lower and Glasses Review of Systems Review of Systems: All systems reviewed & are unremarkable except as noted in HPI & below Physical Exam Constitutional: WD/WN, vitals as above Eyes: PERRL, conjunctivae normal, anicteric sclerae ENMT: external ear and nose normal, oropharynx normal Neck: trachea midline, no thyromegaly Respiratory: normal respiratory effort; no respiratory distress and no labored breathing Cardiovascular: Rate/Rhythm: regular rate and regular rhythm Gastrointestinal (Abdomen): Inspection/Auscultation: abdomen normal to inspection and + abdomen distended ( mild distention) Percussion/Palpation: + abdomen tender ( diffusely) and abdomen soft; no guarding and abdomen not rigid Skin: no rashes, warm and dry Psychiatric: A+Ox3, euthymic affect Results & Data Vital Signs (Past 12 Hours) Vital Signs Temp Pulse Pulse Resp BP BP Pulse Ox 01/25/25 11:28 67 18 151/102 H 92 01/25/25 09:35 70 18 129/92 93 01/25/25 08:48 75 19 115/86 92 01/25/25 08:45 92 01/25/25 08:44 77 01/25/25 07:45 36.4 C L 81 18 115/81 98 O2 Del Method 01/25/25 11:28 Room Air 01/25/25 09:35 Room Air 01/25/25 08:48 Room Air 01/25/25 08:45 Room Air 01/25/25 08:44 01/25/25 07:45 Laboratory Results 01/25/25 01/25/25 01/25/25 Range/Units Unknown 11:00 08:32 WBC (4.8-10.8) K/ul RBC (4.70-6.10) M/uL Hgb (14.0-18.0) g/dl POC Hgb 12.6 L (14.0-18.0) g/dl Hct (42.0-52.0) % POC Hct 37 L (42-52) % MCV (80.0-100.0) fL MCH (25.0-34.0) pg MCHC (32.0-36.0) g/dL RDW Std Deviation (36.4-46.3) fL RDW Coeff of Praveen (11.5-14.5) % Plt Count (130-400) K/uL MPV (9.4-12.4) fL Immature Gran % (Auto) % Neut % (Auto) % Lymph % (Auto) % [place] % (Auto) % Eos % (Auto) % Baso % (Auto) % Neut # (Auto) (1.40-6.50) K/uL Lymph # (Auto) (1.20-3.40) K/uL [place] # (Auto) (0.11-0.59) K/uL Eos # (Auto) (0.00-0.50) K/uL Baso # (Auto) (0.00-0.20) K/uL Immature Gran # (Auto) (0.01-0.20) K/uL PT (9.0-12.0) Seconds INR (0.9-1.1) APTT (21-31) Seconds PTT Ratio POC Sodium 141 (135-144) mmol/L Sodium (136-145) mmol/L POC Potassium 3.8 (3.3-5.0) mmol/L Potassium (3.5-5.1) mmol/L POC Chloride 101 (101-112) mmol/L Chloride (98-107) mmol/L Carbon Dioxide (21-32) mmol/L POC Total CO2 25 (24-31) mmol/L Anion Gap (3-11) POC Anion Gap 19.0 (16-25) mmol/L POC BUN 25 H (7-18) mg/dl BUN (6-23) mg/dl Creatinine (0.6-1.4) mg/dl POC Creatinine 1.7 H (0.6-1.3) mg/dl Est Cr Clr Drug Dosing eGFR BUN/Creatinine Ratio (10-20) Glucose (70-99(Fasting)) mg/dl POC Glucose (other) 127 H (70-99) mg/dl Lactate 0.7 (0.4-2.0) mmol/L Calcium (8.6-10.3) mg/dl POC Ioniz Calcium [place] 1.16 (1.12-1.32) mmol/l Magnesium (1.7-2.4) mg/dl Total Bilirubin (0.2-1.0) mg/dl AST (13-39) U/L ALT (7-52) U/L Alkaline Phosphatase (34-104) U/L Troponin I High Sens (0-20) pg/ml Total Protein (6.0-8.3) gm/dl Albumin (3.4-5.0) gm/dl Globulin (2.5-4.0) gm/dl Albumin/Globulin Ratio (0.9-2) Lipase (11-82) U/L TSH (0.300-4.500) uIu/ml Free T4 (0.61-1.60) ng/dl Urine Color Dark Yellow Urine Appearance Clear (Clear) Urine pH 5.0 (4.5-7.5) Ur Specific [place] 1.029 (1.000-1.030) Urine Protein 1+ H (Negative) Urine Glucose (UA) Negative (Negative) Urine Ketones 1+ H (Negative) Urine Blood Negative (Negative) Urine Nitrite Negative (Negative) Urine Bilirubin Negative (Negative) Urine Urobilinogen Negative (Negative) Ur Leukocyte Esterase Negative (Negative) Urine WBC (Auto) 0-5 (0-5) /hpf Urine RBC (Auto) 0-2 (0-2) /hpf U Hyaline Cast (Auto) 3-5 H (0-2) /lpf U Epithel Cells (Auto) 0-2 (0-2) /hpf Urine Bacteria (Auto) None Seen (None Seen) 01/25/25 Range/Units 08:20 WBC 10.20 (4.8-10.8) K/ul RBC 4.20 L (4.70-6.10) M/uL Hgb 12.6 L (14.0-18.0) g/dl POC Hgb (14.0-18.0) g/dl Hct 37.2 L (42.0-52.0) % POC Hct (42-52) % MCV 88.6 (80.0-100.0) fL MCH 30.0 (25.0-34.0) pg MCHC 33.9 (32.0-36.0) g/dL RDW Std Deviation 44.8 (36.4-46.3) fL RDW Coeff of Praveen 13.9 (11.5-14.5) % Plt Count 242 (130-400) K/uL MPV 9.5 (9.4-12.4) fL Immature Gran % (Auto) 0.2 % Neut % (Auto) 80.9 % Lymph % (Auto) 11.8 % [place] % (Auto) 6.2 % Eos % (Auto) 0.5 % Baso % (Auto) 0.4 % Neut # (Auto) 8.26 H (1.40-6.50) K/uL Lymph # (Auto) 1.20 (1.20-3.40) K/uL [place] # (Auto) 0.63 H (0.11-0.59) K/uL Eos # (Auto) 0.05 (0.00-0.50) K/uL Baso # (Auto) 0.04 (0.00-0.20) K/uL Immature Gran # (Auto) 0.02 (0.01-0.20) K/uL PT 11.1 (9.0-12.0) Seconds INR 1.0 (0.9-1.1) APTT 26 (21-31) Seconds PTT Ratio 1.0 POC Sodium (135-144) mmol/L Sodium 139 (136-145) mmol/L POC Potassium (3.3-5.0) mmol/L Potassium 3.9 (3.5-5.1) mmol/L POC Chloride (101-112) mmol/L Chloride 103 (98-107) mmol/L Carbon Dioxide 28 (21-32) mmol/L POC Total CO2 (24-31) mmol/L Anion Gap 8 (3-11) POC Anion Gap (16-25) mmol/L POC BUN (7-18) mg/dl BUN 26 H (6-23) mg/dl Creatinine 1.58 H (0.6-1.4) mg/dl POC Creatinine (0.6-1.3) mg/dl Est Cr Clr Drug Dosing Not Reportable eGFR 45.05 BUN/Creatinine Ratio 16.5 (10-20) Glucose 124 H (70-99(Fasting)) mg/dl POC Glucose (other) (70-99) mg/dl Lactate (0.4-2.0) mmol/L Calcium 9.1 (8.6-10.3) mg/dl POC Ioniz Calcium [place] (1.12-1.32) mmol/l Magnesium 1.5 L (1.7-2.4) mg/dl Total Bilirubin 0.7 (0.2-1.0) mg/dl AST 26 (13-39) U/L ALT 11 (7-52) U/L Alkaline Phosphatase 99 (34-104) U/L Troponin I High Sens 4.5 (0-20) pg/ml Total Protein 6.7 (6.0-8.3) gm/dl Albumin 3.8 (3.4-5.0) gm/dl Globulin 2.9 (2.5-4.0) gm/dl Albumin/Globulin Ratio 1.3 (0.9-2) Lipase 30 (11-82) U/L TSH 4.919 H (0.300-4.500) uIu/ml Free T4 0.87 (0.61-1.60) ng/dl Urine Color Urine Appearance (Clear) Urine pH (4.5-7.5) Ur Specific [place] (1.000-1.030) Urine Protein (Negative) Urine Glucose (UA) (Negative) Urine Ketones (Negative) Urine Blood (Negative) Urine Nitrite (Negative) Urine Bilirubin (Negative) Urine Urobilinogen (Negative) Ur Leukocyte Esterase (Negative) Urine WBC (Auto) (0-5) /hpf Urine RBC (Auto) (0-2) /hpf U Hyaline Cast (Auto) (0-2) /lpf U Epithel Cells (Auto) (0-2) /hpf Urine Bacteria (Auto) (None Seen) Diagnostic Findings CT OF THE ABDOMEN AND PELVIS WITHOUT CONTRAST CLINICAL HISTORY: Abdominal pain, nausea and vomiting. COMPARISON STUDY: CT of the abdomen and pelvis December 10, 2022. TECHNIQUE: Axial images of the abdomen and pelvis were obtained without IV contrast. Images were reviewed in the axial, sagittal, and coronal planes. Automated exposure control was utilized for the study. A dose lowering technique was utilized adhering to the principles of ALARA. FINDINGS: A hiatal hernia is present. Postoperative findings within the right lung are partially imaged. Small right and trace left pleural effusions are noted. Right-sided pleural thickening is present. This is a nonspecific finding. No pneumatosis, free air or portal venous gas is present. Evaluation of the abdomen and pelvis is suboptimal on this unenhanced exam. A 1.6 cm left hepatic lobe cyst is unchanged. Spleen, adrenal glands, kidneys and pancreas are unremarkable. There is no hydronephrosis. Colonic diverticulosis is present. There is no evidence for acute diverticulitis. A small amount of fluid within the pelvis is present. The proximal to mid small bowel is mildly dilated and fluid-filled. Transition point within the right mid abdomen on image 204 is noted. Distal small bowel is decompressed. An additional transition point may also be present. There is associated mesenteric stranding. The appendix is normal. There is no lymphadenopathy. There are no fluid collections within the abdomen or pelvis. IMPRESSION: 1. Findings consistent with a moderate grade partial small bowel obstruction, as described above. Small amount of associated ascites and mesenteric stranding. 2. Small right pleural effusion with nonspecific pleural thickening. Partially visualized postoperative findings within the right lung. 3. Trace left pleural effusion. ACT 112: Negative or not required by law.
[2025-01-25] MEDS: PROMETHAZINE 6.25 MG/50.25 ML BAG IV STA (12:44)
[2025-01-25] MEDS: SODIUM CHLORIDE 0.9% 1,000 ML IV SCH (13:03)
[2025-01-25] MEDS: SOTALOL HCL 80 MG TAB PO STA (13:24)
[2025-01-25] MEDS: ACETAMINOPHEN 1,000 MG/100 ML VIAL IV STA (14:11)
[2025-01-25] MEDS: SOTALOL HCL 80 MG TAB PO SCH (20:30)
[2025-01-25] MEDS: ONDANSETRON INJ 2 MG/ML 2 ML VIAL IV PRN (23:15)
[2025-01-26 04:25] LABS: Basophils # (auto) 0.03 K/uL (0.00-0.20); Basophils % (auto) 0.3 %; Eosinophils # (auto) 0.08 K/uL (0.00-0.50); Eosinophils % (auto) 0.8 %; Hematocrit (blood only) 39.3 % (42.0-52.0); Immature Granulocytes # (auto) 0.03 K/uL (0.01-0.20); Immature Granulocytes % (auto) 0.3 %; Lymphocytes # (auto) 1.19 K/uL (1.20-3.40); Lymphocytes % (auto) 12.3 %; Mean Corpuscular Hemoglobin 29.9 pg (25.0-34.0); Mean Corpuscular Hgb Conc 33.1 g/dL (32.0-36.0); Mean Corpuscular Volume 90.3 fL (80.0-100.0); Mean Platelet Volume 9.5 fL (9.4-12.4); Monocytes # (auto) 0.74 K/uL (0.11-0.59); Monocytes % (auto) 7.7 %; Neutrophils # (auto) 7.59 K/uL (1.40-6.50); Neutrophils % (auto) 78.6 %; Platelet Count 233 K/uL (130-400); RDW Standard Deviation 46.1 fL (36.4-46.3); Red Blood Count 4.35 M/uL (4.70-6.10); White Blood Count 9.66 K/ul (4.8-10.8)
[2025-01-26 04:40] LABS: BUN Creatinine Ratio 18.4 (10-20); Calcium 8.7 mg/dl (8.6-10.3); Creatinine Clr Calc Pharmacy 39.3 ml/min; Magnesium 1.9 mg/dl (1.7-2.4); Potassium 4.1 mmol/L (3.5-5.1)
[2025-01-26] MEDS ORDERED: ACETAMINOPHEN 1,000 MG/100 ML VIAL IV PRN (09:00)
--- NOTE | 2025-01-26 09:38 | XRay Report ---
KUB CLINICAL HISTORY: NG placement COMPARISON STUDY: CT of the abdomen and pelvis January 25, 2025. FINDINGS: Tip of nasogastric tube projects over the gastric cardia. The tube could be advanced an add itional 4 cm. Multiple loops of dilated small bowel are again noted. Small right and trace left pleur al effusions are present. [id number] is partially imaged. IMPRESSION: 1. Tip of nasogastric tube projects over the gastric cardia. The tube could be advanced an additional 4 cm. 2. Redemonstration of small bowel dilatation suggestive of a persistent small bowel obstruction. ACT 112: Negative or not required by law. Electronically signed by: Lazaro Tafoya M.D. 01/26/2025 9:37 AM
--- NOTE | 2025-01-26 10:43 | Surgery Progress Note ---
Date of Service January 26, 2025 Assessment & Plan (1) Partial small bowel obstruction: Plan: 74-year-old gentleman with prior history of a right inguinal hernia repair, lung cancer, on Eliquis, presents with a partial small bowel obstruction. 01/26/25 emesis last evening and this am NGT inserted KUB with persistent small bowel dilatation consistent with SBO no abdominal pain abdomen soft, nontender on exam Plan: Keep NGT for decompression for now given emesis x 2 encourage ambulation continue medical management Discussed with Dr. Smith who agres with above. Admission and Anticipated Discharge Date Admission Date: January 25, 2025 Subjective NGT very bothersome no abdominal pain no nausea Physical Exam Constitutional: WD/WN, vitals as above + frail appearing and cooperative; no acute distress and not ill appearing Respiratory: normal respiratory effort; no respiratory distress, no labored breathing and no retractions Gastrointestinal (Abdomen): Inspection/Auscultation: abdomen normal to inspection, normal bowel sounds and + abdominal surgical scar (right inguinal hernia); abdomen not distended Percussion/Palpation: abdomen soft; abdomen nontender, no guarding, abdomen not rigid and abdomen not firm Skin: no rashes, warm and dry Psychiatric: Orientation: alert and oriented x 3 Results & Data Vital Signs (Past 12 Hours) Vital Signs Temp Pulse Resp BP Pulse Ox O2 Del Method 01/26/25 06:58 36.5 C 76 16 142/93 H 91 Room Air Laboratory Results 01/26/25 01/25/25 Range/Units 04:02 16:34 WBC 9.66 (4.8-10.8) K/ul RBC 4.35 L (4.70-6.10) M/uL Hgb 13.0 L (14.0-18.0) g/dl Hct 39.3 L (42.0-52.0) % MCV 90.3 (80.0-100.0) fL MCH 29.9 (25.0-34.0) pg MCHC 33.1 (32.0-36.0) g/dL RDW Std Deviation 46.1 (36.4-46.3) fL RDW Coeff of Praveen 14.0 (11.5-14.5) % Plt Count 233 (130-400) K/uL MPV 9.5 (9.4-12.4) fL Immature Gran % (Auto) 0.3 % Neut % (Auto) 78.6 % Lymph % (Auto) 12.3 % Walton % (Auto) 7.7 % Eos % (Auto) 0.8 % Baso % (Auto) 0.3 % Neut # (Auto) 7.59 H (1.40-6.50) K/uL Lymph # (Auto) 1.19 L (1.20-3.40) K/uL [place] # (Auto) 0.74 H (0.11-0.59) K/uL Eos # (Auto) 0.08 (0.00-0.50) K/uL Baso # (Auto) 0.03 (0.00-0.20) K/uL Immature Gran # (Auto) 0.03 (0.01-0.20) K/uL Sodium 139 (136-145) mmol/L Potassium 4.1 (3.5-5.1) mmol/L Chloride 104 (98-107) mmol/L Carbon Dioxide 29 (21-32) mmol/L Anion Gap 6 (3-11) BUN 27 H (6-23) mg/dl Creatinine 1.47 H (0.6-1.4) mg/dl Est Cr Clr Drug Dosing 39.3 ml/min eGFR 49.13 BUN/Creatinine Ratio 18.4 (10-20) Glucose 117 H (70-99(Fasting)) mg/dl Calcium 8.7 (8.6-10.3) mg/dl Magnesium 1.9 (1.7-2.4) mg/dl B-Natriuretic Peptide 97 (0-100) pg/ml Diagnostic Findings KUB CLINICAL HISTORY: NG placement COMPARISON STUDY: CT of the abdomen and pelvis January 25, 2025. FINDINGS: Tip of nasogastric tube projects over the gastric cardia. The tube could be advanced an additional 4 cm. Multiple loops of dilated small bowel are again noted. Small right and trace left pleural effusions are present. [id number] is partially imaged. IMPRESSION: 1. Tip of nasogastric tube projects over the gastric cardia. The tube could be advanced an additional 4 cm. 2. Redemonstration of small bowel dilatation suggestive of a persistent small bowel obstruction.
--- NOTE | 2025-01-26 13:06 | Hospitalist Progress Note ---
Date of Service January 26, 2025 Assessment & Plan (1) Partial small bowel obstruction: (2) Paroxysmal atrial fibrillation: (3) Essential hypertension: (4) Dyslipidemia: Plan Mr Spears 74 y/o male with hx of lung cancer (s/p lobectomy, chemo, and finishing one year of Keytruda), HTN, dyslipidemia, and other history as outlined below who presented to the ED today with abdominal pain, nausea, and vomiting that started overnight. Work-up in the ED revealed normal WBCs at 10.20 , normal lactate at 0.7. Creatinine noted to be mildly abnormal at 1.58 but review of outpatient labs from earlier this month reveals creatinine of 1.5 so appears to be around pt's baseline. CT abd/pel revealed a moderate grade partial SBO. ED provider spoke with on-call surgery who advised observation with conservative management so we were called. #Partial SBO admitting to inpatient from obs given placement of NGT and anticipated stay >48 hours - NPO, IVF Surgery following: conservative management NGT placed for vomiting this am antiemetics prn #Hypomagnesemia - Replete with IV mag sulfate - continue to replace prn #Paroxysmal atrial fibrillation - Continue sotalol - Holding Eliquis given NGT placement and no improvement at this time in symptoms #Hypertension - Chronic, stable - holding lisinopril while NPO, will continue to monitor #Dyslipidemia - Chronic, stable - holding statin while NPO but will resume once tolerating po Code status: Full code DVT prophylaxis: SCDs for now, resume Eliquis as discussed above (if not able to resume, consider subQ heparin) Admission and Anticipated Discharge Date Admission Date: January 26, 2025 Subjective Vomiting this am and with pain Added IV tylenol with relief, NGT placed Reports feeling fatigued and "down" states pain is better controlled after medicine denies flatus at this time Physical Exam Constitutional: WD/WN, vitals as above Respiratory: normal respiratory effort, lungs clear to auscultation Cardiovascular: RRR, no murmur, no edema Gastrointestinal (Abdomen): mild distention,firm Results & Data Results & Data Vital Signs (Past 12 Hours) Vital Signs Temp Pulse Resp BP Pulse Ox O2 Del Method 01/26/25 06:58 36.5 C 76 16 142/93 H 91 Room Air Laboratory Results Short CBC 01/26/25 Range/Units 04:02 WBC 9.66 (4.8-10.8) K/ul Hgb 13.0 L (14.0-18.0) g/dl Hct 39.3 L (42.0-52.0) % Plt Count 233 (130-400) K/uL BMP 01/26/25 04:02 Sodium 139 Potassium 4.1 Chloride 104 Carbon Dioxide 29 BUN 27 H Creatinine 1.47 H Glucose 117 H Calcium 8.7 Medications Administered Home Medications Medication Instructions Recorded Confirmed Last Taken atorvastatin 20 mg tablet 20 mg PO QPM 11/03/21 01/25/25 01/07/22 17:00 lisinopril 10 mg tablet 10 mg PO DAILY 11/03/21 01/25/25 01/07/22 15:00 multivitamin 1 tab PO QAM 01/04/22 01/25/25 01/07/22 12:00 apixaban 5 mg tablet 5 mg PO BID 01/25/25 01/25/25 01/24/25 folic acid 1 mg tablet 1 mg PO DAILY 01/25/25 01/25/25 Unknown polyethylene glycol 3350 17 17 g PO DAILY 01/25/25 01/25/25 01/24/25 gram/dose oral powder sotalol 80 mg tablet 80 mg PO BID 01/25/25 01/25/25 01/24/25 Active Medications Generic Name Dose Route Start Last Admin Trade Name Jose PRN Reason Stop Dose Admin Ondansetron HCl 4 mg 01/25/25 14:54 01/26/25 08:55 Ondansetron Inj 2 Mg/Ml 2 Ml Vial IV 02/24/25 14:53 4 mg Q6H PRN Administration Nausea Sotalol HCl 80 mg 01/25/25 21:00 01/26/25 09:37 Sotalol Hcl 80 Mg Tab PO 02/24/25 20:59 80 mg BID BALBINA Administration
[2025-01-26] MEDS: SODIUM CHLORIDE 0.9% 1,000 ML IV SCH (15:38)
[2025-01-26] MEDS ORDERED: METOPROLOL TARTRATE 1 MG/ML VIAL IV PRN (21:52)
[2025-01-26] MEDS: METOPROLOL TARTRATE 1 MG/ML VIAL IV STA (21:53)
[2025-01-26] MEDS: LORazepam 0.5 MG TAB SL STA (23:56)
[2025-01-27] MEDS: METOPROLOL TARTRATE 1 MG/ML VIAL IV STA (01:11)
[2025-01-27] MEDS: DIGOXIN 125 MCG in SYRINGE 9.5 ML IV ONE ×2 (01:58→04:05)
[2025-01-27] MEDS: SODIUM CHLORIDE 0.9% 250 ML IV ONE (03:31)
[2025-01-27 05:55] LABS: Basophils # (auto) 0.03 K/uL (0.00-0.20); Basophils % (auto) 0.4 %; Eosinophils # (auto) 0.11 K/uL (0.00-0.50); Eosinophils % (auto) 1.5 %; Hematocrit (blood only) 37.4 % (42.0-52.0); Hemoglobin 12.2 g/dl (14.0-18.0); Immature Granulocytes # (auto) 0.03 K/uL (0.01-0.20); Immature Granulocytes % (auto) 0.4 %; Lymphocytes # (auto) 1.26 K/uL (1.20-3.40); Lymphocytes % (auto) 17.1 %; Mean Corpuscular Hemoglobin 29.8 pg (25.0-34.0); Mean Corpuscular Hgb Conc 32.6 g/dL (32.0-36.0); Mean Corpuscular Volume 91.2 fL (80.0-100.0); Mean Platelet Volume 9.6 fL (9.4-12.4); Monocytes # (auto) 0.78 K/uL (0.11-0.59); Monocytes % (auto) 10.6 %; Neutrophils # (auto) 5.14 K/uL (1.40-6.50); Platelet Count 222 K/uL (130-400); RDW Coefficient of Variation 14.2 % (11.5-14.5); White Blood Count 7.35 K/ul (4.8-10.8)
[2025-01-27 06:18] LABS: BUN Creatinine Ratio 21.9 (10-20); Calcium 8.2 mg/dl (8.6-10.3); Creatinine Clr Calc Pharmacy 40.2 ml/min; Magnesium 1.6 mg/dl (1.7-2.4); Potassium 4.6 mmol/L (3.5-5.1)
[2025-01-27 06:27] LABS: Troponin I High Sensitivity 22.5 pg/ml (0-20)
--- NOTE | 2025-01-27 09:05 | Cardiology Consultation ---
Date of Consultation January 27, 2025 Assessment & Plan (1) Paroxysmal atrial fibrillation: (2) Essential hypertension: (3) Dyslipidemia: (4) Partial small bowel obstruction: Plan A-fib: -History of paroxysmal A-fib. -Telemetry reviewed: Afib and PVCs overnight, HR 70s. Converted to NSR at 4:46 am 01/27/25. -On Sotalol 80 mg BID, last dose 9:47am -Eliquis held per surgery. -Will increase Sotalol to 120 mg BID, next dose 9pm -H/o lung cancer, treated with Keytruda which may cause cardiomyopathy -- Will order echo EKG 01/26/25: Afib with RVR. Left axis deviation. EKG 01/27/25: NSR. Left axis deviation. QT >480 HTN: -Lisinopril on hold since 01/25/25 while NPO per hospitalist Dyslipidemia: -Statin on hold since 01/25/25 while NPO per hospitalist SBO: -Surgical consult 01/25/25: -no surgical intervention at this time; monitoring. -NGT placed 01/26/25 -Eliquis held Case discussed with Dr. Fishman. Further recommendations pending his evaluation and assessment I spent a total of 60 minutes on the date of service in preparation, delivery, and documentation of the care provided to this patient, excluding any time spent in the performance of separately billed services. Kimi Chacko, PAAmandaC Department of Cardiology, [facility] This chart was completed in part utilizing Speech Voice Recognition Software. Grammatical errors, random word insertions, pronoun errors, and incomplete sentences are an occasional consequence of this system due to software limita tions, ambient noise, and hardware issues. Any formal questions or concerns about the content, text, or information contained within the body of this dictation should be directly addressed to the provider for clarification. Supervising Physician Co-Signing Physician Notes Patient was seen and personally examined. Full assessment plan as outlined by advanced provider above. Care and management discussed personally in detail and endorsed 74-year-old male with complex history as outlined referred for issues as noted 1. Paroxysmal atrial fibrillation with atrial fibrillation present shortly after admission with intermittent sinus rhythm overnight and spontaneous conversion this morning. Previously on sotalol 80 mg twice per day for antiarrhythmic therapy. Will increase to 120 mg twice per day and follow EKG. Eliquis held due to complaints of small bowel obstruction Please note patient poor historian during the time of examination with poor recollection of admitting causes. Would follow closely for possible acute delirium if mental status intact on presentation History of Present Illness Reason for Consultation: Afib with RVR Requesting Physician: [facility] Hospitalist Attending Physician: Cris Izquierdo MD History of Present Illness Patient is a 74yo male with h/o lung cancer (RLL), right inguianl hernia repair, paroxysmal Afib on Eliquis, HTN, CKD III, and dyslipidemia presented to the ER at [facility] on 01/25/25 with abdominal pain, nausea, vomiting, diagnosed with potent ial SBO. Admitted on 01/25/25. Cardiology consulted on 01/27/25 for paroxysmal Afib. Hospital records reviewed since admission: Surgical consult 01/25/25: -partial SBO - no surgical intervention at this time; monitoring. -NGT placed 01/26/25 -Eliquis held EKG 01/26/25: Afib with RVR. Left axis deviation. EKG 01/27/25: NSR. Left axis deviation. QT >480 Paroxysmal Afib: -Patient continues on Sotalol 80 mg. Last dose 01/27/25 9:47am. -Eliquis held per surgery. HTN: -Lisinopril on hold since 01/25/25 while NPO per hospitalist Dyslipidemia: -Statin on hold since 01/25/25 while NPO per hospitalist At time of evaluation this morning, patient comfortably resting in bed. Denies chest pain, SOB. Confusion about events since arriving at the hospital. Telemetry reviewed: Afib and PVCs overnight, HR 70s. Converted to NSR at 4:46 am 01/27/25. BP 130/84, P 76 Allergies Allergy/AdvReac Type Severity Reaction Status Date / Time No Known Allergies Verified 05/06/24 11:16 Home Medications Medication Instructions Recorded Confirmed Type atorvastatin 20 mg tablet 20 mg PO QPM 11/03/21 01/25/25 History lisinopril 10 mg tablet 10 mg PO DAILY 11/03/21 01/25/25 History multivitamin 1 tab PO QAM 01/04/22 01/25/25 History apixaban 5 mg tablet 5 mg PO BID 01/25/25 01/25/25 History folic acid 1 mg tablet 1 mg PO DAILY 01/25/25 01/25/25 History polyethylene glycol 3350 17 17 g PO DAILY 01/25/25 01/25/25 History gram/dose oral powder sotalol 80 mg tablet 80 mg PO BID 01/25/25 01/25/25 History Patient History Medical History COPD (chronic obstructive pulmonary disease) centrilobular emphysemia Gouty arthropathy Osteoarthritis Non-small cell carcinoma of lung Enlargement of aortic root mild per 06/2021 echo Tricuspid regurgitation mild per 06/2021 echo Mitral regurgitation mild per 06/2021 echo Pulmonary hypertension mild, estimated PASP 40 mmHg per 06/2021 echo report Rosacea Paroxysmal atrial fibrillation F/U DR PLUNKETT-ON ELIQUIS Surgical History S/P inguinal hernia repair S/P lobectomy of lung robotic thoracoscopy with right lower lobectomy and lymphadenectomy Rotator cuff arthropathy of right shoulder History of colonoscopy 2014 History of cardioversion X -2017 H/O thumb surgery Family History Mother Heart disease Sister Heart disease Social History Smoking Status: Former smoker Second Hand Exposure: No (ON OCC); Do You Dip or Chew Tobacco: No; Hx Alcohol Use: Yes Alcohol type: beer Hx Substance Use: No Preferred Language: Croatian Communication Ability: Effective Medicare Nurse Required: No Beliefs That Will Affect Care: None Current Living Situation: Family current occupational status: retired Feels Safe at Home: Yes Assistive Devices: None Review of Systems Review of Systems: All systems reviewed & are unremarkable except as noted in HPI & below Review of systems limited d/t limited cognitive status. Respiratory: no dyspnea, no pain on inspiration and no wheezing Cardiovascular: no chest pain, no dyspnea, no palpitations and no lightheadedness Psychiatric: + confusion Physical Exam Constitutional: cooperative and comfortable; no acute distress Eyes: PERRL, conjunctivae normal, anicteric sclerae ENMT: external ear and nose normal, oropharynx normal Neck: normal visual inspection and trachea midline Respiratory: normal respiratory effort, lungs clear to auscultation Cardiovascular: RRR, no murmur, no edema Vessels: no JVD Skin: no rashes, warm and dry Neurologic: awake and + confused (Confusion about recent events) Psychiatric: Insight: + poor insight Results & Data Vital Signs (Past 12 Hours) Vital Signs Temp Pulse Pulse Pulse Resp BP BP 01/27/25 07:23 36.4 C L 75 16 122/80 01/27/25 04:46 72 16 120/72 01/27/25 04:10 140 H 109/72 01/27/25 04:05 135 H 01/27/25 04:00 135 H 16 119/68 01/27/25 03:30 143 H 01/27/25 03:19 130 H 16 75/54 L 01/27/25 03:15 122 H 16 75/54 L 01/27/25 02:49 36.7 C 100 H 21 106/77 01/27/25 01:11 132 H 113/82 01/26/25 23:48 133 H 113/80 01/26/25 23:46 129 H 113/80 01/26/25 22:54 132 H 16 101/71 01/26/25 21:53 145 H 101/67 Pulse Ox O2 Del Method 01/27/25 07:23 96 Room Air 01/27/25 04:46 98 Room Air 01/27/25 04:10 01/27/25 04:05 01/27/25 04:00 01/27/25 03:30 01/27/25 03:19 97 Room Air 01/27/25 03:15 01/27/25 02:49 96 Room Air 01/27/25 01:11 01/26/25 23:48 01/26/25 23:46 01/26/25 22:54 01/26/25 21:53 Laboratory Results Cardiac Enzymes 01/27/25 Range/Units 05:28 Troponin I High Sens 22.5 H D (0-20) pg/ml CBC 01/27/25 Range/Units 05:28 WBC 7.35 (4.8-10.8) K/ul RBC 4.10 L (4.70-6.10) M/uL Hgb 12.2 L (14.0-18.0) g/dl Hct 37.4 L (42.0-52.0) % Plt Count 222 (130-400) K/uL Neut # (Auto) 5.14 (1.40-6.50) K/uL Lymph # (Auto) 1.26 (1.20-3.40) K/uL [place] # (Auto) 0.78 H (0.11-0.59) K/uL Eos # (Auto) 0.11 (0.00-0.50) K/uL Baso # (Auto) 0.03 (0.00-0.20) K/uL Comprehensive Metabolic Panel 01/27/25 Range/Units 05:28 Sodium 141 (136-145) mmol/L Potassium 4.6 (3.5-5.1) mmol/L Chloride 107 (98-107) mmol/L Carbon Dioxide 28 (21-32) mmol/L BUN 32 H (6-23) mg/dl Creatinine 1.46 H (0.6-1.4) mg/dl Glucose 115 H (70-99(Fasting)) mg/dl Calcium 8.2 L (8.6-10.3) mg/dl Intake and Output 01/26/25 01/27/25 01/27/25 22:59 06:59 14:59 Intake Total 778.917 / 3028.917 2250 / 3028.917 Output Total 1000 / 1550 Balance -221.083 / 3649.131 3213 / 1478.917 Intake: IV 778.917 / 3028.917 2250 / 3028.917 Sodium Chloride 0.9% 1,000 ml @ 778.917 / 3028.917 2250 / 3028.917 125 mls/hr IV .Q8H [facility] Rx#: [id number] Output: Urine 400 / 400 Gastric Drainage 600 / 600 Right Nare 600 / 600 Other: Weight 68.3 kg Weight Measurement Method Built in [facility] Diagnostic Findings Telemetry reviewed: Afib and PVCs overnight, HR 70s. Converted to NSR at 4:46 am 01/27/25. EKG 01/26/25: Afib with RVR. Left axis deviation. EKG 01/27/25: NSR. Left axis deviation. QT >480 Medications Administered Current Inpatient Medications Heparin Sodium (Porcine) (Heparin 100 Unit/Ml 5ml Flush) 5 ml FLUSH PRN PRN PRN Reason: Flush Stop: 02/25/25 02:21 Acetaminophen (Ofirmev) 1,000 mg in 100 mls @ 400 mls/hr IV Q8H PRN PRN Reason: Pain Stop: 01/29/25 08:59 Sodium Chloride (Nss) 1,000 mls @ 125 mls/hr IV .Q8H BALBINA Stop: 01/27/25 13:14 Last Admin: 01/27/25 05:41 Dose: 125 mls/hr Magnesium Sulfate/Dextrose (Magnesium Sulfate / D5w) 1 gm in 100 mls @ 50 mls/hr IV Q2H BALBINA Stop: 01/27/25 12:44 Metoprolol Tartrate (Metoprolol Tartrate 1 Mg/Ml Vial) 5 mg IV Q6H PRN PRN Reason: HR > 120 Stop: 02/25/25 21:51 Ondansetron HCl (Ondansetron Inj 2 Mg/Ml 2 Ml Vial) 4 mg IV Q6H PRN PRN Reason: Nausea Stop: 02/24/25 14:53 Last Admin: 01/26/25 08:55 Dose: 4 mg Sotalol HCl (Sotalol Hcl 80 Mg Tab) 80 mg PO BID BALBINA Stop: 02/24/25 20:59 Last Admin: 01/26/25 20:09 Dose: 80 mg
[2025-01-27] MEDS: MAGNESIUM SULFATE / D5W 1 GM/100 ML BAG IV SCH (09:47)
--- NOTE | 2025-01-27 11:31 | Hospitalist Progress Note ---
Date of Service January 27, 2025 Assessment & Plan (1) Partial small bowel obstruction: (2) Essential hypertension: (3) Dyslipidemia: Plan Mr Spears 74 y/o male with hx of lung cancer (s/p lobectomy, chemo, and finishing one year of Keytruda), HTN, dyslipidemia, and other history as outlined below who presented to the ED today with abdominal pain, nausea, and vomiting that started overnight. Work-up in the ED revealed normal WBCs at 10.20, normal lactate at 0.7. Creatinine noted to be mildly abnormal at 1.58 but review of outpatient labs from earlier this month reveals creatinine of 1.5 so appears to be around pt's baseline. CT abd/pel revealed a moderate grade partial SBO. ED provider spoke with on-call surgery who advised observation with conservative management. Partial SBO NGT tube removed overnight on 01/26 NPO, IVF Surgery following: conservative management antiemetics prn Hypomagnesemia Replete with IV mag sulfate continue to replace prn Paroxysmal atrial fibrillation Continue sotalol Echo Holding Eliquis given NGT placement and possible need for procedure Episode of a fib overnight on 01/27 -cardiology consulted: sotalol dose increased Hypertension Chronic, stable - holding lisinopril while NPO, will continue to monitor Dyslipidemia Chronic, stable - holding statin while NPO but will resume once tolerating po Code status: Full code DVT prophylaxis: SCDs for now, resume Eliquis as discussed above (if not able to resume, consider subQ heparin) Admission and Anticipated Discharge Date Admission Date: January 26, 2025 Subjective Pt was seen in the AM Was having his port accessed Was calm at the time Overnight was agitated and took out NG tube- got IV Ativan and IV lopressor as he also went into a fib. Also requiring IV digoxin Review of Systems Review of Systems: All systems reviewed & are unremarkable except as noted in Subjective Physical Exam Physical Exam: General: Alert, No acute distress HEENT: NC/AT CV: RRR Resp: Breath sounds clear bilaterally, no increased effort of breathing Abdomen: Soft, nontender Extremities: No edema in lower extremities bilaterally. Results & Data Results & Data Vital Signs (Past 12 Hours) Vital Signs Temp Pulse Pulse Pulse Resp BP BP 01/27/25 10:25 36.6 C 75 18 135/84 01/27/25 07:23 36.4 C L 75 16 122/80 01/27/25 04:46 72 16 120/72 01/27/25 04:10 140 H 109/72 01/27/25 04:05 135 H 01/27/25 04:00 135 H 16 119/68 01/27/25 03:30 143 H 01/27/25 03:19 130 H 16 75/54 L 01/27/25 03:15 122 H 16 75/54 L 01/27/25 02:49 36.7 C 100 H 21 106/77 01/27/25 01:11 132 H 113/82 01/26/25 23:48 133 H 113/80 01/26/25 23:46 129 H 113/80 Pulse Ox O2 Del Method 01/27/25 10:25 92 Room Air 01/27/25 07:23 96 Room Air 01/27/25 04:46 98 Room Air 01/27/25 04:10 01/27/25 04:05 01/27/25 04:00 01/27/25 03:30 01/27/25 03:19 97 Room Air 01/27/25 03:15 01/27/25 02:49 96 Room Air 01/27/25 01:11 01/26/25 23:48 01/26/25 23:46
--- NOTE | 2025-01-27 11:42 | Surgery Progress Note ---
Date of Service January 27, 2025 Assessment & Plan (1) Partial small bowel obstruction: Plan: 74-year-old gentleman with prior history of a right inguinal hernia repair, lung cancer, on Eliquis, presents with a partial small bowel obstruction. 01/27/25 transferred to PCU last night due to afib with rvr NGT and IV's pulled by patient no abdominal pain or nausea or vomiting today, patient unsure if passing gas or bowel movements Plan: Continue conservative measures sips and chips okay encourage ambulation to increase GI motility continue medical management Dr. Smith has seen and examined pt, agrees with above. Admission and Anticipated Discharge Date Admission Date: January 26, 2025 Subjective feeling a little better unsure if he is passing gas or had a bowel movement transferred to PCU last night due to afib with RVR, converted to sinus Pulled lines an NGT removed no abdominal pain no n,v Physical Exam Constitutional: WD/WN, vitals as above cooperative and comfortable; no acute distress and not ill appearing Gastrointestinal (Abdomen): Inspection/Auscultation: abdomen normal to inspection; abdomen not distended Percussion/Palpation: + abdomen tender (mild mid abdomen on deep palpation) and abdomen soft; no guarding, abdomen not rigid and abdomen not firm Skin: no rashes, warm and dry Psychiatric: Orientation: alert Results & Data Vital Signs (Past 12 Hours) Vital Signs Temp Pulse Pulse Pulse Resp BP BP 01/27/25 10:25 36.6 C 75 18 135/84 01/27/25 07:23 36.4 C L 75 16 122/80 01/27/25 04:46 72 16 120/72 01/27/25 04:10 140 H 109/72 01/27/25 04:05 135 H 01/27/25 04:00 135 H 16 119/68 01/27/25 03:30 143 H 01/27/25 03:19 130 H 16 75/54 L 01/27/25 03:15 122 H 16 75/54 L 01/27/25 02:49 36.7 C 100 H 21 106/77 01/27/25 01:11 132 H 113/82 01/26/25 23:48 133 H 113/80 01/26/25 23:46 129 H 113/80 Pulse Ox O2 Del Method 01/27/25 10:25 92 Room Air 01/27/25 07:23 96 Room Air 01/27/25 04:46 98 Room Air 01/27/25 04:10 01/27/25 04:05 01/27/25 04:00 01/27/25 03:30 01/27/25 03:19 97 Room Air 01/27/25 03:15 01/27/25 02:49 96 Room Air 01/27/25 01:11 01/26/25 23:48 01/26/25 23:46 Laboratory Results 01/27/25 01/27/25 Range/Units 09:15 05:28 WBC 7.35 (4.8-10.8) K/ul RBC 4.10 L (4.70-6.10) M/uL Hgb 12.2 L (14.0-18.0) g/dl Hct 37.4 L (42.0-52.0) % MCV 91.2 (80.0-100.0) fL MCH 29.8 (25.0-34.0) pg MCHC 32.6 (32.0-36.0) g/dL RDW Std Deviation 47.0 H (36.4-46.3) fL RDW Coeff of Praveen 14.2 (11.5-14.5) % Plt Count 222 (130-400) K/uL MPV 9.6 (9.4-12.4) fL Immature Gran % (Auto) 0.4 % Neut % (Auto) 70.0 % Lymph % (Auto) 17.1 % [place] % (Auto) 10.6 % Eos % (Auto) 1.5 % Baso % (Auto) 0.4 % Neut # (Auto) 5.14 (1.40-6.50) K/uL Lymph # (Auto) 1.26 (1.20-3.40) K/uL [place] # (Auto) 0.78 H (0.11-0.59) K/uL Eos # (Auto) 0.11 (0.00-0.50) K/uL Baso # (Auto) 0.03 (0.00-0.20) K/uL Immature Gran # (Auto) 0.03 (0.01-0.20) K/uL Sodium 141 (136-145) mmol/L Potassium 4.6 (3.5-5.1) mmol/L Chloride 107 (98-107) mmol/L Carbon Dioxide 28 (21-32) mmol/L Anion Gap 6 (3-11) BUN 32 H (6-23) mg/dl Creatinine 1.46 H (0.6-1.4) mg/dl Est Cr Clr Drug Dosing 40.2 ml/min eGFR 49.53 BUN/Creatinine Ratio 21.9 H (10-20) Glucose 115 H (70-99(Fasting)) mg/dl Calcium 8.2 L (8.6-10.3) mg/dl Magnesium 1.6 L (1.7-2.4) mg/dl Troponin I High Sens 20.2 H 22.5 H D (0-20) pg/ml
[2025-01-27] MEDS: SOTALOL HCL 80 MG TAB PO SCH (21:02)
--- NOTE | 2025-01-27 22:05 | Electrocardiogram Report ---
Test Reason : Blood Pressure : */* mmHG Vent. Rate : 74 BPM Atrial Rate : 74 BPM P-R Int : 192 ms QRS Dur : 80 ms QT Int : 414 ms P-R-T Axes : 31 -42 -6 degrees QTcB Int : 459 ms Normal sinus rhythm Left axis deviation Nonspecific T wave abnormality Poor R wave progression, consider anterior WI vs. lead placement vs. LVH Abnormal ECG When compared with ECG of 26-Jul-2022 06:59, Vent. rate has increased by 25 bpm Nonspecific T wave abnormality now evident in Anterolateral leads Confirmed by Michelet Dozier ([id number]) on 01/27/2025 10:04:35 PM Referred By: REFERRED SELF Confirmed By: Michelet Dozier
--- NOTE | 2025-01-27 22:05 | Electrocardiogram Report ---
Test Reason : Blood Pressure : */* mmHG Vent. Rate : 141 BPM Atrial Rate : 156 BPM P-R Int : * ms QRS Dur : 82 ms QT Int : 330 ms P-R-T Axes : * -31 65 degrees QTcB Int : 505 ms Atrial fibrillation with rapid ventricular response Left axis deviation Nonspecific ST abnormality Abnormal ECG When compared with ECG of 25-Jan-2025 08:44, Atrial fibrillation has replaced Sinus rhythm Vent. rate has increased by 67 bpm T wave inversion no longer evident in Inferior leads Confirmed by Michelet Dozier ([id number]) on 01/27/2025 10:05:10 PM Referred By: REFERRED SELF Confirmed By: Michelet Dozier
--- NOTE | 2025-01-27 22:06 | Electrocardiogram Report ---
Test Reason : Blood Pressure : */* mmHG Vent. Rate : 75 BPM Atrial Rate : 75 BPM P-R Int : 182 ms QRS Dur : 90 ms QT Int : 430 ms P-R-T Axes : 26 -31 -10 degrees QTcB Int : 480 ms Normal sinus rhythm Left axis deviation T wave abnormality, consider anterior ischemia Prolonged QT Abnormal ECG When compared with ECG of 26-Jan-2025 20:02, Sinus rhythm has replaced Atrial fibrillation Vent. rate has decreased by 66 bpm Nonspecific T wave abnormality now evident in Inferior leads T wave inversion now evident in Anterior leads Confirmed by Michelet Dozier ([id number]) on 01/27/2025 10:06:09 PM Referred By: REFERRED SELF Confirmed By: Michelet Dozier
[2025-01-28 07:27] LABS: Basophils # (auto) 0.03 K/uL (0.00-0.20); Basophils % (auto) 0.4 %; Eosinophils % (auto) 2.7 %; Hematocrit (blood only) 34.2 % (42.0-52.0); Hemoglobin 11.4 g/dl (14.0-18.0); Immature Granulocytes # (auto) 0.03 K/uL (0.01-0.20); Immature Granulocytes % (auto) 0.4 %; Lymphocytes # (auto) 1.42 K/uL (1.20-3.40); Lymphocytes % (auto) 19.5 %; Mean Corpuscular Hemoglobin 30.2 pg (25.0-34.0); Mean Corpuscular Hgb Conc 33.3 g/dL (32.0-36.0); Mean Corpuscular Volume 90.5 fL (80.0-100.0); Mean Platelet Volume 9.9 fL (9.4-12.4); Monocytes # (auto) 0.69 K/uL (0.11-0.59); Monocytes % (auto) 9.5 %; Neutrophils # (auto) 4.93 K/uL (1.40-6.50); Neutrophils % (auto) 67.5 %; Platelet Count 219 K/uL (130-400); RDW Coefficient of Variation 13.9 % (11.5-14.5); RDW Standard Deviation 46.3 fL (36.4-46.3); Red Blood Count 3.78 M/uL (4.70-6.10)
[2025-01-28 07:47] LABS: Albumin Globulin Ratio 1.3 (0.9-2); Albumin Level 3.3 gm/dl (3.4-5.0); BUN Creatinine Ratio 24.4 (10-20); Bilirubin,Total 0.7 mg/dl (0.2-1.0); Calcium 8.4 mg/dl (8.6-10.3); Creatinine Clr Calc Pharmacy 47.8 ml/min; Globulin 2.5 gm/dl (2.5-4.0); Magnesium 1.9 mg/dl (1.7-2.4); Phosphorus 3.5 mg/dl (2.5-4.9); Potassium 3.9 mmol/L (3.5-5.1); Total Protein 5.8 gm/dl (6.0-8.3)
--- NOTE | 2025-01-28 08:44 | Cardiology Progress Note ---
Date of Service January 28, 2025 Assessment & Plan (1) Paroxysmal atrial fibrillation: (2) Essential hypertension: (3) Dyslipidemia: (4) Partial small bowel obstruction: Plan 74-year-old male with complex history as outlined referred for issues as noted. 1. Proxysmal A-fib: -History of paroxysmal A-fib. -Converted to NSR at 4:46 am 01/27/25. -Telemetry reviewed: NSR overnight and this morning, HR 70s. -He continues on Sotalol 120 mg BID (increased from 80 mg BID a/o 01/27/25 9pm), last dose 8:20 am. -Eliquis held per surgery d/t concerns for SBO. -Obtained echo, due to h/o lung cancer, treated with Keytruda which may cause cardiomyopathy: Echo 01/27/25 showed concerning findings. LVEF 65-70%. EKG 01/26/25: Afib with RVR. Left axis deviation. EKG 01/27/25: NSR. Left axis deviation. QT >480 Echo 01/27/25: LVEF 65-70%. No concerning findings. EKG 01/28/25: NSR. Left axis deviation. QT 94 HTN: -Lisinopril on hold since 01/25/25 while NPO per hospitalist Dyslipidemia: -Statin on hold since 01/25/25 while NPO per hospitalist SBO: -Surgical follow-up 01/28/25: -no plan for surgical intervention at this time. Plan for conservative management. -Eliquis remains on hold. -Surgery trialing clear liquid diet today. Telemetry reviewed: HR 70s Converted to NSR at 4:46 am 01/27/25. Remains in NSR. BP 130/84, P [address] Fishman. Further recommendations pending his evaluation and assessment I spent a total of 35 minutes on the date of service in preparation, delivery, and documentation of the care provided to this patient, excluding any time spent in the performance of separately billed services. Kimi Chacko, PA-C Department of Cardiology, [facility] This chart was completed in part utilizing Speech Voice Recognition Software. Grammatical errors, random word insertions, pronoun errors, and incomplete sentences are an occasional consequence of this system due to software limitations, ambient noise, and hardware issues. Any formal questions or concerns about the content, text, or information contained within the body of this dictation should be directly addressed to the provider for clarification. Admission and Anticipated Discharge Date Admission Date: January 26, 2025 Supervising Physician Co-Signing Physician Notes Patient was seen and personally examined. Full assessment plan as outlined by advanced provider above. Care and management discussed personally in detail and endorsed 74-year-old male with complex history as outlined referred for issues as noted 1. Paroxysmal atrial fibrillation with atrial fibrillation present shortly after admission in setting of acute agitation with intermittent sinus rhythm overnight and spontaneous conversion Previously on sotalol 80 mg twice per day for antiarrhythmic therapy. Dosage increased 220 mg twice per day with good tolerance from heart rate as well as EKG findings Continue to treat underlying process Resume anticoagulation with Eliquis when cleared by surgery Subjective 01/28/25: Patient seen and examined today in follow-up. Offers no acute cardiac complaints, mentation significantly improved. Labs, diagnostics, vitals, telemetry, and documentation reviewed. Telemetry shows NSR with PVCs. No acute events overnight. Review of Systems Review of Systems: All systems reviewed & are unremarkable except as noted in HPI & below Physical Exam Constitutional: cooperative and comfortable; no acute distress Eyes: PERRL, conjunctivae normal, anicteric sclerae ENMT: external ear and nose normal, oropharynx normal Neck: normal visual inspection and trachea midline Respiratory: normal respiratory effort, lungs clear to auscultation Cardiovascular: RRR, no murmur, no edema Vessels: no JVD Skin: no rashes, warm and dry Neurologic: awake Psychiatric: A+Ox3, euthymic affect Results & Data Vital Signs (Past 12 Hours) Vital Signs Temp Pulse Pulse Resp BP BP Pulse Ox 01/28/25 07:35 36.7 C 69 18 149/87 H 93 01/28/25 07:14 69 01/28/25 02:24 36.8 C 66 14 150/82 H 95 01/27/25 22:39 36.7 C 70 16 126/76 94 01/27/25 21:59 O2 Del Method 01/28/25 07:35 Room Air 01/28/25 07:14 01/28/25 02:24 Room Air 01/27/25 22:39 Room Air 01/27/25 21:59 Room Air Laboratory Results Cardiac Enzymes 01/28/25 Range/Units 06:36 AST 20 (13-39) U/L CBC 01/28/25 Range/Units 06:36 WBC 7.30 (4.8-10.8) K/ul RBC 3.78 L (4.70-6.10) M/uL Hgb 11.4 L (14.0-18.0) g/dl Hct 34.2 L (42.0-52.0) % Plt Count 219 (130-400) K/uL Neut # (Auto) 4.93 (1.40-6.50) K/uL Lymph # (Auto) 1.42 (1.20-3.40) K/uL [place] # (Auto) 0.69 H (0.11-0.59) K/uL Eos # (Auto) 0.20 (0.00-0.50) K/uL Baso # (Auto) 0.03 (0.00-0.20) K/uL Comprehensive Metabolic Panel 01/28/25 Range/Units 06:36 Sodium 139 (136-145) mmol/L Potassium 3.9 (3.5-5.1) mmol/L Chloride 106 (98-107) mmol/L Carbon Dioxide 26 (21-32) mmol/L BUN 30 H (6-23) mg/dl Creatinine 1.23 (0.6-1.4) mg/dl Glucose 85 (70-99(Fasting)) mg/dl Calcium 8.4 L (8.6-10.3) mg/dl AST 20 (13-39) U/L ALT 5 L (7-52) U/L Alkaline Phosphatase 72 (34-104) U/L Total Protein 5.8 L (6.0-8.3) gm/dl Albumin 3.3 L (3.4-5.0) gm/dl Intake and Output 01/27/25 01/28/25 01/28/25 22:59 06:59 14:59 Intake Total 0 808.333 / 808.333 Balance 0 808.333 / 808.333 Intake: IV 0 8.333 Sodium Chloride 0.9% 1,000 ml @ 0 508.333 125 mls/hr IV .Q8H [facility] Rx#: [id number] Oral 0 / 100 100 / 100 Other: Other Intake Source Sips/Chips # Unmeasured Voids 1 Weight 69.6 kg Weight Measurement Method Built in [facility] Diagnostic Findings EKG 01/26/25: Afib with RVR. Left axis deviation. EKG 01/27/25: NSR. Left axis deviation. QT >480 Echo 01/27/25: LVEF 65-70%. No concerning findings. EKG 01/28/25: NSR. Left axis deviation. QT 94 Medications Administered Current Inpatient Medications Heparin Sodium (Porcine) (Heparin 100 Unit/Ml 5ml Flush) 5 ml FLUSH PRN PRN PRN Reason: Flush Stop: 02/25/25 02:21 Acetaminophen (Ofirmev) 1,000 mg in 100 mls @ 400 mls/hr IV Q8H PRN PRN Reason: Pain Stop: 01/29/25 08:59 Metoprolol Tartrate (Metoprolol Tartrate 1 Mg/Ml Vial) 5 mg IV Q6H PRN PRN Reason: HR > 120 Stop: 02/25/25 21:51 Ondansetron HCl (Ondansetron Inj 2 Mg/Ml 2 Ml Vial) 4 mg IV Q6H PRN PRN Reason: Nausea Stop: 02/24/25 14:53 Last Admin: 01/26/25 08:55 Dose: 4 mg Sotalol HCl (Sotalol Hcl 80 Mg Tab) 120 mg PO BID [place] Stop: 02/26/25 20:59 Last Admin: 01/28/25 08:20 Dose: 120 mg
--- NOTE | 2025-01-28 11:46 | Surgery Progress Note ---
Date of Service January 28, 2025 Assessment & Plan (1) Partial small bowel obstruction: Plan: 74-year-old gentleman with prior history of a right inguinal hernia repair, lung cancer, on Eliquis, presents with a partial small bowel obstruction. 01/28/25 avss no abdominal pain nausea resolved no return of bowel function yet Plan: Continue conservative measures can consider clear liquids later today as no pain, distention or nausea althought has not been passing gas yet encourage ambulation to increase GI motility continue medical management Admission and Anticipated Discharge Date Admission Date: January 26, 2025 Subjective feeling okay no abdominal pain or abdominal bloating no nausea or vomiting no belching no flatus or bowel movement Physical Exam Constitutional: WD/WN, vitals as above cooperative and comfortable; no acute distress and not ill appearing Gastrointestinal (Abdomen): Inspection/Auscultation: abdomen normal to inspection and + hypoactive bowel sounds; abdomen not distended Percussion/Palpation: abdomen soft; abdomen nontender, no guarding, abdomen not rigid and abdomen not firm Skin: no rashes, warm and dry Psychiatric: Orientation: alert Results & Data Vital Signs (Past 12 Hours) Vital Signs Temp Pulse Pulse Resp BP Pulse Ox O2 Del Method 01/28/25 11:00 36.6 C 64 19 140/85 94 Room Air 01/28/25 07:35 36.7 C 69 18 149/87 H 93 Room Air 01/28/25 07:14 69 01/28/25 02:24 36.8 C 66 14 150/82 H 95 Room Air Laboratory Results 01/28/25 Range/Units 06:36 WBC 7.30 (4.8-10.8) K/ul RBC 3.78 L (4.70-6.10) M/uL Hgb 11.4 L (14.0-18.0) g/dl Hct 34.2 L (42.0-52.0) % MCV 90.5 (80.0-100.0) fL MCH 30.2 (25.0-34.0) pg MCHC 33.3 (32.0-36.0) g/dL RDW Std Deviation 46.3 (36.4-46.3) fL RDW Coeff of Praveen 13.9 (11.5-14.5) % Plt Count 219 (130-400) K/uL MPV 9.9 (9.4-12.4) fL Immature Gran % (Auto) 0.4 % Neut % (Auto) 67.5 % Lymph % (Auto) 19.5 % [place] % (Auto) 9.5 % Eos % (Auto) 2.7 % Baso % (Auto) 0.4 % Neut # (Auto) 4.93 (1.40-6.50) K/uL Lymph # (Auto) 1.42 (1.20-3.40) K/uL [place] # (Auto) 0.69 H (0.11-0.59) K/uL Eos # (Auto) 0.20 (0.00-0.50) K/uL Baso # (Auto) 0.03 (0.00-0.20) K/uL Immature Gran # (Auto) 0.03 (0.01-0.20) K/uL Sodium 139 (136-145) mmol/L Potassium 3.9 (3.5-5.1) mmol/L Chloride 106 (98-107) mmol/L Carbon Dioxide 26 (21-32) mmol/L Anion Gap 7 (3-11) BUN 30 H (6-23) mg/dl Creatinine 1.23 (0.6-1.4) mg/dl Est Cr Clr Drug Dosing 47.8 ml/min eGFR 60.84 BUN/Creatinine Ratio 24.4 H (10-20) Glucose 85 (70-99(Fasting)) mg/dl Calcium 8.4 L (8.6-10.3) mg/dl Phosphorus 3.5 (2.5-4.9) mg/dl Magnesium 1.9 (1.7-2.4) mg/dl Total Bilirubin 0.7 (0.2-1.0) mg/dl AST 20 (13-39) U/L ALT 5 L (7-52) U/L Alkaline Phosphatase 72 (34-104) U/L Total Protein 5.8 L (6.0-8.3) gm/dl Albumin 3.3 L (3.4-5.0) gm/dl Globulin 2.5 (2.5-4.0) gm/dl Albumin/Globulin Ratio 1.3 (0.9-2)
--- NOTE | 2025-01-28 15:36 | Hospitalist Progress Note ---
Date of Service January 28, 2025 Assessment & Plan (1) Partial small bowel obstruction: (2) Essential hypertension: (3) Dyslipidemia: Plan Mr Spears 74 y/o male with hx of lung cancer (s/p lobectomy, chemo, and finishing one year of Keytruda), HTN, dyslipidemia, and other history as outlined below who presented to the ED today with abdominal pain, nausea, and vomiting that started overnight. Work-up in the ED revealed normal WBCs at 10.20, normal lactate at 0.7. Creatinine noted to be mildly abnormal at 1.58 but review of outpatient labs from earlier this month reveals creatinine of 1.5 so appears to be around pt's baseline. CT abd/pel revealed a moderate grade partial SBO. ED provider spoke with on-call surgery who advised observation with conservative management. Partial SBO NGT tube removed overnight on 01/26 IVF Surgery following: conservative management -advancing diet as tolerated antiemetics prn Hypomagnesemia Replete with IV mag sulfate continue to replace prn Paroxysmal atrial fibrillation Continue sotalol Echo Holding Eliquis given NGT placement and possible need for procedure Episode of a fib overnight on 01/27 -cardiology consulted: sotalol dose increased Hypertension Chronic, stable - holding lisinopril while NPO, will continue to monitor Dyslipidemia Chronic, stable - holding statin while NPO but will resume once tolerating po Code status: Full code DVT prophylaxis: SCDs for now, resume Eliquis as discussed above (if not able to resume, consider subQ heparin) Admission and Anticipated Discharge Date Admission Date: January 26, 2025 Subjective Pt was seen laying in bed No longer confused today AAOx3 States not yet passing gas or having a BM Attempts made to contact pt's family members listed in the chart ( son and sister) unsuccessful Review of Systems Review of Systems: All systems reviewed & are unremarkable except as noted in Subjective Physical Exam Physical Exam: General: Alert, No acute distress HEENT: NC/AT CV: RRR Resp: Breath sounds clear bilaterally, no increased effort of breathing Abdomen: Soft, nontender Extremities: No edema in lower extremities bilaterally. Results & Data Results & Data Vital Signs (Past 12 Hours) Vital Signs Temp Pulse Pulse Resp BP Pulse Ox O2 Del Method 01/28/25 11:00 36.6 C 64 19 140/85 94 Room Air 01/28/25 07:35 36.7 C 69 18 149/87 H 93 Room Air 01/28/25 07:14 69
[2025-01-29 07:24] LABS: Basophils # (auto) 0.03 K/uL (0.00-0.20); Basophils % (auto) 0.5 %; Eosinophils # (auto) 0.17 K/uL (0.00-0.50); Eosinophils % (auto) 2.7 %; Hemoglobin 10.7 g/dl (14.0-18.0); Immature Granulocytes # (auto) 0.01 K/uL (0.01-0.20); Immature Granulocytes % (auto) 0.2 %; Lymphocytes % (auto) 20.5 %; Mean Corpuscular Hemoglobin 29.7 pg (25.0-34.0); Mean Corpuscular Hgb Conc 33.4 g/dL (32.0-36.0); Mean Corpuscular Volume 88.9 fL (80.0-100.0); Mean Platelet Volume 9.5 fL (9.4-12.4); Monocytes # (auto) 0.63 K/uL (0.11-0.59); Monocytes % (auto) 9.9 %; Neutrophils % (auto) 66.2 %; Platelet Count 215 K/uL (130-400); RDW Coefficient of Variation 13.7 % (11.5-14.5); RDW Standard Deviation 44.5 fL (36.4-46.3); White Blood Count 6.34 K/ul (4.8-10.8)
[2025-01-29 07:50] LABS: Albumin Globulin Ratio 1.2 (0.9-2); BUN Creatinine Ratio 27.7 (10-20); Bilirubin,Total 0.7 mg/dl (0.2-1.0); Calcium 8.2 mg/dl (8.6-10.3); Creatinine Clr Calc Pharmacy 52.5 ml/min; Globulin 2.5 gm/dl (2.5-4.0); Magnesium 1.6 mg/dl (1.7-2.4); Phosphorus 3.6 mg/dl (2.5-4.9); Potassium 3.6 mmol/L (3.5-5.1); Total Protein 5.5 gm/dl (6.0-8.3)
--- NOTE | 2025-01-29 08:46 | Cardiology Progress Note ---
Date of Service January 29, 2025 Assessment & Plan (1) Paroxysmal atrial fibrillation: (2) Essential hypertension: (3) Dyslipidemia: (4) Partial small bowel obstruction: Plan 74-year-old male with complex history as outlined referred for issues as noted. 01/28/2025: 1. Proxysmal A-fib: -History of paroxysmal A-fib. -Converted to NSR at 4:46 am 01/27/25. -Telemetry reviewed: NSR overnight and this morning, HR 70s. -He continues on Sotalol 120 mg BID (increased from 80 mg BID a/o 01/27/25 9pm), last dose 8:20 am. -Eliquis held per surgery d/t concerns for SBO. -Obtained echo, due to h/o lung cancer, treated with Keytruda which may cause cardiomyopathy: Echo 01/27/25 showed concerning findings. LVEF 65-70%. EKG 01/26/25: Afib with RVR. Left axis deviation. EKG 01/27/25: NSR. Left axis deviation. QT >480 Echo 01/27/25: LVEF 65-70%. No concerning findings. EKG 01/28/25: NSR. Left axis deviation. QT 509 HTN: -Lisinopril on hold since 01/25/25 while NPO per hospitalist Dyslipidemia: -Statin on hold since 01/25/25 while NPO per hospitalist SBO: -Surgical follow-up 01/28/25: -no plan for surgical intervention at this time. Plan for conservative management. -Eliquis remains on hold. -Surgery trialing clear liquid diet today. Telemetry reviewed: HR 70s Converted to NSR at 4:46 am 01/27/25. Remains in NSR. BP 130/84, P 63 01/29/2025: 1. Proxysmal A-fib: -History of paroxysmal A-fib. -Converted to NSR at 4:46 am 01/27/25. -Telemetry reviewed: NSR, HR 60s-70s -Echo 01/27/25 showed no concerning findings. LVEF 65-70%. -EKG 01/29/25 shows NSR, QT increased from 509 on 01/28/25 to 519. -Decrease Sotalol to 80 mg BID d/t increased QT on most recent EKG. Last dose 120 mg 01/28/25 8:20 pm. -Eliquis held per surgery d/t concerns for SBO. Resume anticoagulation with Eliquis when cleared by surgery. EKG 01/26/25: Afib with RVR. Left axis deviation. EKG 01/27/25: NSR. Left axis deviation. QT >480 Echo 01/27/25: LVEF 65-70%. No concerning findings. EKG 01/28/25: NSR. Left axis deviation. QT 509 EKG 01/29/25: NSR. Left axis deviation. QT 519 HTN: -Lisinopril on hold since 01/25/25 per primary team. Consider resumption on discharge. Dyslipidemia: -Statin on hold since 01/25/25 per primary team. Consider resumption on discharge. SBO: -Surgical follow-up 01/28/25: -No plan for surgical intervention; conservative management at this time. -Eliquis remains on hold. -Clear liquid diet per surgery - well tolerated Telemetry reviewed: HR 60s-70s. Converted to NSR at 4:46 am 01/27/25. Remains in NSR. BP 148/88, P 67 Cardiology will sign off. Thank you for this consult. Please contact us with any new questions. Case discussed with Dr. Fishman. Further recommendations pending his evaluation and assessment I spent a total of 38 minutes on the date of service in preparation, delivery, and documentation of the care provided to this patient, excluding any time spent in the performance of separately billed services. Kimi Chacko, PAAmandaC Department of Cardiology, [facility] This chart was completed in part utilizing Speech Voice Recognition Software. Grammatical errors, random word insertions, pronoun errors, and incomplete sentences are an occasional consequence of this system due to software limitations, ambient noise, and hardware issues. Any formal questions or concerns about the content, text, or information contained within the body of this dictation should be directly addressed to the provider for clarification. Admission and Anticipated Discharge Date Admission Date: January 26, 2025 Subjective 01/29/25: Patient seen and examined today for follow-up. Offers no acute cardiac complaints, mentation remains significantly improved. Labs, diagnostics, vitals, telemetry, and documentation reviewed. Telemetry shows NSR, HR 60s-70s. Review of Systems Review of Systems: All systems reviewed & are unremarkable except as noted in HPI & below Physical Exam Constitutional: cooperative and comfortable; no acute distress Eyes: PERRL, conjunctivae normal, anicteric sclerae ENMT: external ear and nose normal, oropharynx normal Neck: normal visual inspection and trachea midline Respiratory: normal respiratory effort, lungs clear to auscultation Cardiovascular: RRR, no murmur, no edema Extremities: no edema Skin: no rashes, warm and dry Neurologic: awake Psychiatric: A+Ox3, euthymic affect Results & Data Vital Signs (Past 12 Hours) Vital Signs Temp Pulse Pulse Resp BP Pulse Ox O2 Del Method 01/29/25 08:24 63 01/29/25 07:00 36.6 C 59 L 20 154/88 H 96 Room Air 01/29/25 03:23 36.8 C 61 19 147/89 H 94 Room Air 01/28/25 23:13 36.7 C 66 20 142/83 H 94 Room Air 01/28/25 23:00 69 Laboratory Results Cardiac Enzymes 01/29/25 Range/Units 06:29 AST 18 (13-39) U/L CBC 01/29/25 Range/Units 06:29 WBC 6.34 (4.8-10.8) K/ul RBC 3.60 L (4.70-6.10) M/uL Hgb 10.7 L (14.0-18.0) g/dl Hct 32.0 L (42.0-52.0) % Plt Count 215 (130-400) K/uL Neut # (Auto) 4.20 (1.40-6.50) K/uL Lymph # (Auto) 1.30 (1.20-3.40) K/uL [place] # (Auto) 0.63 H (0.11-0.59) K/uL Eos # (Auto) 0.17 (0.00-0.50) K/uL Baso # (Auto) 0.03 (0.00-0.20) K/uL Comprehensive Metabolic Panel 01/29/25 Range/Units 06:29 Sodium 139 (136-145) mmol/L Potassium 3.6 (3.5-5.1) mmol/L Chloride 104 (98-107) mmol/L Carbon Dioxide 26 (21-32) mmol/L BUN 31 H (6-23) mg/dl Creatinine 1.12 (0.6-1.4) mg/dl Glucose 82 (70-99(Fasting)) mg/dl Calcium 8.2 L (8.6-10.3) mg/dl AST 18 (13-39) U/L ALT 7 (7-52) U/L Alkaline Phosphatase 65 (34-104) U/L Total Protein 5.5 L (6.0-8.3) gm/dl Albumin 3.0 L (3.4-5.0) gm/dl Intake and Output 01/28/25 01/29/25 01/29/25 22:59 06:59 14:59 Intake Total 300 / 740 Balance 300 / 740 Intake: IV 0 / 0 Sodium Chloride 0.9% 1,000 ml @ 0 / 0 125 mls/hr IV .Q8H [facility] Rx#: [id number] Oral 300 / 740 Other: # Unmeasured Voids 1 Weight 67.7 kg Weight Measurement Method Built in [facility] Diagnostic Findings EKG 01/26/25: Afib with RVR. Left axis deviation. EKG 01/27/25: NSR. Left axis deviation. QT >480 Echo 01/27/25: LVEF 65-70%. No concerning findings. EKG 01/28/25: NSR. Left axis deviation. QT 509 EKG 01/29/25: NSR. Left axis deviation. QT 519 Medications Administered Current Inpatient Medications Heparin Sodium (Porcine) (Heparin 100 Unit/Ml 5ml Flush) 5 ml FLUSH PRN PRN PRN Reason: Flush Stop: 02/25/25 02:21 Acetaminophen (Ofirmev) 1,000 mg in 100 mls @ 400 mls/hr IV Q8H PRN PRN Reason: Pain Stop: 01/29/25 08:59 Magnesium Oxide (Magnesium Oxide 400 Mg Tab) 400 mg PO BID [place] Stop: 02/28/25 08:59 Metoprolol Tartrate (Metoprolol Tartrate 1 Mg/Ml Vial) 5 mg IV Q6H PRN PRN Reason: HR > 120 Stop: 02/25/25 21:51 Ondansetron HCl (Ondansetron Inj 2 Mg/Ml 2 Ml Vial) 4 mg IV Q6H PRN PRN Reason: Nausea Stop: 02/24/25 14:53 Last Admin: 01/26/25 08:55 Dose: 4 mg Sotalol HCl (Sotalol Hcl 80 Mg Tab) 120 mg PO BID [facility] Stop: 02/26/25 20:59 Last Admin: 01/28/25 20:19 Dose: 120 mg
[2025-01-29] MEDS: MAGNESIUM OXIDE 400 MG TAB PO SCH (10:13)
[2025-01-29] MEDS: SOTALOL HCL 80 MG TAB PO SCH (10:13)
--- NOTE | 2025-01-29 12:27 | Hospitalist Progress Note ---
Date of Service January 29, 2025 Assessment & Plan (1) Partial small bowel obstruction: (2) Essential hypertension: (3) Dyslipidemia: Plan Mr Spears 74 y/o male with hx of lung cancer (s/p lobectomy, chemo, and finishing one year of Keytruda), HTN, dyslipidemia, and other history as outlined below who presented to the ED today with abdominal pain, nausea, and vomiting that started overnight. Work-up in the ED revealed normal WBCs at 10.20, normal lactate at 0.7. Creatinine noted to be mildly abnormal at 1.58 but review of outpatient labs from earlier this month reveals creatinine of 1.5 so appears to be around pt's baseline. CT abd/pel revealed a moderate grade partial SBO. ED provider spoke with on-call surgery who advised observation with conservative management. Partial SBO NGT tube removed overnight on 01/26 IVF Surgery following: conservative management -advancing diet as tolerated antiemetics prn Hypomagnesemia Replete as needed Paroxysmal atrial fibrillation Continue sotalol Echo Holding Eliquis given NGT placement and possible need for procedure Episode of a fib overnight on 01/27 -cardiology consulted: sotalol dose increased Hypertension Chronic, stable - holding lisinopril while NPO, will continue to monitor Dyslipidemia Chronic, stable - holding statin while NPO but will resume once tolerating po Code status: Full code DVT prophylaxis: SCDs for now, resume Eliquis as discussed above (if not able to resume, consider subQ heparin) Admission and Anticipated Discharge Date Admission Date: January 26, 2025 Subjective pt was seen in the AM States he could not eat the jello, never ate jello Requesting a trial of full liquids Repeat KUB ordered Review of Systems Review of Systems: All systems reviewed & are unremarkable except as noted in Subjective Physical Exam Physical Exam: General: Alert, No acute distress HEENT: NC/AT CV: RRR Resp: Breath sounds clear bilaterally, no increased effort of breathing Abdomen: Soft, nontender Extremities: No edema in lower extremities bilaterally. Results & Data Results & Data Vital Signs (Past 12 Hours) Vital Signs Temp Pulse Pulse Resp BP Pulse Ox O2 Del Method 01/29/25 10:46 36.5 C 67 18 148/94 H 90 Room Air 01/29/25 08:24 63 01/29/25 07:00 36.6 C 59 L 20 154/88 H 96 Room Air 01/29/25 03:23 36.8 C 61 19 147/89 H 94 Room Air
--- NOTE | 2025-01-29 12:42 | Surgery Progress Note ---
Date of Service January 29, 2025 Assessment & Plan (1) Partial small bowel obstruction: Plan: pt tolerating full liquids denies n/v , abd pain + flatus VSS abd soft , non distended continue to advance diet as tolerated pt seen and examined with Dr Leal Admission and Anticipated Discharge Date Admission Date: January 26, 2025 Supervising Physician Co-Signing Physician Notes Patient seen and examined, labs and imaging reviewed, agree with above. On morning rounds the patient was passing gas and tolerating full liquid diet with improvement in his symptoms. Exam was benign. After rounds the KUB was ordered and showed increased distention. Clinically he appears to have resolving small bowel obstruction. Continue full liquids, potentially advance to low fiber tomorrow. Subjective pt denies abd pain , n.v +flatus Review of Systems Gastrointestinal: no abdominal pain, no nausea and no vomiting Physical Exam Gastrointestinal (Abdomen): Inspection/Auscultation: abdomen not distended Percussion/Palpation: abdomen soft; abdomen nontender Results & Data Vital Signs (Past 12 Hours) Vital Signs Temp Pulse Pulse Resp BP Pulse Ox O2 Del Method 01/29/25 10:46 97.7 F 67 18 148/94 H 90 Room Air 01/29/25 08:24 63 01/29/25 07:00 97.9 F 59 L 20 154/88 H 96 Room Air 01/29/25 03:23 98.2 F 61 19 147/89 H 94 Room Air Results CBC w Diff Results: RBC 3.60 M/uL (4.70-6.10) L 01/29/25 WBC 6.34 K/ul (4.8-10.8) 01/29/25 Hgb 10.7 g/dl (14.0-18.0) L 01/29/25 Hct 32.0 % (42.0-52.0) L 01/29/25 MCV 88.9 fL (80.0-100.0) 01/29/25 MCH 29.7 pg (25.0-34.0) 01/29/25 MCHC 33.4 g/dL (32.0-36.0) 01/29/25 RDW Standard Deviation 44.5 fL (36.4-46.3) 01/29/25 RDW Coefficient of Variation 13.7 % (11.5-14.5) 01/29/25 Plt Count 215 K/uL (130-400) 01/29/25 MPV 9.5 fL (9.4-12.4) 01/29/25 Neutrophils (%) (Auto) 66.2 % 01/29/25 Lymphocytes (%) (Auto) 20.5 % 01/29/25 Monocytes # (Auto) 0.63 K/uL (0.11-0.59) H 01/29/25 Eosinophils # (Auto) 0.17 K/uL (0.00-0.50) 01/29/25 Immature Granulocyte % (Auto) 0.2 % 01/29/25 Neutrophils # (Auto) 4.20 K/uL (1.40-6.50) 01/29/25 Lymphocytes # (Auto) 1.30 K/uL (1.20-3.40) 01/29/25 Monocytes # (Auto) 0.63 K/uL (0.11-0.59) H 01/29/25 Eosinophils # (Auto) 0.17 K/uL (0.00-0.50) 01/29/25 Basophils # (Auto) 0.03 K/uL (0.00-0.20) 01/29/25 Immature Granulocyte # (Auto) 0.01 K/uL (0.01-0.20) 5 PG Care Time/CCT Total # of Minutes Spent Total Time Spent with Patient: Total time spent is greater than 50% in coordination of care (as documented) at patient's floor/unit and/or counseling patient: Coding Level of Care Code 11531 SUB INP/OBS CARE 10/24MIN Diagnoses Partial small bowel obstruction K56.600
--- NOTE | 2025-01-29 14:58 | XRay Report ---
KUB HISTORY: Follow-up study in a patient with small bowel obstruction f/u SBO COMPARISON: 01/26/2025 KUB, CT 01/25/2025 FINDINGS: There is progressive gaseous distention of the small bowel compared to the prior studies. S mall bowel loops now measure up to approximately 4.9 cm, previously 3.8 cm. status post removal of th e enteric tube. Layering pleural effusions with bibasilar densities. Partially imaged catheter within the right atrium. No renal calculi. No ureteral calculi. No pneumoperitoneum or pneumatosis. No fra cture. IMPRESSION: Progressively worsening small bowel obstruction with interval removal of the enteric tube. ACT 112: Negative or not required by law. The above report was generated using voice recognition software. It may contain grammatical, syntax o r spelling errors. Electronically signed by: Sarabjit Smith M.D. 01/29/2025 2:57 PM
--- NOTE | 2025-01-29 17:36 | Cardiology Progress Note ---
Date of Service January 29, 2025 Assessment & Plan (1) Paroxysmal atrial fibrillation: (2) Essential hypertension: (3) Dyslipidemia: (4) Partial small bowel obstruction: Plan No further atrial arrhythmias since hospitalization. Initial event likely precipitated by acute illness. Will reduce sotalol back to baseline at 80 mg twice per day given QT prolongation on EKG this morning. Recommend resuming Eliquis when surgically stable. Resume lisinopril on discharge Admission and Anticipated Discharge Date Admission Date: January 26, 2025 Subjective Patient seen and examined. Taking clear liquids without abdominal pain no bowel meant but flatulence present. No further arrhythmias. No chest pains or shortness of breath. Oriented Review of Systems Review of Systems: All systems reviewed & are unremarkable except as noted in Subjective Physical Exam Constitutional: no acute distress Eyes: PERRL, conjunctivae normal, anicteric sclerae ENMT: external ear and nose normal, oropharynx normal Neck: trachea midline, no thyromegaly Respiratory: normal respiratory effort, lungs clear to auscultation Cardiovascular: Rate/Rhythm: regular rate and regular rhythm Vessels: no JVD Gastrointestinal (Abdomen): normal bowel sounds, soft, nontender, no hepatosplenomegaly Psychiatric: Insight: + poor insight Results & Data Vital Signs (Past 12 Hours) Vital Signs Temp Pulse Pulse Resp BP Pulse Ox O2 Del Method 01/29/25 15:25 69 01/29/25 10:46 36.5 C 67 18 148/94 H 90 Room Air 01/29/25 08:24 63 01/29/25 07:00 36.6 C 59 L 20 154/88 H 96 Room Air Laboratory Results Laboratory Results - last 24 hr 01/29/25 06:29 WBC 6.34 RBC 3.60 L Hgb 10.7 L Hct 32.0 L MCV 88.9 MCH 29.7 MCHC 33.4 RDW Std Deviation 44.5 RDW Coeff of Praveen 13.7 Plt Count 215 MPV 9.5 Immature Gran % (Auto) 0.2 Neut % (Auto) 66.2 Lymph % (Auto) 20.5 Pope % (Auto) 9.9 Eos % (Auto) 2.7 Baso % (Auto) 0.5 Neut # (Auto) 4.20 Lymph # (Auto) 1.30 Pope # (Auto) 0.63 H Eos # (Auto) 0.17 Baso # (Auto) 0.03 Immature Gran # (Auto) 0.01 Sodium 139 Potassium 3.6 Chloride 104 Carbon Dioxide 26 Anion Gap 9 BUN 31 H Creatinine 1.12 Est Cr Clr Drug Dosing 52.5 eGFR 68.08 BUN/Creatinine Ratio 27.7 H Glucose 82 Calcium 8.2 L Phosphorus 3.6 Magnesium 1.6 L Total Bilirubin 0.7 AST 18 ALT 7 Alkaline Phosphatase 65 Total Protein 5.5 L Albumin 3.0 L Globulin 2.5 Albumin/Globulin Ratio 1.2
--- NOTE | 2025-01-30 00:18 | Electrocardiogram Report ---
Test Reason : Blood Pressure : */* mmHG Vent. Rate : 64 BPM Atrial Rate : 64 BPM P-R Int : 176 ms QRS Dur : 92 ms QT Int : 504 ms P-R-T Axes : 34 -38 -11 degrees QTcB Int : 519 ms Normal sinus rhythm Left axis deviation Prolonged QT Nonspecific T wave abnormality Abnormal ECG When compared with ECG of 28-Jan-2025 08:59, (unconfirmed) No significant change was found Confirmed by Delfino Betancourt ([id number]) on 01/30/2025 12:18:41 AM Referred By: REFERRED SELF Confirmed By: Delfino Betancourt
--- NOTE | 2025-01-30 05:59 | Surgery Progress Note ---
Date of Service January 30, 2025 Assessment & Plan (1) Partial small bowel obstruction: Plan: Tolerating full liquids without issues of worsening abdominal pain, N/V. Passing gas and having BMs VSS and afebrile Will advance to low fiber diet this morning Admission and Anticipated Discharge Date Admission Date: January 26, 2025 Supervising Physician Co-Signing Physician Notes Patient seen examined, labs reviewed, agree with above. Admitted with small bowel obstruction, now resolved. He has passed gas and had bowel movements. He tolerated full liquids and has been advance to low fiber diet. Abdomen is soft, nondistended. He tolerates low fiber he may be discharged today or tomorrow. Surgery will follow peripherally, call with questions or concerns. Subjective Patient seen this morning. Denies any abdominal pain, N/V Tolerating full liquids, passing gas and has had a BM Physical Exam Constitutional: WD/WN, vitals as above Respiratory: normal respiratory effort, lungs clear to auscultation Cardiovascular: Rate/Rhythm: regular rate Gastrointestinal (Abdomen): Abdomen soft, nondistended, nontender. No rebound or guarding Skin: no rashes, warm and dry Results & Data Vital Signs (Past 12 Hours) Vital Signs Temp Pulse Pulse Resp BP BP Pulse Ox 01/30/25 03:32 36.5 C 60 20 139/85 96 01/29/25 23:05 36.6 C 65 18 129/81 92 01/29/25 23:00 64 01/29/25 19:54 36.5 C 70 19 123/81 87 L O2 Del Method 01/30/25 03:32 Room Air 01/29/25 23:05 Room Air 01/29/25 23:00 01/29/25 19:54 Room Air PG Care Time/CCT Total # of Minutes Spent Total Time Spent with Patient: Total time spent is greater than 50% in coordination of care (as documented) at patient's floor/unit and/or counseling patient: [place] [address] SUB INP/OBS CARE 10/24MIN Patient Type Established Medical Decision Making Straight Forward Diagnoses Partial small bowel obstruction K56.600
[2025-01-30 07:39] LABS: Basophils # (auto) 0.03 K/uL (0.00-0.20); Basophils % (auto) 0.5 %; Eosinophils # (auto) 0.19 K/uL (0.00-0.50); Eosinophils % (auto) 2.9 %; Hematocrit (blood only) 34.8 % (42.0-52.0); Immature Granulocytes # (auto) 0.02 K/uL (0.01-0.20); Immature Granulocytes % (auto) 0.3 %; Lymphocytes # (auto) 1.28 K/uL (1.20-3.40); Lymphocytes % (auto) 19.7 %; Mean Corpuscular Hemoglobin 30.4 pg (25.0-34.0); Mean Corpuscular Hgb Conc 34.5 g/dL (32.0-36.0); Mean Corpuscular Volume 88.1 fL (80.0-100.0); Mean Platelet Volume 10.1 fL (9.4-12.4); Monocytes # (auto) 0.61 K/uL (0.11-0.59); Monocytes % (auto) 9.4 %; Neutrophils # (auto) 4.38 K/uL (1.40-6.50); Neutrophils % (auto) 67.2 %; Platelet Count 234 K/uL (130-400); RDW Coefficient of Variation 13.6 % (11.5-14.5); RDW Standard Deviation 43.9 fL (36.4-46.3); Red Blood Count 3.95 M/uL (4.70-6.10); White Blood Count 6.51 K/ul (4.8-10.8)
[2025-01-30 07:48] LABS: Albumin Globulin Ratio 1.3 (0.9-2); Albumin Level 3.2 gm/dl (3.4-5.0); BUN Creatinine Ratio 24.4 (10-20); Bilirubin,Total 0.5 mg/dl (0.2-1.0); Calcium 8.4 mg/dl (8.6-10.3); Creatinine Clr Calc Pharmacy 47.8 ml/min; Globulin 2.5 gm/dl (2.5-4.0); Magnesium 1.7 mg/dl (1.7-2.4); Phosphorus 3.6 mg/dl (2.5-4.9); Potassium 3.8 mmol/L (3.5-5.1); Total Protein 5.7 gm/dl (6.0-8.3)
[2025-01-30] MEDS: HEPARIN 100 UNIT/ML 5ML FLUSH FLUSH PRN (09:39)
--- NOTE | 2025-01-30 15:01 | Electrocardiogram Report ---
Test Reason : Blood Pressure : */* mmHG Vent. Rate : 67 BPM Atrial Rate : 67 BPM P-R Int : 174 ms QRS Dur : 94 ms QT Int : 482 ms P-R-T Axes : 30 -40 -25 degrees QTcB Int : 509 ms Normal sinus rhythm Left axis deviation Prolonged QT Abnormal ECG When compared with ECG of 27-Jan-2025 09:06, Nonspecific T wave abnormality has replaced inverted T waves in Anterior leads Confirmed by Sweetie Peralta (Federico) on 01/30/2025 3:00:48 PM Referred By: REFERRED SELF Confirmed By: Sweetie Peralta
--- NOTE | 2025-01-30 16:05 | Hospitalist Progress Note ---
Date of Service January 30, 2025 Assessment & Plan (1) Partial small bowel obstruction: (2) Essential hypertension: (3) Dyslipidemia: Plan Mr Spears 74 y/o male with hx of lung cancer (s/p lobectomy, chemo, and finishing one year of Keytruda), HTN, dyslipidemia, and other history as outlined below who presented to the ED today with abdominal pain, nausea, and vomiting that started overnight. Work-up in the ED revealed normal WBCs at 10.20, normal lactate at 0.7. Creatinine noted to be mildly abnormal at 1.58 but review of outpatient labs from earlier this month reveals creatinine of 1.5 so appears to be around pt's baseline. CT abd/pelvis revealed a moderate grade partial SBO. ED provider spoke with on-call surgery who advised observation with conservative management. Partial SBO NGT tube removed overnight on 01/26 Surgery following: conservative management -advancing diet as tolerated antiemetics prn Hypomagnesemia Replete as needed Paroxysmal atrial fibrillation Continue sotalol Echo Holding Eliquis given NGT placement and possible need for procedure Episode of a fib overnight on 01/27 -cardiology consulted: sotalol dose increased and later decreased back down to 80mg BID with qtc prolongation Surgery indicating pt can be discharged if he tolerates the low fiber diet today, no indications of surgery at this time- Eliquis resumed Hypertension Chronic, stable - holding lisinopril, per cards resume on dc Dyslipidemia Chronic, stable Code status: Full code DVT prophylaxis: SCDs for now, resume Eliquis as discussed above (if not able to resume, consider subQ heparin) Admission and Anticipated Discharge Date Admission Date: January 26, 2025 Subjective Pt with multiple BMs, passing gas AAOx3 Review of Systems Review of Systems: All systems reviewed & are unremarkable except as noted in Subjective Physical Exam Physical Exam: General: Alert, No acute distress HEENT: NC/AT CV: RRR Resp: Breath sounds clear bilaterally, no increased effort of breathing Abdomen: Soft, nontender Extremities: No edema in lower extremities bilaterally. Results & Data Results & Data Vital Signs (Past 12 Hours) Vital Signs Temp Pulse Resp BP BP Pulse Ox O2 Del Method 01/30/25 10:52 36.5 C 82 18 169/84 H 97 Room Air 01/30/25 07:00 36.7 C 83 16 170/94 H 91 Room Air 01/30/25 03:32 36.5 C 60 20 139/85 96 Room Air
[2025-01-30] MEDS: APIXABAN 5 MG TABLET PO SCH (21:14)
[2025-01-30] MEDS: ATORVASTATIN 20 MG TAB PO SCH (21:14)
[2025-01-31 04:47] VITALS: RESP 16
[2025-01-31] MEDS: lisinopril 10 MG TAB PO SCH (09:01)
[2025-01-31] MEDS: MULTIVITAMIN TAB PO SCH (09:02)
[2025-01-31] MEDS: FOLIC ACID 1 MG TAB PO SCH (09:04)
[2025-01-31 09:18] LABS: Basophils # (auto) 0.04 K/uL (0.00-0.20); Basophils % (auto) 0.5 %; Eosinophils # (auto) 0.13 K/uL (0.00-0.50); Eosinophils % (auto) 1.7 %; Hematocrit (blood only) 35.4 % (42.0-52.0); Immature Granulocytes # (auto) 0.03 K/uL (0.01-0.20); Immature Granulocytes % (auto) 0.4 %; Lymphocytes # (auto) 1.17 K/uL (1.20-3.40); Lymphocytes % (auto) 15.1 %; Mean Corpuscular Hemoglobin 29.9 pg (25.0-34.0); Mean Corpuscular Hgb Conc 33.9 g/dL (32.0-36.0); Mean Corpuscular Volume 88.3 fL (80.0-100.0); Mean Platelet Volume 9.4 fL (9.4-12.4); Monocytes # (auto) 0.59 K/uL (0.11-0.59); Monocytes % (auto) 7.6 %; Neutrophils # (auto) 5.77 K/uL (1.40-6.50); Neutrophils % (auto) 74.7 %; Platelet Count 243 K/uL (130-400); RDW Coefficient of Variation 13.7 % (11.5-14.5); RDW Standard Deviation 44.2 fL (36.4-46.3); Red Blood Count 4.01 M/uL (4.70-6.10); White Blood Count 7.73 K/ul (4.8-10.8)
[2025-01-31 09:34] LABS: Albumin Globulin Ratio 1.2 (0.9-2); Albumin Level 3.2 gm/dl (3.4-5.0); BUN Creatinine Ratio 21.7 (10-20); Bilirubin,Total 0.5 mg/dl (0.2-1.0); Calcium 8.1 mg/dl (8.6-10.3); Creatinine Clr Calc Pharmacy 45.5 ml/min; Globulin 2.7 gm/dl (2.5-4.0); Magnesium 1.7 mg/dl (1.7-2.4); Phosphorus 3.1 mg/dl (2.5-4.9); Total Protein 5.9 gm/dl (6.0-8.3)
[2025-01-31 11:20] VITALS: TEMP 98.1; O2SAT 95
--- NOTE | 2025-01-31 12:16 | Discharge Summary ---
Discharge Summary Date of Service January 31, 2025 Principal Dx & Hospital Course #1 = Principal Diagnosis (1) Partial small bowel obstruction: (2) Essential hypertension: (3) Dyslipidemia: Plan Mr Spears 74 y/o male with hx of lung cancer (s/p lobectomy, chemo, and finishing one year of Keytruda), HTN, dyslipidemia, and other history as outlined below who presented to the ED today with abdominal pain, nausea, and vomiting that started overnight. Work-up in the ED revealed normal WBCs at 10.20, normal lactate at 0.7. Creatinine noted to be mildly abnormal at 1.58 but review of outpatient labs from earlier this month reveals creatinine of 1.5 so appears to be around pt's baseline. CT abd/pelvis revealed a moderate grade partial SBO. ED provider spoke with on-call surgery who advised observation with conservative management. Partial SBO CT abd/pelvis on admission suggestive of partial small bowel obstruction Pt with NG tube placement on admission NGT tube removed overnight on 01/26 Surgery following: recommended conservative management, diet advancement. Per Dr Leal the day prior to discharge: "...Admitted with small bowel obstruction, now resolved. He has passed gas and had bowel movements. He tolerated full liquids and has been advance to low fiber diet. Abdomen is soft, nondistended. He tolerates low fiber he may be discharged today or tomorrow..." On the day of discharge pt had another bowel movement, tolerating low fiber diet without issue. Discharge instructions provided with information requested by his son. Close PCP followup after discharge Hypomagnesemia Repleted as needed Paroxysmal atrial fibrillation Continue sotalol 80mg BID Echo with Grade 1 diastolic dysfunction, EF 65-70% Episode of a fib overnight on 01/27 -cardiology consulted: sotalol dose increased and later decreased back down to 80mg BID with qtc prolongation Eliquis resumed Hypertension Chronic, stable continue lisinopril Dyslipidemia Chronic, stable Notes For Next Care Provider As above Medication Changes From Visit None Admission HPI Per Admitting Provider This is a 74 y/o male with hx of lung cancer (s/p lobectomy, chemo, and finishing one year of Keytruda), HTN, dyslipidemia, and other history as outlined below who presented to the ED today with abdominal pain, nausea, and vomiting that started overnight. Pt reports that he was in his usual state of health yesterday. Ate dinner last evening of leftover roast beef and macaroni and cheese; shortly after eating, he developed upper abdominal discomfort, bloating, and nausea. He describes a sensation of feeling like "everything backed up" and the pressure caused significant discomfort in his chest and abdomen. Around midnight, he had a large episode of emesis which relieved some of the bloating and discomfort. However, this morning he had persistent discomfort and nausea so came to the ED for evaluation. His bowel pattern the last few days has been normal for him - he does take Miralax daily (last dose yesterday). He tried taking a laxative pill last evening after the symptoms started but no relief, no defecation since symptoms developed. Urine output is decreased - urine this AM is dark, denies dysuria or hematuria. Denies fevers, chills, sweats. In the ED, he received Zofran which has helped the nausea. Notes generalized malaise and fatigue. Abdominal discomfort is tolerable at present. No similar symptoms prior. Denies chest pain, palpitation, dyspnea, dizziness, syncope. Has not taken any of his medications today. Admission Exam Per Admitting Provider General: awake, alert, NAD HEENT: no scleral icterus, slightly dry oral mucosa Neck: supple, trachea midline Heart: RRR, +port site right chest Lungs: CTA bilaterally on the anterior Abdomen: soft, +BS, mild diffuse upper abdominal tenderness but no guarding or rebound Skin: warm, dry, no jaundice or rash Extremities: no pedal edema; distal pulses intact and equal Neurologic: Ox3, moving all extremities, no focal deficits, no confusion or dysarthria Discharge Exam General: Alert, No acute distress HEENT: NC/AT CV: RRR Resp: Breath sounds clear bilaterally, no increased effort of breathing Abdomen: Soft, nontender Extremities: No edema in lower extremities bilaterally. Updated Medication List Medication Instructions Recorded Confirmed Type atorvastatin 20 mg tablet 20 mg PO QPM 11/03/21 01/25/25 History lisinopril 10 mg tablet 10 mg PO DAILY 11/03/21 01/25/25 History multivitamin 1 tab PO QAM 01/04/22 01/25/25 History apixaban 5 mg tablet 5 mg PO BID 01/25/25 01/25/25 History folic acid 1 mg tablet 1 mg PO DAILY 01/25/25 01/25/25 History polyethylene glycol 3350 17 17 g PO DAILY 01/25/25 01/25/25 History gram/dose oral powder sotalol 80 mg tablet 80 mg PO BID 01/25/25 01/25/25 History Hospital Stay Data Consultations 01/25/25 10:35 ED Decision to Admit Stat 01/25/25 11:17 Consult General Surgery Routine 01/27/25 08:00 Consult Cardiology Routine Diagnostic Imagining Performed 01/25/25 08:34 CT abd pelvis wo con Stat Chest X-Ray 01/25/25 08:00 XR chest 1V portable CLINICAL HISTORY: Abdominal pain, nausea and vomiting. COMPARISON STUDY: Chest radiograph May 30, 2018. FINDINGS: Right internal jugular [id number] is in place. Right lung volume loss. There is cardiomegaly with pulmonary vascular congestion. Small right and trace left pleural effusions are present. Right apical pleural opacity is present. Hazy bibasilar opacities are noted. Several nodular densities within the right lung measure up to 8 mm. There is underlying emphysema. IMPRESSION: 1. Cardiomegaly with pulmonary vascular congestion. 2. Small right and trace left pleural effusions. Asymmetric right lung volume loss with right apical pleural thickening/fluid. Associated bibasilar opacities favor atelectasis although pneumonia could appear similar. 3. Several indeterminate nodular densities within the right lung which measure up to 8 mm. Radiographic follow-up to ensure resolution is recommended. ACT 112: Negative or not required by law. Electronically signed by: Lazaro Tafoya M.D. 01/25/2025 8:23 AM Abdomen/Pelvis CT 01/25/25 08:34 CT OF THE ABDOMEN AND PELVIS WITHOUT CONTRAST CLINICAL HISTORY: Abdominal pain, nausea and vomiting. COMPARISON STUDY: CT of the abdomen and pelvis December 10, 2022. TECHNIQUE: Axial images of the abdomen and pelvis were obtained without IV contrast. Images were reviewed in the axial, sagittal, and coronal planes. Automated exposure control was utilized for the study. A dose lowering technique was utilized adhering to the principles of ALARA. FINDINGS: A hiatal hernia is present. Postoperative findings within the right lung are partially imaged. Small right and trace left pleural effusions are noted. Right-sided pleural thickening is present. This is a nonspecific finding. No pneumatosis, free air or portal venous gas is present. Evaluation of the abdomen and pelvis is suboptimal on this unenhanced exam. A 1.6 cm left hepatic lobe cyst is unchanged. Spleen, adrenal glands, kidneys and pancreas are unremarkable. There is no hydronephrosis. Colonic diverticulosis is present. There is no evidence for acute diverticulitis. A small amount of fluid within the pelvis is present. The proximal to mid small bowel is mildly dilated and fluid-filled. Transition point within the right mid abdomen on image 204 is noted. Distal small bowel is decompressed. An additional transition point may also be present. There is associated mesenteric stranding. The appendix is normal. There is no lymphadenopathy. There are no fluid collections within the abdomen or pelvis. IMPRESSION: 1. Findings consistent with a moderate grade partial small bowel obstruction, as described above. Small amount of associated ascites and mesenteric stranding. 2. Small right pleural effusion with nonspecific pleural thickening. Partially visualized postoperative findings within the right lung. 3. Trace left pleural effusion. ACT 112: Negative or not required by law. Electronically signed by: Lazaro Tafoya M.D. 01/25/2025 9:44 AM KUB X-Ray 01/26/25 09:14 KUB CLINICAL HISTORY: NG placement COMPARISON STUDY: CT of the abdomen and pelvis January 25, 2025. FINDINGS: Tip of nasogastric tube projects over the gastric cardia. The tube could be advanced an additional 4 cm. Multiple loops of dilated small bowel are again noted. Small right and trace left pleural effusions are present. [id number] is partially imaged. IMPRESSION: 1. Tip of nasogastric tube projects over the gastric cardia. The tube could be advanced an additional 4 cm. 2. Redemonstration of small bowel dilatation suggestive of a persistent small bowel obstruction. ACT 112: Negative or not required by law. Electronically signed by: Lazaro Tafoya M.D. 01/26/2025 9:37 AM KUB X-Ray 01/29/25 13:34 KUB HISTORY: Follow-up study in a patient with small bowel obstruction f/u SBO COMPARISON: 01/26/2025 KUB, CT 01/25/2025 FINDINGS: There is progressive gaseous distention of the small bowel compared to the prior studies. Small bowel loops now measure up to approximately 4.9 cm, previously 3.8 cm. status post removal of the enteric tube. Layering pleural effusions with bibasilar densities. Partially imaged catheter within the right atrium. No renal calculi. No ureteral calculi. No pneumoperitoneum or pneumatosis. No fracture. IMPRESSION: Progressively worsening small bowel obstruction with interval removal of the enteric tube. ACT 112: Negative or not required by law. The above report was generated using voice recognition software. It may contain grammatical, syntax or spelling errors. Electronically signed by: Sarabjit Smith M.D. 01/29/2025 2:57 PM Pending Results Patient Have Any Pending Studies at Discharge: No Discharge Instructions Given to Patient (Per Discharging Provider) Mr. Spears You were admitted and treated for a small bowel obstruction. You were seen by the General Surgeon who recommended conservative treatment (no surgery) and once you started passing gas and having bowel movements we advanced your diet. You tolerated that well. Please keep an eye on things at home and should you notice that you stop having bowel movements or passing gas after a few days, please let your primary care provider know. We included some handouts for you. You were also seen by the type rolling machine operator who recommended you continue with your home sotalol and Eliquis. Please keep close follow up with your primary care provider on February 04 and your specialists after discharge. Please do not hesitate to come back to the emergency room if your symptoms worsen or return. It was a pleasure taking care of you while you were here. Total Time Total Time Spent Total Time Spent (In Minutes): 60
[2025-01-31 12:20] VITALS: BP 139/85; PULSE 72
== END 2025-01-31 12:44 | disposition home or self-care (01) | DRG 390 ==
LOC: ED 07:41 → 3W 07:41 → SUATTDRO 11:17 → 3W 14:09 → 3N 01-26 09:14 → SUATTDRO 01-26 11:51 → 2S 01-26 21:43